=== PATIENT | female | born 1935 | race Caucasian/White ===

== ENCOUNTER 2018-07-24 01:10 | Inpatient (IN) ==
[2018-07-24] MEDS ORDERED: MIDAZOLAM HCL 1 MG/ML 2ML VIAL ONE (01:14)
[2018-07-24] MEDS ORDERED: MIDAZOLAM HCL 5 MG/ML 1 ML VIAL IV STA (01:35)
[2018-07-24 02:01] LABS: Basophils # (auto) 0.01 K/uL (0-0.2); Basophils % (auto) 0.1 %; Eosinophils # (auto) 0.01 K/uL (0-0.5); Eosinophils % (auto) 0.1 %; Hemoglobin 12.7 g/dL (12.0-16.0); Immature Granulocytes # (auto) 0.03 K/uL (0.00-0.02); Immature Granulocytes % (auto) 0.2 %; Lymphocytes # (auto) 1.21 K/uL (1.2-3.4); Mean Corpuscular Hgb Conc 32.6 g/dL (32-36); Mean Corpuscular Volume 93.3 fL (80-100); Mean Platelet Volume 10.1 fL (7.4-10.4); Monocytes # (auto) 0.66 K/uL (0.11-0.59); Monocytes % (auto) 5.5 %; Neutrophils # (auto) 10.18 K/uL (1.4-6.5); Neutrophils % (auto) 84.1 %; Platelet Count 186 K/uL (130-400); RDW Coefficient of Variation 14.4 % (11.5-14.5); RDW Standard Deviation 49.1 fL (36.4-46.3); Red Blood Count 4.18 M/uL (4.2-5.4)
[2018-07-24 02:09] LABS: Albumin Level 3.7 gm/dl (3.4-5.0); BUN Creatinine Ratio 15.2 (10-20); Calcium 8.8 mg/dl (8.5-10.1); Creatinine Clr Calc Pharmacy 28.5 ml/min; Est GFR (African American) 31.1; Est GFR (Non-African American) 26.8; Potassium 4.2 mmol/L (3.5-5.1)
[2018-07-24 02:18] LABS: INR 1.4 (0.9-1.1); Partial Thromboplastin Ratio 1.2; Partial Thromboplastin Time 31.3 Seconds (21.0-31.0)
[2018-07-24] MEDS ORDERED: SODIUM CHLORIDE 0.9% 1000ML 500 ML IV ONE (02:20)
[2018-07-24 02:31] LABS: Albumin Globulin Ratio 0.9 (0.9-2); Bilirubin,Total 0.7 mg/dl (0.2-1); Globulin 4.3 gm/dl (2.5-4.0); Troponin I 0.088 ng/ml (0-0.045)
[2018-07-24] MEDS ORDERED: AMIODARONE / D5W 360 MG/200 ML BAG IV SCH ×2 (04:01)
[2018-07-24] MEDS ORDERED: AMIODARONE / D5W 150 MG/100 ML BAG IV STA (04:01)
[2018-07-24] MEDS ORDERED: AMIODARONE IV BOLUS / DRIP IV STA (04:01)
[2018-07-24] MEDS ORDERED: SODIUM CHLORIDE 0.9% 1000ML 1,000 ML IV SCH (04:01)
--- NOTE | 2018-07-24 04:32 | History & Physical Report ---
Addendum entered and electronically signed by Abiel Fontenot MD 07/24/18 04:38 : Addendum (Blank) Addendum July 24, 2018 To clarify, patient was noted to be in afib via EMS. She was in V tach in the ED, thus cardioverted. She is presently in NSR with some occasional PVCs and bigeminy post-cardioversion. JDH, PGY2 Original Note: Date of Service July 24, 2018 Assessment & Plan (1) Ventricular tachycardia: 82-year-old female was admitted on 24 July 2018 for V. tach, NSTEMI, and rectal bleeding. Ventricular tachycardia and NSTEMI: Per ED reports, patient was additionally in A. fib with RVR, rate 160. Some transient hypotension so received IVF in route. She was given Versed and cardioverted. Admit K 4.2. Initial TnI 0.088. BNP 3840. pCXR notable for cardiomegaly and pulmonary vascular congestion (official read pending). - Will start on amiodarone. - Admit to ICU for cardiac monitoring. - Consulted wire tinner and editor newspaper. Rectal bleeding: Patient is s/p colonoscopy 1:45 on afternoon of for rectal bleeding and hemorrhoids via Dr. Neumann. 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 Pathology sent. Was recommended to be off of Coumadin for 1 week. - We will place inpatient GI consult as well, particularly for anticoagulation recommendations. Elevated creatinine: Admit Cr 1.74. BUN 26. See recent renal ultrasound report. Per son, patient recently had her home Lasix dose increased. Some current elevation likely due to n.p.o. from colonoscopy. Ongoing medical history: - A. fib: At home is on metoprolol and warfarin. --- Holding Coumadin following above colonoscopy. - Hypertension: At home is on metoprolol, lisinopril, and lasix. --- Will hold Lisinopril and Lasix given elevated Cr. May still need diuresis given extremity edema. - Hyperlipidemia: At home is on simvastatin. --- Held acutely due to interaction with amiodarone. May need statin dose adjustment. - Depression: At home is on buspirone, lorazepam, and fluoxetine. Continue here. - Diabetes type 2: At home is on insulin. Will order glycemic consult. - Hypothyroidism: At home is on levothyroxine. Continue here. - Insomnia: At home is on trazodone and melatonin. --- Held both since going to ICU. - GERD: At home is on Prilosec and Tums. Continue here. 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 - Bilateral lower extremity edema: Unclear at this time if patient has CHF. Code status: Full code. Diet: Regular diet starting the morning DVT prophy: SCD�s. Holding medication anticoagulation status post colonoscopy as above. PT/OT: Ordered. By report, walks with a cane at home. Disbo: Critically ill. Admit to ICU. (2) Non-ST elevation [place] (NSTEMI): (3) Rectal bleeding: (4) Elevated serum creatinine: (5) Atrial fibrillation: (6) Hypertension: (7) Hyperlipidemia: (8) Depression: (9) Diabetes: (10) Hypothyroidism: (11) Insomnia: (12) GERD (gastroesophageal reflux disease): (13) CVA (cerebral vascular accident): (14) Bilateral lower extremity edema: History of Present Illness Primary Care Provider: Delon Carrillo 82-year-old female was brought in via EMS for concerns for an arrhythmia. Of note, at the time of this H&P the patient was status post cardioversion and still remains somewhat sedated. The following is based on the medical record and the patient's son at bedside. Patient underwent colonoscopy yesterday () around 1:45 PM for evaluation for rectal bleeding. She went home and later that evening said she was not feeling well to include nausea, vomiting, respiratory difficulty. EMS noted patient was in A. fib with RVR with some hypotension to SBP 90�s. On arrival patient went into V. tach. She was cardioverted by the emergency department. On bedside discussion with the patient's son, patient was quite lucid earlier in the evening to include arguing against going to the hospital initially. She is not complaining of chest symptoms prior to her more acute onset of symptoms as above. - As some background, patient underwent a recent renal ultrasound for further evaluation of reported mild elevation in her creatinine. Her son says that she recently had been increased from Lasix 3 times a week up to daily by her primary care provider. - Patient has a history of bilateral lower extremity edema. It is unclear if she has a history of CHF. She follows with Dr. Cherry of cardiology as an outpatient. 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 Per son, she has some movement of her arm but has no dexterity and she can walk with a cane. - Patient has a known history of A. fib and normally is on metoprolol and warfarin. However, she has been off warfarin for the past 3 days in preparation for colonoscopy. Past medical history includes stroke, A. fib, hypertension, hyperlipidemia, depression, type 2 diabetes, hypothyroidism, GERD, bilateral lower extremity edema. Past surgical history includes heart valve replacement in 1998, cataracts, upper teeth extraction. Social history includes non-smoker, does not drink alcohol, and lives at home with 24-hour care. Allergies Allergy/AdvReac Type Severity Reaction Status Date / Time No Known Allergies Allergy Unknown Verified 07/24/18 01:43 Home Medications Home Medications Medication Instructions Recorded Confirmed Type Bifidobacterium infantis [Align] 1 cap PO QPM 06/26/18 07/24/18 History acetaminophen [Acetaminophen Extra 1,000 mg PO HS 06/26/18 07/24/18 History Strength] buspirone 2.5 mg PO BID 06/26/18 07/24/18 History calcium carbonate [Tums] 300 mg PO HS 06/26/18 07/24/18 History cholecalciferol (vitamin D3) 2,000 unit PO QAM 06/26/18 07/24/18 History [Vitamin D3] coenzyme Q10 [CoQ-10] 100 mg PO QPM 06/26/18 07/24/18 History docusate sodium 100 mg PO QAM 06/26/18 07/24/18 History ferrous sulfate, dried [Slow 160 mg PO QAM 06/26/18 07/24/18 History Release Iron] fluoxetine 40 mg PO QAM 06/26/18 07/24/18 History furosemide [Lasix] 20 mg PO QAM 06/26/18 07/24/18 History insulin glargine [Lantus Solostar 50 unit SUBCUT QPM 06/26/18 07/24/18 History U-100 Insulin] insulin lispro [Humalog KwikPen 1 dose SUBCUT QPM 06/26/18 07/24/18 History Insulin] levothyroxine 25 mcg PO QPM 06/26/18 07/24/18 History lisinopril 20 mg PO QPM 06/26/18 07/24/18 History loratadine 10 mg PO HS 06/26/18 07/24/18 History lorazepam 0.5 mg PO HS 06/26/18 07/24/18 History melatonin 5 mg PO HS 06/26/18 07/24/18 History metoprolol succinate 25 mg PO QAM 06/26/18 07/24/18 History omeprazole magnesium [Prilosec OTC] 20 mg PO QAM 06/26/18 07/24/18 History simvastatin 40 mg PO PM 06/26/18 07/24/18 History trazodone 25 mg PO HS 06/26/18 07/24/18 History turmeric 1 cap PO QPM 06/26/18 07/24/18 History warfarin 2.5 mg PO 4XWK 06/26/18 07/24/18 History warfarin 5 mg PO 3XWK 06/26/18 07/24/18 History Past Med/Surg History Social History Current Living Situation: Other Current Living Situation Comment: Pt lives alone with 24 hr caregivers Other Information That Helps Us Care for You: No Feels Safe at Home: Yes Safety Concerns: Feels Safe At This Time Smoking Status: Never smoker Do You Dip or Chew Tobacco: No Hx Alcohol Use: No Hx Substance Use: No Beliefs That Will Affect Care: None Communication Ability: Effective Review of Systems Unable to obtain review of systems due to patient's postprocedural sedation. Physical Exam 2 Vital Signs (Past 24 Hours): Last Vital Signs Temp 36.5 C 07/24/18 01:10 Pulse 68 07/24/18 04:11 Resp 21 07/24/18 02:00 BP 129/85 07/24/18 04:11 Pulse Ox 96 07/24/18 04:11 Physical Exam: GENERAL: Patient is presently resting comfortably. She does briefly open her eyes on palpation of her abdomen but then quickly goes back to sleep. HENT: Normocephalic, atraumatic. EYES: Normal conjunctiva. Sclera non-icteric. NECK: Inspection normal. CARDIAC: +S1S2 RRR, no murmurs. RESPIRATORY: Clear to auscultation. No wheezes or rales. Normal respiratory effort. GI: +BS, soft, non-distended. No guarding. EXTREMITIES: 2-3+ bilateral leg edema distally. NEURO: Unable to acutely assess. See HPI. Lines: PIV. Results & Data Laboratory Results 07/24/18 07/24/18 07/24/18 Range/Units 01:20 01:20 01:20 WBC 12.10 H (4.8-10.8) K/uL RBC 4.18 L (4.2-5.4) M/uL Hgb 12.7 (12.0-16.0) g/dL Hct 39.0 (37-47) % MCV 93.3 (80-100) fL MCH 30.4 (25-34) pg MCHC 32.6 (32-36) g/dL RDW Std Deviation 49.1 H (36.4-46.3) fL RDW Coeff of Venita 14.4 (11.5-14.5) % Plt Count 186 (130-400) K/uL MPV 10.1 (7.4-10.4) fL Immature Gran % (Auto) 0.2 % Neut % (Auto) 84.1 % Lymph % (Auto) 10.0 % [place] % (Auto) 5.5 % Eos % (Auto) 0.1 % Baso % (Auto) 0.1 % Immature Gran # (Auto) 0.03 H (0.00-0.02) K/uL Neut # (Auto) 10.18 H (1.4-6.5) K/uL Lymph # (Auto) 1.21 (1.2-3.4) K/uL [place] # (Auto) 0.66 H (0.11-0.59) K/uL Eos # (Auto) 0.01 (0-0.5) K/uL Baso # (Auto) 0.01 (0-0.2) K/uL PT 14.0 H (9.0-12.0) Seconds INR 1.4 H (0.9-1.1) APTT 31.3 H (21.0-31.0) Seconds PTT Ratio 1.2 Sodium 137 (136-145) mmol/L Potassium 4.2 (3.5-5.1) mmol/L Chloride 105 (98-107) mmol/L Carbon Dioxide 24 (21-32) mmol/L Anion Gap 8.0 (3-11) BUN 26 H (7-18) mg/dl Creatinine 1.74 H (0.6-1.2) mg/dl Est Cr Clr Drug Dosing 28.5 ml/min Est GFR ( Amer) 31.1 Est GFR (Non-Af Amer) 26.8 BUN/Creatinine Ratio 15.2 (10-20) Glucose 289 H (70-99) mg/dl Calcium 8.8 (8.5-10.1) mg/dl Total Bilirubin 0.7 (0.2-1) mg/dl AST 33 (15-37) U/L ALT 32 (12-78) U/L Alkaline Phosphatase 81 (45-117) U/L Troponin I 0.088 H* (0-0.045) ng/ml NT-Pro-B Natriuret Pep 3840 H (0-1800) pg/ml Total Protein 8.0 (6.4-8.2) gm/dl Albumin 3.7 (3.4-5.0) gm/dl Globulin 4.3 H (2.5-4.0) gm/dl Albumin/Globulin Ratio 0.9 (0.9-2) Code Status & VTE Plan Code Status Full code VTE Prophylaxis Plan VTE Prophylaxis will be ordered: Yes Supervising Physician Co-Signing Physician Notes Attending addendum: I have physically seen this patient, have supervised the medical residents activities, and agree with the H&P unless as otherwise noted. Assessment and Plan: Ventricular tachycardia status post cardioversion in the ED/and STEMI-- The patient will be admitted to the ICU for serial cardiac enzymes, serial EKG' s, cardiac rhythm monitoring and a 2-D echocardiogram with Dopplers. We will start amiodarone drip per protocol post cardioversion. Optimize electrolytes. Hold warfarin post colonoscopy due to risk of bleeding. Continue metoprolol. Hold lisinopril and furosemide due to acute kidney injury. Follow serial laboratories. Consult wire tinner Dr. Hernandez. Consult cardiology Dr. Cherry/Salvatore/Silvia. Remainder of orders and notations as noted.
[2018-07-24] MEDS ORDERED: ICU PROTOCOL FOR HYPERGLYCEMIA PRN (05:07)
[2018-07-24] MEDS ORDERED: GLUCOSE 10 TABS/TUBE PO PRN (05:31)
[2018-07-24] MEDS ORDERED: DEXTROSE 50% 50 ML SYRINGE IV PRN (05:31)
[2018-07-24] MEDS ORDERED: GLUCOSE 40% GEL 15 GM TUBE PO PRN (05:31)
[2018-07-24] MEDS ORDERED: GLUCAGON FOR INJ 1 MG VIAL SQ PRN (05:31)
[2018-07-24] MEDS ORDERED: CARBOHYDRATES FOR HYPOGLYCEMIA PO PRN (05:31)
[2018-07-24] MEDS ORDERED: ACETAMINOPHEN 500 MG TAB ONE (06:18)
[2018-07-24] MEDS: ACETAMINOPHEN 500 MG TAB PO SCH ×2 (06:18→21:19)
[2018-07-24] MEDS ORDERED: PHARMACY GLYCEMIC MGMT CONSULT PRN (06:25)
--- NOTE | 2018-07-24 06:26 | Emergency Department Note ---
Entered by Philippe Jarrell acting as a scribe for Tiffany Alvarez DO History of Present Illness General Chief complaint: Cardiac Assessment Source: patient and EMS History of Present Illness Onset (ago): day(s) 1 Location: chest Pain Consistency: + other (an episode) Quality: + other (irregular heart rhythm) Associated symptoms: + other (Positive for nausea, vomiting, and SOB. Negative for CP.) The patient is an 82 year old female who presents to the emergency room with complaints of an episode of an irregular heart beat occurring today. Per EMS, the patient had a colonoscopy done today at 1300. He states that the patient was not feeling well after that at dinner. He notes that EMS was called for nausea but he reports that the patient felt better after vomiting once. He reports that the patient had normal vitals and refused transport to the ED at that time. He states that EMS was called back tonight because the patient was having respiratory difficulty, nausea, and vomited once again tonight. He notes that the patient was found to be in afib with RVR and had a heart rate of 160 when EMS arrived again tonight. He reports that the patient had one episode where her blood pressure dropped to the 90s. He states that the patient�s next blood pressure was normal. He notes that the patient received a fluid bolus en route to the ED. The patient denies any CP and current SOB. She reports that she stopped her Coumadin three days ago in preparation for her colonoscopy. She states that she does not have a previous history of bundle branch blocks, but she notes that she has a history of Afib, diabetes, and a previous stroke. She reports that she has not needed to be cardioverted before. She states that her son gave her metroprolol around 2200. She notes that she last ate at 1600. Home Medications Home Medications Medication Instructions Recorded Confirmed Type Bifidobacterium infantis [Align] 1 cap PO QPM 06/26/18 07/24/18 History acetaminophen [Acetaminophen Extra 1,000 mg PO HS 06/26/18 07/24/18 History Strength] buspirone 2.5 mg PO BID 06/26/18 07/24/18 History calcium carbonate [Tums] 300 mg PO HS 06/26/18 07/24/18 History cholecalciferol (vitamin D3) 2,000 unit PO QAM 06/26/18 07/24/18 History [Vitamin D3] coenzyme Q10 [CoQ-10] 100 mg PO QPM 06/26/18 07/24/18 History docusate sodium 100 mg PO QAM 06/26/18 07/24/18 History ferrous sulfate, dried [Slow 160 mg PO QAM 06/26/18 07/24/18 History Release Iron] fluoxetine 40 mg PO QAM 06/26/18 07/24/18 History furosemide [Lasix] 20 mg PO QAM 06/26/18 07/24/18 History insulin glargine [Lantus Solostar 50 unit SUBCUT QPM 06/26/18 07/24/18 History U-100 Insulin] insulin lispro [Humalog KwikPen 1 dose SUBCUT QPM 06/26/18 07/24/18 History Insulin] levothyroxine 25 mcg PO QPM 06/26/18 07/24/18 History lisinopril 20 mg PO QPM 06/26/18 07/24/18 History loratadine 10 mg PO HS 06/26/18 07/24/18 History lorazepam 0.5 mg PO HS 06/26/18 07/24/18 History melatonin 5 mg PO HS 06/26/18 07/24/18 History metoprolol succinate 25 mg PO QAM 06/26/18 07/24/18 History omeprazole magnesium [Prilosec OTC] 20 mg PO QAM 06/26/18 07/24/18 History simvastatin 40 mg PO PM 06/26/18 07/24/18 History trazodone 25 mg PO HS 06/26/18 07/24/18 History turmeric 1 cap PO QPM 06/26/18 07/24/18 History warfarin 2.5 mg PO 4XWK 06/26/18 07/24/18 History warfarin 5 mg PO 3XWK 06/26/18 07/24/18 History Allergies Allergy/AdvReac Type Severity Reaction Status Date / Time No Known Allergies Allergy Unknown Verified 07/24/18 01:43 Past Med/Surg History Social History Current Living Situation: Other Current Living Situation Comment: Pt lives alone with 24 hr caregivers Other Information That Helps Us Care for You: No Feels Safe at Home: Yes Safety Concerns: Feels Safe At This Time Smoking Status: Never smoker Do You Dip or Chew Tobacco: No Hx Alcohol Use: No Hx Substance Use: No Beliefs That Will Affect Care: None Communication Ability: Effective Pipe Straightener Required: Yes Review of Systems See HPI for pertinent positives & negatives. and A total of 10 systems reviewed and were otherwise negative Physical Exam Vital Signs Vital Signs - 24 hr 07/24/18 01:10 07/24/18 01:15 07/24/18 01:20 Temperature 36.5 C Temperature Source Oral Sepsis Recent Fever Within 48 Hours No Sepsis New/Unexplained Change in Mental Status No Sepsis Action Taken by Nursing No Action Required Pulse Rate 174 H 168 H 165 H Pulse Rate [Apical] Respiratory Rate 24 Respiratory Effort / Characteristics Non-Labored Spontaneous Respiratory Depth Normal Respiratory Pattern Blood Pressure 107/78 Blood Pressure [Left Arm] Blood Pressure [Right Arm] Blood Pressure Mean 87 Blood Pressure Mean [Left Arm] Blood Pressure Mean [Right Arm] Blood Pressure Position [Right Arm] Pulse Oximetry 96 97 94 Oxygen Delivery Method Room Air Nasal Cannula Nasal Cannula Oxygen Flow Rate 4 07/24/18 01:21 07/24/18 01:25 07/24/18 01:41 Temperature Temperature Source Sepsis Recent Fever Within 48 Hours Sepsis New/Unexplained Change in Mental Status Sepsis Action Taken by Nursing Pulse Rate 167 H 72 66 Pulse Rate [Apical] Respiratory Rate Respiratory Effort / Characteristics Respiratory Depth Respiratory Pattern Blood Pressure 100/76 121/71 111/86 Blood Pressure [Left Arm] Blood Pressure [Right Arm] Blood Pressure Mean 84 87 94 Blood Pressure Mean [Left Arm] Blood Pressure Mean [Right Arm] Blood Pressure Position [Right Arm] Pulse Oximetry 95 96 100 Oxygen Delivery Method Nasal Cannula Nasal Cannula Nasal Cannula Oxygen Flow Rate 07/24/18 02:00 07/24/18 02:11 07/24/18 02:21 Temperature Temperature Source Sepsis Recent Fever Within 48 Hours Sepsis New/Unexplained Change in Mental Status Sepsis Action Taken by Nursing Pulse Rate 69 63 Pulse Rate [Apical] 72 Respiratory Rate 21 Respiratory Effort / Characteristics Non-Labored Spontaneous Respiratory Depth Normal Respiratory Pattern Blood Pressure 97/50 L 98/54 L Blood Pressure [Left Arm] 107/60 Blood Pressure [Right Arm] Blood Pressure Mean 65 68 Blood Pressure Mean [Left Arm] 75 Blood Pressure Mean [Right Arm] Blood Pressure Position [Right Arm] Pulse Oximetry 98 98 98 Oxygen Delivery Method Nasal Cannula Nasal Cannula Nasal Cannula Oxygen Flow Rate 4 07/24/18 02:30 07/24/18 02:31 07/24/18 02:40 Temperature Temperature Source Sepsis Recent Fever Within 48 Hours Sepsis New/Unexplained Change in Mental Status Sepsis Action Taken by Nursing Pulse Rate 72 65 63 Pulse Rate [Apical] Respiratory Rate Respiratory Effort / Characteristics Respiratory Depth Respiratory Pattern Blood Pressure 100/55 L 100/55 L 99/54 L Blood Pressure [Left Arm] Blood Pressure [Right Arm] Blood Pressure Mean 70 70 69 Blood Pressure Mean [Left Arm] Blood Pressure Mean [Right Arm] Blood Pressure Position [Right Arm] Pulse Oximetry 98 98 97 Oxygen Delivery Method Nasal Cannula Nasal Cannula Oxygen Flow Rate 07/24/18 02:51 07/24/18 03:01 07/24/18 03:12 Temperature Temperature Source Sepsis Recent Fever Within 48 Hours Sepsis New/Unexplained Change in Mental Status Sepsis Action Taken by Nursing Pulse Rate 63 64 64 Pulse Rate [Apical] Respiratory Rate Respiratory Effort / Characteristics Respiratory Depth Respiratory Pattern Blood Pressure 99/62 L 129/77 129/86 Blood Pressure [Left Arm] Blood Pressure [Right Arm] Blood Pressure Mean 74 94 100 Blood Pressure Mean [Left Arm] Blood Pressure Mean [Right Arm] Blood Pressure Position [Right Arm] Pulse Oximetry 97 96 99 Oxygen Delivery Method Nasal Cannula Nasal Cannula Oxygen Flow Rate 07/24/18 03:22 07/24/18 03:31 07/24/18 03:41 Temperature Temperature Source Sepsis Recent Fever Within 48 Hours Sepsis New/Unexplained Change in Mental Status Sepsis Action Taken by Nursing Pulse Rate 63 66 66 Pulse Rate [Apical] Respiratory Rate Respiratory Effort / Characteristics Respiratory Depth Respiratory Pattern Blood Pressure 119/77 119/75 121/74 Blood Pressure [Left Arm] Blood Pressure [Right Arm] Blood Pressure Mean 91 89 89 Blood Pressure Mean [Left Arm] Blood Pressure Mean [Right Arm] Blood Pressure Position [Right Arm] Pulse Oximetry 97 98 97 Oxygen Delivery Method Oxygen Flow Rate 07/24/18 03:51 07/24/18 04:02 07/24/18 04:09 Temperature Temperature Source Sepsis Recent Fever Within 48 Hours Sepsis New/Unexplained Change in Mental Status Sepsis Action Taken by Nursing Pulse Rate 61 66 68 Pulse Rate [Apical] Respiratory Rate Respiratory Effort / Characteristics Respiratory Depth Respiratory Pattern Blood Pressure 119/71 136/69 131/85 Blood Pressure [Left Arm] Blood Pressure [Right Arm] Blood Pressure Mean 87 91 100 Blood Pressure Mean [Left Arm] Blood Pressure Mean [Right Arm] Blood Pressure Position [Right Arm] Pulse Oximetry 97 98 97 Oxygen Delivery Method Oxygen Flow Rate 07/24/18 04:11 07/24/18 05:00 Temperature 36.3 C L Temperature Source Oral Sepsis Recent Fever Within 48 Hours Sepsis New/Unexplained Change in Mental Status Sepsis Action Taken by Nursing Pulse Rate 68 59 L Pulse Rate [Apical] 62 Respiratory Rate 20 Respiratory Effort / Characteristics Non-Labored Respiratory Depth Normal Respiratory Pattern Regular Blood Pressure 129/85 Blood Pressure [Left Arm] Blood Pressure [Right Arm] 133/77 Blood Pressure Mean 99 Blood Pressure Mean [Left Arm] Blood Pressure Mean [Right Arm] 95 Blood Pressure Position [Right Arm] Lying Pulse Oximetry 96 96 Oxygen Delivery Method Nasal Cannula Oxygen Flow Rate 4 HEENT: Head - normocephalic and atraumatic Pupils are equal, round, and reactive to light. Extraocular eye muscles are intact, and sclera are anicteric. Nose - moist nasal mucosa without discharge. Mouth - moist buccal mucosa. Oropharynx is nonerythematous and there is no tonsillar exudate or edema noted. Neck: Supple; no JVD, nuchal rigidity, cervical lymphadenopathy. Heart: Regular rhythm and tachycardic. There is a normal S1 and S2 with no murmurs, clicks, or gallops appreciated. Lungs: Clear to auscultation bilaterally with no wheezes or rhonchi. Minimal rales at both bases bilaterally. Abdomen: Soft, completely nontender, nondistended, with good bowel sounds. There are no palpable pulsatile masses or hepatosplenomegaly. There is no guarding, rigidity, or rebound noted. Extremities: No evidence of cyanosis and clubbing. There are easily palpable peripheral pulses. Trace pedal edema. Skin: warm and dry with good turgor and no rashes. Pale. Course 0111: The patient was evaluated in room A1. A complete history and physical examination were performed. Nursing notes and previous electronic medical records were reviewed. A second IV lock was established and labs were drawn as above. A 12-lead EKG was obtained. The patient was connected to the code cart monitor. 0114: Versed 2mg IV 0123: The patient had synchronized cardioversion at 100 J. This returned her rhythm to a controlled rate in the 60s. A chest x-ray was obtained as described above. A repeat twelve-lead EKG was obtained. 0152: I reevaluated and updated the patient. She feels much better. Her heart rate is 64. 0220: Nss 1000ml 500 mls @ 999 mls/hr IV 0221: I rechecked the patient. She is asleep and her vitals are stable. 0247: I spoke to the resident electronic data interchange specialist for Dr. Ross - Dr. Fontenot. 0251: I reevaluated and updated the patient. 0300: Upon reevaluation, the patient is stable. I discussed the results and treatment plan with the patient. She verbalizes understanding and agreement. I discussed the patient's case with Dr. Ross - ZACK Vora. The patient will be evaluated for further management and care. 0347: The patient is being taken to the ICU. Consultations Consultation #1: I reviewed the patient's case with Dr. Garrido - ZACK Vora. He will evaluate the patient for further management. Time: 03:00 Administered Medications Amiodarone HCl/Dextrose (Nexterone / D5w) 360 mg in 200 mls @ 33.333 mls/hr IV .Q6H OSWALD Stop: 07/24/18 10:00 Last Admin: 07/24/18 04:28 Dose: 1 mg/min, 33.3 mls/hr Sodium Chloride (Nss 1000ml) 1,000 mls @ 75 mls/hr IV .[id number] OSWALD Stop: 08/23/18 04:00 Last Admin: 07/24/18 04:14 Dose: 75 mls/hr Discontinued Medications Sodium Chloride (Nss 1000ml) 500 mls @ 999 mls/hr IV .Q31M ONE Stop: 07/24/18 02:50 Last Infusion: 07/24/18 02:00 Dose: 0 mls/hr Admin: 07/24/18 01:20 Dose: 999 mls/hr Amiodarone HCl/Dextrose (Nexterone / D5w) 150 mg in 100 mls @ 600 mls/hr IV ONE STA Stop: 07/24/18 04:10 Last Admin: 07/24/18 04:06 Dose: 600 mls/hr Midazolam HCl (Versed) Confirm Administered Dose 2 mg .ROUTE .STK-MED ONE Stop: 07/24/18 01:15 Last Admin: 07/24/18 01:25 Dose: 2 mg Midazolam HCl (Versed) 2 mg IV NOW STA Stop: 07/24/18 01:36 Last Admin: 07/24/18 01:51 Dose: Not Given Medical Decision Making Differential Diagnosis The patient is an 82 year old female who presents to the emergency room with complaints of an episode of an irregular heart beat occurring today. Differential diagnoses include: electrolyte abnormalities, dehydration, cardiac dysrhythmia, STEMI, and medication side effects. Medical Records Attestation: I reviewed the patient's medical records. Home Medications Current Medication List: was personally reviewed by me Laboratory Data Attestation: I reviewed the patient's lab results. Result diagrams: 07/24/18 01:20 07/24/18 01:20 Lab Results 07/24/18 07/24/18 07/24/18 Range/Units 01:20 01:20 01:20 WBC 12.10 H (4.8-10.8) K/uL RBC 4.18 L (4.2-5.4) M/uL Hgb 12.7 (12.0-16.0) g/dL Hct 39.0 (37-47) % MCV 93.3 (80-100) fL MCH 30.4 (25-34) pg MCHC 32.6 (32-36) g/dL RDW Std Deviation 49.1 H (36.4-46.3) fL RDW Coeff of Venita 14.4 (11.5-14.5) % Plt Count 186 (130-400) K/uL MPV 10.1 (7.4-10.4) fL Immature Gran % (Auto) 0.2 % Neut % (Auto) 84.1 % Lymph % (Auto) 10.0 % [place] % (Auto) 5.5 % Eos % (Auto) 0.1 % Baso % (Auto) 0.1 % Immature Gran # (Auto) 0.03 H (0.00-0.02) K/uL Neut # (Auto) 10.18 H (1.4-6.5) K/uL Lymph # (Auto) 1.21 (1.2-3.4) K/uL [place] # (Auto) 0.66 H (0.11-0.59) K/uL Eos # (Auto) 0.01 (0-0.5) K/uL Baso # (Auto) 0.01 (0-0.2) K/uL PT 14.0 H (9.0-12.0) Seconds INR 1.4 H (0.9-1.1) APTT 31.3 H (21.0-31.0) Seconds PTT Ratio 1.2 Sodium 137 (136-145) mmol/L Potassium 4.2 (3.5-5.1) mmol/L Chloride 105 (98-107) mmol/L Carbon Dioxide 24 (21-32) mmol/L Anion Gap 8.0 (3-11) BUN 26 H (7-18) mg/dl Creatinine 1.74 H (0.6-1.2) mg/dl Est Cr Clr Drug Dosing 28.5 ml/min Est GFR ( Amer) 31.1 Est GFR (Non-Af Amer) 26.8 BUN/Creatinine Ratio 15.2 (10-20) Glucose 289 H (70-99) mg/dl POC Glucose (70-99) Calcium 8.8 (8.5-10.1) mg/dl Total Bilirubin 0.7 (0.2-1) mg/dl AST 33 (15-37) U/L ALT 32 (12-78) U/L Alkaline Phosphatase 81 (45-117) U/L Troponin I 0.088 H* (0-0.045) ng/ml NT-Pro-B Natriuret Pep 3840 H (0-1800) pg/ml Total Protein 8.0 (6.4-8.2) gm/dl Albumin 3.7 (3.4-5.0) gm/dl Globulin 4.3 H (2.5-4.0) gm/dl Albumin/Globulin Ratio 0.9 (0.9-2) 07/24/18 Range/Units 06:08 WBC (4.8-10.8) K/uL RBC (4.2-5.4) M/uL Hgb (12.0-16.0) g/dL Hct (37-47) % MCV (80-100) fL MCH (25-34) pg MCHC (32-36) g/dL RDW Std Deviation (36.4-46.3) fL RDW Coeff of Venita (11.5-14.5) % Plt Count (130-400) K/uL MPV (7.4-10.4) fL Immature Gran % (Auto) % Neut % (Auto) % Lymph % (Auto) % [place] % (Auto) % Eos % (Auto) % Baso % (Auto) % Immature Gran # (Auto) (0.00-0.02) K/uL Neut # (Auto) (1.4-6.5) K/uL Lymph # (Auto) (1.2-3.4) K/uL [place] # (Auto) (0.11-0.59) K/uL Eos # (Auto) (0-0.5) K/uL Baso # (Auto) (0-0.2) K/uL PT (9.0-12.0) Seconds INR (0.9-1.1) APTT (21.0-31.0) Seconds PTT Ratio Sodium (136-145) mmol/L Potassium (3.5-5.1) mmol/L Chloride (98-107) mmol/L Carbon Dioxide (21-32) mmol/L Anion Gap (3-11) BUN (7-18) mg/dl Creatinine (0.6-1.2) mg/dl Est Cr Clr Drug Dosing ml/min Est GFR ( Amer) Est GFR (Non-Af Amer) BUN/Creatinine Ratio (10-20) Glucose (70-99) mg/dl POC Glucose 276 H (70-99) Calcium (8.5-10.1) mg/dl Total Bilirubin (0.2-1) mg/dl AST (15-37) U/L ALT (12-78) U/L Alkaline Phosphatase (45-117) U/L Troponin I (0-0.045) ng/ml NT-Pro-B Natriuret Pep (0-1800) pg/ml Total Protein (6.4-8.2) gm/dl Albumin (3.4-5.0) gm/dl Globulin (2.5-4.0) gm/dl Albumin/Globulin Ratio (0.9-2) Imaging Data Attestation: I personally reviewed and interpreted this imaging study as follows : My Impression: CHEST X-RAY: Massive cardiomegaly. Mild-moderate pulmonary vascular congestion. Sternotomy wires in place. ECG Data Attestation: I personally reviewed and interpreted this ECG as follows: Indication: nausea Rate (beats per minute): 175 Rhythm: other (Wide complex tachycardia.) Additional Comments: Concerning for V tach, concerning for ischemia. Repeat EKG after cardioversion: Afib, 72, ST segment depression in lead 1 and AVL. Blood Pressure Blood Pressure Findings: Normal blood pressure Blood Pressure Disposition: did not require urgent referral MDM Narrative The patient is an 82 year old female who presents to the emergency room with complaints of an episode of an irregular heart beat occurring today. The patient has a history of A. fib. She underwent colonoscopy today. EMS was initially called because the patient had a syncopal event with complete resolution of her symptoms. She declined transport at that time. They were called back to the home for increasing shortness of breath. EMS obtained an EKG which showed a wide-complex tachycardia and the patient had borderline hypotension. Upon arrival here in the emergency department, the patient's systolic blood pressure was 100. Her heart rate was between 150-170. Twelve- lead EKG showed a wide complex tachycardia which was concerning for ventricular tachycardia. The patient has no previous history of a left bundle branch block. Synchronized cardioversion was performed after the patient was sedated with 2 mg of IV Versed. This slowed her rate down to the 60s and she had a stable blood pressure. The patient remained hemodynamically stable while here in the emergency department. She was treated with IV normal saline solution. The patient had no further episodes of ventricular tachycardia after the initial cardioversion. She did have an elevated troponin consistent with an NSTEMI. I discussed the case with the [facility] Hospitalist and they will evaluate for further management. Impression & Plan Ventricular tachycardia, Non-ST elevation [place] (NSTEMI), Hyperglycemia Critical Care Time I have personally spent greater than 60 minutes of critical care time in the direct management of this patient. This includes bedside care, interpretation of diagnostic studies, and testing, discussion with consultants, patient, and family members, and other required patient management activities. This 60 minutes is in excess of all separately billable procedures. Critical Care Time: Yes Total Critical Care Time: 60 Discharge Plan Visit Data *Final* Discharge Date/Time: 07/24/18 04:29 Chief Complaint: Cardiac Assessment ED Provider: Tiffany Alvarez Discharge Problem: Ventricular tachycardia, Non-ST elevation NH (NSTEMI), Hyperglycemia Patient Disposition: Admitted As Inpatient Discharge Instructions Interventions: ED Discharge Assessment Last Done: 07/24/18 04:29 The scribe's documentation has been prepared under my direction and personally reviewed by me in its entirety. I confirm that the note above accurately reflects all work, treatment, procedures, and medical decision making performed by me.
--- NOTE | 2018-07-24 07:22 | XRay Report ---
XR chest 1V portable HISTORY: Dyspnea COMPARISON: Chest 05/21/2018. FINDINGS: No pneumothorax. The heart remains enlarged. There are post anatomy changes. Perihilar inte rstitial and vascular thickening is again noted. This is consistent with mild pulmonary edema. There may be trace bilateral pleural effusions. IMPRESSION: No change in the cardiomegaly and mild interstitial pulmonary edema. Electronically signed by: Romaine Tripathi M.D. 07/24/2018 7:20 AM
[2018-07-24] MEDS ORDERED: INSULIN ASPART 100 UNITS/ML 3 ML PEN SC SCH ×2 (07:30→13:00)
[2018-07-24] MEDS: FERROUS SULFATE 325 MG TAB PO SCH (08:06)
[2018-07-24] MEDS: FLUOXETINE HCL 20 MG CAP PO SCH (08:06)
[2018-07-24] MEDS: METOPROLOL SUCC 25MG EXT REL TAB PO SCH (08:06)
[2018-07-24] MEDS: CHOLECALCIFEROL 1,000 UNITS TAB PO SCH (08:06)
[2018-07-24] MEDS: PANTOprazole 40 MG TAB PO SCH (08:06)
[2018-07-24] MEDS: DOCUSATE SODIUM 100 MG CAP PO SCH (08:06)
[2018-07-24] MEDS ORDERED: PROCHLORPERAZINE 5 MG in SYRINGE 4 ML IV PRN (09:04)
[2018-07-24] MEDS ORDERED: INSULIN GLARGINE SOLOSTAR 100 UNITS/ML 3 ML PEN SC ONE ×2 (09:15→21:00)
[2018-07-24] MEDS: AMIODARONE / D5W 360 MG/200 ML BAG IV SCH ×2 (10:00→22:46)
[2018-07-24] MEDS ORDERED: NovoLIN-R BOLUS FROM BAG IV STA (10:34)
[2018-07-24] MEDS ORDERED: INSULIN REGULAR 250 UNITS in SODIUM CHLORIDE 0.9% 247.5 ML IV SCH (10:35)
--- NOTE | 2018-07-24 10:45 | Cardiology Consultation ---
Date of Consultation July 24, 2018 Assessment & Plan (1) Wide-complex tachycardia: Mrs. Grider is an 82 year old female with a history of Valvular Heart Disease s/p MV Repair 1998, Moderate , Severe TR, Cardiomyopathy (LVEF 45% in 2010), Severe Biatrial Enlargement, Permanent Atrial Fibrillation, Type 2 DM , Hypertension, Dyslipidemia, and Large Left MCA Territory Infarct 2007 who underwent a Colonoscopy yesterday. She felt poorly afterwards -- she developed recurrent nausea, vomiting, and respiratory distress. She was in a fast, irregular rhythm with HR's into the 160's. Patient's son then witnessed her "throw herself backwards and going stiff" and thought she was having a seizure. Patient in A-Fib with RVR during transport and shortly after arrival developed a wide complex tachycardia consistent with V-tach requiring synchronized cardioversion and initiation of Amiodarone loading. -- Echocardiogram is pending. -- Continue loading Amiodarone IV. -- Continue Toprol XL 25 mg daily. -- Check serum Mg level. Serum K+ level is within normal limits. -- Consider EP Consultation if no identifiable cause for this (such as electrolyte disturbance). -- Elevated Troponin is likely secondary to electrical cardioversion vs myocardial O2 supply demand mismatch related to tachycardia. Present on Admission?: No (2) Valvular heart disease: Patient is s/p Mitral Valve Repair in 1998, with residual Moderate and Severe TR. -- Echocardiogram is pending to re-evaluate valvular disease, LVH, diastolic function, and LV systolic function. -- Monitor daily I&O's. Present on Admission?: Yes (3) Cardiomyopathy: Echo to re-evaluate LV systolic function -- if LVEF is 35% or less -- would qualify for an AICD. Resume Lisinopril 20 mg daily when renal function allows. Present on Admission?: Yes (4) Permanent atrial fibrillation: Continue "Rate Control / Anticoagulation" strategy. -- Continue Toprol XL 25 mg daily. -- Continue Amiodarone which will also help control rate. -- Resume Warfarin 5 mg every Monday, Monday, and Monday & 2.5 mg all other days -- when appropriate. -- In the meantime her INR is subtherapeutic at 1.4. -- Start Heparin 5000 units subcutaneously q 8 hours for anticoagulation. Present on Admission?: Yes Supervising Physician Co-Signing Physician Notes Guanakito Alvarez MD History of Present Illness Reason for Consultation: -- WIDE COMPLEX TACHYCARDIA. Requesting Physician: Dashawn Ellis DO Attending Physician: Guanakito Alvarez MD History of Present Illness Mrs. Grider is an 82 year old female with a history of Valvular Heart Disease s/ p MV Repair 1998, Moderate , Severe TR, Cardiomyopathy (LVEF 45% in 2010), Severe Biatrial Enlargement, Permanent Atrial Fibrillation, Type 2 DM , Hypertension, Dyslipidemia, and Large Left MCA [place] Infarct 2007 who underwent a Colonoscopy yesterday. Following her colonoscopy she has intermittent nausea and just didn't feel well. She vomited once and felt better for a brief time. Thereafter she had recurrent nausea, vomiting, and respiratory distress. She was in a fast, irregular rhythm with HR's into the 160's. Patient's son then witnessed her "throw herself backwards and going stiff" and thought she was having a seizure. EMS was summoned and patient transported to [facility] ER. She was noted to be in rapid A-Fib. Shortly after arrival patient went into a wide complex tachycardia consistent with Ventricular Tachycardia. Patient underwent synchronized cardioversion back to A-Fib, and was given a bolus of IV Amiodarone followed by an Amiodarone drip. She remains in A-Fib with a controlled ventricular response rate. She is completely asymptomatic currently. Patient denies any chest pain or discomfort at any time since her symptoms started. She denies any SOB, WESLEY, orthopnea, or pnd. She dnies any nausea or diaphoresis currently. Allergies Allergy/AdvReac Type Severity Reaction Status Date / Time No Known Allergies Allergy Unknown Verified 07/24/18 01:43 Home Medications Home Medications Medication Instructions Recorded Confirmed Type Bifidobacterium infantis [Align] 1 cap PO QPM 06/26/18 07/24/18 History acetaminophen [Acetaminophen Extra 1,000 mg PO HS 06/26/18 07/24/18 History Strength] buspirone 2.5 mg PO BID 06/26/18 07/24/18 History calcium carbonate [Tums] 300 mg PO HS 06/26/18 07/24/18 History cholecalciferol (vitamin D3) 2,000 unit PO QAM 06/26/18 07/24/18 History [Vitamin D3] coenzyme Q10 [CoQ-10] 100 mg PO QPM 06/26/18 07/24/18 History docusate sodium 100 mg PO QAM 06/26/18 07/24/18 History ferrous sulfate, dried [Slow 160 mg PO QAM 06/26/18 07/24/18 History Release Iron] fluoxetine 40 mg PO QAM 06/26/18 07/24/18 History furosemide [Lasix] 20 mg PO QAM 06/26/18 07/24/18 History insulin glargine [Lantus Solostar 50 unit SUBCUT QPM 06/26/18 07/24/18 History U-100 Insulin] insulin lispro [Humalog KwikPen 1 dose SUBCUT QPM 06/26/18 07/24/18 History Insulin] levothyroxine 25 mcg PO QPM 06/26/18 07/24/18 History lisinopril 20 mg PO QPM 06/26/18 07/24/18 History loratadine 10 mg PO HS 06/26/18 07/24/18 History lorazepam 0.5 mg PO HS 06/26/18 07/24/18 History melatonin 5 mg PO HS 06/26/18 07/24/18 History metoprolol succinate 25 mg PO QAM 06/26/18 07/24/18 History omeprazole magnesium [Prilosec OTC] 20 mg PO QAM 06/26/18 07/24/18 History simvastatin 40 mg PO PM 06/26/18 07/24/18 History trazodone 25 mg PO HS 06/26/18 07/24/18 History turmeric 1 cap PO QPM 06/26/18 07/24/18 History warfarin 2.5 mg PO 4XWK 06/26/18 07/24/18 History warfarin 5 mg PO 3XWK 06/26/18 07/24/18 History Patient History Social History Current Living Situation: Other Current Living Situation Comment: Pt lives alone with 24 hr caregivers Other Information That Helps Us Care for You: No Feels Safe at Home: Yes Safety Concerns: Feels Safe At This Time Smoking Status: Never smoker Do You Dip or Chew Tobacco: No Hx Alcohol Use: No Hx Substance Use: No Beliefs That Will Affect Care: None Communication Ability: Effective Reel Hooker Required: Yes Physical Exam 2 Vital Signs (Past 24 Hours): Last Vital Signs Temp 36.3 C L 07/24/18 05:00 Pulse 66 07/24/18 06:05 Resp 24 07/24/18 06:05 BP 139/85 07/24/18 06:05 Pulse Ox 91 07/24/18 06:05 Physical Exam: General: Patient in no acute distress. HEENT: Head is atraumatic, normocephalic. EOMs intact. Sclerae anicteric. Facies symmetric. No perioral cyanosis. Neck: No JVD. Carotid upstrokes +2 bilaterally without bruits. JVP is not elevated. Chest and Lungs: Clear to auscultation throughout all lung warner, no wheezes, rales, or rhonchi. CVS: S1 and S2 are irregularly irregular with an apical rate of 65 bpm, and a grade 2/6 basal systolic murmur and a grade 2 to 3/6 apical systolic murmur. No obvious diastolic murmurs or rubs. PMI is nondisplaced. No lifts, heaves, or thrills. No abdominal aortic or renal bruits. Abdominal Exam: Bowel sounds present. No masses, organomegaly, or tenderness. Extremities: No clubbing or cyanosis. Trace ankle edema bilaterally. Intact posterior tibial and radial pulses bilaterally. Neurologic Exam: Patient is awake, alert, and oriented. Pleasant and cooperative. Answers questions appropriately. Speech is clear. Normal movement in all 4 extremities. Gait pattern was not assessed. ECHOCARDIOGRAM: Pending. Telemetry Monitoring: -- Last episodes of wide complex tachycardia occurred around 0120 this am. -- Currently A-Fib with controlled ventricular response rate. Results & Data Laboratory Results Laboratory Results - last 24 hr 07/24/18 07/24/18 07/24/18 01:20 01:20 01:20 WBC 12.10 H RBC 4.18 L Hgb 12.7 Hct 39.0 MCV 93.3 MCH 30.4 MCHC 32.6 RDW Std Deviation 49.1 H RDW Coeff of Venita 14.4 Plt Count 186 MPV 10.1 Immature Gran % (Auto) 0.2 Neut % (Auto) 84.1 Lymph % (Auto) 10.0 [place] % (Auto) 5.5 Eos % (Auto) 0.1 Baso % (Auto) 0.1 Immature Gran # (Auto) 0.03 H Neut # (Auto) 10.18 H Lymph # (Auto) 1.21 [place] # (Auto) 0.66 H Eos # (Auto) 0.01 Baso # (Auto) 0.01 PT 14.0 H INR 1.4 H APTT 31.3 H PTT Ratio 1.2 Sodium 137 Potassium 4.2 Chloride 105 Carbon Dioxide 24 Anion Gap 8.0 BUN 26 H Creatinine 1.74 H Est Cr Clr Drug Dosing 28.5 Est GFR ( Amer) 31.1 Est GFR (Non-Af Amer) 26.8 BUN/Creatinine Ratio 15.2 Glucose 289 H POC Glucose Calcium 8.8 Total Bilirubin 0.7 AST 33 ALT 32 Alkaline Phosphatase 81 Troponin I 0.088 H* NT-Pro-B Natriuret Pep 3840 H Total Protein 8.0 Albumin 3.7 Globulin 4.3 H Albumin/Globulin Ratio 0.9 Nasal Screen MRSA (PCR) 07/24/18 07/24/18 04:45 06:08 WBC RBC Hgb Hct MCV MCH MCHC RDW Std Deviation RDW Coeff of Venita Plt Count MPV Immature Gran % (Auto) Neut % (Auto) Lymph % (Auto) [place] % (Auto) Eos % (Auto) Baso % (Auto) Immature Gran # (Auto) Neut # (Auto) Lymph # (Auto) [place] # (Auto) Eos # (Auto) Baso # (Auto) PT INR APTT PTT Ratio Sodium Potassium Chloride Carbon Dioxide Anion Gap BUN Creatinine Est Cr Clr Drug Dosing Est GFR ( Amer) Est GFR (Non-Af Amer) BUN/Creatinine Ratio Glucose POC Glucose 276 H Calcium Total Bilirubin AST ALT Alkaline Phosphatase Troponin I NT-Pro-B Natriuret Pep Total Protein Albumin Globulin Albumin/Globulin Ratio Nasal Screen MRSA (PCR) Negative Medications Administered Active Medications Generic Name Dose Route Start Last Admin Trade Name Freq PRN Reason Stop Dose Admin Acetaminophen 1,000 mg 07/24/18 21:00 07/24/18 06:18 Tylenol PO 08/23/18 20:59 500 mg HS OSWALD Administration Buspirone HCl 2.5 mg 07/24/18 09:00 07/24/18 08:06 Buspar PO 08/23/18 08:59 2.5 mg BID OSWALD Administration Calcium Carbonate 500 mg 07/24/18 21:00 Tums PO 08/23/18 20:59 HS OSWALD Dextrose 25 - 50 ml 07/24/18 05:31 Dextrose 50% IV 08/23/18 05:30 UD PRN Hypoglycemia Protocol Protocol Docusate Sodium 100 mg 07/24/18 09:00 07/24/18 08:06 Colace PO 08/23/18 08:59 100 mg QAM OSWALD Administration Ferrous Sulfate 325 mg 07/24/18 09:00 07/24/18 08:06 Feosol PO 08/23/18 08:59 325 mg QAM OSWALD Administration Fluoxetine HCl 40 mg 07/24/18 09:00 07/24/18 08:06 Prozac PO 08/23/18 08:59 40 mg QAM OSWALD Administration Glucagon 1 mg 07/24/18 05:31 Glucagen SQ 08/23/18 05:30 UD PRN Hypoglycemia Protocol Protocol Glucose 15 - 30 gm 07/24/18 05:31 Glucose 40% PO 08/23/18 05:30 UD PRN Hypoglycemia Protocol Protocol Glucose 4 - 8 tabs 07/24/18 05:31 Dex4 Glucose PO 08/23/18 05:30 UD PRN Hypoglycemia Protocol Protocol Sodium Chloride 1,000 mls @ 75 mls/hr 07/24/18 04:01 07/24/18 04:14 Nss 1000ml IV 08/23/18 04:00 75 mls/hr .[id number] OSWALD Administration Amiodarone HCl/Dextrose 360 mg in 200 mls @ 16.667 mls/hr 07/24/18 10:00 03/04 10:00 Nexterone / D5w IV 08/23/18 09:59 0.5 mg/min .Q12H OSWALD 16.7 mls/hr Administration 0.5 MG/MIN Prochlorperazine 5 mg/ Syringe 5 mls @ 5 mls/min 07/24/18 09:04 07/24/18 09: 57 IV 08/23/18 09:03 5 mls/min Q4H PRN Administration Nausea And Vomiting Insulin Human Regular 250 250 mls @ 0 mls/hr 07/24/18 09:15 units/ Sodium Chloride IV 08/23/18 09:14 .Q0M OSWALD Protocol Titrate Insulin Aspart 0 units 07/24/18 13:00 Novolog Flexpen SC 08/23/18 12:59 PCHS OSWALD Lactobacillus Acidophilus 1 tab 07/24/18 21:00 Floranex PO 08/23/18 20:59 QPM OSWALD Levothyroxine Sodium 25 mcg 07/24/18 21:00 Synthroid PO 08/23/18 20:59 QPM OSWALD Loratadine 10 mg 07/24/18 21:00 Claritin PO 08/23/18 20:59 HS OSWALD Lorazepam 0.5 mg 07/24/18 21:00 Ativan PO 08/23/18 20:59 HS OSWALD Metoprolol Succinate 25 mg 07/24/18 09:00 07/24/18 08:06 Toprol Xl PO 08/23/18 08:59 25 mg QAM OSWALD Administration Miscellaneous 15 - 30 gm 07/24/18 05:31 Carbohydrates For Hypoglycemia PO 08/23/18 05:30 UD PRN Hypoglycemia Treatment Miscellaneous 1 ea 07/24/18 09:15 Insulin Protocol Severe Stress N/A 07/24/18 11:01 Q15M OSWALD Miscellaneous Information 1 ea 07/24/18 06:25 Consult Glycemic Management Pharmacy N/A 08/23/18 06:24 DAILY PRN Consult Pantoprazole Sodium 40 mg 07/24/18 09:00 07/24/18 08:06 Protonix PO 08/23/18 08:59 40 mg QAM OSWALD Administration Vitamin D 2,000 units 07/24/18 09:00 07/24/18 08:06 Vitamin D3 PO 08/23/18 08:59 2,000 units QAM OSWALD Administration
[2018-07-24] MEDS ORDERED: LORazepam 0.5 MG TAB ONE (11:26)
[2018-07-24] MEDS: LORazepam 0.5 MG TAB PO SCH ×2 (11:27→21:19)
[2018-07-24] MEDS: INSULIN ASPART 100 UNITS/ML 3 ML PEN SC SCH ×3 (11:28→21:20)
[2018-07-24] MEDS: SEVERE STRESS LEVEL SCH ×2 (11:35→11:41)
[2018-07-24] MEDS ORDERED: SODIUM CHLORIDE 0.65% NA SOLN 45 ML (OCEAN) PRN (11:46)
[2018-07-24 13:43] LABS: Hematocrit (blood only) 38.7 % (37-47); Hemoglobin 12.3 g/dL (12.0-16.0); Mean Corpuscular Hgb Conc 31.8 g/dL (32-36); Mean Corpuscular Volume 92.4 fL (80-100); Mean Platelet Volume 10.4 fL (7.4-10.4); Platelet Count 174 K/uL (130-400); RDW Coefficient of Variation 14.6 % (11.5-14.5); RDW Standard Deviation 49.1 fL (36.4-46.3); Red Blood Count 4.19 M/uL (4.2-5.4); White Blood Count 7.42 K/uL (4.8-10.8)
[2018-07-24 14:00] LABS: BUN Creatinine Ratio 16.8 (10-20); Calcium 8.8 mg/dl (8.5-10.1); Creatinine Clr Calc Pharmacy 28.2 ml/min; Est GFR (African American) 31.3
[2018-07-24] MEDS ORDERED: LORazepam 0.5 MG/1 ML VIAL IV ONE (14:30)
[2018-07-24] MEDS ORDERED: FUROSEMIDE 40 MG in SYRINGE 0 ML IV ONE (15:00)
--- NOTE | 2018-07-24 15:11 | Pharmacy Report ---
Glycemic Control Consultation - Date of Service July 24, 2018 - Scope Scope: Glycemic Pharmacist consulted by Dr Fontenot on 07/24/18 for glycemic control and to write orders per [facility] inpatient glycemic control protocol - Objective Weight: 85.5 kg Accuchecks BSG (last 24hrs): 07/24/18 07/24/18 07/24/18 01:20 06:08 10:12 Glucose 289 H POC Glucose 276 H 248 H 07/24/18 13:31 Glucose 160 H POC Glucose Laboratory Data (last 24hrs): 07/24/18 07/24/18 01:20 13:31 Potassium 4.2 4.0 Carbon Dioxide 24 25 Anion Gap 8.0 6.0 Creatinine 1.74 H 1.73 H Est Cr Clr Drug Dosing 28.5 28.2 - Recent Pertinent Medications Outpatient Anti-diabetic Regimen: * Lantus 50 units SC qPM * Humalog qPM * A1c = on order for 07/25/18 The patient is currently receiving: * Correctional Insulin: Novolog Correction per scale ACHS Goal Range: Low 140 mg/dL - High 180 mg/dL Correction Factor: 25 mg/dL/unit * Prandial insulin: Per carb ratio of 1 unit per 9 grams CHO consumed Risk Factors for Insulin Resistance: * Diet: T2DM - Assessment & Plan Assessment & Plan: ASSESSMENT: * 82 yo F with T2DM admitted with Afib/VTach and rectal bleeding s/p colonoscopy yesterday * Patient is not sure if she received her Lantus dose of 50 units yesterday evening. AM fasting BSG 276 mg/dL * I am hesitant to be aggressive with making-up Lantus dose as patient may have received Lantus last night and her trend in BSG's here is not yet clear * Will therefore give a smaller Lantus dose now and track trend in BSG while on insulin drip Afternoon update * Spoke with RN - noted poor po intake. Also noted BSG now 109 mg/dL and insulin drip calculator noting to hold drip. OK'd temporarily holding drip x1 hour and rechecking BSG PLAN FOR INPATIENT GLYCEMIC CONTROL: * Starting IV insulin infusion per severe stress protocol * Goal Range 140 - 180 mg/dl * In the critical care setting, continuous IV insulin infusion has been shown to be the best method for achieving glycemic targets. * Basal insulin * Lantus 20 units SQ x1 administered this AM * Bolus insulin * Nutritional / Prandial insulin per carb ratio based on insulin drip calculator * Please note that the plan above was derived based on current level of insulin resistance and hospital stress. These recommendations are appropriate for inpatient admission only. Plan of care upon discharge will need to be reassessed to avoid potential outpatient hypo/hyperglycemia. Thank you.
--- NOTE | 2018-07-24 17:47 | Critical Care Consultation ---
Date of Consultation July 24, 2018 Assessment & Plan (1) Permanent atrial fibrillation: Impression: 1. Wide-complex tachycardia requiring cardioversion. 2. Congestive heart failure with systolic ejection fraction of 25%. 3. Severe aortic stenosis and moderate mitral stenosis according to the report from the echocardiogram. 4. Chronic kidney disease. 5. Non-ST elevation [place], likely demand. 6. Junctional rhythm on the monitor. 7. Diabetes type 2. 8. History of CVA. Plan: 1. Continue with amiodarone. 2. I would anticipate the patient will require AICD placement. Decision to be made by cardiology. 3. Appreciate cardiology input. 4. Symptomatic relief with Compazine. 5. GI DVT prophylaxis. 6. Glucose control. 7. Recent GI bleeding secondary to rectal mass and hemorrhoids, biopsies pending, off anti-correlation. 8. History of A. fib, rate controlled. Currently in junctional rhythm. 9. The patient started on oral intake, if tolerated. 10. Case discussed with the staff on rounds and details. 11. Appreciate all involved in the care of this patient. 12. Discussed with the son at the bedside in details, all his questions been answered. CCM time was 45 minutes. History of Present Illness Reason for Consultation: V. tach requiring cardioversion. Requesting Physician: Dr. Ellis. Attending Physician: Dashawn Ellis, DO History of Present Illness Dear Dr. Ellis: Thank you for the kind referral Mrs. Grider to critical care service. This is 82 -year-old female with history of congestive heart failure, mitral valve repair over 20 years ago, history of recent GI bleed turned out to be related to rectal bleeding, evaluated recently in our institution, the patient was discharged from the hospital and returned after she has been feeling weak and has been having nausea. No chest pain was reported. The patient was stopped taking the Coumadin due to recent biopsy of rectal mass. The patient on arrival to the ED was found to be in wide-complex tachycardia requiring cardioversion, the patient after cardioversion converted to a normal sinus rhythm, and started on amiodarone. She was admitted to the hospital in the ICU for further management. In the ICU, she appears overall weak, denies any chest pain, no shortness of breath, nauseous mainly, no increased swelling in her lower extremities, denies any abdominal pain, no change in bowel movements or urine habits, she still have hematochezia. Denies any dizziness or loss of consciousness. No syncope, no rash, and no similar event in the past. Her workup revealed on echocardiogram that the patient EF is 25%, her aortic valve severely stenosed, and she has also mitral valve stenosis. Family history does not contribute to her current illness, she is non-smoker lifetime, her son was at the bedside and he is a caregiver. Surgical history is previous history of open heart surgery and repair of the mitral valve. Allergies Allergy/AdvReac Type Severity Reaction Status Date / Time No Known Allergies Allergy Unknown Verified 07/24/18 01:43 Home Medications Home Medications Medication Instructions Recorded Confirmed Type Bifidobacterium infantis [Align] 1 cap PO QPM 06/26/18 07/24/18 History acetaminophen [Acetaminophen Extra 1,000 mg PO HS 06/26/18 07/24/18 History Strength] buspirone 2.5 mg PO BID 06/26/18 07/24/18 History calcium carbonate [Tums] 300 mg PO HS 06/26/18 07/24/18 History cholecalciferol (vitamin D3) 2,000 unit PO QAM 06/26/18 07/24/18 History [Vitamin D3] coenzyme Q10 [CoQ-10] 100 mg PO QPM 06/26/18 07/24/18 History docusate sodium 100 mg PO QAM 06/26/18 07/24/18 History ferrous sulfate, dried [Slow 160 mg PO QAM 06/26/18 07/24/18 History Release Iron] fluoxetine 40 mg PO QAM 06/26/18 07/24/18 History furosemide [Lasix] 20 mg PO QAM 06/26/18 07/24/18 History insulin glargine [Lantus Solostar 50 unit SUBCUT QPM 06/26/18 07/24/18 History U-100 Insulin] insulin lispro [Humalog KwikPen 1 dose SUBCUT QPM 06/26/18 07/24/18 History Insulin] levothyroxine 25 mcg PO QPM 06/26/18 07/24/18 History lisinopril 20 mg PO QPM 06/26/18 07/24/18 History loratadine 10 mg PO HS 06/26/18 07/24/18 History lorazepam 0.5 mg PO HS 06/26/18 07/24/18 History melatonin 5 mg PO HS 06/26/18 07/24/18 History metoprolol succinate 25 mg PO QAM 06/26/18 07/24/18 History omeprazole magnesium [Prilosec OTC] 20 mg PO QAM 06/26/18 07/24/18 History simvastatin 40 mg PO PM 06/26/18 07/24/18 History trazodone 25 mg PO HS 06/26/18 07/24/18 History turmeric 1 cap PO QPM 06/26/18 07/24/18 History warfarin 2.5 mg PO 4XWK 06/26/18 07/24/18 History warfarin 5 mg PO 3XWK 06/26/18 07/24/18 History Patient History Social History Current Living Situation: Other Current Living Situation Comment: Pt lives alone with 24 hr caregivers Other Information That Helps Us Care for You: No Feels Safe at Home: Yes Safety Concerns: Feels Safe At This Time Smoking Status: Never smoker Do You Dip or Chew Tobacco: No Hx Alcohol Use: No Hx Substance Use: No Beliefs That Will Affect Care: None Communication Ability: Effective Review of Systems Review of system was mentioned above, other systems including 10 systems has been reviewed and are within normal limits. Physical Exam 2 Vital Signs (Past 24 Hours): Last Vital Signs Temp 36.7 C 07/24/18 12:00 Pulse 57 L 07/24/18 16:00 Resp 21 07/24/18 16:00 BP 104/61 07/24/18 16:00 Pulse Ox 91 07/24/18 16:00 Physical Exam: Vital signs are stable, S1-S2 regular rate and rhythm, heart rate is 55, blood pressure 113/50, map of 71, no JVP, bilateral crackles mainly at the bases, S1-S2 regular rate and rhythm, she is not in A. fib to my exam, abdomen is benign, edema. Neurologically she is intact. Results & Data Laboratory Results Her labs were reviewed also personally. And her CBC are acceptable, BUN and creatinine 29 and 1.7, troponin is positive but that was after cardioversion. Diagnostic Findings EKG showed a junctional rhythm, chest x-ray showed mild pulmonary vascular congestion, cardiomegaly. Previous sternotomy.
[2018-07-24] MEDS ORDERED: NON-FORMULARY MEDICATION (Coenzyme Q10 [Coq-10] 100 MG) PO SCH (21:00)
[2018-07-24] MEDS ORDERED: TURMERIC PO SCH (21:00)
[2018-07-24] MEDS: LORATADINE 10 MG TAB PO SCH (21:18)
[2018-07-24] MEDS: LACTOBACILLUS ACIDOPHILUS (FLORANEX) TAB PO SCH (21:18)
[2018-07-24] MEDS: LEVOTHYROXINE SODIUM 25 MCG TABLET PO SCH (21:19)
[2018-07-24] MEDS: CALCIUM CARBONATE 500 MG CHEWABLE TAB PO SCH (21:19)
[2018-07-24] MEDS ORDERED: LACTATED RINGER'S 1,000 ML IV SCH (21:30)
--- NOTE | 2018-07-24 21:45 | Consultation Report ---
DATE OF CONSULTATION: 07/24/2018 REASON FOR EVALUATION: Rectal bleeding from a colon tumor and question about Coumadin initiation. HISTORY OF PRESENT ILLNESS: The patient is an 82-year-old who I had seen yesterday for a colonoscopy to evaluate rectal bleeding. The patient underwent the colonoscopy yesterday afternoon and was found to have 2 small polyps at the hepatic flexure, but at 30 cm had a 4-5 cm fungating mass consistent with a probable colon cancer. This was biopsied multiple times and the patient was discharged to follow up with colorectal surgeon. The patient had been on Coumadin prior to the colonoscopy for chronic atrial fibrillation. This was held for 3 days prior to the procedure and the instructions at discharge were for her to hold the Coumadin for a week for reinitiating it pending the biopsies as it is likely that she would need surgery for the colon tumor that was partially obstructing. Last evening, the patient developed shortness of breath and weakness and field marketing director were summoned. She was found to be in rapid AFib and eventually was brought to the hospital where she went into V-tach and had to be cardioverted. She did suffer a non-ST elevation [place] in the meantime and is being considered for pacer defibrillator. The question is what to do about her Coumadin. PAST MEDICAL HISTORY: Remarkable for AFib, managed with metoprolol and Coumadin. She has hypertension, depression, type 2 diabetes, hypothyroidism, esophageal reflux. 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 Has hyperlipidemia. MEDICATIONS: Per list. ALLERGIES: None. SOCIAL HISTORY: The patient lives alone, but has constant caregivers. Former smoker. No alcohol use. REVIEW OF SYSTEMS: Not obtainable currently as the patient has been sedated with Ativan. PHYSICAL EXAMINATION: GENERAL: The patient is sleeping comfortably. VITAL SIGNS: Blood pressure is 129/85, pulse 68 and irregularly irregular, temperature is 36.5, room air saturation is 96%. NEUROLOGIC: Left side is weak. ABDOMEN: Soft and nontender. IMPRESSION AND PLAN: The patient has a large colon tumor at 30 cm consistent with a colon primary tumor. Pathology is pending and should be available tomorrow. I had her hold Coumadin for a week following the biopsies of the tumor, but if hub cutter apprentice feels that it is important for her to go back on a blood thinner prior to that time, it would certainly be a higher priority than preventing rectal bleeding from the biopsies that were performed yesterday. I will follow the patient from a distance unless further GI input is needed.
[2018-07-25] MEDS: INSULIN ASPART 100 UNITS/ML 3 ML PEN SC SCH ×6 (00:43→20:56)
[2018-07-25 05:07] LABS: Hematocrit (blood only) 35.6 % (37-47); Hemoglobin 11.5 g/dL (12.0-16.0); Mean Corpuscular Hgb Conc 32.3 g/dL (32-36); Mean Corpuscular Volume 92.5 fL (80-100); Mean Platelet Volume 10.2 fL (7.4-10.4); Platelet Count 152 K/uL (130-400); RDW Coefficient of Variation 14.6 % (11.5-14.5); RDW Standard Deviation 49.1 fL (36.4-46.3); Red Blood Count 3.85 M/uL (4.2-5.4); White Blood Count 4.83 K/uL (4.8-10.8)
[2018-07-25 05:43] LABS: BUN Creatinine Ratio 15.9 (10-20); Calcium 8.4 mg/dl (8.5-10.1); Est GFR (African American) 31.1; Est GFR (Non-African American) 26.8; Potassium 3.4 mmol/L (3.5-5.1)
[2018-07-25] MEDS ORDERED: CEFAZOLIN 1000MG 1,000 MG/7.5 ML SYR IV SCH (06:00)
[2018-07-25 06:01] LABS: Estimated Average Glucose 174 mg/dl
[2018-07-25] MEDS: METOPROLOL SUCC 25MG EXT REL TAB PO SCH (07:16)
[2018-07-25] MEDS: FERROUS SULFATE 325 MG TAB PO SCH (07:16)
[2018-07-25] MEDS: DOCUSATE SODIUM 100 MG CAP PO SCH (07:16)
[2018-07-25] MEDS: CHOLECALCIFEROL 1,000 UNITS TAB PO SCH (07:17)
[2018-07-25] MEDS: FLUOXETINE HCL 20 MG CAP PO SCH (07:55)
[2018-07-25] MEDS: PANTOprazole 40 MG TAB PO SCH (07:55)
[2018-07-25] MEDS ORDERED: INSULIN GLARGINE SOLOSTAR 100 UNITS/ML 3 ML PEN SC ONE ×2 (09:00→21:00)
[2018-07-25] MEDS ORDERED: LIDOCAINE HCL 1% 20 ML VIAL ONE ×2 (09:19→09:23)
[2018-07-25] MEDS ORDERED: fentaNYL citrate 100 MCG/2 ML VIAL ONE (09:19)
[2018-07-25] MEDS ORDERED: BACITRACIN INJ 50,000 UNIT VIAL ONE (09:19)
[2018-07-25] MEDS ORDERED: MIDAZOLAM HCL 5 MG/ML 1 ML VIAL ONE (09:19)
[2018-07-25] MEDS ORDERED: BACITRACIN OINT 0.9 GM PKT ONE (09:19)
--- NOTE | 2018-07-25 09:21 | Pre Anesthesia Assessment ---
Date of Service July 25, 2018 Pre Sedation Assessment Vital Signs Temp Pulse Resp BP Pulse Ox 07/25/18 07:00 60 19 102/52 L 95 07/25/18 06:00 59 L 18 122/58 L 95 07/25/18 05:00 60 29 H 129/63 95 07/25/18 04:00 36.6 C 61 24 103/69 94 07/25/18 03:00 54 L 25 H 108/56 L 94 07/25/18 02:30 54 L 25 H 93/47 L 94 07/25/18 02:29 51 L 26 H 94/39 L 94 07/25/18 02:00 47 L 7 L 81/41 L 95 07/25/18 01:00 36.8 C 54 L 18 101/46 L 95 07/25/18 00:00 56 L 18 119/55 L 96 07/24/18 23:05 50 L 19 96/53 L 94 07/24/18 23:00 48 L 17 77/35 L 94 07/24/18 22:38 56 L 19 104/54 L 93 07/24/18 22:07 49 L 7 L 89/44 L 94 07/24/18 22:00 55 L 18 83/40 L 96 07/24/18 21:01 58 L 16 134/68 97 07/24/18 21:00 56 L 9 L 98 07/24/18 20:00 36.7 C 56 L 24 138/73 97 07/24/18 19:01 56 L 12 145/70 H 97 07/24/18 19:00 56 L 27 H 96 07/24/18 18:00 54 L 19 100/51 L 96 07/24/18 16:00 57 L 21 104/61 91 07/24/18 15:00 60 21 154/99 H 96 07/24/18 14:01 58 L 22 149/87 H 96 07/24/18 14:00 60 22 93 07/24/18 13:49 62 16 156/75 H 90 07/24/18 13:02 59 L 16 94 07/24/18 13:01 61 16 142/81 H 97 07/24/18 12:00 36.7 C 58 L 17 155/81 H 94 07/24/18 11:00 56 L 13 142/78 H 96 07/24/18 10:36 57 L 14 133/80 96 07/24/18 10:01 56 L 14 120/69 92 07/24/18 10:00 58 L 14 95 07/24/18 09:30 59 L 23 141/67 H 93 Cardiovascular + murmur Additional Comments: irregular rate Respiratory normal respiratory effort, lungs clear to auscultation Pre-Sedation Airway Assessment Smoking Status: Never smoker Hx Sleep Apnea: No Hx Difficult Intubation: No Short, Thick Neck: No Thyromental Distance: > or= 3.5 Finger Breadths Mallampati Class: III ASA III NPO Status Date of Last Intake of Fluids: 07/24/18 Date of Last Intake of Solid Food: 07/24/18 Procedure Planning Contraindications for Sedation: none Current Medications Reviewed: Yes Notes The planned sedation has been discussed with the patient. Informed Consent was obtained. I have identified the patient, determined the appropriateness of sedation and have assessed the patient immediately prior to the procedure. All medicine(s) and interventions are by my order.
[2018-07-25] MEDS ORDERED: CEFAZOLIN 250 MG/ML 1 GM VIAL ONE (09:25)
--- NOTE | 2018-07-25 09:26 | Cardiology Consultation ---
Date of Consultation July 25, 2018 Assessment & Plan (1) Wide-complex tachycardia: She presented with sustained rapid ventricular tachycardia requiring cardioversion. This is likely due to her cardiomyopathy. She requires ICD implantation despite her comorbidities. I discussed the indications, procedure, risks and alternatives of the procedure with her and her son and daughter who are present at bedside. She understands and agrees to proceed, she agreed however her son signed consent. I also did reviewed sedation with her during the risk and they all understand and she agrees, her son signed that consent as well. 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 She has had moderate aortic stenosis in the past. Should be acceptable risk for the procedure today valve surgery at this time. (3) Cardiomyopathy: She has a cardiomyopathy which is probably multifactorial. She has a history of left ventricular dysfunction although it is more severe now, it may be related in part to her aortic stenosis. In the range where we should consider ICD implantation for primary prevention, however in this case she needs it for secondary prevention. (4) Permanent atrial fibrillation: She is in permanent atrial fibrillation, the rate is well controlled. She was on warfarin, her warfarin has been on hold and her INR normalized. She will need long-term anticoagulation postoperatively. History of Present Illness Requesting Physician: Gerson Hector Attending Physician: Dashawn Ellis DO History of Present Illness This is a very pleasant 82-year-old woman who has a history of mitral valve repair in 1998, continued at least moderate aortic stenosis, moderate left ventricular dysfunction in the past and permanent atrial fibrillation. She had an episode of near syncope with witnesses thinking she might be having a seizure , she was coming into the hospital and she developed a wide-complex tachycardia shortly after arrival in the emergency room. She required cardioversion was loaded with amiodarone. Allergies Allergy/AdvReac Type Severity Reaction Status Date / Time No Known Allergies Allergy Unknown Verified 07/24/18 01:43 Home Medications Home Medications Medication Instructions Recorded Confirmed Type Bifidobacterium infantis [Align] 1 cap PO QPM 06/26/18 07/24/18 History acetaminophen [Acetaminophen Extra 1,000 mg PO HS 06/26/18 07/24/18 History Strength] buspirone 2.5 mg PO BID 06/26/18 07/24/18 History calcium carbonate [Tums] 300 mg PO HS 06/26/18 07/24/18 History cholecalciferol (vitamin D3) 2,000 unit PO QAM 06/26/18 07/24/18 History [Vitamin D3] coenzyme Q10 [CoQ-10] 100 mg PO QPM 06/26/18 07/24/18 History docusate sodium 100 mg PO QAM 06/26/18 07/24/18 History ferrous sulfate, dried [Slow 160 mg PO QAM 06/26/18 07/24/18 History Release Iron] fluoxetine 40 mg PO QAM 06/26/18 07/24/18 History furosemide [Lasix] 20 mg PO QAM 06/26/18 07/24/18 History insulin glargine [Lantus Solostar 50 unit SUBCUT QPM 06/26/18 07/24/18 History U-100 Insulin] insulin lispro [Humalog KwikPen 1 dose SUBCUT QPM 06/26/18 07/24/18 History Insulin] levothyroxine 25 mcg PO QPM 06/26/18 07/24/18 History loratadine 10 mg PO HS 06/26/18 07/24/18 History lorazepam 0.5 mg PO HS 06/26/18 07/24/18 History melatonin 5 mg PO HS 06/26/18 07/24/18 History omeprazole magnesium [Prilosec OTC] 20 mg PO QAM 06/26/18 07/24/18 History simvastatin 40 mg PO PM 06/26/18 07/24/18 History trazodone 25 mg PO HS 06/26/18 07/24/18 History turmeric 1 cap PO QPM 06/26/18 07/24/18 History warfarin 2.5 mg PO 4XWK 06/26/18 07/24/18 History warfarin 5 mg PO 3XWK 06/26/18 07/24/18 History lisinopril [Zestril] 10 mg PO QAM 30 Days #30 tab 07/29/18 Rx metoprolol succinate 50 mg PO QAM 30 Days #30 tab 07/29/18 Rx Patient History Medical History Encounter for pre-operative examination Atrial fibrillation Bleeding hemorrhoids Depression Diabetes mellitus, type 2 Edema of left lower extremity GERD (gastroesophageal reflux disease) Hyperlipidemia Hypertension Hypothyroidism On anticoagulant therapy on warfarin 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 Stroke massive 05/2008--partial paralysis left side Surgical History History of bilateral cataract extraction History of heart valve replacement 1998 @ [facility] in [place] History of tooth extraction all upper teeth Family History Son Family history of reaction to anesthesia nausea Daughter Family history of diabetes mellitus Social History Current Living Situation: Other Current Living Situation Comment: Pt lives alone with 24 hr caregivers Other Information That Helps Us Care for You: No Feels Safe at Home: Yes Safety Concerns: Feels Safe At This Time Smoking Status: Never smoker Do You Dip or Chew Tobacco: No Hx Alcohol Use: No Hx Substance Use: No Beliefs That Will Affect Care: None Preferred Language: Khmer Review of Systems Negative for lightheadedness, dizziness, palpitations, notable for presyncope or brief syncope as described. No exertional symptoms, no dyspnea on exertion or exertional chest pain. No orthopnea or PND or peripheral edema. No GI complaints, no bleeding. No neurologic complaints such as TIA or stroke symptoms. Other systems negative. Physical Exam 2 Vital Signs (Past 24 Hours): Last Vital Signs Temp 36.6 C 07/25/18 04:00 Pulse 60 07/25/18 07:00 Resp 19 07/25/18 07:00 BP 102/52 L 07/25/18 07:00 Pulse Ox 95 07/25/18 07:00 Physical Exam: Constitutional: Alert, cooperative and in no distress. HEENT: Unremarkable Neck: No jugular venous distention, carotid pulses are irregular but otherwise normal and equal bilaterally without bruits. Pulmonary: Clear to auscultation bilaterally. Cardiac: Irregular rhythm with a grade 2/6 crescendo decrescendo murmur at the base, no gallop or rub. Abdomen: Soft, nontender with normal bowel sounds. Extremities: No edema. Distal pulses intact. Neurologic: No focal findings. Gait is steady. Skin: No rash, ecchymoses or petechiae. Results & Data Diagnostic Findings On electrocardiography she has a wide complex tachycardia consistent with ventricular tachycardia. The heart rate is about 170 bpm. An echocardiogram done July 24, 2018 shows moderate to severe left ventricular dysfunction with ejection fraction 25-30%. She has moderate left ventricular hypertrophy. She has severe left atrial dilatation and she has probably severe aortic stenosis and moderate mitral regurgitation.
--- NOTE | 2018-07-25 09:38 | Hospitalist Progress Note ---
Date of Service July 25, 2018 Assessment & Plan (1) Ventricular tachycardia: 82-year-old female was admitted on 24 July 2018 for V. tach, NSTEMI, and rectal bleeding. cardioverted in the field, no further episodes of V tach long history of atrial fibrillation discussed with Dr. Chase this morning, he recommend pacer/ICD today, patient agrees will go to OR later this morning continue Amiodarone (2) Non-ST elevation [place] (NSTEMI): troponin 0.3 most recently, no chest pain, no ST changes likely from tachycardia and V tach and cardioverstion no invasive work up planned at this time (3) Rectal bleeding: no active bleeding GI okay with anticoagulation for the time being bleeding related to recent biopsy of a colon mass found at 30cm (4) Elevated serum creatinine: Cr remains elevated at 1.7, this would be considered BRAXTON continue to follow, making adequate urine, K stable gave Lasix yesterday, 40mg IV, no need for Lasix today repeat BMP tomorrow (5) Atrial fibrillation: chronic issue, can resume anticoagulation per GI can resume after ICD placement today was on Coumadin prior to admission, 5mg 3x week and 2.5mg 4x week (6) Hypertension: metoprolol, lisinopril, and lasix. --- Will hold Lisinopril and Lasix given BRAXTON, use Lasix as needed, no need today (7) Hyperlipidemia: hold statin for now (8) Depression: At home is on buspirone, lorazepam, and fluoxetine. Continue here. (9) Diabetes: At home is on insulin. Will order glycemic consult. (10) Hypothyroidism: (11) Insomnia: - Insomnia: At home is on trazodone and melatonin. (12) GERD (gastroesophageal reflux disease): PPI (13) CVA (cerebral vascular accident): 2007, no focal deficits (14) Bilateral lower extremity edema: due to chronic heart failure, diastolic Lasix given on 07/24 Subjective patient feeling better this morning, breathing a lot better after lasix yesterday slept well all night she and family discussed plans for ICD with Dr. Chase this morning, she signed consent discussed with Dr. Chase this morning, appreciate his recommendations reviewed labs, Cr still higher than normal at 1.7 but stable made a lot of urine with Lasix 40mg IV x 1 yesterday K is 3.4 Review of Systems All systems reviewed & are unremarkable except as noted in HPI & below Constitutional: + fatigue and + weakness Respiratory: no cough, no dyspnea and no dyspnea on exertion Cardiovascular: no chest pain and no palpitations Physical Exam 2 Vital Signs (Past 24 Hours): Last Vital Signs Temp 36.6 C 07/25/18 04:00 Pulse 60 07/25/18 07:00 Resp 19 07/25/18 07:00 BP 102/52 L 07/25/18 07:00 Pulse Ox 95 07/25/18 07:00 Constitutional: WD/WN, vitals as above Eyes: PERRL, conjunctivae normal, anicteric sclerae Neck: trachea midline, no thyromegaly Respiratory: normal respiratory effort, lungs clear to auscultation Cardiovascular: Rate/Rhythm: regular rhythm; + abnormal rate (irregular irregular) Heart Sounds: no murmur Vessels: normal peripheral pulses; no JVD Extremities: + edema (1+ pitting bilaterally) Gastrointestinal (Abdomen): normal bowel sounds, soft, nontender, no hepatosplenomegaly Musculoskeletal: no cyanosis or clubbing, extremities motor strength 5/5 Skin: no rashes, warm and dry Neurologic: patellar DTR's 2+ bilat, sensation intact and PERRL, EOMI, accommodation nl, no face palsy, no dysarthria Psychiatric: A+Ox3, euthymic affect Lymphatic: no cervical or axillary lymphadenopathy Results & Data Laboratory Results Laboratory Results - last 24 hr 07/24/18 07/24/18 07/24/18 09:59 10:12 11:21 WBC RBC Hgb Hct MCV MCH MCHC RDW Std Deviation RDW Coeff of Venita Plt Count MPV Sodium Potassium Chloride Carbon Dioxide Anion Gap BUN Creatinine Est Cr Clr Drug Dosing Est GFR ( Amer) Est GFR (Non-Af Amer) BUN/Creatinine Ratio Glucose POC Glucose 248 H 218 H Estimat Average Glucose Hemoglobin A1c Calcium Magnesium 2.0 Troponin I 07/24/18 07/24/18 07/24/18 12:35 13:28 13:31 WBC 7.42 RBC 4.19 L Hgb 12.3 Hct 38.7 MCV 92.4 MCH 29.4 MCHC 31.8 L RDW Std Deviation 49.1 H RDW Coeff of Venita 14.6 H Plt Count 174 MPV 10.4 Sodium Potassium Chloride Carbon Dioxide Anion Gap BUN Creatinine Est Cr Clr Drug Dosing Est GFR ( Amer) Est GFR (Non-Af Amer) BUN/Creatinine Ratio Glucose POC Glucose 177 H 150 H Estimat Average Glucose Hemoglobin A1c Calcium Magnesium Troponin I 07/24/18 07/24/18 07/24/18 13:31 14:35 16:35 WBC RBC Hgb Hct MCV MCH MCHC RDW Std Deviation RDW Coeff of Venita Plt Count MPV Sodium 138 Potassium 4.0 Chloride 107 Carbon Dioxide 25 Anion Gap 6.0 BUN 29 H Creatinine 1.73 H Est Cr Clr Drug Dosing 28.2 Est GFR ( Amer) 31.3 Est GFR (Non-Af Amer) 27.0 BUN/Creatinine Ratio 16.8 Glucose 160 H POC Glucose 109 H 103 H Estimat Average Glucose Hemoglobin A1c Calcium 8.8 Magnesium Troponin I 07/24/18 07/24/18 07/25/18 17:16 20:46 00:05 WBC RBC Hgb Hct MCV MCH MCHC RDW Std Deviation RDW Coeff of Venita Plt Count MPV Sodium Potassium Chloride Carbon Dioxide Anion Gap BUN Creatinine Est Cr Clr Drug Dosing Est GFR ( Amer) Est GFR (Non-Af Amer) BUN/Creatinine Ratio Glucose POC Glucose 98 87 Estimat Average Glucose Hemoglobin A1c Calcium Magnesium Troponin I 0.303 H* 07/25/18 07/25/18 07/25/18 04:07 04:55 04:55 WBC 4.83 RBC 3.85 L Hgb 11.5 L Hct 35.6 L MCV 92.5 MCH 29.9 MCHC 32.3 RDW Std Deviation 49.1 H RDW Coeff of Venita 14.6 H Plt Count 152 MPV 10.2 Sodium Potassium Chloride Carbon Dioxide Anion Gap BUN Creatinine Est Cr Clr Drug Dosing Est GFR ( Amer) Est GFR (Non-Af Amer) BUN/Creatinine Ratio Glucose POC Glucose 94 Estimat Average Glucose 174 Hemoglobin A1c 7.7 H Calcium Magnesium Troponin I 07/25/18 04:55 WBC RBC Hgb Hct MCV MCH MCHC RDW Std Deviation RDW Coeff of Venita Plt Count MPV Sodium 139 Potassium 3.4 L Chloride 106 Carbon Dioxide 28 Anion Gap 5.0 BUN 28 H Creatinine 1.74 H Est Cr Clr Drug Dosing 28.0 Est GFR ( Amer) 31.1 Est GFR (Non-Af Amer) 26.8 BUN/Creatinine Ratio 15.9 Glucose 117 H POC Glucose Estimat Average Glucose Hemoglobin A1c Calcium 8.4 L Magnesium Troponin I Medications Administered Current Inpatient Medications Acetaminophen (Tylenol) 1,000 mg PO [facility] Stop: 08/23/18 20:59 Last Admin: 07/24/18 21:19 Dose: 1,000 mg Buspirone HCl (Buspar) 2.5 mg PO BID [facility] Stop: 08/23/18 08:59 Last Admin: 07/25/18 07:55 Dose: 2.5 mg Calcium Carbonate (Tums) 500 mg PO [facility] Stop: 08/23/18 20:59 Last Admin: 07/24/18 21:19 Dose: 500 mg Dextrose (Dextrose 50%) 25 - 50 ml IV UD PRN; Protocol PRN Reason: Hypoglycemia Protocol Stop: 08/23/18 05:30 Docusate Sodium (Colace) 100 mg PO [facility] Stop: 08/23/18 08:59 Last Admin: 07/25/18 07:16 Dose: Not Given Ferrous Sulfate (Feosol) 325 mg PO [facility] Stop: 08/23/18 08:59 Last Admin: 07/25/18 07:16 Dose: Not Given Fluoxetine HCl (Prozac) 40 mg PO [facility] Stop: 08/23/18 08:59 Last Admin: 07/25/18 07:55 Dose: 40 mg Glucagon (Glucagen) 1 mg SQ UD PRN; Protocol PRN Reason: Hypoglycemia Protocol Stop: 08/23/18 05:30 Glucose (Glucose 40%) 15 - 30 gm PO UD PRN; Protocol PRN Reason: Hypoglycemia Protocol Stop: 08/23/18 05:30 Glucose (Dex4 Glucose) 4 - 8 tabs PO UD PRN; Protocol PRN Reason: Hypoglycemia Protocol Stop: 08/23/18 05:30 Amiodarone HCl/Dextrose (Nexterone / D5w) 360 mg in 200 mls @ 16.667 mls/hr IV .Q12H [facility] Stop: 08/23/18 09:59 Last Admin: 07/24/18 22:46 Dose: 0.5 mg/min, 16.7 mls/hr Prochlorperazine 5 mg/ Syringe 5 mls @ 5 mls/min IV Q4H PRN PRN Reason: Nausea And Vomiting Stop: 08/23/18 09:03 Last Admin: 07/24/18 09:57 Dose: 5 mls/min Cefazolin Sodium (Ancef 1000mg) 1,000 mg in 7.5 mls @ 2.5 mls/min IV PREOP [facility] ; Protocol Stop: 07/26/18 05:59 Lactated Ringer's (Lr) 1,000 mls @ 15 mls/hr IV .Q24H [facility] Stop: 07/27/18 16:09 Last Admin: 07/24/18 23:40 Dose: 15 mls/hr Insulin Aspart (Novolog Flexpen) 0 units SC ACHS [facility]; Protocol Stop: 08/23/18 20:59 Last Admin: 07/25/18 07:16 Dose: Not Given Lactobacillus Acidophilus (Floranex) 1 tab PO QPM [facility] Stop: 08/23/18 20:59 Last Admin: 07/24/18 21:18 Dose: 1 tab Levothyroxine Sodium (Synthroid) 25 mcg PO QPM [facility] Stop: 08/23/18 20:59 Last Admin: 07/24/18 21:19 Dose: 25 mcg Loratadine (Claritin) 10 mg PO HS [facility] Stop: 08/23/18 20:59 Last Admin: 07/24/18 21:18 Dose: 10 mg Lorazepam (Ativan) 0.5 mg PO HS [facility] Stop: 08/23/18 20:59 Last Admin: 07/24/18 21:19 Dose: 0.5 mg Metoprolol Succinate (Toprol Xl) 25 mg PO [facility] Stop: 08/23/18 08:59 Last Admin: 07/25/18 07:16 Dose: Not Given Miscellaneous (Carbohydrates For Hypoglycemia) 15 - 30 gm PO UD PRN PRN Reason: Hypoglycemia Treatment Stop: 08/23/18 05:30 Miscellaneous Information (Consult Glycemic Management Pharmacy) 1 ea N/A DAILY PRN PRN Reason: Consult Stop: 08/23/18 06:24 Pantoprazole Sodium (Protonix) 40 mg PO QAM [facility] Stop: 08/23/18 08:59 Last Admin: 07/25/18 07:55 Dose: 40 mg Sodium Chloride (Churchill Nasal) 2 sprays NA Q8 PRN; Protocol PRN Reason: Congestion Stop: 08/23/18 11:45 Vitamin D (Vitamin [facility]3) [facility] Stop: 08/23/18 08:59 Last Admin: 07/25/18 07:17 Dose: Not Given
[2018-07-25] MEDS ORDERED: ACETAMINOPHEN 325 MG TAB PO PRN (10:38)
[2018-07-25] MEDS ORDERED: KETOROLAC TROMETHAMINE 10 MG TABLET PO PRN (10:38)
--- NOTE | 2018-07-25 10:38 | Operative Report ---
Post Operative Report Pre & Post Diagnosis Operation Date: 07/25/18 10:00 Preop diagnosis: Sustained ventricular tachycardia, cardiomyopathy Postop diagnosis: Same Procedure Operation Date: 07/25/18 10:00 Actual Procedures p ICD Insertion Single or Dual - Luis Enrique Chase MD Surgeon Luis Enrique Chase MD Regional Hr Manager None Estimated Blood Loss 40 Findings Consistent with Post-Op Diagnosis Good lead positions, good measurements. Elevated right-sided pressures were present Specimens None. Complications none Disposition Accompanied Patient To Recovery: No Disposition: PCU Description of Procedure After obtaining informed consent for the procedure, the patient was brought to the laboratory and prepped and draped in the standard sterile manner. The left prepectoral region was anesthetized with 1% lidocaine local anesthetic and left axillary venipuncture was performed by percutaneous technique and a guidewire placed through the left subclavian vein into the superior vena cava. The area was further infiltrated with 1% lidocaine local anesthetic and a 7 cm incision was made parallel to the left clavicle and 2 cm below it and carried down to the anterior pectoralis fascia. An ICD pocket was formed by blunt dissection anterior to the pectoralis fascia and a bacitracin-soaked sponge (50,000 units in 50 cc normal saline solution) was placed in the pocket. A 10.5 Egyptian Med[employer]onic lead introducer was placed over the guidewire into the left subclavian vein, the dilator and guidewire were removed and a bipolar dual coil active fixation steroid tipped ventricular ICD lead was advanced through the introducer into the superior vena cava. A guidewire was placed through the introducer and the introducer was stripped from the lead and guidewire. Using a curved stylette the ventricular lead was advanced through the right ventricular outflow tract into the pulmonary artery and then using a straight stylette was positioned in the right ventricular apex. The screw was extended fixing the lead in position. Pacing and sensing thresholds were evaluated in bipolar configuration and are recorded on the implant data sheet. Once the lead was in position it was attached to the anterior pectoralis fascia using 2 sutures of 2-0 silk around the lead collar. The bacitracin-soaked sponge was removed from the pocket, hemostasis was obtained, the ICD was attached to the lead and placed in the pocket with the lead coiled beneath it. Due to elevated venous pressures a pursestring suture of 3-0 Vicryl was placed around the venous insertion site within the pocket. The incision was closed with a running double subcutaneous closure of 3-0 Vicryl absorbable suture, followed by running subcuticular skin closure of 4-0 Vicryl absorbable suture. Bacitracin ointment was placed on the incision and a pressure dressing applied. I attest to the content of the Intraoperative Record and any orders documented therein. Any exceptions are noted below.
[2018-07-25] MEDS: AMIODARONE / D5W 360 MG/200 ML BAG IV SCH (10:45)
--- NOTE | 2018-07-25 12:14 | Pharmacy Report ---
PHA: Glycemic Control AP - Date of Service July 25, 2018 - Assessment & Plan Outpatient Anti-diabetic Regimen: * Lantus 50 units SC qPM * Humalog qPM * A1c = on order for 07/25/18 The patient is currently receiving: * Basal insulin * Lantus 20 units SQ x1 administered 1/8 AM * Note: unknown if patient received home dose of 50 units on 1/7 PM prior to arrival * Correctional Insulin: Novolog Correction per scale ACHS Goal Range: Low 120 mg/dL - High 160 mg/dL Correction Factor: 35 mg/dL/unit * Prandial insulin: Per carb ratio of 1 unit per 12 grams CHO consumed Risk Factors for Insulin Resistance: * Diet: NPO for procedure today - Assessment & Plan Assessment & Plan: ASSESSMENT: * 82 yo F with T2DM admitted with Afib/VTach and rectal bleeding s/p colonoscopy the day prior to arrival * Patient is not sure if she received her Lantus dose of 50 units SC the evening prior to arrival. * Patient with significantly poor po intake yesterday, including but not limited to total refusal of dinner. NPO today for AICD placement. * Insulin drip was held yesterday, Novolog initiated. * BSG's have ranged 87-103 mg/dL since drip stopped * No Novolog has been required/administered, * No additional Lantus since 20 units yesterday AM * AM fasting BSG today 94 mg/dL * Patient was almost entirely NPO yesterday therefore her Lantus dose may not require significant adjustment. However, since AM fasting BSG was on the low side and patient is scheduled for surgery today, will reduce further. Will then provide additional Lantus tonight if BSG >140 mg/dL * Lantus home dose of 50 units SC qPM - suspect that this covers a large portion of the patient's prandial needs as outpatient which would explain why her Lantus requirement as an inpatient thus far has been significantly lower ( especially with noted poor po intake) PLAN FOR INPATIENT GLYCEMIC CONTROL: Basal insulin * Lantus SQ x1 this AM based on BSG * 10 units for BSG less than 110 mg/dL * 15 units for BSG 110 mg/dL or greater * Lantus SC x1 this PM based on BSG * 0 units for BSG less than 140 mg/dL * 10 units for BSG 140 mg/dL or greater Bolus Insulin * Novolog per scale ACHS with one overnight check * Goal Range: Low 120 mg/dL - High 160 mg/dL * Correction Factor: 35 mg/dL/unit * Carb ratio: 12 g CHO/unit Pharmacy will continue to monitor patient daily and write orders per [facility] inpatient glycemic control protocol. Thanks. * Please note that the plan above was derived based on current level of insulin resistance and hospital stress. These recommendations are appropriate for inpatient admission only. Plan of care upon discharge will need to be reassessed to avoid potential outpatient hypo/hyperglycemia.
--- NOTE | 2018-07-25 13:58 | Post Anesthesia Assessment ---
Date of Service July 25, 2018 Post Sedation Assessment Vital Signs Temp Pulse Pulse Resp BP Pulse Ox 07/25/18 12:24 70 07/25/18 12:15 69 28 H 109/59 L 96 07/25/18 12:00 70 21 99/91 L 96 07/25/18 11:47 71 20 117/97 93 07/25/18 11:15 70 18 89/51 L 96 07/25/18 11:00 70 15 112/68 94 07/25/18 10:52 70 17 88 L 07/25/18 10:51 36.4 C L 70 14 107/58 L 92 07/25/18 10:49 72 21 07/25/18 09:00 60 19 119/59 L 96 07/25/18 08:01 36.8 C 61 22 132/60 95 07/25/18 07:00 60 19 102/52 L 95 07/25/18 06:00 59 L 18 122/58 L 95 07/25/18 05:00 60 29 H 129/63 95 07/25/18 04:00 36.6 C 61 24 103/69 94 07/25/18 03:00 54 L 25 H 108/56 L 94 07/25/18 02:30 54 L 25 H 93/47 L 94 07/25/18 02:29 51 L 26 H 94/39 L 94 07/25/18 02:00 47 L 7 L 81/41 L 95 07/25/18 01:00 36.8 C 54 L 18 101/46 L 95 07/25/18 00:00 56 L 18 119/55 L 96 07/24/18 23:05 50 L 19 96/53 L 94 07/24/18 23:00 48 L 17 77/35 L 94 07/24/18 22:38 56 L 19 104/54 L 93 07/24/18 22:07 49 L 7 L 89/44 L 94 07/24/18 22:00 55 L 18 83/40 L 96 07/24/18 21:01 58 L 16 134/68 97 07/24/18 21:00 56 L 9 L 98 07/24/18 20:00 36.7 C 56 L 24 138/73 97 07/24/18 19:01 56 L 12 145/70 H 97 07/24/18 19:00 56 L 27 H 96 07/24/18 18:00 54 L 19 100/51 L 96 07/24/18 16:00 57 L 21 104/61 91 07/24/18 15:00 60 21 154/99 H 96 07/24/18 14:01 58 L 22 149/87 H 96 07/24/18 14:00 60 22 93 Recovery Score Activity: Moves 4 extremities Consciousness: Fully Awake Discharge Sedation Level of Care: Fast Track Phase II Post Sedation Plan On clinical assessment, the patient appears to have tolerated the sedation without complications. Patient is recovering as anticipated. Patient will continue to be monitored by nursing and may be discharged when sedation discharge criteria are met per below protocol. Upon Completions of procedure and additional 15 minutes continue every 5 minute vital signs and the P.A.R. score; then discharge to a Phase I or Fast Track to Phase II per the following guidelines: * Discharge Patient to appropriate Phase II area if PAR is 8 or greater or return to pre- procedure baseline. The post - procedure orders will be as directed. * If PAR score is less than 8 or not return to pre-procedure baseline then patient will follow Phase I monitoring till PAR is reached for Phase II. The Phase I may be done in procedure room or may call to secure a Phase I area. * �If naloxone or flumazenil are used for reversal, hold in Phase I for continued monitoring from when last reversal dose was given for a minimum of 60 minutes or longer pending the nurse and/or physician discretion of patient condition before discharge to Phase II.� Please call the Sedation Physician to re-evaluate and complete post-note for discharge to Phase II area. Do NOT discharge from procedure sedation or Phase 1 until post- sedation evaluation note is complete by procedure /sedation MD Sedation Discharge Instructions to be given to the patient at discharge to home.
[2018-07-25] MEDS ORDERED: WARFARIN SOD 5 MG TAB PO ONE (16:00)
--- NOTE | 2018-07-25 16:34 | Progress Note ---
DATE: 07/25/2018 Patient is awake and has a new pacer defibrillator in the left anterior chest. Patient has a bandage over it now, and it is not really very tender. She has had no further rectal bleeding. I did discuss with the patient and her family, they were present in the room, that her colon biopsies returned today, positive for moderately differentiated adenocarcinoma. She will be getting an appointment with Dr. Kelsey in our [facility], who will be evaluating her for colorectal surgery at [place]. In the meantime, I plan on getting a CEA level in the hospital, and she will probably require either a PET scan or a CT scan prior to considering a surgical procedure. I would leave that up to Dr. Kelsey.
[2018-07-25] MEDS: LORATADINE 10 MG TAB PO SCH (20:48)
[2018-07-25] MEDS: CALCIUM CARBONATE 500 MG CHEWABLE TAB PO SCH (20:48)
[2018-07-25] MEDS: LACTOBACILLUS ACIDOPHILUS (FLORANEX) TAB PO SCH (20:48)
[2018-07-25] MEDS: ACETAMINOPHEN 500 MG TAB PO SCH (20:48)
[2018-07-25] MEDS: LORazepam 0.5 MG TAB PO SCH (20:48)
[2018-07-25] MEDS: LEVOTHYROXINE SODIUM 25 MCG TABLET PO SCH (20:48)
--- NOTE | 2018-07-25 20:50 | Critical Care Progress Note ---
Date of Service July 25, 2018 Assessment & Plan (1) Permanent atrial fibrillation: Impression: 1. Wide-complex tachycardia requiring cardioversion. 2. Congestive heart failure with systolic ejection fraction of 25%. 3. Severe aortic stenosis and moderate mitral stenosis according to the report from the echocardiogram. 4. Chronic kidney disease. 5. Non-ST elevation OR, likely demand. 6. Junctional rhythm on the monitor. 7. Diabetes type 2. 8. History of CVA. Plan: 1. Defibrillator/pacemaker was placed, appreciate cardiology input. 2. Continue current treatment. 3. Tolerating oral intake. 4. No recurrence of nausea. 5. Remains on DVT and GI prophylaxis. 6. Glucose control. 7. Follow the results of the biopsy from colonoscopy. 8. Disposition plan to telemetry floor, appreciate the acceptance of this case on telemetry. 9. Discussed with the staff on rounds and details. 10. Discussed with the family in details. CCM time was 45 minutes. Subjective The patient is feeling much better after she had the pacemaker placement, she had a defibrillator/ pacemaker. Her appetite has improved. Family were at the bedside and noted that she was eating properly. Denies any nausea or vomiting, no pain, no discomfort, no change in bowel movements or urine habits. Physical Exam 2 Vital Signs (Past 24 Hours): Last Vital Signs Temp 36.8 C 07/25/18 19:03 Pulse 70 07/25/18 19:03 Resp 18 07/25/18 19:03 BP 148/76 H 07/25/18 19:03 Pulse Ox 92 07/25/18 19:03 Physical Exam: Vital signs are stable, currently she is totally paced at 70 bpm, blood pressure and heart rate, are acceptable. O2 saturation is 95% on 1 L nasal cannula. S1-S2 regular rate and rhythm, lungs are clear, abdomen is benign, trace edema in the periphery, weakness in the left upper extremity due to previous CVA. Results & Data Laboratory Results Labs were reviewed personally. Diagnostic Findings No new imaging.
[2018-07-26] MEDS ORDERED: INSULIN ASPART 100 UNITS/ML 3 ML PEN SC ONE (02:00)
--- NOTE | 2018-07-26 06:51 | XRay Report ---
XR chest 2V routine HISTORY: 82 years-old Female EXACT TIME ORDERED Evaluate for pneumothorax and l status post placemen t of a left subclavian pacer/AICD COMPARISON: Chest radiograph 07/24/2017 TECHNIQUE: AP and lateral views of the chest FINDINGS: Moderate to extensive cardiomegaly. Calcification the thoracic aortic arch. Prior median sternotomy. Pulmonary vascular congestion with interstitial coarsening. Bilateral pleural effusions. Status post placement of a single lead left subclavian pacer/AICD with lead overlying the expected location of th e right ventricle. No postprocedural pneumothorax identified. Degenerative changes of the shoulders a nd spine. IMPRESSION: 1. Status post placement of a single lead left subclavian pacer/AICD. No postprocedural pneumothorax. 2. Cardiomegaly with mild pulmonary edema. 3. Small bilateral pleural effusions. The above report was generated using voice recognition software. It may contain grammatical, syntax o r spelling errors. Electronically signed by: Abiel Storm M.D. 07/26/2018 6:50 AM
[2018-07-26 08:08] LABS: INR 1.3 (0.9-1.1); Prothrombin Time 13.2 Seconds (9.0-12.0)
[2018-07-26] MEDS: INSULIN ASPART 100 UNITS/ML 3 ML PEN SC SCH ×5 (08:22→20:55)
[2018-07-26] MEDS: FERROUS SULFATE 325 MG TAB PO SCH (08:30)
[2018-07-26] MEDS: CHOLECALCIFEROL 1,000 UNITS TAB PO SCH (08:30)
[2018-07-26] MEDS: DOCUSATE SODIUM 100 MG CAP PO SCH (08:30)
[2018-07-26] MEDS: METOPROLOL SUCC 25MG EXT REL TAB PO SCH (08:31)
[2018-07-26] MEDS: FLUOXETINE HCL 20 MG CAP PO SCH (08:55)
[2018-07-26] MEDS: PANTOprazole 40 MG TAB PO SCH (08:55)
--- NOTE | 2018-07-26 09:37 | Cardiology Progress Note ---
Date of Service July 26, 2018 Assessment & Plan (1) Wide-complex tachycardia: She presented with sustained rapid ventricular tachycardia requiring cardioversion. This is likely due to her cardiomyopathy. She now has an ICD in place and should be protected. I would leave her off of antiarrhythmic therapy until we see how much of this she has in the future. 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 She has had moderate aortic stenosis in the past. (3) Cardiomyopathy: She has a cardiomyopathy which is probably multifactorial. She has a history of left ventricular dysfunction although it is more severe now, it may be related in part to her aortic stenosis. We will need to adjust her medications for control of her cardiomyopathy. (4) Permanent atrial fibrillation: She is in permanent atrial fibrillation, the rate is well controlled. She was on warfarin, her warfarin had been on hold and her INR normalized. She will need long-term anticoagulation postoperatively. I did give her 5 mg yesterday, I will leave ongoing Coumadin management up to the primary service. (5) ICD (implantable cardioverter-defibrillator) in place: She is doing well post ICD implantation, the site looks good, the device is working well and her x-ray looks good. From my standpoint she could go home today, I did start anticoagulation yesterday and that can be continued. If desired heparin could be initiated today. I am going to arrange a follow-up visit for wound check on Monday. We will be decreasing her pacing rate today ( from 70-60 bpm). I will put her wound care instructions and her follow-up visit in her discharge paperwork. Subjective She is feeling relatively well today, she apparently did not sleep much throughout the night for reasons that are not clear. She did have a little bit of incisional discomfort but that has improved this morning. No chest discomfort. Physical Exam 2 Vital Signs (Past 24 Hours): Last Vital Signs Temp 36.2 C L 07/26/18 07:30 Pulse 77 07/26/18 07:30 Resp 16 07/26/18 07:30 BP 169/66 H 07/26/18 07:30 Pulse Ox 91 07/26/18 07:30 Physical Exam: Her left-sided ICD site is clean and dry, no swelling or ecchymosis. Dressing changed. Results & Data Diagnostic Findings ECG postop: Ventricular pacing with occasional supraventricular conduction. Appropriate pacemaker function. Chest x-ray: Good lead position, no pneumothorax ICD evaluation: Excellent pacing and sensing characteristics. Telemetry: Atrial fibrillation, predominantly ventricular pacing since device implantation
--- NOTE | 2018-07-26 11:26 | Hospitalist Progress Note ---
Date of Service July 26, 2018 Assessment & Plan (1) Ventricular tachycardia: 82-year-old female was admitted on 24 July 2018 for V. tach, NSTEMI, and rectal bleeding. cardioverted in the field, no further episodes of V tach long history of atrial fibrillation ICD/pacer implanted on 07/25/18 follow up on Sunday 07/[address] Chase no Amiodarone, Dr. Chase wants to see if she actually has the arrhythmia (2) Non-ST elevation [place] (NSTEMI): troponin 0.3 most recently, no chest pain, no ST changes likely from tachycardia and V tach and cardioverstion no invasive work up planned at this time patient continues to be chest pain free (3) Colon adenocarcinoma: recent diagnosis, had colonoscopy on 07/23 plan to follow up with colorectal surgeon, Dr. Kelsey in office will decide on CT, PET scan at that time (4) Rectal bleeding: no active bleeding GI okay with anticoagulation for the time being, Coumadin resumed bleeding related to recent biopsy of a colon mass found at 30cm (5) Elevated serum creatinine: Cr remains elevated at 1.7, this would be considered BRAXTON continue to follow, making adequate urine, K stable gave Lasix on 07/24/18, 40mg IV, responded well BMP pending today, will follow up results per patient's son, she has been following with Dr. Sims outpatient, just had renal US (6) Atrial fibrillation: chronic issue, can resume anticoagulation per GI rates controlled, now has pacer in case she would have bradycardia was on Coumadin prior to admission, 5mg 3x week and 2.5mg 4x week (7) Hypertension: metoprolol, lisinopril, and lasix. --- Will hold Lisinopril and Lasix given BRAXTON (8) Hyperlipidemia: hold statin for now (9) Depression: At home is on buspirone, lorazepam, and fluoxetine. Continue here. (10) Diabetes: At home is on insulin. Will order glycemic consult. (11) Hypothyroidism: (12) Insomnia: - Insomnia: At home is on trazodone and melatonin. (13) GERD (gastroesophageal reflux disease): PPI (14) CVA (cerebral vascular accident): 2007, no focal deficits (15) Bilateral lower extremity edema: due to chronic heart failure, diastolic Lasix given on 07/24, legs no longer edematous Plan: order PT/OT today, likely for d/c to home tomorrow with cardiology and colorectal surgery follow up Subjective patient feeling well, tolerated ICD yesterday well, minimal pain at insertion site eating okay, moved her bowels yesterday no dyspnea since getting Lasix two days ago, sleeping well feels weak, she agrees with PT/OT discussed with son at the bedside, plan for d/c tomorrow if strong enough appreciate Dr. Chase's recommendations, hold on antiarrhythmics, follow up in clinic on Monday for pacer check appreciate note from Dr. Neumann, pathology shows adenocarcinoma, will follow up with Dr. Kelsey in clinic Review of Systems All systems reviewed & are unremarkable except as noted in HPI & below Constitutional: + fatigue and + weakness; no fever, no chills and no sweats Respiratory: no cough, no dyspnea and no dyspnea on exertion Cardiovascular: no chest pain, no dyspnea, no dyspnea on exertion and no palpitations Physical Exam 2 Vital Signs (Past 24 Hours): Last Vital Signs Temp 36.2 C L 07/26/18 07:30 Pulse 74 07/26/18 09:00 Resp 16 07/26/18 07:30 BP 169/66 H 07/26/18 07:30 Pulse Ox 91 07/26/18 07:30 Constitutional: WD/WN, vitals as above Eyes: PERRL, conjunctivae normal, anicteric sclerae Neck: trachea midline, no thyromegaly Respiratory: normal respiratory effort, lungs clear to auscultation Cardiovascular: Rate/Rhythm: regular rhythm; + abnormal rate (irregular irregular) Heart Sounds: no murmur Vessels: normal peripheral pulses; no JVD Extremities: normal capillary refill; no edema Chest (Breasts): Chest: + pacemaker (incision clean and dry, minimal pain and erythema) Gastrointestinal (Abdomen): normal bowel sounds, soft, nontender, no hepatosplenomegaly Musculoskeletal: no cyanosis or clubbing, extremities motor strength 5/5 Skin: no rashes, warm and dry Neurologic: patellar DTR's 2+ bilat, sensation intact and PERRL, EOMI, accommodation nl, no face palsy, no dysarthria Psychiatric: A+Ox3, euthymic affect Lymphatic: no cervical or axillary lymphadenopathy Results & Data Laboratory Results Laboratory Results - last 24 hr 07/25/18 07/25/18 07/25/18 16:15 16:29 20:17 PT INR POC Glucose 156 H 154 H Carcinoembryonic Ag 3.3 H 07/26/18 07/26/18 07/26/18 02:04 07:22 07:23 PT 13.2 H INR 1.3 H POC Glucose 97 84 Carcinoembryonic Ag Medications Administered Current Inpatient Medications Acetaminophen (Tylenol) 1,000 mg PO [facility] Stop: 08/23/18 20:59 Last Admin: 07/25/18 20:48 Dose: 1,000 mg Acetaminophen (Tylenol) 650 mg PO Q4H PRN PRN Reason: Mild pain (rating 1,2,3) Stop: 08/24/18 10:37 Buspirone HCl (Buspar) 2.5 mg PO BID [facility] Stop: 08/23/18 08:59 Last Admin: 07/26/18 08:30 Dose: 2.5 mg Calcium Carbonate (Tums) 500 mg PO [facility] Stop: 08/23/18 20:59 Last Admin: 07/25/18 20:48 Dose: 500 mg Dextrose (Dextrose 50%) 25 - 50 ml IV UD PRN; Protocol PRN Reason: Hypoglycemia Protocol Stop: 08/23/18 05:30 Docusate Sodium (Colace) 100 mg PO [facility] Stop: 08/23/18 08:59 Last Admin: 07/26/18 08:30 Dose: 100 mg Ferrous Sulfate (Feosol) 325 mg PO [facility] Stop: 08/23/18 08:59 Last Admin: 07/26/18 08:30 Dose: 325 mg Fluoxetine HCl (Prozac) [facility] Stop: 08/23/18 08:59 Last Admin: 07/26/18 08:55 Dose: 40 mg Glucagon (Glucagen) 1 mg SQ UD PRN; Protocol PRN Reason: Hypoglycemia Protocol Stop: 08/23/18 05:30 Glucose (Glucose 40%) 15 - 30 gm PO UD PRN; Protocol PRN Reason: Hypoglycemia Protocol Stop: 08/23/18 05:30 Glucose (Dex4 Glucose) 4 - 8 tabs PO UD PRN; Protocol PRN Reason: Hypoglycemia Protocol Stop: 08/23/18 05:30 Prochlorperazine 5 mg/ Syringe 5 mls @ 5 mls/min IV Q4H PRN PRN Reason: Nausea And Vomiting Stop: 08/23/18 09:03 Last Admin: 07/24/18 09:57 Dose: 5 mls/min Lactated Ringer's (Lr) 1,000 mls @ 15 mls/hr IV .Q24H [facility] Last Infusion: 07/25/18 18:57 Dose: Infused Insulin Aspart (Novolog Flexpen) 0 units SC [facility]; Protocol Stop: 08/23/18 20:59 Last Admin: 07/26/18 08:29 Dose: Not Given Ketorolac Tromethamine (Toradol) 10 mg PO Q6H PRN PRN Reason: Pain (rating 4,5,6,7,8,9,10) Stop: 07/30/18 10:37 Lactobacillus Acidophilus (Floranex) 1 tab PO QPM [facility] Stop: 08/23/18 20:59 Last Admin: 07/25/18 20:48 Dose: 1 tab Levothyroxine Sodium (Synthroid) 25 mcg PO QPM [facility] Stop: 08/23/18 20:59 Last Admin: 07/25/18 20:48 Dose: 25 mcg Loratadine (Claritin) 10 mg PO [facility] Stop: 08/23/18 20:59 Last Admin: 07/25/18 20:48 Dose: 10 mg Lorazepam (Ativan) 0.5 mg PO [facility] Stop: 08/23/18 20:59 Last Admin: 07/25/18 20:48 Dose: 0.5 mg Metoprolol Succinate (Toprol Xl) 25 mg PO [facility] Stop: 08/23/18 08:59 Last Admin: 07/26/18 08:31 Dose: 25 mg Miscellaneous (Carbohydrates For Hypoglycemia) 15 - 30 gm PO UD PRN PRN Reason: Hypoglycemia Treatment Stop: 08/23/18 05:30 Miscellaneous Information (Consult Glycemic Management Pharmacy) 1 ea N/A DAILY PRN PRN Reason: Consult Stop: 08/23/18 06:24 Pantoprazole Sodium (Protonix) 40 [facility] Stop: 08/23/18 08:59 Last Admin: 07/26/18 08:55 Dose: 40 mg Sodium Chloride ([place] Nasal) 2 sprays NA Q8 PRN; Protocol PRN Reason: Congestion Stop: 08/23/18 11:45 Vitamin D (Vitamin D3) 2,000 units PO [facility] Stop: 08/23/18 08:59 Last Admin: 07/26/18 08:30 Dose: 2,000 units Warfarin Sodium (Coumadin) 5 mg PO DAILY@1600 [facility] Stop: 08/25/18 15:59
[2018-07-26 11:29] LABS: BUN Creatinine Ratio 15.9 (10-20); Calcium 8.5 mg/dl (8.5-10.1); Creatinine Clr Calc Pharmacy 29.7 ml/min; Est GFR (African American) 33.4; Est GFR (Non-African American) 28.8; Potassium 3.6 mmol/L (3.5-5.1)
--- NOTE | 2018-07-26 11:43 | Pharmacy Report ---
Pharmacy Glycemic Short Note 2 - Date of Service July 26, 2018 - Glycemic Short BSG Results (Last 24 hours): 07/25/18 07/25/18 07/26/18 16:15 20:17 02:04 Glucose POC Glucose 156 H 154 H 97 07/26/18 07/26/18 07/26/18 07:22 07:23 10:59 Glucose 78 POC Glucose 84 157 H OUTPATIENT ANTIDIABETIC REGIMEN: * Lantus 50 units SQ HS * Humalog SQ HS ASSESSMENT: * 82 yo F with T2DM admitted with Afib/VTach and rectal bleeding s/p colonoscopy the day prior to arrival, s/p AICD placement yesterday * Patient with significantly poor po intake * Patient's blood sugars at goal with 20 units of Lantus only yesterday, will continue 10 units BID for BSG > 100mg/dl * Lantus home dose of 50 units SC qPM - suspect that this covers a large portion of the patient's prandial needs as outpatient which would explain why her Lantus requirement as an inpatient thus far has been significantly lower ( especially with noted poor po intake) PLAN FOR INPATIENT GLYCEMIC CONTROL: * Basal insulin * Lantus 10 units SQ BID - 0 units for BSG < 100mg/dl * Bolus insulin * NovoLog per scale ACHS or Q6hrs while NPO * Goal Range: Low 120 mg/dL - High 160 mg/dL - higher goal range for patient' s age and co-morbidities. * Correction Factor: 35 mg/dL/unit * Nutritional / Prandial insulin per carb ratio of 1 unit per 12 grams CHO consumed PLAN FOR DISCHARGE: * Resume home regimen, as long as patient is not experiencing hypoglycemia at home, A1c 7.7% acceptable for patient's age and comorbidities.
[2018-07-26] MEDS ORDERED: INSULIN GLARGINE SOLOSTAR 100 UNITS/ML 3 ML PEN SC SCH (12:00)
[2018-07-26] MEDS: INSULIN GLARGINE SOLOSTAR 100 UNITS/ML 3 ML PEN SC SCH (16:41)
[2018-07-26] MEDS: WARFARIN SOD 5 MG TAB PO SCH (16:42)
[2018-07-26] MEDS: LORATADINE 10 MG TAB PO SCH (20:58)
[2018-07-26] MEDS: LACTOBACILLUS ACIDOPHILUS (FLORANEX) TAB PO SCH (20:59)
[2018-07-26] MEDS: CALCIUM CARBONATE 500 MG CHEWABLE TAB PO SCH (20:59)
[2018-07-26] MEDS: LORazepam 0.5 MG TAB PO SCH (21:04)
[2018-07-26] MEDS: ACETAMINOPHEN 500 MG TAB PO SCH (21:35)
[2018-07-26] MEDS: LEVOTHYROXINE SODIUM 25 MCG TABLET PO SCH (21:35)
[2018-07-27 08:07] LABS: INR 1.4 (0.9-1.1); Prothrombin Time 13.5 Seconds (9.0-12.0)
[2018-07-27] MEDS: FERROUS SULFATE 325 MG TAB PO SCH (08:16)
[2018-07-27] MEDS: CHOLECALCIFEROL 1,000 UNITS TAB PO SCH (08:16)
[2018-07-27] MEDS: METOPROLOL SUCC 25MG EXT REL TAB PO SCH (08:16)
[2018-07-27] MEDS: FLUOXETINE HCL 20 MG CAP PO SCH (08:16)
[2018-07-27] MEDS: PANTOprazole 40 MG TAB PO SCH (08:16)
[2018-07-27] MEDS: DOCUSATE SODIUM 100 MG CAP PO SCH (08:17)
[2018-07-27] MEDS: INSULIN ASPART 100 UNITS/ML 3 ML PEN SC SCH ×4 (08:18→21:04)
[2018-07-27] MEDS ORDERED: ONDANSETRON INJ 2 MG/ML 2 ML VIAL IV PRN (09:54)
[2018-07-27] MEDS ORDERED: TRAZODONE HCL 50 MG TAB PO ONE (09:56)
[2018-07-27] MEDS ORDERED: METOPROLOL SUCC 25MG EXT REL TAB PO STA (09:58)
--- NOTE | 2018-07-27 09:59 | Cardiology Progress Note ---
Date of Service July 27, 2018 Assessment & Plan (1) Wide-complex tachycardia: She presented with sustained rapid ventricular tachycardia requiring cardioversion. This is likely due to her cardiomyopathy. She now has an ICD in place and should be protected, however her episode of ventricular tachycardia this morning appears to be below the rate cutoff of the device. I am going to have her device interrogated and reprogrammed to make sure that is the case. The fact that it terminated with a single PVC suggests that it may be very amenable to antitachycardia pacing, assuming that was not a timing coincidence. I would leave her off of antiarrhythmic therapy until we see how much of this she has in the future and whether antitachycardia pacing is effective in terminating it. She should be on a higher dose of beta blockade both for her hypertension and her cardiomyopathy and that may help with her ventricular tachycardia as well. I am going to increase her metoprolol succinate today. 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 She has had moderate aortic stenosis in the past. (3) Cardiomyopathy: She has a cardiomyopathy which is probably multifactorial. She has a history of left ventricular dysfunction although it is more severe now, it may be related in part to her aortic stenosis. We will need to adjust her medications for control of her cardiomyopathy. With her recurrent ventricular tachycardia I would like to go up on her beta-blockade, her blood pressure is elevated which is another reason to increase it. The only downside to increasing her beta-blockade is that she may pace more frequently, that is potentially detrimental but I would increase it anyhow. I will increase her to metoprolol succinate 50 mg daily starting today. (4) Permanent atrial fibrillation: She is in permanent atrial fibrillation, the rate is well controlled on minimal rate control medications. She was on warfarin, her warfarin had been on hold and her INR normalized. She will need long-term anticoagulation postoperatively. I will leave ongoing Coumadin management up to the primary service. (5) ICD (implantable cardioverter-defibrillator) in place: She is doing well post ICD implantation, the site looks good, the device is working well other than possible programming issues which will be addressed today and her postop x-ray looks good. I did arrange a follow-up visit for wound check on Monday, however since she will probably be staying for at least a day or 2 that visit may not be necessary and I will adjust if needed over the weekend. We will be adjusting her pacing rate today (to 60 bpm). Subjective She feels well today, she has no significant incisional discomfort. She has no chest discomfort, she has had no lightheadedness or palpitations. She did have VT this morning and when questioned about it she was unaware that she had it even though it lasted almost 2 minutes. Physical Exam 2 Vital Signs (Past 24 Hours): Last Vital Signs Temp 36.7 C 07/27/18 06:59 Pulse 78 07/27/18 06:59 Resp 18 07/27/18 06:59 BP 162/84 H 07/27/18 06:59 Pulse Ox 93 07/27/18 06:59 Physical Exam: Constitutional: Alert, cooperative and in no distress. Pulmonary: Clear to auscultation bilaterally. Cardiac: Irregular rhythm with no murmur, gallop or rub. Abdomen: Soft, nontender with normal bowel sounds. Extremities: No edema. Skin: No rash, ecchymoses or petechiae. Her pacemaker incision remains bandaged , no evidence of bleeding. Results & Data Diagnostic Findings Telemetry: Atrial fibrillation with a well-controlled heart rate. One episode of sustained ventricular tachycardia lasting almost 2 minutes, it was not detected by the device (the ventricular rate was around 155-160 bpm) therefore not treated. It terminated with a single PVC.
[2018-07-27] MEDS: LISINOPRIL 10 MG TAB PO SCH (11:09)
[2018-07-27] MEDS: FUROSEMIDE 20 MG TAB PO SCH (11:09)
--- NOTE | 2018-07-27 12:09 | Pharmacy Report ---
Pharmacy Glycemic Short Note 2 - Date of Service July 27, 2018 - Glycemic Short BSG Results (Last 24 hours): 07/26/18 07/26/18 07/27/18 16:20 20:07 07:22 POC Glucose 148 H 171 H 98 07/27/18 11:23 POC Glucose 152 H OUTPATIENT ANTIDIABETIC REGIMEN: * Lantus 50 units SQ HS * Humalog SQ HS ASSESSMENT: * 82 yo F with T2DM admitted with Afib/VTach and rectal bleeding s/p colonoscopy the day prior to arrival, POD2 AICD placement * Patient with significantly poor po intake * Patient's blood sugars at goal - per family request - giving total daily dose at 1600. * Lantus home dose of 50 units SC qPM - suspect that this covers a large portion of the patient's prandial needs as outpatient which would explain why her Lantus requirement as an inpatient thus far has been significantly lower ( especially with noted poor po intake) PLAN FOR INPATIENT GLYCEMIC CONTROL: * Basal insulin * Lantus 20 units SQ daily at 1600 - dosed daily at this time per family request * Bolus insulin * NovoLog per scale ACHS or Q6hrs while NPO * Goal Range: Low 120 mg/dL - High 160 mg/dL - higher goal range for patient' s age and co-morbidities. * Correction Factor: 35 mg/dL/unit * Nutritional / Prandial insulin per carb ratio of 1 unit per 12 grams CHO consumed PLAN FOR DISCHARGE: * Resume home regimen, as long as patient is not experiencing hypoglycemia at home, A1c 7.7% acceptable for patient's age and comorbidities.
--- NOTE | 2018-07-27 14:41 | Hospitalist Progress Note ---
Date of Service July 27, 2018 Assessment & Plan (1) Ventricular tachycardia: 82-year-old female was admitted on 24 July 2018 for V. tach, NSTEMI, and rectal bleeding. cardioverted in the field long history of atrial fibrillation ICD/pacer implanted on 07/25/18 follow up on Sunday 07/[address] Chase no Amiodarone, Dr. Chase wants to see if she actually has the arrhythmia patient had a brief run of V tach overnight will interrogate pacer tomorrow (2) Non-ST elevation TN (NSTEMI): troponin 0.3 most recently, no chest pain, no ST changes likely from tachycardia and V tach and cardioverstion no invasive work up planned at this time patient continues to be chest pain free (3) Colon adenocarcinoma: recent diagnosis, had colonoscopy on 07/23 plan to follow up with colorectal surgeon, Dr. Kelsey in office will decide on CT, PET scan at that time (4) Rectal bleeding: no active bleeding GI okay with anticoagulation for the time being, Coumadin resumed bleeding related to recent biopsy of a colon mass found at 30cm (5) Elevated serum creatinine: Cr remains elevated at 1.6 reviewed outpatient records, this is her baseline Cr, so this is NOT acute kidney injury continue to follow, making adequate urine, K stable gave Lasix on 07/24/18, 40mg IV, responded well resume Lisinopril and Lasix PO today repeat BMP in the AM (6) Atrial fibrillation: chronic issue, can resume anticoagulation per GI rates controlled, now has pacer in case she would have bradycardia was on Coumadin prior to admission, 5mg 3x week and 2.5mg 4x week (7) Hypertension: metoprolol, lisinopril, and lasix. --- Will hold Lisinopril and Lasix given BRAXTON (8) Hyperlipidemia: hold statin for now (9) Depression: At home is on buspirone, lorazepam, and fluoxetine. Continue here. (10) Diabetes: At home is on insulin. Will order glycemic consult. (11) Hypothyroidism: (12) Insomnia: - Insomnia: At home is on trazodone and melatonin. will give her Trazodone and Ativan this evening has not slept in two days (13) GERD (gastroesophageal reflux disease): PPI (14) CVA (cerebral vascular accident): 2008, no focal deficits (15) Bilateral lower extremity edema: due to chronic heart failure, diastolic Lasix given on 07/24, legs no longer edematous Plan: order PT/OT today, likely for d/c to home tomorrow with cardiology and colorectal surgery follow up Subjective patient with some confusion this morning says she has not slept in two nights, son at the bedside and he confirms this overnight she had a venticular tachycardia that terminated with a PVC Dr. Chase reviewed, going to interrogate pacer/ICD to see if the threshold needs to be lowered to break Vtach labs reviewed, Cr is 1.6 reviewed outpatient records, patient with baseline Cr of 1.6-1.7 she has been following with Dr. Sims as outpatient will resume her Lisinoril and Lasix since her Cr at baseline reviewed PT/OT, she can go home since she has 06/02 caregivers Review of Systems All systems reviewed & are unremarkable except as noted in HPI & below Constitutional: + insomnia Gastrointestinal: + nausea; no constipation and no diarrhea/loose stools Physical Exam 2 Vital Signs (Past 24 Hours): Last Vital Signs Temp 37.8 C H 07/27/18 11:00 Pulse 96 H 07/27/18 11:00 Resp 20 07/27/18 11:00 BP 176/77 H 07/27/18 11:00 Pulse Ox 96 07/27/18 11:00 Constitutional: WD/WN, vitals as above Eyes: PERRL, conjunctivae normal, anicteric sclerae Neck: trachea midline, no thyromegaly Respiratory: normal respiratory effort, lungs clear to auscultation Cardiovascular: Rate/Rhythm: regular rhythm; + abnormal rate (irregular irregular) Heart Sounds: no murmur Vessels: normal peripheral pulses; no JVD Extremities: normal capillary refill; no edema Chest (Breasts): Chest: + pacemaker (incision clean and dry, minimal pain and erythema) Gastrointestinal (Abdomen): normal bowel sounds, soft, nontender, no hepatosplenomegaly Musculoskeletal: no cyanosis or clubbing, extremities motor strength 5/5 Skin: no rashes, warm and dry Neurologic: patellar DTR's 2+ bilat, sensation intact and PERRL, EOMI, accommodation nl, no face palsy, no dysarthria Psychiatric: A+Ox3, euthymic affect Lymphatic: no cervical or axillary lymphadenopathy Results & Data Laboratory Results Laboratory Results - last 24 hr 07/26/18 07/26/18 07/27/18 16:20 20:07 07:22 PT INR POC Glucose 148 H 171 H 98 07/27/18 07/27/18 07:31 11:23 PT 13.5 H INR 1.4 H POC Glucose 152 H Medications Administered Current Inpatient Medications Acetaminophen (Tylenol) 1,000 mg PO HS [facility] Stop: 08/23/18 20:59 Last Admin: 07/26/18 21:35 Dose: 1,000 mg Acetaminophen (Tylenol) 650 mg PO Q4H PRN PRN Reason: Mild pain (rating 1,2,3) Stop: 08/24/18 10:37 Last Admin: 07/27/18 11:10 Dose: 650 mg Buspirone HCl (Buspar) 2.5 mg PO BID [facility] Stop: 08/23/18 08:59 Last Admin: 07/27/18 08:15 Dose: 2.5 mg Calcium Carbonate (Tums) 500 mg PO [facility] Stop: 08/23/18 20:59 Last Admin: 07/26/18 20:59 Dose: 500 mg Dextrose (Dextrose 50%) 25 - 50 ml IV UD PRN; Protocol PRN Reason: Hypoglycemia Protocol Stop: 08/23/18 05:30 Docusate Sodium (Colace) 100 mg PO [facility] Stop: 08/23/18 08:59 Last Admin: 07/27/18 08:17 Dose: 100 mg Ferrous Sulfate (Feosol) [facility] Stop: 08/23/18 08:59 Last Admin: 07/27/18 08:16 Dose: 325 mg Fluoxetine HCl (Prozac) 40 mg PO [facility] Stop: 08/23/18 08:59 Last Admin: 07/27/18 08:16 Dose: 40 mg [facility]urosemide (Lasix) [facility] Stop: 08/26/18 08:59 Last Admin: 07/27/18 11:09 Dose: 20 mg Glucagon (Glucagen) 1 mg SQ UD PRN; Protocol PRN Reason: Hypoglycemia Protocol Stop: 08/23/18 05:30 Glucose (Glucose 40%) 15 - 30 gm PO UD PRN; Protocol PRN Reason: Hypoglycemia Protocol Stop: 08/23/18 05:30 Glucose (Dex4 Glucose) 4 - 8 tabs PO UD PRN; Protocol PRN Reason: Hypoglycemia Protocol Stop: 08/23/18 05:30 Prochlorperazine 5 mg/ Syringe 5 mls @ 5 mls/min IV Q4H PRN PRN Reason: Nausea And Vomiting Stop: 08/23/18 09:03 Last Admin: 07/24/18 09:57 Dose: 5 mls/min Lactated Ringer's (Lr) 1,000 mls @ 15 mls/hr IV .Q24H [facility] Last Infusion: 07/25/18 18:57 Dose: Infused Insulin Aspart (Novolog Flexpen) 0 units SC ACHS [facility]; Protocol Stop: 08/23/18 20:59 Last Admin: 07/27/18 12:37 Dose: Not Given Insulin Glargine (Lantus Solostar Pen) 20 units SC DAILY@1600 [facility]; Protocol Stop: 08/25/18 15:59 Last Admin: 07/26/18 16:41 Dose: 20 units Ketorolac Tromethamine (Toradol) 10 mg PO Q6H PRN PRN Reason: Pain (rating 4,5,6,7,8,9,10) Stop: 07/30/18 10:37 Lactobacillus Acidophilus (Floranex) 1 tab PO QPM [facility] Stop: 08/23/18 20:59 Last Admin: 07/26/18 20:59 Dose: 1 tab Levothyroxine Sodium (Synthroid) 25 mcg PO QPM [facility] Stop: 08/23/18 20:59 Last Admin: 07/26/18 21:35 Dose: 25 mcg Lisinopril (Zestril) 10 mg PO QAM [facility] Stop: 08/26/18 08:59 Last Admin: 07/27/18 11:09 Dose: 10 mg Loratadine (Claritin) 10 mg PO HS [facility] Stop: 08/23/18 20:59 Last Admin: 07/26/18 20:58 Dose: 10 mg Lorazepam (Ativan) 1 mg PO HS [facility] Stop: 08/26/18 20:59 Metoprolol Succinate (Toprol Xl) 50 mg PO QAM [facility] Stop: 08/27/18 08:59 Miscellaneous (Carbohydrates For Hypoglycemia) 15 - 30 gm PO UD PRN PRN Reason: Hypoglycemia Treatment Stop: 08/23/18 05:30 Miscellaneous Information (Consult Glycemic Management Pharmacy) 1 ea N/A DAILY PRN PRN Reason: Consult Stop: 08/23/18 06:24 Ondansetron HCl (Zofran) 4 mg IV Q4H PRN PRN Reason: Nausea Stop: 08/26/18 09:53 Last Admin: 07/27/18 10:05 Dose: 4 mg Pantoprazole Sodium (Protonix) [facility] Stop: 08/23/18 08:59 Last Admin: 07/27/18 08:16 Dose: 40 mg Sodium Chloride ([place] Nasal) 2 sprays NA Q8 PRN; Protocol PRN Reason: Congestion Stop: 08/23/18 11:45 Trazodone HCl (Desyrel) 50 mg PO [facility] Stop: 08/26/18 20:59 Vitamin D (Vitamin D3) 2,000 [facility] Stop: 08/23/18 08:59 Last Admin: 07/27/18 08:16 Dose: 2,000 units Warfarin Sodium (Coumadin) 5 mg PO DAILY@1600 [facility] Stop: 08/25/18 15:59 Last Admin: 07/26/18 16:42 Dose: 5 mg
[2018-07-27] MEDS: WARFARIN SOD 5 MG TAB PO SCH (17:26)
[2018-07-27] MEDS: INSULIN GLARGINE SOLOSTAR 100 UNITS/ML 3 ML PEN SC SCH (17:26)
[2018-07-27] MEDS: LORATADINE 10 MG TAB PO SCH (20:58)
[2018-07-27] MEDS: LORazepam 1 MG TAB PO SCH (20:58)
[2018-07-27] MEDS: TRAZODONE HCL 50 MG TAB PO SCH (21:00)
[2018-07-27] MEDS: ACETAMINOPHEN 500 MG TAB PO SCH (21:00)
[2018-07-27] MEDS: LACTOBACILLUS ACIDOPHILUS (FLORANEX) TAB PO SCH (21:01)
[2018-07-27] MEDS: CALCIUM CARBONATE 500 MG CHEWABLE TAB PO SCH (21:01)
[2018-07-27] MEDS: LEVOTHYROXINE SODIUM 25 MCG TABLET PO SCH (21:03)
[2018-07-28 07:25] LABS: Hematocrit (blood only) 32.3 % (37-47); Hemoglobin 10.3 g/dL (12.0-16.0); Mean Corpuscular Hgb Conc 31.9 g/dL (32-36); Mean Corpuscular Volume 93.1 fL (80-100); Mean Platelet Volume 9.6 fL (7.4-10.4); Platelet Count 131 K/uL (130-400); RDW Coefficient of Variation 14.4 % (11.5-14.5); Red Blood Count 3.47 M/uL (4.2-5.4); White Blood Count 5.46 K/uL (4.8-10.8)
[2018-07-28 07:33] LABS: INR 1.7 (0.9-1.1); Prothrombin Time 16.3 Seconds (9.0-12.0)
[2018-07-28 07:54] LABS: BUN Creatinine Ratio 14.6 (10-20); Calcium 8.5 mg/dl (8.5-10.1); Creatinine Clr Calc Pharmacy 30.2 ml/min; Est GFR (African American) 34.4; Est GFR (Non-African American) 29.7; Potassium 3.7 mmol/L (3.5-5.1)
[2018-07-28] MEDS: FERROUS SULFATE 325 MG TAB PO SCH (08:56)
[2018-07-28] MEDS: CHOLECALCIFEROL 1,000 UNITS TAB PO SCH (08:57)
[2018-07-28] MEDS: PANTOprazole 40 MG TAB PO SCH (08:57)
[2018-07-28] MEDS: LISINOPRIL 10 MG TAB PO SCH (08:57)
[2018-07-28] MEDS: FLUOXETINE HCL 20 MG CAP PO SCH (08:57)
[2018-07-28] MEDS: FUROSEMIDE 20 MG TAB PO SCH (08:58)
[2018-07-28] MEDS: METOPROLOL SUCC 50MG EXT REL TAB PO SCH (08:59)
[2018-07-28] MEDS: DOCUSATE SODIUM 100 MG CAP PO SCH (08:59)
[2018-07-28] MEDS: INSULIN ASPART 100 UNITS/ML 3 ML PEN SC SCH ×4 (08:59→21:01)
--- NOTE | 2018-07-28 10:48 | XRay Report ---
XR chest 2V routine CLINICAL HISTORY: hypoxia COMPARISON STUDY: 07/26/2018 FINDINGS: The heart remains enlarged. There is radiographic evidence of mild congestive failure/fluid overload. There are postsurgical changes of a midline sternotomy. There is a left subclavian/defibri llator present. There are bilateral pleural effusions with associated by basilar opacities, likely at electatic[ IMPRESSION: Moderate to marked cardiomegaly, radiographic evidence of mild congestive failure/fluid o verload. Bilateral pleural effusions. Electronically signed by: Yasmani Goldstein M.D. 07/28/2018 10:47 AM
--- NOTE | 2018-07-28 12:00 | Cardiology Progress Note ---
Date of Service July 28, 2018 Assessment & Plan (1) Wide-complex tachycardia: * She presented with sustained rapid ventricular tachycardia requiring cardioversion. This is likely due to her cardiomyopathy. She now has an ICD in place and should be protected, however her episode of ventricular tachycardia yesterday morning was below the rate cutoff of the device. I did reprogram her ICD to treat this arrhythmia with antitachycardia pacing. The fact that her VT terminated with a single PVC suggests that it may be very amenable to antitachycardia pacing, assuming that was not a timing coincidence. I would leave her off of antiarrhythmic therapy until we see how much of this she has in the future and whether antitachycardia pacing is effective in terminating it. She should be on a higher dose of beta blockade both for her hypertension and her cardiomyopathy and that may help with her ventricular tachycardia as well. She is still not on a high dose but I do not want to go up too quickly, we can do that as an outpatient and the device will monitor her for recurrent arrhythmias. 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 She has had moderate aortic stenosis in the past. (3) Cardiomyopathy: She has a cardiomyopathy which is probably multifactorial. She has a history of left ventricular dysfunction although it is more severe now, it may be related in part to her aortic stenosis. We will need to adjust her medications for control of her cardiomyopathy. With her recurrent ventricular tachycardia I would like to go up on her beta-blockade, her blood pressure is elevated which is another reason to increase it. The only downside to increasing her beta-blockade is that she may pace more frequently, that is potentially detrimental but I would increase it anyhow. I will maintain her at her current dose for now.. (4) Permanent atrial fibrillation: She is in permanent atrial fibrillation, the rate is well controlled on minimal rate control medications. She was on warfarin, her warfarin had been on hold and her INR normalized. She will need long-term anticoagulation postoperatively. I will leave ongoing Coumadin management up to the primary service. (5) ICD (implantable cardioverter-defibrillator) in place: She is doing well post ICD implantation, the site looks good, the device is working well and her postop x-ray looks good. I did arrange a follow-up visit for wound check on Monday, however since she will probably be staying for at least a day or 2 that visit will not be necessary and I will adjust as needed over the weekend. Subjective She is doing well today. We did reprogram her ICD yesterday, both the pacing and the arrhythmia termination algorithms. She has not had VT since yesterday on increased metoprolol now. Physical Exam 2 Vital Signs (Past 24 Hours): Last Vital Signs Temp 37.3 C 07/28/18 11:11 Pulse 64 07/28/18 11:11 Resp 18 07/28/18 11:11 BP 130/80 07/28/18 11:11 Pulse Ox 94 07/28/18 11:11 Physical Exam: Constitutional: Alert, cooperative and in no distress. Pulmonary: Clear to auscultation bilaterally. Cardiac: Irregular rhythm with no murmur, gallop or rub. Abdomen: Soft, nontender with normal bowel sounds. Extremities: No edema. Skin: No rash, minor incisional ecchymoses, no petechiae. Her pacemaker incision looks good, no evidence of active bleeding. Results & Data Diagnostic Findings Telemetry: Atrial fibrillation with a controlled heart rate, frequent pacing at a rate of 60 bpm. No ventricular tachycardia since yesterday.
--- NOTE | 2018-07-28 12:45 | Hospitalist Progress Note ---
Date of Service July 28, 2018 Assessment & Plan (1) Ventricular tachycardia: 82-year-old female was admitted on 24 July 2018 for V. tach, NSTEMI, and rectal bleeding. cardioverted in the field ICD/pacer implanted on 07/25/18 follow up on Sunday 07/[address] Chase no Amiodarone, Dr. Chase wants to see if she actually has the arrhythmia patient had a brief run of V tach over night on 07/27 toprol increased to 50mg from 25mg pacer/ICD threshold lowered, no V tach in past 36 hours on the monitor (2) Hypoxia: likely a combination of some mild pulmonary congestion and pleural effusions has some compressive atelectasis in the bases encourage to be OOB, will give an additional dose of Lasix today, 20mg IV encourage use of incentive spirometer try to wean off oxygen by tomorrow (3) Non-ST elevation [place] (NSTEMI): troponin peaked at 0.3 no chest pain, no ST changes likely from tachycardia and V tach and cardioverstion no invasive work up planned at this time patient continues to be chest pain free (4) Colon adenocarcinoma: recent diagnosis, had colonoscopy on 07/23 plan to follow up with colorectal surgeon, Dr. Kelsey in office will decide on CT, PET scan at that time (5) Rectal bleeding: no active bleeding GI okay with anticoagulation for the time being, Coumadin resumed bleeding related to recent biopsy of a colon mass found at 30cm (6) Elevated serum creatinine: Cr remains stable at 1.6 today reviewed outpatient records, this is her baseline Cr, so this is NOT acute kidney injury continue to follow, making adequate urine, K stable gave Lasix on 07/24/18, 40mg IV, responded well continue Lisinopril and Lasix PO daily repeat BMP in the AM (7) Atrial fibrillation: chronic issue, can resume anticoagulation per GI rates controlled, now has pacer in case she would have bradycardia was on Coumadin prior to admission, 5mg 3x week and 2.5mg 4x week (8) Hypertension: metoprolol, lisinopril, and lasix. --- Will hold Lisinopril and Lasix given BRAXTON (9) Hyperlipidemia: hold statin for now (10) Depression: At home is on buspirone, lorazepam, and fluoxetine. Continue here. (11) Diabetes: At home is on insulin. Will order glycemic consult. (12) Hypothyroidism: (13) Insomnia: some response to Trazodone and Ativan try again tonight (14) GERD (gastroesophageal reflux disease): PPI (15) CVA (cerebral vascular accident): 2008, no focal deficits (16) Bilateral lower extremity edema: due to chronic heart failure, diastolic Lasix given on 07/24, legs no longer edematous Plan: order PT/OT today, likely for d/c to home tomorrow with cardiology and colorectal surgery follow up Subjective patient slept a little better last night, woke up at midnight for vitals slept again from 3am to 7am some confusion this morning but improving reviewed labs, CBC stable, Cr stable at 1.6 only issue is hypoxia, patient denies feeling short of breath, no cough CXR today with pleural effusion, small, bilaterally encouraged to be OOB in chair, ambulate, use incentive spirometer updated son at the bedside reviewed tele, no V tach overnight try to get home tomorrow Review of Systems All systems reviewed & are unremarkable except as noted in HPI & below Constitutional: + fatigue, + weakness and + insomnia Respiratory: + dyspnea on exertion; no cough, no dyspnea, no pain on inspiration and no wheezing Physical Exam 2 Vital Signs (Past 24 Hours): Last Vital Signs Temp 37.3 C 07/28/18 11:11 Pulse 64 07/28/18 11:11 Resp 18 07/28/18 11:11 BP 130/80 07/28/18 11:11 Pulse Ox 94 07/28/18 11:11 Constitutional: WD/WN, vitals as above Eyes: PERRL, conjunctivae normal, anicteric sclerae Neck: trachea midline, no thyromegaly Respiratory: normal respiratory effort, lungs clear to auscultation (good air flow in bases, no rales) Cardiovascular: Rate/Rhythm: regular rhythm; + abnormal rate (irregular irregular) Heart Sounds: no murmur Vessels: normal peripheral pulses; no JVD Extremities: normal capillary refill; no edema Chest (Breasts): Chest: + pacemaker (incision clean and dry, minimal pain and erythema) Gastrointestinal (Abdomen): normal bowel sounds, soft, nontender, no hepatosplenomegaly Musculoskeletal: no cyanosis or clubbing, extremities motor strength 5/5 Skin: no rashes, warm and dry Neurologic: patellar DTR's 2+ bilat, sensation intact and PERRL, EOMI, accommodation nl, no face palsy, no dysarthria Psychiatric: A+Ox3, euthymic affect Lymphatic: no cervical or axillary lymphadenopathy Results & Data Laboratory Results Laboratory Results - last 24 hr 07/27/18 07/27/18 07/28/18 16:23 20:09 07:10 WBC RBC Hgb Hct MCV MCH MCHC RDW Std Deviation RDW Coeff of Venita Plt Count MPV PT 16.3 H INR 1.7 H Sodium Potassium Chloride Carbon Dioxide Anion Gap BUN Creatinine Est Cr Clr Drug Dosing Est GFR ( Amer) Est GFR (Non-Af Amer) BUN/Creatinine Ratio Glucose POC Glucose 155 H 237 H Calcium 07/28/18 07/28/18 07/28/18 07:10 07:10 07:29 WBC 5.46 RBC 3.47 L Hgb 10.3 L Hct 32.3 L MCV 93.1 MCH 29.7 MCHC 31.9 L RDW Std Deviation 49.0 H RDW Coeff of Venita 14.4 Plt Count 131 MPV 9.6 PT INR Sodium 137 Potassium 3.7 Chloride 106 Carbon Dioxide 28 Anion Gap 3.0 BUN 23 H Creatinine 1.60 H Est Cr Clr Drug Dosing 30.2 Est GFR ( Amer) 34.4 Est GFR (Non-Af Amer) 29.7 BUN/Creatinine Ratio 14.6 Glucose 118 H POC Glucose 127 H Calcium 8.5 07/28/18 11:18 WBC RBC Hgb Hct MCV MCH MCHC RDW Std Deviation RDW Coeff of Venita Plt Count MPV PT INR Sodium Potassium Chloride Carbon Dioxide Anion Gap BUN Creatinine Est Cr Clr Drug Dosing Est GFR ( Amer) Est GFR (Non-Af Amer) BUN/Creatinine Ratio Glucose POC Glucose 180 H Calcium Diagnostic Findings XR chest 2V routine CLINICAL HISTORY: hypoxia COMPARISON STUDY: 07/26/2018 FINDINGS: The heart remains enlarged. There is radiographic evidence of mild congestive failure/fluid overload. There are postsurgical changes of a midline sternotomy. There is a left subclavian/defibrillator present. There are bilateral pleural effusions with associated by basilar opacities, likely atelectatic[ IMPRESSION: Moderate to marked cardiomegaly, radiographic evidence of mild congestive failure/fluid overload. Bilateral pleural effusions. Medications Administered Current Inpatient Medications Acetaminophen (Tylenol) 1,[address] [facility] Stop: 08/23/18 20:59 Last Admin: 07/27/18 21:00 Dose: 1,000 mg Acetaminophen (Tylenol) 650 mg PO Q4H PRN PRN Reason: Mild pain (rating 1,2,3) Stop: 08/24/18 10:37 Last Admin: 07/27/18 11:10 Dose: 650 mg Buspirone HCl (Buspar) 2.5 mg PO BID [facility] Stop: 08/23/18 08:59 Last Admin: 07/28/18 08:58 Dose: 2.5 mg Calcium Carbonate (Tums) [address] [facility] Stop: 08/23/18 20:59 Last Admin: 07/27/18 21:01 Dose: 500 mg Dextrose (Dextrose 50%) 25 - 50 ml IV UD PRN; Protocol PRN Reason: Hypoglycemia Protocol Stop: 08/23/18 05:30 Docusate Sodium (Colace) 100 mg PO [facility] Stop: 08/23/18 08:59 Last Admin: 07/28/18 08:59 Dose: 100 mg Ferrous Sulfate (Feosol) 325 mg PO [facility] Stop: 08/23/18 08:59 Last Admin: 07/28/18 08:56 Dose: 325 mg Fluoxetine HCl (Prozac) 40 mg PO [facility] Stop: 08/23/18 08:59 Last Admin: 07/28/18 08:57 Dose: 40 mg Furosemide (Lasix) 20 mg PO [facility] Stop: 08/26/18 08:59 Last Admin: 07/28/18 08:58 Dose: 20 mg Glucagon (Glucagen) 1 mg SQ UD PRN; Protocol PRN Reason: Hypoglycemia Protocol Stop: 08/23/18 05:30 Glucose (Glucose 40%) 15 - 30 gm PO UD PRN; Protocol PRN Reason: Hypoglycemia Protocol Stop: 08/23/18 05:30 Glucose (Dex4 Glucose) 4 - 8 tabs PO UD PRN; Protocol PRN Reason: Hypoglycemia Protocol Stop: 08/23/18 05:30 Prochlorperazine 5 mg/ Syringe 5 mls @ 5 mls/min IV Q4H PRN PRN Reason: Nausea And Vomiting Stop: 08/23/18 09:03 Last Admin: 07/24/18 09:57 Dose: 5 mls/min Lactated Ringer's (Lr) 1,000 mls @ 15 mls/hr IV .Q24H [facility] Last Infusion: 07/25/18 18:57 Dose: Infused Insulin Aspart (Novolog Flexpen) 0 units SC ACHS [facility]; Protocol Stop: 08/23/18 20:59 Last Admin: 07/28/18 08:59 Dose: 5 units Insulin Glargine (Lantus Solostar Pen) 20 units SC DAILY@1600 [facility]; Protocol Stop: 08/25/18 15:59 Last Admin: 07/27/18 17:26 Dose: 20 units Ketorolac Tromethamine (Toradol) 10 mg PO Q6H PRN PRN Reason: Pain (rating 4,5,6,7,8,9,10) Stop: 07/30/18 10:37 Lactobacillus Acidophilus (Floranex) 1 tab PO QPM [facility] Stop: 08/23/18 20:59 Last Admin: 07/27/18 21:01 Dose: 1 tab Levothyroxine Sodium (Synthroid) 25 mcg PO QPM [facility] Stop: 08/23/18 20:59 Last Admin: 07/27/18 21:03 Dose: 25 mcg Lisinopril (Zestril) 10 mg PO QAM [facility] Stop: 08/26/18 08:59 Last Admin: 07/28/18 08:57 Dose: 10 mg Loratadine (Claritin) [address] [facility] Stop: 08/23/18 20:59 Last Admin: 07/27/18 20:58 Dose: 10 mg Lorazepam (Ativan) 1 mg PO HS [facility] Stop: 08/26/18 20:59 Last Admin: 07/27/18 20:58 Dose: 1 mg Metoprolol Succinate (Toprol Xl) 50 mg PO QAM [facility] Stop: 08/27/18 08:59 Last Admin: 07/28/18 08:59 Dose: 50 mg Miscellaneous (Carbohydrates For Hypoglycemia) 15 - 30 gm PO UD PRN PRN Reason: Hypoglycemia Treatment Stop: 08/23/18 05:30 Miscellaneous Information (Consult Glycemic Management Pharmacy) 1 ea N/A DAILY PRN PRN Reason: Consult Stop: 08/23/18 06:24 Ondansetron HCl (Zofran) 4 mg IV Q4H PRN PRN Reason: Nausea Stop: 08/26/18 09:53 Last Admin: 07/27/18 10:05 Dose: 4 mg Pantoprazole [facility]) [facility] Stop: 08/23/18 08:59 Last Admin: 07/28/18 08:57 Dose: 40 mg Sodium Chloride ([place] Nasal) 2 sprays NA Q8 PRN; Protocol PRN Reason: Congestion Stop: 08/23/18 11:45 Trazodone HCl (Desyrel) [address] [facility] Stop: 08/26/18 20:59 Last Admin: 07/27/18 21:00 Dose: 50 mg Vitamin D (Vitamin D3) 2,000 units PO [facility] Stop: 08/23/18 08:59 Last Admin: 07/28/18 08:57 Dose: 2,000 units Warfarin Sodium (Coumadin) 5 mg PO DAILY@1600 [facility] Stop: 08/25/18 15:59 Last Admin: 07/27/18 17:26 Dose: 5 mg
[2018-07-28] MEDS ORDERED: FUROSEMIDE 20 MG in SYRINGE 0 ML IV ONE (13:00)
[2018-07-28] MEDS: WARFARIN SOD 5 MG TAB PO SCH (17:24)
[2018-07-28] MEDS: INSULIN GLARGINE SOLOSTAR 100 UNITS/ML 3 ML PEN SC SCH (17:26)
[2018-07-28] MEDS: LACTOBACILLUS ACIDOPHILUS (FLORANEX) TAB PO SCH (20:40)
[2018-07-28] MEDS: LEVOTHYROXINE SODIUM 25 MCG TABLET PO SCH (20:41)
[2018-07-28] MEDS: TRAZODONE HCL 50 MG TAB PO SCH (20:42)
[2018-07-28] MEDS: ACETAMINOPHEN 500 MG TAB PO SCH (20:43)
[2018-07-28] MEDS: LORATADINE 10 MG TAB PO SCH (20:44)
[2018-07-28] MEDS: CALCIUM CARBONATE 500 MG CHEWABLE TAB PO SCH (20:44)
[2018-07-28] MEDS: LORazepam 1 MG TAB PO SCH (21:01)
[2018-07-29 08:18] LABS: Eosinophils # (auto) 0.09 K/uL (0-0.5); Hematocrit (blood only) 35.9 % (37-47); Hemoglobin 11.5 g/dL (12.0-16.0); Immature Granulocytes # (auto) 0.01 K/uL (0.00-0.02); Immature Granulocytes % (auto) 0.2 %; Lymphocytes # (auto) 1.26 K/uL (1.2-3.4); Lymphocytes % (auto) 28.3 %; Monocytes # (auto) 0.65 K/uL (0.11-0.59); Monocytes % (auto) 14.6 %; Neutrophils # (auto) 2.45 K/uL (1.4-6.5); Neutrophils % (auto) 54.9 %; Platelet Count 151 K/uL (130-400); RDW Coefficient of Variation 14.6 % (11.5-14.5); RDW Standard Deviation 49.7 fL (36.4-46.3); Red Blood Count 3.86 M/uL (4.2-5.4); White Blood Count 4.46 K/uL (4.8-10.8)
[2018-07-29 08:54] LABS: BUN Creatinine Ratio 14.8 (10-20); Calcium 8.9 mg/dl (8.5-10.1); Creatinine Clr Calc Pharmacy 28.4 ml/min; Est GFR (African American) 31.1; Est GFR (Non-African American) 26.8; Potassium 3.5 mmol/L (3.5-5.1)
[2018-07-29] MEDS: LISINOPRIL 10 MG TAB PO SCH (08:57)
[2018-07-29] MEDS: FLUOXETINE HCL 20 MG CAP PO SCH (08:57)
[2018-07-29] MEDS: FERROUS SULFATE 325 MG TAB PO SCH (08:57)
[2018-07-29] MEDS: PANTOprazole 40 MG TAB PO SCH (08:57)
[2018-07-29] MEDS: METOPROLOL SUCC 50MG EXT REL TAB PO SCH (08:57)
[2018-07-29] MEDS: FUROSEMIDE 20 MG TAB PO SCH (08:57)
[2018-07-29] MEDS: INSULIN ASPART 100 UNITS/ML 3 ML PEN SC SCH (08:58)
[2018-07-29] MEDS: CHOLECALCIFEROL 1,000 UNITS TAB PO SCH (08:58)
[2018-07-29] MEDS: DOCUSATE SODIUM 100 MG CAP PO SCH (08:59)
--- NOTE | 2018-07-29 21:00 | Discharge Summary ---
Date of Service July 29, 2018 Admission HPI Per Admitting Provider 82-year-old female was brought in via EMS for concerns for an arrhythmia. Of note, at the time of this H&P the patient was status post cardioversion and still remains somewhat sedated. The following is based on the medical record and the patient's son at bedside. Patient underwent colonoscopy yesterday () around 1:45 PM for evaluation for rectal bleeding. She went home and later that evening said she was not feeling well to include nausea, vomiting, respiratory difficulty. EMS noted patient was in A. fib with RVR with some hypotension to SBP 90�s. On arrival patient went into V. tach. She was cardioverted by the emergency department. On bedside discussion with the patient's son, patient was quite lucid earlier in the evening to include arguing against going to the hospital initially. She is not complaining of chest symptoms prior to her more acute onset of symptoms as above. - As some background, patient underwent a recent renal ultrasound for further evaluation of reported mild elevation in her creatinine. Her son says that she recently had been increased from Lasix 3 times a week up to daily by her primary care provider. - Patient has a history of bilateral lower extremity edema. It is unclear if she has a history of CHF. She follows with Dr. Cherry of cardiology as an outpatient. 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 Per son, she has some movement of her arm but has no dexterity and she can walk with a cane. - Patient has a known history of A. fib and normally is on metoprolol and warfarin. However, she has been off warfarin for the past 3 days in preparation for colonoscopy. Past medical history includes stroke, A. fib, hypertension, hyperlipidemia, depression, type 2 diabetes, hypothyroidism, GERD, bilateral lower extremity edema. Past surgical history includes heart valve replacement in 1998, cataracts, upper teeth extraction. Social history includes non-smoker, does not drink alcohol, and lives at home with 24-hour care. Admission Exam Per Admitting Provider GENERAL: Patient is presently resting comfortably. She does briefly open her eyes on palpation of her abdomen but then quickly goes back to sleep. HENT: Normocephalic, atraumatic. EYES: Normal conjunctiva. Sclera non-icteric. NECK: Inspection normal. CARDIAC: +S1S2 RRR, no murmurs. RESPIRATORY: Clear to auscultation. No wheezes or rales. Normal respiratory effort. GI: +BS, soft, non-distended. No guarding. EXTREMITIES: 2-3+ bilateral leg edema distally. NEURO: Unable to acutely assess. See HPI. Lines: PIV. Principal Diagnosis Ventricular tachycardia Discharge Exam Constitutional WD/WN, vitals as above Eyes PERRL, conjunctivae normal, anicteric sclerae Neck trachea midline, no thyromegaly Respiratory normal respiratory effort, lungs clear to auscultation (good air flow in bases, no rales) Cardiovascular Rate/Rhythm: regular rhythm; + abnormal rate (irregular irregular) Heart Sounds: no murmur Vessels: normal peripheral pulses; no JVD Extremities: normal capillary refill; no edema Chest (Breasts) Chest: + pacemaker (incision clean and dry, minimal pain and erythema) Gastrointestinal (Abdomen) normal bowel sounds, soft, nontender, no hepatosplenomegaly Musculoskeletal no cyanosis or clubbing, extremities motor strength 5/5 Skin no rashes, warm and dry Neurologic patellar DTR's 2+ bilat, sensation intact and PERRL, EOMI, accommodation nl, no face palsy, no dysarthria Psychiatric A+Ox3, euthymic affect Lymphatic no cervical or axillary lymphadenopathy Discharge Data Allergies Allergy/AdvReac Type Severity Reaction Status Date / Time No Known Allergies Allergy Unknown Verified 07/24/18 01:43 Consultations 07/24/18 02:49 ED Decision to Admit Stat 07/24/18 05:07 Consult Cardiology Stat Consult Case Management - Discharge Planning Routine Consult Gastroenterology Stat Consult Hogshead Dumper Routine Procedures Performed Operation Date: 07/25/18 10:00 Actual Procedures p ICD Insertion Single or Dual - Luis Enrique Chase MD Ordered Studies 07/25/18 08:45 EP Lab Images for PACS ONCE Hospital Course (1) Ventricular tachycardia: 82-year-old female was admitted on 24 July 2018 for V. tach, NSTEMI, and rectal bleeding. cardioverted in the field ICD/pacer implanted on 07/25/18 given restrictions for left arm movement no Amiodarone, Dr. Chase wants to see if she actually has the arrhythmia patient had a brief run of V tach over night on 07/27 toprol increased to 50mg from 25mg pacer/ICD threshold lowered, no V tach in past 60 hours on the monitor (2) Hypoxia: likely a combination of some mild pulmonary congestion and pleural effusions has some compressive atelectasis in the bases encourage to be OOB, gave an additional dose of Lasix today, 20mg IV on 07/28 encourage use of incentive spirometer weaned off of oxygen today, 94% on room air (3) Non-ST elevation [place] (NSTEMI): troponin peaked at 0.3 no chest pain, no ST changes likely from tachycardia and V tach and cardioverstion no invasive work up planned at this time patient continues to be chest pain free (4) CKD stage 3 due to type 2 diabetes mellitus: Cr remains stable at 1.7 today reviewed outpatient records, this is her baseline Cr, so this is NOT acute kidney injury continue to follow, making adequate urine, K stable gave Lasix on 07/24/18, 40mg IV, responded well continue Lisinopril and Lasix PO daily follow up with Dr. Sims as previous scheduled (5) Colon adenocarcinoma: recent diagnosis, had colonoscopy on 07/23 plan to follow up with colorectal surgeon, Dr. Kelsey in office on 08/[address], PET scan at that time (6) Rectal bleeding: no active bleeding GI okay with anticoagulation for the time being, Coumadin resumed bleeding related to recent biopsy of a colon mass found at 30cm (7) Atrial fibrillation: chronic issue, can resume anticoagulation per GI rates controlled, now has pacer in case she would have bradycardia was on Coumadin prior to admission, 5mg 3x week and 2.5mg 4x week continue Toprol at 50mg daily (8) Hypertension: metoprolol, lisinopril, and lasix. BP stable please note that Lisinopril decreased to 10mg from 20mg due to increasing Toprol to 50mg (9) Hyperlipidemia: hold statin for now (10) Depression: At home is on buspirone, lorazepam, and fluoxetine. Continue here. (11) Diabetes: continue home insulin regimen (12) Hypothyroidism: (13) Insomnia: Trazodone and Ativan (14) GERD (gastroesophageal reflux disease): PPI (15) CVA (cerebral vascular accident): 2007, no focal deficits (16) Bilateral lower extremity edema: due to chronic heart failure, diastolic Lasix given on 07/24, legs no longer edematous Total Time Total Time Spent Total Time Spent (In Minutes): 45 minutes Total Time Includes: Examination of the Patient, Discharge Planning, Medication Reconciliation, Communication With Other Providers (Dr. Chase) and Other ( discussion with patient's son) Discharge Plan Discharge Items Patient Disposition: Home - Self-Care Reason For Visit: V TACH, RECTAL BLEEDING Discharge Diagnosis: Ventricular tachycardia Colon adenocarcinoma with some bleeding Atrial fibrillation, CKD stage III, hypoxia Condition: Good Discharge Goals: Improve function, Increase independence, Improve nutritional status and Specific goals Specific Goals: follow up with Dr. Mathur with [facility] colorectal Activity: Resume your previous activity Lifting: None Bathing Comment: may shower, do not soak in tub Exercise/Sports: Gradually increase as tolerated Non-emergency contact: Primary Care Provider, Sur[facility] and [employer] Call non-emergency contact if: you have any medication questions, your symptoms worsen, your pain is not controlled and you have a fever Follow-up/Referrals: Luis Enrique Chase MD [Physician] - 07/30/18 10:00 am (Please, follow up at [facility] Cardiology Office on MondayJuly 30 at 10:00 am. *This office is located in [address] of [facility] next to this [facility]. If you need to change this appointment, call the office at [phone].) Delon Carrillo [Primary Care Provider] - 08/02/18 9:30 am (Please, follow up at Dr. Carrillo's office with her associate, Dr. Porter, on August 02 at 9:30 am. *If you need to change this appointment, call their office at [phone].) Twin Kelsey MD [Outside Practitioners] - 08/17/18 12:45 pm (Please, follow up at [facility] Office with Dr. Twin Kelsey on MondayAugust 17 at 12:45 pm. *This office is located at [address] [place] [address] - next to [facility]. If you need to change this appointment, call the office at [phone].) Diet: Carb Consistent or DM2 and Heart Healthy Addtl Provider Instructions: Medications: - TOPROL: dose increased to 50mg every morning by Dr. Chase, continue on discharge can double up on 25mg tablets until they run out - LISINOPRIL: dose decreased to 10mg daily since the Toprol was increased and they both work on blood pressure - COUMADIN: resume your prior regimen, Coumadin was already restarted in the hospital Ventricular tachycardia, atrial fibrillation ICD/pacer placed by Dr. Chase no runs of V tach since night follow up closely with Dr. Chase tomorrow, 07/30 see below for restriction with left arm Colon cancer: as discussed, pathology came back as adenocarcinoma the next step is follow up with Dr. Kelsey on 08/17 at that time he will decide on PET/CT scan and will give recommendations ie surgery Acute hypoxia: due to some small pleural effusions, atelectasis and pulmonary edema resolved with activity and extra dose of Lasix continue to stay upright as much as possible during the day continue to use incentive spirometer to encourage deep breathing Chronic kidney disease stage III Cr has been stable at 1.6-1.7 the entire hospitalization FOLLOW UP - Dr. Haider on 07/30 - Dr. Carrillo on 07/23 - Dr. Kelsey on 08/17 keep any previously scheduled appointments with Dr. Sims as well ACTIVITY RECOMMENDATIONS: * Do not raise affected arm over head for 2 weeks. SPECIAL CARE INSTRUCTIONS: * If bleeding occurs, apply direct pressure to area for 5 minutes. * Call your doctor if you have severe pain, fever, drainage or bleeding at site. * Keep any scheduled doctor's appointment. * Implant Card - hand held device with website information given. SKIN IRRITATION: * You may experience some redness and/or swelling in the area where radiation was administered. If any skin irritation occurs, please contact your family physician. FOLLOW UP VISIT: Keep any scheduled doctor appointments. Prescriptions: New metoprolol succinate 50 mg Tablet Extended Release 24 Hr 50 mg PO QAM 30 Days Qty: 30 RF: 3 lisinopril [Zestril] 10 mg Tablet 10 mg PO QAM 30 Days Qty: 30 RF: 3 Continue turmeric 400 mg Capsule 1 cap PO QPM RF: 0 acetaminophen [Acetaminophen Extra Strength] 500 mg Tablet 1,000 mg PO HS RF: 0 calcium carbonate [Tums] 300 mg (750 mg) Tablet,Chewable 300 mg PO HS RF: 0 fluoxetine 40 mg Capsule 40 mg PO QAM RF: 0 buspirone 5 mg Tablet 2.5 mg PO BID RF: 0 trazodone 50 mg Tablet 25 mg PO HS RF: 0 warfarin 2.5 mg Tablet 2.5 mg PO 4XWK RF: 0 simvastatin 40 mg Tablet 40 mg PO PM RF: 0 levothyroxine 25 mcg Tablet 25 mcg PO QPM RF: 0 lorazepam 0.5 mg Tablet 0.5 mg PO HS RF: 0 warfarin 5 mg Tablet 5 mg PO 3XWK RF: 0 furosemide [Lasix] 20 mg Tablet 20 mg PO QAM RF: 0 docusate sodium 100 mg Tablet 100 mg PO QAM RF: 0 loratadine 10 mg Tablet 10 mg PO HS RF: 0 insulin lispro [Humalog KwikPen Insulin] 100 unit/mL Insulin Pen 1 dose SUBCUT QPM RF: 0 coenzyme Q10 [CoQ-10] 100 mg Capsule 100 mg PO QPM RF: 0 omeprazole magnesium [Prilosec OTC] 20 mg Tablet,Delayed Release (Dr/Ec) 20 mg PO QAM RF: 0 ferrous sulfate, dried [Slow Release Iron] 160 mg (50 mg iron) Tablet Extended Release 160 mg PO QAM RF: 0 insulin glargine [Lantus Solostar U-100 Insulin] 100 unit/mL (3 mL) Insulin Pen 50 unit SUBCUT QPM RF: 0 Bifidobacterium infantis [Align] 4 mg Capsule 1 cap PO QPM RF: 0 melatonin 5 mg Tablet 5 mg PO HS RF: 0 cholecalciferol (vitamin D3) [Vitamin D3] 2,000 unit Capsule 2,000 unit PO QAM RF: 0 Discontinued lisinopril 20 mg Tablet 20 mg PO QPM RF: 0 metoprolol succinate 25 mg Tablet Extended Release 24 Hr 25 mg PO QAM RF: 0 Visit Report Forms: [facility] Portal Stand-Alone Forms: [facility] Discharge Orders: Discharge Order (Routine); Ordered 07/29/18 Ordered By: Dashawn Ellis Admission Data Admit Date/Time: 07/24/18 04:01 Attending Provider: Dashawn Ellis Admit Provider: Abiel Fontenot Primary Care Provider: Delon Carrillo Other Providers: Darrell Ross,Luis Enrique C. ; Cristiano Neumann ; Norma Hernandez Service: Telemetry Other Interventions: Discharge Summary Assessment (RN) Last Done: 07/29/18 11:08 Pending Studies at Discharge: No DC Date/Time DO NOT enter until pt leaves facility: 07/29/18 12:55
== END 2018-07-29 12:55 | disposition home or self-care (01) | DRG 226 ==
LOC: ED 01:10 → 1E 04:01 → SUATTDRO 04:01 → 1E 04:29 → 2S 07-25 13:58
PROC: EPB.ICD (2018-07-25 10:00)
DX: R09.02 Hypoxemia; Z60.2 Problems related to living alone; Z79.01 Long term (current) use of anticoagulants; C18.9 Malignant neoplasm of colon, unspecified; E03.9 Hypothyroidism, unspecified; I69.364 Other paralytic syndrome following cerebral infarction affecting left non-dominant side; N18.3 Chronic kidney disease, stage 3 (moderate); I21.4 Non-ST elevation (NSTEMI) myocardial infarction; I50.32 Chronic diastolic (congestive) heart failure; E78.5 Hyperlipidemia, unspecified; E11.65 Type 2 diabetes mellitus with hyperglycemia; I34.0 Nonrheumatic mitral (valve) insufficiency; Z79.899 Other long term (current) drug therapy; F32.9 Major depressive disorder, single episode, unspecified; I13.0 Hypertensive heart and chronic kidney disease with heart failure and stage 1 through stage 4 chronic kidney disease, or unspecified chronic kidney disease; K21.9 Gastro-esophageal reflux disease without esophagitis; K62.5 Hemorrhage of anus and rectum; G47.00 Insomnia, unspecified; I47.2 Ventricular tachycardia; I42.9 Cardiomyopathy, unspecified; E11.22 Type 2 diabetes mellitus with diabetic chronic kidney disease; I48.2 Chronic atrial fibrillation; Z95.2 Presence of prosthetic heart valve; Z79.4 Long term (current) use of insulin; Z83.3 Family history of diabetes mellitus

== ENCOUNTER 2018-09-29 20:19 | Inpatient (IN) ==
[2018-09-29] MEDS ORDERED: PHYTONADIONE 10 MG in SODIUM CHLORIDE 0.9% 50 ML IV ONE (21:23)
[2018-09-29] MEDS ORDERED: PROTHROMBIN COMP KCENTRA IV STA (21:37)
[2018-09-29] MEDS ORDERED: ONDANSETRON INJ 2 MG/ML 2 ML VIAL IV STA (21:47)
[2018-09-29 21:55] LABS: Eosinophils # (auto) 0.04 K/uL (0-0.5); Eosinophils % (auto) 0.6 %; Hematocrit (blood only) 27.8 % (37-47); Hemoglobin 9.1 g/dL (12.0-16.0); Immature Granulocytes # (auto) 0.03 K/uL (0.00-0.02); Immature Granulocytes % (auto) 0.4 %; Mean Corpuscular Hgb Conc 32.7 g/dL (32-36); Mean Corpuscular Volume 91.4 fL (80-100); Mean Platelet Volume 9.9 fL (7.4-10.4); Monocytes # (auto) 0.74 K/uL (0.11-0.59); Monocytes % (auto) 10.9 %; Neutrophils # (auto) 4.28 K/uL (1.4-6.5); Neutrophils % (auto) 63.1 %; Platelet Count 210 K/uL (130-400); RDW Coefficient of Variation 14.9 % (11.5-14.5); RDW Standard Deviation 48.6 fL (36.4-46.3); Red Blood Count 3.04 M/uL (4.2-5.4); White Blood Count 6.79 K/uL (4.8-10.8)
[2018-09-29 22:11] LABS: Albumin Level 2.7 gm/dl (3.4-5.0); BUN Creatinine Ratio 18.4 (10-20); Calcium 8.3 mg/dl (8.5-10.1); Creatinine Clr Calc Pharmacy 26.1 ml/min; Est GFR (Non-African American) 27.6
[2018-09-29 22:14] LABS: Albumin Globulin Ratio 0.7 (0.9-2); Bilirubin,Total 0.3 mg/dl (0.2-1); Globulin 3.8 gm/dl (2.5-4.0); Total Protein 6.5 gm/dl (6.4-8.2)
[2018-09-29 22:17] LABS: Partial Thromboplastin Ratio 1.8
[2018-09-29] MEDS ORDERED: PROTHROMBIN COMP CONC- KCENTRA 3,500 UNITS in SYRINGE 0 ML IV ONE (22:20)
[2018-09-29 22:22] LABS: INR 7.6 (0.9-1.1)
[2018-09-30] MEDS ORDERED: SODIUM CHLORIDE 0.9% 250 ML IV PRN ×4 (00:03→14:14)
--- NOTE | 2018-09-30 00:08 | Emergency Department Note ---
Entered by Randolph Mclean acting as a scribe for Gagandeep Terrell DO History of Present Illness General Chief complaint: Rectal Bleed Stated complaint: RECTAL BLEEDING Time Seen by Provider: 09/29/18 21:14 Source: family (daughter) History of Present Illness Onset (ago): day(s) 1 Location: genitals (rectal bleeding) Pain Consistency: + constant Maximum Pain Intensity: 4 Relieved By: + none Associated symptoms: + denies other symptoms (light-headedness); no chest pain and no headaches The patient is a 82 year old F who presents to the Emergency Room with complaints of constant rectal bleeding that started 1 day ago. The majority of the HPI was provided by the patients daughter. She states that the patient had a colonoscopy two weeks ago, performed by Dr. Neumann, to remove a large polyp. She notes that last night, the patients pajamas and bed were covered with blood. She states that the patient has a history of A fib and takes Coumadin. She adds that the patients recent INR was 3.1. The patient denies currently experiencing light-headedness, chest pain, and headaches. Home Medications Home Medications Medication Instructions Recorded Confirmed Type Align 1 cap PO QPM 06/26/18 09/29/18 History Humalog KwikPen Insulin 1 dose SUBCUT QPM 06/26/18 09/29/18 History Lantus Solostar U-100 Insulin 50 unit SUBCUT QPM 06/26/18 09/29/18 History Prilosec OTC 20 mg PO QAM 06/26/18 09/29/18 History Slow Release Iron 45 mg PO BID 06/26/18 09/29/18 History acetaminophen [Acetaminophen Extra 1,000 mg PO HS 06/26/18 09/29/18 History Strength] buspirone 2.5 mg PO BID 06/26/18 09/29/18 History calcium carbonate [Tums] 300 mg PO HS 06/26/18 09/29/18 History cholecalciferol (vitamin D3) 2,000 unit PO QAM 06/26/18 09/29/18 History [Vitamin D3] coenzyme Q10 [CoQ-10] 100 mg PO QPM 06/26/18 09/29/18 History docusate sodium 200 mg PO QAM PRN 06/26/18 09/29/18 History fluoxetine 40 mg PO QAM 06/26/18 09/29/18 History furosemide [Lasix] 20 mg PO QAM 06/26/18 09/29/18 History levothyroxine 25 mcg PO QPM 06/26/18 09/29/18 History loratadine 10 mg PO HS PRN 06/26/18 09/29/18 History lorazepam 0.5 mg PO HS 06/26/18 09/29/18 History melatonin 5 mg PO HS 06/26/18 09/29/18 History simvastatin 40 mg PO PM 06/26/18 09/29/18 History trazodone 25 mg PO HS 06/26/18 09/29/18 History turmeric 1 cap PO BID 06/26/18 09/29/18 History warfarin 2.5 mg PO 4XWK 06/26/18 09/29/18 History warfarin 5 mg PO 3XWK 06/26/18 09/29/18 History lisinopril [Zestril] 10 mg PO QAM 30 Days #30 tab 07/29/18 09/29/18 Rx metoprolol succinate 50 mg PO QAM 30 Days #30 tab 07/29/18 09/29/18 Rx amiodarone 200 mg PO BID 09/29/18 09/29/18 History Allergies Allergy/AdvReac Type Severity Reaction Status Date / Time amoxicillin AdvReac Diarrhea Unverified 09/29/18 21:56 metformin AdvReac Diarrhea Unverified 09/29/18 21:56 HAY Allergy Unknown Uncoded 09/29/18 21:56 Past Med/Surg History Medical History Atrial fibrillation (Chronic) Hyperlipidemia (Chronic) Hypertension (Chronic) Stroke (Chronic) 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/2008--partial paralysis left side Bleeding hemorrhoids Depression Diabetes mellitus, type 2 Edema of left lower extremity GERD (gastroesophageal reflux disease) Hypothyroidism On anticoagulant therapy on warfarin 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 and A total of 10 systems reviewed and were otherwise negative Physical Exam Vital Signs Vital Signs - 24 hr 09/29/18 20:30 09/29/18 21:58 09/29/18 22:01 Temperature 36.8 C Temperature Source Oral Sepsis Recent Fever Within 48 Hours No Sepsis New/Unexplained Change in Mental Status No Sepsis Action Taken by Nursing No Action Required Pulse Rate 67 50 L 50 L Pulse Rate [Right Finger] Pulse Rate from SpO2 Sensor 50 L Pulse Rhythm Regular Pulse Strength Normal Respiratory Rate 18 15 19 Respiratory Effort / Characteristics Non-Labored Respiratory Depth Normal Respiratory Pattern Regular Blood Pressure 115/63 68/41 L 65/39 L Blood Pressure [Right Arm] Blood Pressure Mean 80 50 47 Blood Pressure Mean [Right Arm] Blood Pressure Position Lying Pulse Oximetry 95 95 Oxygen Delivery Method Room Air 09/29/18 22:10 09/29/18 22:30 09/29/18 22:45 Temperature Temperature Source Sepsis Recent Fever Within 48 Hours Sepsis New/Unexplained Change in Mental Status Sepsis Action Taken by Nursing Pulse Rate 50 L 50 L Pulse Rate [Right Finger] 50 L Pulse Rate from SpO2 Sensor 50 L Pulse Rhythm Pulse Strength Respiratory Rate 15 17 18 Respiratory Effort / Characteristics Respiratory Depth Respiratory Pattern Blood Pressure 72/41 L 88/49 L Blood Pressure [Right Arm] 98/48 L Blood Pressure Mean 51 62 Blood Pressure Mean [Right Arm] 64 Blood Pressure Position Pulse Oximetry 92 95 Oxygen Delivery Method CONSTITUTIONAL/VITAL SIGNS: Reviewed / noted above. GENERAL: Non-toxic in appearance. INTEGUMENTARY: Warm, dry, and [place]. HEAD: Normocephalic. EYES: without scleral icterus or trauma. ENT/OROPHARYNX: clear and moist. LYMPHADENOPATHY/NECK: Is supple without lymphadenopathy or meningismus. RESPIRATORY: Lungs clear and equal. CARDIOVASCULAR: Regular rate and rhythm. GI/ABDOMEN: Soft and nontender. No organomegaly or pulsatile mass. No rebound or guarding. Normal bowel sounds. Moderate amount of dark blood with clots in the adult diaper. EXTREMITIES: Warm and well perfused. BACK: No CVA tenderness. NEUROLOGICAL: Intact without focal deficits. PSYCHIATRIC: normal affect. MUSCULOSKELETAL: Normally developed with good muscle tone. Course 2115: Past medical records reviewed. The patient was evaluated in room A12, and a complete history and physical examination were performed. 2208: I reviewed the patient's case with Dr. Melodie Steward. 2234: I reviewed the patient's case with Dr. Elise Burgess, [facility] Hospitalist. She will evaluate the patient for further management. Consultations Consultation #1: 2208: I reviewed the patient's case with Dr. Melodie Steward. Time: 22:09 Consultation #2: I reviewed the patient's case with Dr. Elise Burgess, [facility] H ospitalist. She will evaluate the patient for further management. Time: 22:35 Administered Medications Discontinued Medications Phytonadione 10 mg/ Sodium (Chloride) 51 mls @ 102 mls/hr IV ONE ONE Stop: 09/29/18 21:52 Last Infusion: 09/29/18 22:50 Dose: 0 mls/hr Documented by: [id number] Admin: 09/29/18 21:50 Dose: 102 mls/hr Documented by: [id number] Prothrombin Complex Concent ( (Human) 3,500 units/ Syringe) 140 mls @ 10 mls/min IV NOW ONE; Protocol Stop: 09/29/18 22:33 Last Admin: 09/29/18 22:17 Dose: 10 mls/min Documented by: [id number] Ondansetron HCl (Zofran) 4 mg IV NOW STA Stop: 09/29/18 21:48 Last Admin: 09/29/18 21:55 Dose: 4 mg Documented by: [id number] Medical Decision Making Differential Diagnosis Differential Diagnosis includes: Etiologies such as diverticulosis, AVM, coagulopathy, colitis, inflammatory bowel disease, malignancy, Karen-Nelson tear, esophagitis, peptic ulcer disease, variceal bleed, gastritis, epistaxis, fissure, hemorrhoids, aswell as others were entertained. Medical Records Attestation: I reviewed the patient's medical records. Home Medications Current Medication List: was personally reviewed by me Laboratory Data Attestation: I reviewed the patient's lab results. Result diagrams: 09/29/18 21:45 09/29/18 21:45 Lab Results 09/29/18 09/29/18 09/29/18 Range/Units 21:45 21:45 21:45 WBC 6.79 (4.8-10.8) K/uL RBC 3.04 L (4.2-5.4) M/uL Hgb 9.1 L (12.0-16.0) g/dL Hct 27.8 L (37-47) % MCV 91.4 (80-100) fL MCH 29.9 (25-34) pg MCHC 32.7 (32-36) g/dL RDW Std Deviation 48.6 H (36.4-46.3) fL RDW Coeff of Venita 14.9 H (11.5-14.5) % Plt Count 210 (130-400) K/uL MPV 9.9 (7.4-10.4) fL Immature Gran % (Auto) 0.4 % Neut % (Auto) 63.1 % Lymph % (Auto) 25.0 % [place] % (Auto) 10.9 % Eos % (Auto) 0.6 % Baso % (Auto) 0.0 % Immature Gran # (Auto) 0.03 H (0.00-0.02) K/uL Neut # (Auto) 4.28 (1.4-6.5) K/uL Lymph # (Auto) 1.70 (1.2-3.4) K/uL [place] # (Auto) 0.74 H (0.11-0.59) K/uL Eos # (Auto) 0.04 (0-0.5) K/uL Baso # (Auto) 0.00 (0-0.2) K/uL PT 67.0 H (9.0-12.0) Seconds INR 7.6 H* (0.9-1.1) APTT 50.0 H* (21.0-31.0) Seconds PTT Ratio 1.8 Sodium 140 (136-145) mmol/L Potassium 4.0 (3.5-5.1) mmol/L Chloride 107 (98-107) mmol/L Carbon Dioxide 27 (21-32) mmol/L Anion Gap 6.0 (3-11) BUN 31 H (7-18) mg/dl Creatinine 1.70 H (0.6-1.2) mg/dl Est Cr Clr Drug Dosing 26.1 ml/min Est GFR ( Amer) 32.0 Est GFR (Non-Af Amer) 27.6 BUN/Creatinine Ratio 18.4 (10-20) Glucose 268 H (70-99) mg/dl Calcium 8.3 L (8.5-10.1) mg/dl Total Bilirubin 0.3 (0.2-1) mg/dl AST 30 (15-37) U/L ALT 27 (12-78) U/L Alkaline Phosphatase 57 (45-117) U/L Total Protein 6.5 (6.4-8.2) gm/dl Albumin 2.7 L (3.4-5.0) gm/dl Globulin 3.8 (2.5-4.0) gm/dl Albumin/Globulin Ratio 0.7 L (0.9-2) Blood Type Antibody Screen 09/29/18 Range/Units 21:50 WBC (4.8-10.8) K/uL RBC (4.2-5.4) M/uL Hgb (12.0-16.0) g/dL Hct (37-47) % MCV (80-100) fL MCH (25-34) pg MCHC (32-36) g/dL RDW Std Deviation (36.4-46.3) fL RDW Coeff of Venita (11.5-14.5) % Plt Count (130-400) K/uL MPV (7.4-10.4) fL Immature Gran % (Auto) % Neut % (Auto) % Lymph % (Auto) % [place] % (Auto) % Eos % (Auto) % Baso % (Auto) % Immature Gran # (Auto) (0.00-0.02) K/uL Neut # (Auto) (1.4-6.5) K/uL Lymph # (Auto) (1.2-3.4) K/uL [place] # (Auto) (0.11-0.59) K/uL Eos # (Auto) (0-0.5) K/uL Baso # (Auto) (0-0.2) K/uL PT (9.0-12.0) Seconds INR (0.9-1.1) APTT (21.0-31.0) Seconds PTT Ratio Sodium (136-145) mmol/L Potassium (3.5-5.1) mmol/L Chloride (98-107) mmol/L Carbon Dioxide (21-32) mmol/L Anion Gap (3-11) BUN (7-18) mg/dl Creatinine (0.6-1.2) mg/dl Est Cr Clr Drug Dosing ml/min Est GFR ( Amer) Est GFR (Non-Af Amer) BUN/Creatinine Ratio (10-20) Glucose (70-99) mg/dl Calcium (8.5-10.1) mg/dl Total Bilirubin (0.2-1) mg/dl AST (15-37) U/L ALT (12-78) U/L Alkaline Phosphatase (45-117) U/L Total Protein (6.4-8.2) gm/dl Albumin (3.4-5.0) gm/dl Globulin (2.5-4.0) gm/dl Albumin/Globulin Ratio (0.9-2) Blood Type A Positive Antibody Screen NEGATIVE Blood Pressure Blood Pressure Findings: Low blood pressure Blood Pressure Disposition: further management by hospitalist RIZWAN Newby This is an 82-year-old female who presents to the ED with a chief complaint of rectal bleeding. The patient had a large polyp removed at [facility] on the . She is on Coumadin for A. fib. The patient started having some rectal bleeding yesterday morning. The family reports that her last INR on Monday was 3.1. The patient denies any other symptoms such as lightheadedness, chest pains or shortness of breath. Her physical exam was unremarkable with exception of a moderate amount of dark blood with clots on evaluation of the rectal area. The patient has a hemoglobin of 9.1. Her INR is 7.6. BUN and creatinine are 31 and 1.7 respectively. The patient was treated with IV vitamin K. She was given IV Kcentra 3500 units. The patient did have a hypotensive episode during her ED stay where her blood pressure was in the 60 systolic range. She was treated with a liter of normal saline IV for this. Her blood pressure did improve with this. The patient states that she overall felt better. The patient will be seen by the hospitalist for further inpatient evaluation and care. Blood transfusion might be necessary if she has any additional hypotensive episodes. Impression & Plan GI bleed, Elevated INR, Anemia, Hypovolemic shock Critical Care Time I have personally spent 35 minutes of critical care time in the direct management of this patient. This includes bedside care, interpretation of diagnostic studies, and testing, discussion with consultants, patient, and family members, and other required patient management activities. This 35 minutes is in excess of all separately billable procedures. Critical Care Time: Yes Discharge Plan Visit Data Chief Complaint: Rectal Bleed Stated Complaint: RECTAL BLEEDING ED Provider: Gagandeep Terrell Discharge Problem: GI bleed, Elevated INR, Anemia, Hypovolemic shock Forms Stand Alone Forms: My [facility] Prescriptions Prescriptions: No Action turmeric 400 mg Capsule 1 cap PO BID RF: 0 acetaminophen [Acetaminophen Extra Strength] 500 mg Tablet 1,000 mg PO HS RF: 0 calcium carbonate [Tums] 300 mg (750 mg) Tablet,Chewable 300 mg PO HS RF: 0 fluoxetine 40 mg Capsule 40 mg PO QAM RF: 0 buspirone 5 mg Tablet 2.5 mg PO BID RF: 0 trazodone 50 mg Tablet 25 mg PO HS RF: 0 warfarin 2.5 mg Tablet 2.5 mg PO 4XWK RF: 0 simvastatin 40 mg Tablet 40 mg PO PM RF: 0 levothyroxine 25 mcg Tablet 25 mcg PO QPM RF: 0 lorazepam 0.5 mg Tablet 0.5 mg PO HS RF: 0 warfarin 5 mg Tablet 5 mg PO 3XWK RF: 0 furosemide [Lasix] 20 mg Tablet 20 mg PO QAM RF: 0 docusate sodium 100 mg Tablet 200 mg PO QAM PRN (Reason: Constipation) RF: 0 loratadine 10 mg Tablet 10 mg PO HS PRN (Reason: Allergy Symptoms) RF: 0 Humalog KwikPen Insulin 100 unit/mL Insulin Pen 1 dose SUBCUT QPM RF: 0 coenzyme Q10 [CoQ-10] 100 mg Capsule 100 mg PO QPM RF: 0 Prilosec OTC 20 mg Tablet,Delayed Release (Dr/Ec) 20 mg PO QAM RF: 0 Slow Release Iron 160 mg (50 mg iron) Tablet Extended Release 45 mg PO BID RF: 0 Lantus Solostar U-100 Insulin 100 unit/mL (3 mL) Insulin Pen 50 unit SUBCUT QPM RF: 0 Align 4 mg Capsule 1 cap PO QPM RF: 0 melatonin 5 mg Tablet 5 mg PO HS RF: 0 cholecalciferol (vitamin D3) [Vitamin D3] 2,000 unit Capsule 2,000 unit PO QAM RF: 0 metoprolol succinate 50 mg Tablet Extended Release 24 Hr 50 mg PO QAM 30 Days Qty: 30 RF: 3 lisinopril [Zestril] 10 mg Tablet 10 mg PO QAM 30 Days Qty: 30 RF: 3 amiodarone 200 mg tablet 200 mg PO BID RF: 0 Discharge Problem: GI bleed Qualifiers: GI bleed type/associated pathology: unspecified gastrointestinal hemorrhage type Qualified Code(s): K92.2 - Gastrointestinal hemorrhage, unspecified Anemia Qualifiers: Anemia type: iron deficiency Iron deficiency anemia type: unspecified iron deficiency Qualified Code(s): D50.9 - Iron deficiency anemia, unspecified The scribe's documentation has been prepared under my direction and personally reviewed by me in its entirety. I confirm that the note above accurately reflects all work, treatment, procedures, and medical decision making performed by me.
[2018-09-30] MEDS ORDERED: GLUCAGON FOR INJ 1 MG VIAL SQ PRN (01:04)
[2018-09-30] MEDS ORDERED: GLUCOSE 40% GEL 15 GM TUBE PO PRN (01:04)
[2018-09-30] MEDS ORDERED: CARBOHYDRATES FOR HYPOGLYCEMIA PO PRN (01:04)
[2018-09-30] MEDS ORDERED: LORATADINE 10 MG TAB PO PRN (01:04)
[2018-09-30] MEDS ORDERED: GLUCOSE 10 TABS/TUBE PO PRN (01:04)
[2018-09-30] MEDS ORDERED: DEXTROSE 50% 50 ML SYRINGE IV PRN (01:04)
[2018-09-30] MEDS ORDERED: ONDANSETRON INJ 2 MG/ML 2 ML VIAL IV PRN (01:04)
[2018-09-30 01:16] LABS: Magnesium 1.9 mg/dl (1.8-2.4); Phosphorus 3.3 mg/dl (2.5-4.9)
[2018-09-30] MEDS ORDERED: SODIUM CHLORIDE 0.9% 500 ML IV SCH (01:30)
[2018-09-30 01:40] LABS: Hematocrit (blood only) 25.1 % (37-47); Immature Granulocytes # (auto) 0.02 K/uL (0.00-0.02); Immature Granulocytes % (auto) 0.3 %; Lymphocytes # (auto) 1.15 K/uL (1.2-3.4); Lymphocytes % (auto) 15.2 %; Mean Corpuscular Hgb Conc 31.9 g/dL (32-36); Mean Corpuscular Volume 92.6 fL (80-100); Mean Platelet Volume 9.9 fL (7.4-10.4); Monocytes % (auto) 6.6 %; Neutrophils # (auto) 5.89 K/uL (1.4-6.5); Neutrophils % (auto) 77.9 %; Platelet Count 186 K/uL (130-400); RDW Coefficient of Variation 14.9 % (11.5-14.5); Red Blood Count 2.71 M/uL (4.2-5.4); White Blood Count 7.56 K/uL (4.8-10.8)
[2018-09-30] MEDS ORDERED: INSULIN GLARGINE SOLOSTAR 100 UNITS/ML 3 ML PEN SC SCH ×2 (02:00→09:00)
[2018-09-30] MEDS ORDERED: INSULIN ASPART 100 UNITS/ML 3 ML PEN SC SCH (02:00)
[2018-09-30 02:05] LABS: INR 1.3 (0.9-1.1)
[2018-09-30 02:16] LABS: Giant Platelets 1+; Ovalocytes 1+
[2018-09-30] MEDS: INSULIN ASPART 100 UNITS/ML 3 ML PEN SC SCH ×2 (05:44→12:06)
--- NOTE | 2018-09-30 06:31 | History & Physical Report ---
Date of Service September 30, 2018 Assessment & Plan (1) GI bleed: 82yo female with AF on coumadin, supratherapeutic INR of 7.6, recent colonoscopy two weeks ago with polyp removal presenting with LGIB, hypotension and anemia 1. Neuro: patient with history of CVA with resultant left sided deficit. History of depression. Presently AA&O x 4, no new deficits -Continue Buspirone -Continue Fluoxetine 2. CV - patient with hypotension in setting of acute LGIB. BP improved with transfusion of PRBCs. History of AF, HTN, HLP, cardiomyopathy, VT s/p cardioversion and placement of AICD. Patient denies CP/SOB or palpitations. No AICD discharges. Hypotension - in setting of acute blood loss. BP improved with transfusion of PRBCs -Continue to monitor AF -Hold Coumadin. Patient administered 10mg Vitamin K and KCentra in setting of acute life-threatening bleed and INR of 7.6 -Continue Amiodarone -Hold Metoprolol HTN -Hypotensive in setting of acute bleed -Hold Metoprolol, Lisinopril, Lasix HLP -Continue Simvastatin 40mg po daily Cardiomyopathy - patient with no evidence of volume overload -Hold Metoprolol, Lisinopril and Lasix in setting of acute bleed VT s/p AICD -Optimize medically, maintain electroltyes 3. Pulm - patient with adequate oxygenation and ventilation on room air. No pulmonary disease -Supplemental O2 as needed to maintain sats > 94% 4. GI - Patient with newly diagnosed colon cancer, s/p polypectomy 2 weeks ago at [facility] with acute LGIB. H/H = 9.1/27.8. Patient hypotensive in ER with continued bleeding -Admit to MICU -Two PIVs in place - 20g -Coumadin reversed with PCC and Vitamin K -PRBCs administered with improvement in hemodynamics -Continue to monitor CBC q 6 hours, transfuse for acute bleed, symptomatic anemia or Hg < 8 -GI consultation - appreciate assistance with this case. Discussion of possible transfer to [facility] if patient continued to bleed. She has markedly improved with PRBCs and reversal of Coumadin. Will discuss with GI if transfer is still warranted vs colo here -Continue Fe supplement 5. - CKD stage II. BUN and Cr are near baseline. -Thompson placed for I/O monitoring -Monitor BUN, Cr, electroltyes and UOP 6. Heme - acute blood loss anemia, Hg of 9.1 from 11.5 in July. Transfuse 2u PRBCs. Continue to monitor. Continue iron 7. ID - afebrile. No evidence of infection 8. Endo - hypothyroidism. DM Hypothyroid -Continue Synthroid DM -Hold oral agents. -Lantus 25u qHS while NPO - patient normally takes 50u -ISS, goal <180 F/E/N - transfusion of 2u PRBCs, monitor electrolytes and replete as needed, NPO Ppx - SCDs Code - Full per discussion with patient Dispo - MICU (2) Hypovolemic shock: (3) Anemia: (4) Elevated INR: (5) CKD stage 3 due to type 2 diabetes mellitus: (6) Permanent atrial fibrillation: (7) Diabetes: (8) Depression: (9) Hyperlipidemia: (10) Hypertension: (11) Hypothyroidism: (12) Cardiomyopathy: History of Present Illness Chief Complaint: LGIB Primary Care Provider: Delon Carrillo Patient is an 82yo female with multiple medical comorbidities to include Atrial Fibrillation on Coumadin anticoagulation, HTN, HLP, DM, CKD III, VT s/p cardioversion with placement of AICD. Patient was seen in the ER in July 2018 with rectal bleeding. She had a colonoscopy on which revealed two 5-6 mm polyps at the hepatic flexure as well as non-bleeding hemorrhoids, diverticulosis. Biopsis were obtained which revealed a well differentiated adenocarcinoma. She had a colonoscopy performed at [facility] two weeks ago with resection of a large partially obstructing polyp (will request records). Patient with minimal post-procedure bleeding. She followed up with GI yesterday. Last evening she passed a large amount of blood with clots. Single episode, not associated with pain. Patient felt well all during the day. Ate well, no complaints. Around 18:30 she began to pass large amounts of blood from her rectum. Son reports that she had multiple episodes of bleeding lasting approximately 60 minutes which prompted them to come to the ER. On arrival she was found to be afebrile, HR of 50, BP of 68/41, RR 15 with 95% sat on room air. Her INR was elevated at 7.6. Hg of 9.1 and hct of 27.8 which is down from 11.5 and 35.9 from July. She was administered a liter of NSS as well as 10mg of IV Vitamin K and PCC 3500 units. Patient had several bloody bowel movements while in the ER. Became hypotensive again prior to transfer to the MICU with BP of 71/41. She was given 500mL bolus and transferred to ICU. Patient had some abdominal pain and nausea earlier in the week but presently denies pain. Denies nausea/vomiting. No constipation or straining. No CP/palpitations/SOB/cough or wheeze. She is experiencing some dizziness otherwise no complaints. Allergies Allergy/AdvReac Type Severity Reaction Status Date / Time amoxicillin AdvReac Diarrhea Unverified 09/29/18 21:56 metformin AdvReac Diarrhea Unverified 09/29/18 21:56 Home Medications Home Medications Medication Instructions Recorded Confirmed Type Align 1 cap PO QPM 06/26/18 09/29/18 History Humalog KwikPen Insulin 1 dose SUBCUT QPM 06/26/18 09/29/18 History Lantus Solostar U-100 Insulin 50 unit SUBCUT QPM 06/26/18 09/29/18 History Prilosec OTC 20 mg PO QAM 06/26/18 09/29/18 History Slow Release Iron 45 mg PO BID 06/26/18 09/29/18 History acetaminophen [Acetaminophen Extra 1,000 mg PO HS 06/26/18 09/29/18 History Strength] buspirone 2.5 mg PO BID 06/26/18 09/29/18 History calcium carbonate [Tums] 300 mg PO HS 06/26/18 09/29/18 History cholecalciferol (vitamin D3) 2,000 unit PO QAM 06/26/18 09/29/18 History [Vitamin D3] coenzyme Q10 [CoQ-10] 100 mg PO QPM 06/26/18 09/29/18 History docusate sodium 200 mg PO QAM PRN 06/26/18 09/29/18 History fluoxetine 40 mg PO QAM 06/26/18 09/29/18 History furosemide [Lasix] 20 mg PO QAM 06/26/18 09/29/18 History levothyroxine 25 mcg PO QPM 06/26/18 09/29/18 History loratadine 10 mg PO HS PRN 06/26/18 09/29/18 History lorazepam 0.5 mg PO HS 06/26/18 09/29/18 History melatonin 5 mg PO HS 06/26/18 09/29/18 History simvastatin 40 mg PO PM 06/26/18 09/29/18 History trazodone 25 mg PO HS 06/26/18 09/29/18 History turmeric 1 cap PO BID 06/26/18 09/29/18 History warfarin 2.5 mg PO 4XWK 06/26/18 09/29/18 History warfarin 5 mg PO 3XWK 06/26/18 09/29/18 History lisinopril [Zestril] 10 mg PO QAM 30 Days #30 tab 07/29/18 09/29/18 Rx metoprolol succinate 50 mg PO QAM 30 Days #30 tab 07/29/18 09/29/18 Rx amiodarone 200 mg PO BID 09/29/18 09/29/18 History Past Med/Surg History Medical History Colon cancer Atrial fibrillation (Chronic) Hyperlipidemia (Chronic) Hypertension (Chronic) Stroke (Chronic) massive 05/2008--partial paralysis left side Bleeding hemorrhoids Depression Diabetes mellitus, type 2 Edema of left lower extremity GERD (gastroesophageal reflux disease) Hypothyroidism On anticoagulant therapy on warfarin 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 Surgical History History of mitral valve repair S/P implantation of automatic cardioverter/defibrillator (AICD) History of bilateral cataract extraction (Chronic) History of tooth extraction (Resolved) all upper teeth Social History Preferred Language: Kosovan Communication Ability: Effective Manager Risk Required: No Beliefs That Will Affect Care: None Current Living Situation: Alone Current Living Situation Comment: With caregivers Other Information That Helps Us Care for You: No Feels Safe at Home: Yes Safety Concerns: Feels Safe At This Time Smoking Status: Never smoker Hx Alcohol Use: No Hx Substance Use: No Review of Systems All systems reviewed & are unremarkable except as noted in HPI & below Physical Exam Vital Signs (Past 24 Hours): Last Vital Signs Temp 36.4 C L 09/30/18 04:00 Pulse 56 L 09/30/18 06:00 Resp 14 09/30/18 06:00 BP 147/64 H 09/30/18 06:00 Pulse Ox 93 09/30/18 06:00 Physical Exam: General: patient resting comfortably, NAD, AA&O x 4 Skin: warm, dry, intact, no rashes or lesions, +pallor HEENT: NC/AT, PERRL, EOMI, anicteric sclera, conjunctiva without injection, external ear normal to inspection and nontender, nares patent, moist mucus membranes, dentition intact, no oropharyngeal lesions, neck supple, trachea midline, no LAD, no thyromegaly, no JVD Heart: +S1/S2, regular, bradycardic, no m/r/g Lungs: equal air entry bilaterally, no rales/rhonchi/wheezes Abd: +BS, soft, NT/ND, no masses/organomegaly/ascites, patient sitting in large amount of clotted blood, has soaked through diaper and onto gown Ext: warm, 2+ pulses in UE/LE bilaterally, no clubbing/cyanosis or edema Neuro: nonfocal, patient AA&O x 4, speech intact, no facial droop, left sided hemiplegia Results & Data Laboratory Results Lab Results 09/29/18 09/29/18 09/29/18 Range/Units 21:45 21:45 21:45 WBC 6.79 (4.8-10.8) K/uL RBC 3.04 L (4.2-5.4) M/uL Hgb 9.1 L (12.0-16.0) g/dL Hct 27.8 L (37-47) % MCV 91.4 (80-100) fL MCH 29.9 (25-34) pg MCHC 32.7 (32-36) g/dL RDW Std Deviation 48.6 H (36.4-46.3) fL RDW Coeff of Venita 14.9 H (11.5-14.5) % Plt Count 210 (130-400) K/uL MPV 9.9 (7.4-10.4) fL Immature Gran % (Auto) 0.4 % Neut % (Auto) 63.1 % Lymph % (Auto) 25.0 % [place] % (Auto) 10.9 % Eos % (Auto) 0.6 % Baso % (Auto) 0.0 % Immature Gran # (Auto) 0.03 H (0.00-0.02) K/uL Neut # (Auto) 4.28 (1.4-6.5) K/uL Lymph # (Auto) 1.70 (1.2-3.4) K/uL [place] # (Auto) 0.74 H (0.11-0.59) K/uL Eos # (Auto) 0.04 (0-0.5) K/uL Baso # (Auto) 0.00 (0-0.2) K/uL Giant Platelets Ovalocytes PT 67.0 H (9.0-12.0) Seconds INR 7.6 H* (0.9-1.1) APTT 50.0 H* (21.0-31.0) Seconds PTT Ratio 1.8 Sodium 140 (136-145) mmol/L Potassium 4.0 (3.5-5.1) mmol/L Chloride 107 (98-107) mmol/L Carbon Dioxide 27 (21-32) mmol/L Anion Gap 6.0 (3-11) BUN 31 H (7-18) mg/dl Creatinine 1.70 H (0.6-1.2) mg/dl Est Cr Clr Drug Dosing 26.1 ml/min Est GFR ( Amer) 32.0 Est GFR (Non-Af Amer) 27.6 BUN/Creatinine Ratio 18.4 (10-20) Glucose 268 H (70-99) mg/dl POC Glucose (70-99) Calcium 8.3 L (8.5-10.1) mg/dl Phosphorus 3.3 (2.5-4.9) mg/dl Magnesium 1.9 (1.8-2.4) mg/dl Total Bilirubin 0.3 (0.2-1) mg/dl AST 30 (15-37) U/L ALT 27 (12-78) U/L Alkaline Phosphatase 57 (45-117) U/L Total Protein 6.5 (6.4-8.2) gm/dl Albumin 2.7 L (3.4-5.0) gm/dl Globulin 3.8 (2.5-4.0) gm/dl Albumin/Globulin Ratio 0.7 L (0.9-2) Nasal Screen MRSA (PCR) (Negative) Blood Type Blood Type Recheck Antibody Screen Crossmatch 09/29/18 09/30/18 09/30/18 Range/Units 21:50 00:50 01:32 WBC (4.8-10.8) K/uL RBC (4.2-5.4) M/uL Hgb (12.0-16.0) g/dL Hct (37-47) % MCV (80-100) fL MCH (25-34) pg MCHC (32-36) g/dL RDW Std Deviation (36.4-46.3) fL RDW Coeff of Venita (11.5-14.5) % Plt Count (130-400) K/uL MPV (7.4-10.4) fL Immature Gran % (Auto) % Neut % (Auto) % Lymph % (Auto) % [place] % (Auto) % Eos % (Auto) % Baso % (Auto) % Immature Gran # (Auto) (0.00-0.02) K/uL Neut # (Auto) (1.4-6.5) K/uL Lymph # (Auto) (1.2-3.4) K/uL [place] # (Auto) (0.11-0.59) K/uL Eos # (Auto) (0-0.5) K/uL Baso # (Auto) (0-0.2) K/uL Giant Platelets Ovalocytes PT (9.0-12.0) Seconds INR (0.9-1.1) APTT (21.0-31.0) Seconds PTT Ratio Sodium (136-145) mmol/L Potassium (3.5-5.1) mmol/L Chloride (98-107) mmol/L Carbon Dioxide (21-32) mmol/L Anion Gap (3-11) BUN (7-18) mg/dl Creatinine (0.6-1.2) mg/dl Est Cr Clr Drug Dosing ml/min Est GFR ( Amer) Est GFR (Non-Af Amer) BUN/Creatinine Ratio (10-20) Glucose (70-99) mg/dl POC Glucose (70-99) Calcium (8.5-10.1) mg/dl Phosphorus (2.5-4.9) mg/dl Magnesium (1.8-2.4) mg/dl Total Bilirubin (0.2-1) mg/dl AST (15-37) U/L ALT (12-78) U/L Alkaline Phosphatase (45-117) U/L Total Protein (6.4-8.2) gm/dl Albumin (3.4-5.0) gm/dl Globulin (2.5-4.0) gm/dl Albumin/Globulin Ratio (0.9-2) Nasal Screen MRSA (PCR) Negative (Negative) Blood Type A Positive Blood Type Recheck A Positive Antibody Screen NEGATIVE Crossmatch See Detail 09/30/18 09/30/18 09/30/18 Range/Units 01:32 01:32 01:49 WBC 7.56 (4.8-10.8) K/uL RBC 2.71 L (4.2-5.4) M/uL Hgb 8.0 L (12.0-16.0) g/dL Hct 25.1 L (37-47) % MCV 92.6 (80-100) fL MCH 29.5 (25-34) pg MCHC 31.9 L (32-36) g/dL RDW Std Deviation 50.0 H (36.4-46.3) fL RDW Coeff of Venita 14.9 H (11.5-14.5) % Plt Count 186 (130-400) K/uL MPV 9.9 (7.4-10.4) fL Immature Gran % (Auto) 0.3 % Neut % (Auto) 77.9 % Lymph % (Auto) 15.2 % [place] % (Auto) 6.6 % Eos % (Auto) 0.0 % Baso % (Auto) 0.0 % Immature Gran # (Auto) 0.02 (0.00-0.02) K/uL Neut # (Auto) 5.89 (1.4-6.5) K/uL Lymph # (Auto) 1.15 L (1.2-3.4) K/uL [place] # (Auto) 0.50 (0.11-0.59) K/uL Eos # (Auto) 0.00 (0-0.5) K/uL Baso # (Auto) 0.00 (0-0.2) K/uL Giant Platelets 1+ Ovalocytes 1+ PT 13.0 H (9.0-12.0) Seconds INR 1.3 H (0.9-1.1) APTT (21.0-31.0) Seconds PTT Ratio Sodium (136-145) mmol/L Potassium (3.5-5.1) mmol/L Chloride (98-107) mmol/L Carbon Dioxide (21-32) mmol/L Anion Gap (3-11) BUN (7-18) mg/dl Creatinine (0.6-1.2) mg/dl Est Cr Clr Drug Dosing ml/min Est GFR ( Amer) Est GFR (Non-Af Amer) BUN/Creatinine Ratio (10-20) Glucose (70-99) mg/dl POC Glucose 305 H (70-99) Calcium (8.5-10.1) mg/dl Phosphorus (2.5-4.9) mg/dl Magnesium (1.8-2.4) mg/dl Total Bilirubin (0.2-1) mg/dl AST (15-37) U/L ALT (12-78) U/L Alkaline Phosphatase (45-117) U/L Total Protein (6.4-8.2) gm/dl Albumin (3.4-5.0) gm/dl Globulin (2.5-4.0) gm/dl Albumin/Globulin Ratio (0.9-2) Nasal Screen MRSA (PCR) (Negative) Blood Type Blood Type Recheck Antibody Screen Crossmatch 09/30/18 Range/Units 05:43 WBC (4.8-10.8) K/uL RBC (4.2-5.4) M/uL Hgb (12.0-16.0) g/dL Hct (37-47) % MCV (80-100) fL MCH (25-34) pg MCHC (32-36) g/dL RDW Std Deviation (36.4-46.3) fL RDW Coeff of Venita (11.5-14.5) % Plt Count (130-400) K/uL MPV (7.4-10.4) fL Immature Gran % (Auto) % Neut % (Auto) % Lymph % (Auto) % [place] % (Auto) % Eos % (Auto) % Baso % (Auto) % Immature Gran # (Auto) (0.00-0.02) K/uL Neut # (Auto) (1.4-6.5) K/uL Lymph # (Auto) (1.2-3.4) K/uL [place] # (Auto) (0.11-0.59) K/uL Eos # (Auto) (0-0.5) K/uL Baso # (Auto) (0-0.2) K/uL Giant Platelets Ovalocytes PT (9.0-12.0) Seconds INR (0.9-1.1) APTT (21.0-31.0) Seconds PTT Ratio Sodium (136-145) mmol/L Potassium (3.5-5.1) mmol/L Chloride (98-107) mmol/L Carbon Dioxide (21-32) mmol/L Anion Gap (3-11) BUN (7-18) mg/dl Creatinine (0.6-1.2) mg/dl Est Cr Clr Drug Dosing ml/min Est GFR ( Amer) Est GFR (Non-Af Amer) BUN/Creatinine Ratio (10-20) Glucose (70-99) mg/dl POC Glucose 247 H (70-99) Calcium (8.5-10.1) mg/dl Phosphorus (2.5-4.9) mg/dl Magnesium (1.8-2.4) mg/dl Total Bilirubin (0.2-1) mg/dl AST (15-37) U/L ALT (12-78) U/L Alkaline Phosphatase (45-117) U/L Total Protein (6.4-8.2) gm/dl Albumin (3.4-5.0) gm/dl Globulin (2.5-4.0) gm/dl Albumin/Globulin Ratio (0.9-2) Nasal Screen MRSA (PCR) (Negative) Blood Type Blood Type Recheck Antibody Screen Crossmatch ECG Additional Comments: V paced at 50bpm Code Status & VTE Plan Code Status FULL VTE Prophylaxis Plan VTE Prophylaxis will be ordered: Yes Critical Care Time 60 Critical Care Time: Yes (1) GI bleed GI bleed type/associated pathology: unspecified gastrointestinal hemorrhage type Qualified Code(s): K92.2 - Gastrointestinal hemorrhage, unspecified (2) Anemia Anemia type: iron deficiency Iron deficiency anemia type: unspecified iron deficiency Qualified Code(s): D50.9 - Iron deficiency anemia, unspecified
[2018-09-30 07:13] LABS: Basophils # (auto) 0.01 K/uL (0-0.2); Basophils % (auto) 0.1 %; Hematocrit (blood only) 30.5 % (37-47); Hemoglobin 10.1 g/dL (12.0-16.0); Immature Granulocytes # (auto) 0.01 K/uL (0.00-0.02); Immature Granulocytes % (auto) 0.1 %; Lymphocytes % (auto) 22.7 %; Mean Corpuscular Hgb Conc 33.1 g/dL (32-36); Mean Corpuscular Volume 90.5 fL (80-100); Mean Platelet Volume 9.8 fL (7.4-10.4); Monocytes # (auto) 0.83 K/uL (0.11-0.59); Monocytes % (auto) 10.5 %; Neutrophils # (auto) 5.28 K/uL (1.4-6.5); Neutrophils % (auto) 66.6 %; Platelet Count 161 K/uL (130-400); RDW Coefficient of Variation 15.2 % (11.5-14.5); RDW Standard Deviation 50.2 fL (36.4-46.3); Red Blood Count 3.37 M/uL (4.2-5.4); White Blood Count 7.93 K/uL (4.8-10.8)
[2018-09-30 07:43] LABS: BUN Creatinine Ratio 18.9 (10-20); Calcium 7.9 mg/dl (8.5-10.1); Creatinine Clr Calc Pharmacy 26.6 ml/min; Est GFR (African American) 32.2; Est GFR (Non-African American) 27.8; Potassium 4.7 mmol/L (3.5-5.1)
[2018-09-30] MEDS ORDERED: AMIODARONE 200 MG TAB PO SCH (09:00)
[2018-09-30] MEDS ORDERED: PANTOprazole 40 MG TAB PO SCH (09:00)
[2018-09-30] MEDS ORDERED: FLUOXETINE HCL 20 MG CAP PO SCH (09:00)
--- NOTE | 2018-09-30 09:03 | Critical Care Consultation ---
Date of Consultation September 30, 2018 Assessment & Plan (1) Admitted to intensive care unit: Reason Critically Ill: 82-year-old female with history of atrial fibrillation with a supratherapeutic INR for permanent atrial fibrillation with lower gastrointestinal bleeding and hemorrhagic shock. PLAN: Neuro: History of CVA with left-sided deficit History of depression -Continue buspirone -Continue fluoxetine Resp: Adequate oxygen saturation on room air CV: Atrial fibrillation On long-term anticoagulation -Continue amiodarone Hypertension -Holding antihypertensive medications Cardiomyopathy History of wide-complex tachycardia -History AICD placement Hemorrhagic shock: Resolved Fluids/Renal: Chronic kidney disease stage II -At baseline ID: Monitor fever curve GI/Nutrition: Gastrointestinal hemorrhage: Resolved History tubulovillous adenoma -Recent colonoscopy with intramucosal adenocarcinoma concern for deeper extension of colon cancer N.p.o. until seen by gastroenterology Heme: Acute blood loss anemia -Trend H&H x2 DVT prophylaxis: SCDs, chemical prophylaxis contraindicated Supratherapeutic INR -Patient denies recent antibiotic use however she does admit to poor oral intake recently Endocrine: ICU hyperglycemia protocol Hyperglycemia -Lantus ordered Vascular access: Peripheral IVs Code Status: Full code If the patient's H&H remained stable she would be stable for downgrade out of the ICU later today. 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 She presented to [facility] emergency department and was found to have an elevated INR. Her INR was emergently reversed with 10 mg of IV vitamin K and she was given an emergent blood transfusion. The patient was hypotensive initially and her hemodynamics have stabilized. During my evaluation today she denies chest pain shortness of breath. Her bloody bowel movements have resolved. Allergies Allergy/AdvReac Type Severity Reaction Status Date / Time amoxicillin AdvReac Diarrhea Unverified 09/29/18 21:56 metformin AdvReac Diarrhea Unverified 09/29/18 21:56 Home Medications Home Medications Medication Instructions Recorded Confirmed Type Align 1 cap PO QPM 06/26/18 09/29/18 History Humalog KwikPen Insulin 1 dose SUBCUT QPM 06/26/18 09/29/18 History Lantus Solostar U-100 Insulin 50 unit SUBCUT QPM 06/26/18 09/29/18 History Prilosec OTC 20 mg PO QAM 06/26/18 09/29/18 History Slow Release Iron 45 mg PO BID 06/26/18 09/29/18 History acetaminophen [Acetaminophen Extra 1,000 mg PO HS 06/26/18 09/29/18 History Strength] buspirone 2.5 mg PO BID 06/26/18 09/29/18 History calcium carbonate [Tums] 300 mg PO HS 06/26/18 09/29/18 History cholecalciferol (vitamin D3) 2,000 unit PO QAM 06/26/18 09/29/18 History [Vitamin D3] coenzyme Q10 [CoQ-10] 100 mg PO QPM 06/26/18 09/29/18 History docusate sodium 200 mg PO QAM PRN 06/26/18 09/29/18 History fluoxetine 40 mg PO QAM 06/26/18 09/29/18 History furosemide [Lasix] 20 mg PO QAM 06/26/18 09/29/18 History levothyroxine 25 mcg PO QPM 06/26/18 09/29/18 History loratadine 10 mg PO HS PRN 06/26/18 09/29/18 History lorazepam 0.5 mg PO HS 06/26/18 09/29/18 History melatonin 5 mg PO HS 06/26/18 09/29/18 History simvastatin 40 mg PO PM 06/26/18 09/29/18 History trazodone 25 mg PO HS 06/26/18 09/29/18 History turmeric 1 cap PO BID 06/26/18 09/29/18 History warfarin 2.5 mg PO 4XWK 06/26/18 09/29/18 History warfarin 5 mg PO 3XWK 06/26/18 09/29/18 History lisinopril [Zestril] 10 mg PO QAM 30 Days #30 tab 07/29/18 09/29/18 Rx metoprolol succinate 50 mg PO QAM 30 Days #30 tab 07/29/18 09/29/18 Rx amiodarone 200 mg PO BID 09/29/18 09/29/18 History Patient History Medical History Colon cancer Atrial fibrillation (Chronic) Hyperlipidemia (Chronic) Hypertension (Chronic) Stroke (Chronic) massive 05/2008--partial paralysis left side Bleeding hemorrhoids Depression Diabetes mellitus, type 2 Edema of left lower extremity GERD (gastroesophageal reflux disease) Hypothyroidism On anticoagulant therapy on warfarin 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 Surgical History History of mitral valve repair S/P implantation of automatic cardioverter/defibrillator (AICD) History of bilateral cataract extraction (Chronic) History of tooth extraction (Resolved) all upper teeth Family History Son Family history of reaction to anesthesia nausea Daughter Family history of diabetes mellitus Social History Preferred Language: Swazi Communication Ability: Effective Mental Health Program Manager Required: No Beliefs That Will Affect Care: None Current Living Situation: Alone Current Living Situation Comment: With caregivers Other Information That Helps Us Care for You: No Feels Safe at Home: Yes Safety Concerns: Feels Safe At This Time Smoking Status: Never smoker Hx Alcohol Use: No Hx Substance Use: No Review of Systems Denies chest pain, shortness of breath, dizziness, additional review of systems per the HPI A 10 point review of systems has been obtained and is otherwise negative. Physical Exam Vital Signs (Past 24 Hours): Last Vital Signs Temp 36.4 C L 09/30/18 04:00 Pulse 56 L 09/30/18 06:30 Resp 29 H 09/30/18 07:00 BP 155/62 H 09/30/18 07:01 Pulse Ox 97 09/30/18 07:01 General: A well-nourished elderly female who appears her stated age, she was sleeping in the room but easily arousable. I have reviewed the recorded vital signs Neurological: RASS score: 0, Moves all 4 extremities, Psychological: GCS 15 following complex commands Eyes: Pupils are equal, round and reactive to light, anicteric sclera. Symmetrical lids. HENT: Oropharynx is clear, mucous membranes are moist. Neck: Supple. Symmetric. trachea midline. No thyromegaly. [CVL] Cardiovascular: Normal peripheral perfusion. Distal pulses and capillary refill intact. No JVD. Respiratory: Respirations are non-labored, no accessory muscle use. Breath sounds are equal. Gastrointestinal: Soft. Non-distended. Lymphatic: No cervical lymphadenopathy. Musculoskeletal: No deformity. No clubbing nor cyanosis. Results & Data Laboratory Results 09/30/18 09/30/18 09/30/18 Range/Units 07:00 07:00 05:43 WBC 7.93 (4.8-10.8) K/uL RBC 3.37 L (4.2-5.4) M/uL Hgb 10.1 L (12.0-16.0) g/dL Hct 30.5 L (37-47) % MCV 90.5 (80-100) fL MCH 30.0 (25-34) pg MCHC 33.1 (32-36) g/dL RDW Std Deviation 50.2 H (36.4-46.3) fL RDW Coeff of Venita 15.2 H (11.5-14.5) % Plt Count 161 (130-400) K/uL MPV 9.8 (7.4-10.4) fL Immature Gran % (Auto) 0.1 % Neut % (Auto) 66.6 % Lymph % (Auto) 22.7 % [place] % (Auto) 10.5 % Eos % (Auto) 0.0 % Baso % (Auto) 0.1 % Immature Gran # (Auto) 0.01 (0.00-0.02) K/uL Neut # (Auto) 5.28 (1.4-6.5) K/uL Lymph # (Auto) 1.80 (1.2-3.4) K/uL [place] # (Auto) 0.83 H (0.11-0.59) K/uL Eos # (Auto) 0.00 (0-0.5) K/uL Baso # (Auto) 0.01 (0-0.2) K/uL Giant Platelets Ovalocytes PT (9.0-12.0) Seconds INR (0.9-1.1) APTT (21.0-31.0) Seconds PTT Ratio Sodium 139 (136-145) mmol/L Potassium 4.7 D (3.5-5.1) mmol/L Chloride 109 H (98-107) mmol/L Carbon Dioxide 26 (21-32) mmol/L Anion Gap 4.0 (3-11) BUN 32 H (7-18) mg/dl Creatinine 1.69 H (0.6-1.2) mg/dl Est Cr Clr Drug Dosing 26.6 ml/min Est GFR ( Amer) 32.2 Est GFR (Non-Af Amer) 27.8 BUN/Creatinine Ratio 18.9 (10-20) Glucose 220 H (70-99) mg/dl POC Glucose 247 H (70-99) Calcium 7.9 L (8.5-10.1) mg/dl Phosphorus (2.5-4.9) mg/dl Magnesium (1.8-2.4) mg/dl Total Bilirubin (0.2-1) mg/dl AST (15-37) U/L ALT (12-78) U/L Alkaline Phosphatase (45-117) U/L Total Protein (6.4-8.2) gm/dl Albumin (3.4-5.0) gm/dl Globulin (2.5-4.0) gm/dl Albumin/Globulin Ratio (0.9-2) Nasal Screen MRSA (PCR) (Negative) Blood Type Blood Type Recheck Antibody Screen Crossmatch 09/30/18 09/30/18 09/30/18 Range/Units 01:49 01:32 01:32 WBC 7.56 (4.8-10.8) K/uL RBC 2.71 L (4.2-5.4) M/uL Hgb 8.0 L (12.0-16.0) g/dL Hct 25.1 L (37-47) % MCV 92.6 (80-100) fL MCH 29.5 (25-34) pg MCHC 31.9 L (32-36) g/dL RDW Std Deviation 50.0 H (36.4-46.3) fL RDW Coeff of Venita 14.9 H (11.5-14.5) % Plt Count 186 (130-400) K/uL MPV 9.9 (7.4-10.4) fL Immature Gran % (Auto) 0.3 % Neut % (Auto) 77.9 % Lymph % (Auto) 15.2 % [place] % (Auto) 6.6 % Eos % (Auto) 0.0 % Baso % (Auto) 0.0 % Immature Gran # (Auto) 0.02 (0.00-0.02) K/uL Neut # (Auto) 5.89 (1.4-6.5) K/uL Lymph # (Auto) 1.15 L (1.2-3.4) K/uL [place] # (Auto) 0.50 (0.11-0.59) K/uL Eos # (Auto) 0.00 (0-0.5) K/uL Baso # (Auto) 0.00 (0-0.2) K/uL Giant Platelets 1+ Ovalocytes 1+ PT 13.0 H (9.0-12.0) Seconds INR 1.3 H (0.9-1.1) APTT (21.0-31.0) Seconds PTT Ratio Sodium (136-145) mmol/L Potassium (3.5-5.1) mmol/L Chloride (98-107) mmol/L Carbon Dioxide (21-32) mmol/L Anion Gap (3-11) BUN (7-18) mg/dl Creatinine (0.6-1.2) mg/dl Est Cr Clr Drug Dosing ml/min Est GFR ( Amer) Est GFR (Non-Af Amer) BUN/Creatinine Ratio (10-20) Glucose (70-99) mg/dl POC Glucose 305 H (70-99) Calcium (8.5-10.1) mg/dl Phosphorus (2.5-4.9) mg/dl Magnesium (1.8-2.4) mg/dl Total Bilirubin (0.2-1) mg/dl AST (15-37) U/L ALT (12-78) U/L Alkaline Phosphatase (45-117) U/L Total Protein (6.4-8.2) gm/dl Albumin (3.4-5.0) gm/dl Globulin (2.5-4.0) gm/dl Albumin/Globulin Ratio (0.9-2) Nasal Screen MRSA (PCR) (Negative) Blood Type Blood Type Recheck Antibody Screen Crossmatch 09/30/18 09/30/18 09/29/18 Range/Units 01:32 00:50 21:50 WBC (4.8-10.8) K/uL RBC (4.2-5.4) M/uL Hgb (12.0-16.0) g/dL Hct (37-47) % MCV (80-100) fL MCH (25-34) pg MCHC (32-36) g/dL RDW Std Deviation (36.4-46.3) fL RDW Coeff of Venita (11.5-14.5) % Plt Count (130-400) K/uL MPV (7.4-10.4) fL Immature Gran % (Auto) % Neut % (Auto) % Lymph % (Auto) % [place] % (Auto) % Eos % (Auto) % Baso % (Auto) % Immature Gran # (Auto) (0.00-0.02) K/uL Neut # (Auto) (1.4-6.5) K/uL Lymph # (Auto) (1.2-3.4) K/uL [place] # (Auto) (0.11-0.59) K/uL Eos # (Auto) (0-0.5) K/uL Baso # (Auto) (0-0.2) K/uL Giant Platelets Ovalocytes PT (9.0-12.0) Seconds INR (0.9-1.1) APTT (21.0-31.0) Seconds PTT Ratio Sodium (136-145) mmol/L Potassium (3.5-5.1) mmol/L Chloride (98-107) mmol/L Carbon Dioxide (21-32) mmol/L Anion Gap (3-11) BUN (7-18) mg/dl Creatinine (0.6-1.2) mg/dl Est Cr Clr Drug Dosing ml/min Est GFR ( Amer) Est GFR (Non-Af Amer) BUN/Creatinine Ratio (10-20) Glucose (70-99) mg/dl POC Glucose (70-99) Calcium (8.5-10.1) mg/dl Phosphorus (2.5-4.9) mg/dl Magnesium (1.8-2.4) mg/dl Total Bilirubin (0.2-1) mg/dl AST (15-37) U/L ALT (12-78) U/L Alkaline Phosphatase (45-117) U/L Total Protein (6.4-8.2) gm/dl Albumin (3.4-5.0) gm/dl Globulin (2.5-4.0) gm/dl Albumin/Globulin Ratio (0.9-2) Nasal Screen MRSA (PCR) Negative (Negative) Blood Type A Positive Blood Type Recheck A Positive Antibody Screen NEGATIVE Crossmatch See Detail 09/29/18 09/29/18 09/29/18 Range/Units 21:45 21:45 21:45 WBC 6.79 (4.8-10.8) K/uL RBC 3.04 L (4.2-5.4) M/uL Hgb 9.1 L (12.0-16.0) g/dL Hct 27.8 L (37-47) % MCV 91.4 (80-100) fL MCH 29.9 (25-34) pg MCHC 32.7 (32-36) g/dL RDW Std Deviation 48.6 H (36.4-46.3) fL RDW Coeff of Venita 14.9 H (11.5-14.5) % Plt Count 210 (130-400) K/uL MPV 9.9 (7.4-10.4) fL Immature Gran % (Auto) 0.4 % Neut % (Auto) 63.1 % Lymph % (Auto) 25.0 % [place] % (Auto) 10.9 % Eos % (Auto) 0.6 % Baso % (Auto) 0.0 % Immature Gran # (Auto) 0.03 H (0.00-0.02) K/uL Neut # (Auto) 4.28 (1.4-6.5) K/uL Lymph # (Auto) 1.70 (1.2-3.4) K/uL [place] # (Auto) 0.74 H (0.11-0.59) K/uL Eos # (Auto) 0.04 (0-0.5) K/uL Baso # (Auto) 0.00 (0-0.2) K/uL Giant Platelets Ovalocytes PT 67.0 H (9.0-12.0) Seconds INR 7.6 H* (0.9-1.1) APTT 50.0 H* (21.0-31.0) Seconds PTT Ratio 1.8 Sodium 140 (136-145) mmol/L Potassium 4.0 (3.5-5.1) mmol/L Chloride 107 (98-107) mmol/L Carbon Dioxide 27 (21-32) mmol/L Anion Gap 6.0 (3-11) BUN 31 H (7-18) mg/dl Creatinine 1.70 H (0.6-1.2) mg/dl Est Cr Clr Drug Dosing 26.1 ml/min Est GFR ( Amer) 32.0 Est GFR (Non-Af Amer) 27.6 BUN/Creatinine Ratio 18.4 (10-20) Glucose 268 H (70-99) mg/dl POC Glucose (70-99) Calcium 8.3 L (8.5-10.1) mg/dl Phosphorus 3.3 (2.5-4.9) mg/dl Magnesium 1.9 (1.8-2.4) mg/dl Total Bilirubin 0.3 (0.2-1) mg/dl AST 30 (15-37) U/L ALT 27 (12-78) U/L Alkaline Phosphatase 57 (45-117) U/L Total Protein 6.5 (6.4-8.2) gm/dl Albumin 2.7 L (3.4-5.0) gm/dl Globulin 3.8 (2.5-4.0) gm/dl Albumin/Globulin Ratio 0.7 L (0.9-2) Nasal Screen MRSA (PCR) (Negative) Blood Type Blood Type Recheck Antibody Screen Crossmatch Diagnostic Findings I reviewed [facility] outside records which revealed a intramucosal adenocarcinoma in the background of tubulovillous adenoma with multiple foci of high-grade dysplasia deeper invasion cannot be excluded ECG Additional Comments: Paced rhythm ventricular rate 50 abnormal EKG no comparison prior Reviewed the echo report from July 24, 2018: EF 25-30% PFO not assessed, severe aortic stenosis
[2018-09-30] MEDS: FERROUS SULFATE 325 MG TAB PO SCH ×2 (09:35→12:07)
[2018-09-30] MEDS ORDERED: INSULIN GLARGINE SOLOSTAR 100 UNITS/ML 3 ML PEN SC ONE (09:45)
[2018-09-30 09:54] LABS: Hematocrit (blood only) 29.6 % (37-47); Hemoglobin 9.7 g/dL (12.0-16.0)
[2018-09-30 13:40] LABS: Basophils # (auto) 0.02 K/uL (0-0.2); Basophils % (auto) 0.2 %; Eosinophils # (auto) 0.02 K/uL (0-0.5); Eosinophils % (auto) 0.2 %; Hematocrit (blood only) 27.8 % (37-47); Hemoglobin 9.1 g/dL (12.0-16.0); Immature Granulocytes # (auto) 0.02 K/uL (0.00-0.02); Immature Granulocytes % (auto) 0.2 %; Lymphocytes # (auto) 2.18 K/uL (1.2-3.4); Lymphocytes % (auto) 26.8 %; Mean Corpuscular Hgb Conc 32.7 g/dL (32-36); Mean Corpuscular Volume 89.1 fL (80-100); Mean Platelet Volume 9.8 fL (7.4-10.4); Monocytes # (auto) 1.11 K/uL (0.11-0.59); Monocytes % (auto) 13.7 %; Neutrophils # (auto) 4.77 K/uL (1.4-6.5); Neutrophils % (auto) 58.9 %; Platelet Count 156 K/uL (130-400); RDW Coefficient of Variation 15.6 % (11.5-14.5); RDW Standard Deviation 50.3 fL (36.4-46.3); Red Blood Count 3.12 M/uL (4.2-5.4); White Blood Count 8.12 K/uL (4.8-10.8)
--- NOTE | 2018-09-30 14:18 | Consultation Report ---
DATE OF CONSULTATION: 09/30/2018 GI CONSULT NOTE REASON FOR EVALUATION: Lower GI bleeding. HISTORY OF PRESENT ILLNESS: The patient is an 82-year-old female who I had seen previously for a colonoscopy and found a large polyp in the sigmoid. She was referred to [place] for an attempted endoscopic mucosal resection. This was done on September [address] Charles Varela in a 3-hour procedure. The final pathology did indicate that there was adenocarcinoma within the tubulovillous adenoma. She was seen by Dr. Kelsey, colorectal surgeon last [place] in [place] and at that time she was having a minimal amount of bleeding. There was a discussion about whether to proceed with a sigmoid resection, but given her significant cardiac history, there was some debate as to whether this was the proper course to take. While at [place] during her polypectomy operation, she had a V-tach and was hospitalized for 9 days. She was placed on amiodarone in addition to her defibrillator. She was also on Coumadin. When she presented to the hospital here last night with torrential rectal bleeding and hypotension, her INR was noted to be supratherapeutic at 7.6. This was subsequently corrected and she was given IV fluids and 2 units of red cells and she is currently cardiovascularly stable with normal blood pressure, normal pulse, but in AFib. She reports no abdominal pain, no bleeding currently. PAST MEDICAL HISTORY: Remarkable for history of a CVA with left-sided deficit. She has hypertension, hyperlipidemia. She has had V-tach and has a defibrillator and is on amiodarone. She is on Coumadin for AFib. She has chronic kidney disease stage II and hypothyroidism. She is also diabetic. MEDICATIONS: Per list. ALLERGIES: AMOXICILLIN AND METFORMIN. SOCIAL HISTORY: The patient lives alone. Her son lives nearby. She does not smoke, does not use alcohol. REVIEW OF SYSTEMS: Remarkable for left-sided weakness. PHYSICAL EXAMINATION: GENERAL: The patient appears in no acute distress. VITAL SIGNS: Blood pressure is 104/76, pulse 61 and irregular, room air saturations 97%. NEUROLOGIC: Remarkable for left-sided weakness. LUNGS: Clear. ABDOMEN: Soft. There are no masses or organomegaly. There is no tenderness. LABORATORY: Shows hemoglobin of 9.1. INR was 7.6 on arrival, it is currently 1.3. IMPRESSION: The patient has bleeding from a large polypectomy site that contained cancer. Her supratherapeutic INR has been corrected to normal. We discussed the risks and benefits of needing anticoagulation for her AFib and previous history of stroke and history of V-tach versus recurrent bleeding and hypotension. She is not sure whether she wants to proceed with definitive surgery for sigmoid resection at this point, but she will probably need to go back on blood thinners at some point, I think it would be important for her sigmoid site to be reevaluated, particularly by Dr. Varela if possible, she is the one who did the original procedure and knows exactly what transpired and what may be best in her best interest as far as treatment endoscopically versus surgically, and for this, I would recommend a transfer to [facility].
[2018-09-30 14:55] VITALS: TEMP 97.9
--- NOTE | 2018-09-30 15:02 | Discharge Summary ---
Date of Service September 30, 2018 Admission HPI Per Admitting Provider Patient is an 82yo female with multiple medical comorbidities to include Atrial Fibrillation on Coumadin anticoagulation, HTN, HLP, DM, CKD III, VT s/p cardioversion with placement of AICD. Patient was seen in the ER in July 2018 with rectal bleeding. She had a colonoscopy on which revealed two 5-6 mm polyps at the hepatic flexure as well as non-bleeding hemorrhoids, diverticulosis. Biopsis were obtained which revealed a well differentiated adenocarcinoma. She had a colonoscopy performed [place] [facility] [place] ago with resection of a large partially obstructing polyp (will request records). Patient with minimal post-procedure bleeding. She followed up with GI yesterday. Last evening she passed a large amount of blood with clots. Single episode, not associated with pain. Patient felt well all during the day. Ate well, no complaints. Around 18:30 she began to pass large amounts of blood from her rectum. Son reports that she had multiple episodes of bleeding lasting approximately 60 minutes which prompted them to come to the ER. On arrival she was found to be afebrile, HR of 50, BP of 68/41, RR 15 with 95% sat on room air. Her INR was elevated at 7.6. Hg of 9.1 and hct of 27.8 which is down from 11.5 and 35.9 from July. She was administered a liter of NSS as well as 10mg of IV Vitamin K and PCC 3500 units. Patient had several bloody bowel movements while in the ER. Became hypotensive again prior to transfer to the MICU with BP of 71/41. She was given 500mL bolus and transferred to ICU. Patient had some abdominal pain and nausea earlier in the week but presently denies pain. Denies nausea/vomiting. No constipation or straining. No CP/palpitations/SOB/cough or wheeze. She is experiencing some dizziness otherwise no complaints. Principal Diagnosis GI Bleed, Hemorrhagic Shock, Acute blood loss anemia Discharge Exam Constitutional + ill appearing and average body habitus; no acute distress Eyes PERRL, conjunctivae normal, anicteric sclerae ENMT external ear and nose normal, oropharynx normal Neck trachea midline, no thyromegaly Respiratory normal respiratory effort, lungs clear to auscultation Cardiovascular Rate/Rhythm: regular rate; + abnormal rhythm Heart Sounds: + murmur Extremities: no edema Gastrointestinal (Abdomen) normal bowel sounds, soft, nontender, no hepatosplenomegaly Musculoskeletal Extremities: extremities normal to inspection; no cyanosis and no clubbing Skin no rashes, warm and dry Neurologic + focal motor deficit (left hemiparesis) Psychiatric Orientation: alert, oriented x 3 and cooperative Discharge Data Allergies Allergy/AdvReac Type Severity Reaction Status Date / Time amoxicillin AdvReac Diarrhea Unverified 09/29/18 21:56 metformin AdvReac Diarrhea Unverified 09/29/18 21:56 Consultations 09/29/18 22:35 ED Decision to Admit Stat 09/30/18 00:25 Consult [employer] Routine 09/30/18 01:04 Consult Gastroenterology Routine Procedures Performed None Hospital Course (1) GI bleed: This patient is an 82yo female with AF on coumadin, Pacer/AICD for VT arrest, supratherapeutic INR of 7.6, severe , DMII, HTN,h/o CVA,CKD stage III, HL, chronic systolic CHF, and hypothyroidism, with recent colonoscopy two weeks ago with polyp removal. She presented with massive LGIB, hypotension from hemorrhagic shock, and acute blood loss anemia She was transfused a total of 3 units of PRBCs after admission. SHe had 2 more darker bloody BMs after admission and her hgb trended back downward again after an initial drop of 3-4 grams despite transfusion. She was managed here in the ICU but did not require vasopressors. BP stabilized/improved with transfusional support alone. Seen by GI here who recommended transfer to [facility] where her colorectal surgeon and GI specialist were given her complex history of cardiac issues and known large colon mass as likely source of bleeding. Discussed case with her Surgeon, Dr. Kelsey, at [facility], as well as the [employer] correctional officer chief who accepted her into their care. She is stable at this time for transfer via ground ACLS. 1. Neuro: patient with history of CVA with resultant left sided deficit. History of depression. Presently AA&O x 4, no new deficits -Continue Buspirone -Continue Fluoxetine 2. CV - patient with hypotension in setting of acute LGIB. BP improved with transfusion of PRBCs. History of AF, HTN, HLP, cardiomyopathy, VT s/p cardioversion and placement of AICD. Patient denies CP/SOB or palpitations. No AICD discharges. Hypotension - in setting of acute blood loss. BP improved with transfusion of PRBCs -Continue to monitor AF -Hold Coumadin. Patient administered 10mg Vitamin K and KCentra in setting of acute life-threatening bleed and INR of 7.6. INR the next AM was down to 1.3 and should continue to be trended -Continue Amiodarone -Holding Metoprolol for bradycardia and hypotension HTN -Hypotensive in setting of acute bleed -Holding Metoprolol, Lisinopril, Lasix HLP -Continue Simvastatin 40mg po daily Cardiomyopathy/Chronic systolic CHF with last known LVEF 35% - patient with no evidence of volume overload -Hold Metoprolol, Lisinopril and Lasix in setting of acute bleed VT s/p AICD -Optimize medically, maintain electrolytes 3. Pulm - patient with adequate oxygenation and ventilation on room air. No pulmonary disease -Supplemental O2 as needed to maintain sats > 94% 4. GI - Patient with newly diagnosed colon cancer, s/p polypectomy 2 weeks ago at [facility] with acute LGIB. H/H = 9.1/27.8. Patient hypotensive in ER with continued bleeding transfused as above -Two PIVs in place - 20g -Coumadin reversed with PCC and Vitamin K -PRBCs administered with improvement in hemodynamics -Continue to monitor CBC q 6 hours, transfuse for acute bleed, symptomatic anemia or Hg < 8 Transfer to [facility] as above 5. - CKD stage II. BUN and Cr are near baseline. -Thompson placed for I/O monitoring -Monitor BUN, Cr, electroltyes and UOP 6. Heme - acute blood loss anemia, Hg of 9.1 from 11.5 in July. Transfuse 2u PRBCs. Continue to monitor. Continue iron 7. ID - afebrile. No evidence of infection 8. Endo - hypothyroidism. DM Hypothyroid -Continue Synthroid DM -Hold oral agents. -Lantus 25u qHS while NPO - patient normally takes 50u -ISS, goal <180 Ppx - SCDs Code - Full per discussion with patient Dispo - transfer to SICU in [facility] now urgently (2) Hypovolemic shock: (3) Anemia: (4) Elevated INR: (5) CKD stage 3 due to type 2 diabetes mellitus: (6) Permanent atrial fibrillation: (7) Diabetes: (8) Depression: (9) Hyperlipidemia: (10) Hypertension: (11) Hypothyroidism: (12) Cardiomyopathy: Total Time Total Time Spent Total Time Spent (In Minutes): >30 min Total Time Includes: Examination of the Patient, Discharge Planning, Medication Reconciliation and Communication With Other Providers (Dr. Neumann of GI; Dr. Kelsey of COlorectal Surgery, Dr. Vela [facility] [employer] at [facility]) Discharge Plan Discharge Items Patient Disposition: Transfer Acute Care Hospital Reason For Visit: GIB Discharge Diagnosis: GI Bleed, acute blood loss anemia, hemorrhagic shock Condition: Critical Discharge Goals: Diagnostic testing, Improve disease control and Therapeutic intervention Activity: As commented below Lifting: None Exercise/Sports: Rest today Non-emergency contact: Primary Care Provider and Surgeon Call non-emergency contact if: you have any medication questions and your symptoms worsen Follow-up/Referrals: Delon Carrillo [Primary Care Provider] - Diet: Nothing by mouth Addtl Provider Instructions: Transferred urgently to [facility] Prescriptions: Continued turmeric 400 mg Capsule 1 cap PO BID RF: 0 fluoxetine 40 mg Capsule 40 mg PO QAM RF: 0 buspirone 5 mg Tablet 2.5 mg PO BID RF: 0 trazodone 50 mg Tablet 25 mg PO HS RF: 0 simvastatin 40 mg Tablet 40 mg PO PM RF: 0 levothyroxine 25 mcg Tablet 25 mcg PO QPM RF: 0 lorazepam 0.5 mg Tablet 0.5 mg PO HS RF: 0 loratadine 10 mg Tablet 10 mg PO HS PRN (Reason: Allergy Symptoms) RF: 0 Humalog KwikPen Insulin 100 unit/mL Insulin Pen 1 dose SUBCUT QPM RF: 0 coenzyme Q10 [CoQ-10] 100 mg Capsule 100 mg PO QPM RF: 0 Prilosec OTC 20 mg Tablet,Delayed Release (Dr/Ec) 20 mg PO QAM RF: 0 Slow Release Iron 160 mg (50 mg iron) Tablet Extended Release 45 mg PO BID RF: 0 Lantus Solostar U-100 Insulin 100 unit/mL (3 mL) Insulin Pen 50 unit SUBCUT QPM RF: 0 melatonin 5 mg Tablet 5 mg PO HS RF: 0 cholecalciferol (vitamin D3) [Vitamin D3] 2,000 unit Capsule 2,000 unit PO QAM RF: 0 amiodarone 200 mg tablet 200 mg PO BID RF: 0 Discontinued acetaminophen [Acetaminophen Extra Strength] 500 mg Tablet 1,000 mg PO HS RF: 0 calcium carbonate [Tums] 300 mg (750 mg) Tablet,Chewable 300 mg PO HS RF: 0 warfarin 2.5 mg Tablet 2.5 mg PO 4XWK RF: 0 warfarin 5 mg Tablet 5 mg PO 3XWK RF: 0 furosemide [Lasix] 20 mg Tablet 20 mg PO QAM RF: 0 docusate sodium 100 mg Tablet 200 mg PO QAM PRN (Reason: Constipation) RF: 0 Align 4 mg Capsule 1 cap PO QPM RF: 0 metoprolol succinate 50 mg Tablet Extended Release 24 Hr 50 mg PO QAM 30 Days Qty: 30 RF: 3 lisinopril [Zestril] 10 mg Tablet 10 mg PO QAM 30 Days Qty: 30 RF: 3 Stand-Alone Forms: [facility] Discharge Orders: Discharge Order (Routine); Ordered 09/30/18 Ordered By: Sarai Leonard Admission Data Admit Date/Time: 09/30/18 00:24 Attending Provider: Sarai Leonard Admit Provider: Tamie Burgess Primary Care Provider: Delon Carrillo Other Providers: Tamie Burgess ; Bhupinder Fraser ; Cristiano Neumann ; Home,Nursing Agency Service: Intensive Care Unit Other Interventions: Discharge Summary Assessment (RN) Last Done: 09/30/18 15:54 Pending Studies at Discharge: No DC Date/Time DO NOT enter until pt leaves facility: 09/30/18 16:40
[2018-09-30 16:07] VITALS: BP 122/61
[2018-09-30 16:28] VITALS: PULSE 75; O2SAT 94
[2018-09-30] MEDS ORDERED: CALCIUM CARBONATE 500 MG CHEWABLE TAB PO SCH (21:00)
[2018-09-30] MEDS ORDERED: SIMVASTATIN 40 MG TAB PO SCH (21:00)
[2018-09-30] MEDS ORDERED: LEVOTHYROXINE SODIUM 25 MCG TABLET PO SCH (21:00)
[2018-10-01] MEDS ORDERED: INSULIN GLARGINE SOLOSTAR 100 UNITS/ML 3 ML PEN SC ONE (09:00)
[2018-10-01 12:20] LABS: iSTAT Blood Urea Nitrogen 28 mg/dl (7-18); iSTAT Carbon Dioxide 24 mEq/l (24-31); iSTAT Creatinine 1.6 mg/dl (0.6-1.3); iSTAT Glucose 271 mg/dl (70-99); iSTAT Hematocrit 25 % (37-47); iSTAT Hemoglobin 8.5 g/dl (12.0-16.0); iSTAT Sodium 139 mEq/L (135-144)
== END 2018-09-30 16:40 | disposition short-term general hospital (02) | DRG 919 ==
LOC: ED 20:19 → 1E 09-30 00:17 → SUATTDRO 09-30 00:24

== ENCOUNTER 2018-12-29 15:22 | Inpatient (IN) ==
--- NOTE | 2018-12-29 16:36 | XRay Report ---
XR chest 1V portable CLINICAL HISTORY: 83 years-old Female presenting with Dyspnea. TECHNIQUE: Portable upright AP view of the chest was obtained. COMPARISON: 07/28/2018. FINDINGS: Left subclavian implanted cardiac defibrillator with single lead to the right ventricular apex. Media n sternotomy wires in place. Atherosclerosis of the aortic arch. Cardiac silhouette markedly enlarged . Pulmonary vascular prominence. Interval development of dense patchy opacity in the right mid to upp er lung. Additional affected areas may also be present to a lesser degree in the right lower lung and left perihilar region. No large effusion or pneumothorax. Degenerative changes of the thoracic spine . Upper abdomen normal. IMPRESSION: 1. Interval development of dense patchy infiltrates predominantly in a right perihilar distribution consistent with pneumonia. Additional patchy involvement of the right lower lung and left perihilar r egions may also be present to a significantly lesser degree. 2. Marked cardiomegaly with volume overload. Electronically signed by: Lang Gee M.D. 12/29/2018 4:35 PM
[2018-12-29 16:41] LABS: Basophils # (auto) 0.01 K/uL (0-0.2); Basophils % (auto) 0.1 %; Eosinophils # (auto) 0.02 K/uL (0-0.5); Eosinophils % (auto) 0.2 %; Hematocrit (blood only) 32.4 % (37-47); Hemoglobin 10.9 g/dL (12.0-16.0); Immature Granulocytes # (auto) 0.03 K/uL (0.00-0.02); Immature Granulocytes % (auto) 0.3 %; Lymphocytes # (auto) 1.15 K/uL (1.2-3.4); Lymphocytes % (auto) 10.4 %; Mean Corpuscular Hgb Conc 33.6 g/dL (32-36); Mean Corpuscular Volume 85.9 fL (80-100); Mean Platelet Volume 9.7 fL (7.4-10.4); Monocytes # (auto) 1.26 K/uL (0.11-0.59); Monocytes % (auto) 11.4 %; Neutrophils # (auto) 8.62 K/uL (1.4-6.5); Neutrophils % (auto) 77.6 %; Platelet Count 156 K/uL (130-400); RDW Coefficient of Variation 16.8 % (11.5-14.5); RDW Standard Deviation 53.2 fL (36.4-46.3); Red Blood Count 3.77 M/uL (4.2-5.4); White Blood Count 11.09 K/uL (4.8-10.8)
[2018-12-29] MEDS ORDERED: CEFEPIME 1,000 MG in SYRINGE 0 ML IV STA (16:58)
[2018-12-29] MEDS ORDERED: LEVOFLOXACIN/D5W 750 MG/150 ML BAG IV SCH ×2 (17:00→22:59)
[2018-12-29 17:01] LABS: Alanine Aminotransferase 129 U/L (12-78); Albumin Level 3.3 gm/dl (3.4-5.0); Aspartate Aminotransferase 134 U/L (15-37); BUN Creatinine Ratio 20.4 (10-20); Blood Urea Nitrogen 48 mg/dl (7-18); Carbon Dioxide 22 mmol/L (21-32); Chloride 105 mmol/L (98-107); Est GFR (African American) 21.6; Est GFR (Non-African American) 18.6; Glucose 207 mg/dl (70-99); Potassium 3.8 mmol/L (3.5-5.1); Sodium 136 mmol/L (136-145)
[2018-12-29 17:03] LABS: Albumin Globulin Ratio 0.7 (0.9-2); Alkaline Phosphatase 99 U/L (45-117); Bilirubin,Total 0.9 mg/dl (0.2-1); Globulin 4.6 gm/dl (2.5-4.0); INR 3.4 (0.9-1.1); Partial Thromboplastin Ratio 1.7; Prothrombin Time 32.3 Seconds (9.0-12.0); Total Protein 7.9 gm/dl (6.4-8.2)
[2018-12-29 17:04] LABS: Influenza A virus by PCR Neg for Influ A (Neg); Influenza B virus by PCR Neg for Influ B (Neg)
[2018-12-29 17:09] LABS: Partial Thromboplastin Time 45.1 Seconds (21.0-31.0)
[2018-12-29 17:17] LABS: NT Pro B Type Natriuretic Pept 13410 pg/ml (0-1800); Troponin I 0.028 ng/ml (0-0.045)
--- NOTE | 2018-12-29 17:36 | Emergency Department Note ---
Entered by Melissa Gleason acting as a scribe for Beka Beckham DO History of Present Illness General Chief complaint: Shortness of Breath/Dyspnea Stated complaint: SHORTNESS OF BREATH Source: patient and family (son ) History of Present Illness Provider complaint: shortness of breath Onset (ago): day(s) 5 Location: chest Radiation: non-radiation Pain Consistency: + other (worsening) Maximum Pain Intensity: 0 Associated symptoms: + cough and + other (+runny nose) The patient is a 83 year old female who presents to the Emergency Room with complaints of worsening shortness of breath. The patient states that she has had shortness of breath, dry cough, and runny nose that started on Monday. She reports that she was having dry heaves and nausea yesterday that has stopped today. She reports that she does not usually wear oxygen. The patients son states that she has had a history of heart issues and she was off of her Lasix medication for 9 days and started up again today. He notes that the patient has a pacer and a murmur and history of CHF, hypertension, and tachycardia. He denies that the patient has asthma, COPD, and is smoker. Home Medications Home Medications Medication Instructions Recorded Confirmed Type Humalog KwikPen Insulin 1 dose SUBCUT QPM 06/26/18 12/21/18 History Lantus Solostar U-100 Insulin 50 unit SUBCUT QPM 06/26/18 12/21/18 History Prilosec OTC 20 mg PO QAM 06/26/18 12/21/18 History Slow Release Iron 45 mg PO BID 06/26/18 12/21/18 History cholecalciferol (vitamin D3) 2,000 unit PO QAM 06/26/18 12/21/18 History [Vitamin D3] coenzyme Q10 [CoQ-10] 100 mg PO QPM 06/26/18 12/21/18 History fluoxetine 40 mg PO QAM 06/26/18 12/21/18 History levothyroxine 25 mcg PO QPM 06/26/18 12/21/18 History loratadine 10 mg PO HS PRN 06/26/18 12/21/18 History lorazepam 0.5 mg PO HS 06/26/18 12/21/18 History simvastatin 40 mg PO PM 06/26/18 12/21/18 History trazodone 25 mg PO HS 06/26/18 12/21/18 History towhujgx-ayj-beftt acid 0.4 1 tab PO DAILY 10/15/18 12/21/18 History mg-lycopene 300 mcg-lutein 250 mcg tablet buspirone 5 mg tablet 5 mg PO TID tab 10/23/18 12/21/18 History melatonin 5 mg capsule mg PO .qhs PRN cap 10/23/18 12/21/18 History acetaminophen 500 mg tablet 1,000 mg PO HS PRN tab 11/14/18 12/21/18 History amiodarone 200 mg tablet 200 mg PO Q24H tab 12/21/18 12/21/18 History furosemide 40 mg tablet 40 mg PO DAILY tab 12/21/18 12/21/18 History warfarin 2.5 mg PO DAILY 12/21/18 12/21/18 History warfarin 2.5 mg tablet 2.5 mg PO DAILY #90 tab 12/24/18 12/24/18 Rx metoprolol succinate 50 mg PO DAILY 12/29/18 12/29/18 History Allergies Allergy/AdvReac Type Severity Reaction Status Date / Time amoxicillin AdvReac Diarrhea Unverified 09/29/18 21:56 metformin AdvReac Diarrhea Unverified 09/29/18 21:56 Past Med/Surg History Medical History Atrial fibrillation (Chronic) Hyperlipidemia (Chronic) Hypertension (Chronic) Stroke (Chronic) massive 05/2008--partial paralysis left side Bleeding hemorrhoids Colon cancer Depression Diabetes mellitus, type 2 Edema of left lower extremity GERD (gastroesophageal reflux disease) Hypothyroidism On anticoagulant therapy on warfarin 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 Surgical History History of bilateral cataract extraction (Chronic) History of tooth extraction (Resolved) all upper teeth History of mitral valve repair S/P implantation of automatic cardioverter/defibrillator (AICD) Family History Son Family history of reaction to anesthesia nausea Daughter Family history of diabetes mellitus Social History Preferred Language: [place] Communication Ability: Effective Beliefs That Will Affect Care: None Current Living Situation: Alone Current Living Situation Comment: With caregivers Feels Safe at Home: Yes Smoking Status: Never smoker Second Hand Exposure: No Hx Alcohol Use: No Hx Substance Use: No Review of Systems See HPI for pertinent positives & negatives. and A total of 10 systems reviewed and were otherwise negative Physical Exam Vital Signs Vital Signs - 24 hr 12/29/18 15:31 12/29/18 15:51 12/29/18 16:10 Temperature 36.8 C Temperature Source Oral Sepsis Recent Fever Within 48 Hours No Sepsis New/Unexplained Change in Mental Status No Sepsis Action Taken by Nursing No Action Required Pulse Rate 63 63 Pulse Rate from SpO2 Sensor Pulse Rhythm Regular Respiratory Rate 17 17 Respiratory Effort / Characteristics Non-Labored Non-Labored Respiratory Depth Normal Normal Blood Pressure 136/79 Blood Pressure Mean 98 Blood Pressure Position Sitting Pulse Oximetry 93 93 92 Oxygen Delivery Method Nasal Cannula Nasal Cannula Oxygen Flow Rate 2 5 12/29/18 16:19 12/29/18 16:23 12/29/18 16:30 Temperature Temperature Source Sepsis Recent Fever Within 48 Hours Sepsis New/Unexplained Change in Mental Status Sepsis Action Taken by Nursing Pulse Rate 62 61 Pulse Rate from SpO2 Sensor 60 60 Pulse Rhythm Respiratory Rate 25 H 14 Respiratory Effort / Characteristics Respiratory Depth Blood Pressure 137/70 128/57 L Blood Pressure Mean 92 80 Blood Pressure Position Pulse Oximetry 82 L 93 92 Oxygen Delivery Method Room Air Nasal Cannula Nasal Cannula Oxygen Flow Rate 5 5 GENERAL: laying in bed, chronically-ill EYE EXAM: normal conjunctiva OROPHARYNX: no exudate, no erythema, lips, buccal mucosa, and tongue normal and mucous membranes are moist NECK: supple, no nuchal rigidity, no adenopathy, non-tender LUNGS: Clear to auscultation. Normal chest wall mechanics HEART: post systolic projective murmurs, diminished bilateral bases, S1 normal and S2 normal ABDOMEN: abdomen soft, non-tender, normo-active bowel sounds, no masses, no rebound or guarding. BACK: Back is symmetrical on inspection and there is no deformity, no midline tenderness, no CVA tenderness. SKIN: no rashes and no bruising UPPER EXTREMITIES: upper extremities are grossly normal. LOWER EXTREMITIES: left calf is larger than right which is old NEURO EXAM: left sided deficit, normal speech, normal sensorium, cranial nerves II-XII grossly intact, normal speech, no gross weakness of arms, no gross weakness of legs. No drift. Finger to nose intact. Gross sensation intact. Course 1605: The patient was evaluated in room B10, and a complete history and physical examination were performed. 1710: I reviewed the patient's case with Dr. Valdez [facility] Hospitalist. She will evaluate the patient for further management. Consultations Consultation #1: Dr. Pleitez- [facility] Hospitalist Time: 17:10 Medical Decision Making Differential Diagnosis Differential diagnosis: Etiologies such as infections, reactive airway disease, pneumonia, pneumothorax, COPD, CHF, cardiac ischemia, pulmonary embolism, musculoskeletal, gastrointestinal, as well as others were entertained. Medical Records Attestation: I reviewed the patient's medical records. Home Medications Current Medication List: was personally reviewed by me Laboratory Data Attestation: I reviewed the patient's lab results. Result diagrams: 12/29/18 16:10 12/29/18 16:10 Lab Results 12/29/18 12/29/18 12/29/18 Range/Units 16:10 16:10 16:10 WBC 11.09 H (4.8-10.8) K/uL RBC 3.77 L (4.2-5.4) M/uL Hgb 10.9 L (12.0-16.0) g/dL Hct 32.4 L (37-47) % MCV 85.9 (80-100) fL MCH 28.9 (25-34) pg MCHC 33.6 (32-36) g/dL RDW Std Deviation 53.2 H (36.4-46.3) fL RDW Coeff of Venita 16.8 H (11.5-14.5) % Plt Count 156 (130-400) K/uL MPV 9.7 (7.4-10.4) fL Immature Gran % (Auto) 0.3 % Neut % (Auto) 77.6 % Lymph % (Auto) 10.4 % [place] % (Auto) 11.4 % Eos % (Auto) 0.2 % Baso % (Auto) 0.1 % Immature Gran # (Auto) 0.03 H (0.00-0.02) K/uL Neut # (Auto) 8.62 H (1.4-6.5) K/uL Lymph # (Auto) 1.15 L (1.2-3.4) K/uL [place] # (Auto) 1.26 H (0.11-0.59) K/uL Eos # (Auto) 0.02 (0-0.5) K/uL Baso # (Auto) 0.01 (0-0.2) K/uL PT 32.3 H (9.0-12.0) Seconds INR 3.4 H (0.9-1.1) APTT 45.1 H* (21.0-31.0) Seconds PTT Ratio 1.7 Sodium (136-145) mmol/L Potassium (3.5-5.1) mmol/L Chloride (98-107) mmol/L Carbon Dioxide (21-32) mmol/L Anion Gap (3-11) BUN (7-18) mg/dl Creatinine (0.6-1.2) mg/dl Est Cr Clr Drug Dosing Est GFR ( Amer) Est GFR (Non-Af Amer) BUN/Creatinine Ratio (10-20) Glucose (70-99) mg/dl Calcium (8.5-10.1) mg/dl Total Bilirubin (0.2-1) mg/dl AST (15-37) U/L ALT (12-78) U/L Alkaline Phosphatase (45-117) U/L Troponin I Cancelled NT-Pro-B Natriuret Pep Cancelled Total Protein (6.4-8.2) gm/dl Albumin (3.4-5.0) gm/dl Globulin (2.5-4.0) gm/dl Albumin/Globulin Ratio (0.9-2) Influenza Type A (PCR) (Neg) Influenza Type B (PCR) (Neg) 12/29/18 12/29/18 Range/Units 16:10 16:23 WBC (4.8-10.8) K/uL RBC (4.2-5.4) M/uL Hgb (12.0-16.0) g/dL Hct (37-47) % MCV (80-100) fL MCH (25-34) pg MCHC (32-36) g/dL RDW Std Deviation (36.4-46.3) fL RDW Coeff of Venita (11.5-14.5) % Plt Count (130-400) K/uL MPV (7.4-10.4) fL Immature Gran % (Auto) % Neut % (Auto) % Lymph % (Auto) % [place] % (Auto) % Eos % (Auto) % Baso % (Auto) % Immature Gran # (Auto) (0.00-0.02) K/uL Neut # (Auto) (1.4-6.5) K/uL Lymph # (Auto) (1.2-3.4) K/uL [place] # (Auto) (0.11-0.59) K/uL Eos # (Auto) (0-0.5) K/uL Baso # (Auto) (0-0.2) K/uL PT (9.0-12.0) Seconds INR (0.9-1.1) APTT (21.0-31.0) Seconds PTT Ratio Sodium 136 (136-145) mmol/L Potassium 3.8 (3.5-5.1) mmol/L Chloride 105 (98-107) mmol/L Carbon Dioxide 22 (21-32) mmol/L Anion Gap 9.0 (3-11) BUN 48 H (7-18) mg/dl Creatinine 2.34 H (0.6-1.2) mg/dl Est Cr Clr Drug Dosing Not Reportable Est GFR ( Amer) 21.6 Est GFR (Non-Af Amer) 18.6 BUN/Creatinine Ratio 20.4 H (10-20) Glucose 207 H (70-99) mg/dl Calcium 9.0 (8.5-10.1) mg/dl Total Bilirubin 0.9 (0.2-1) mg/dl AST 134 H (15-37) U/L ALT 129 H (12-78) U/L Alkaline Phosphatase 99 (45-117) U/L Troponin I 0.028 NT-Pro-B Natriuret Pep 63956 H Total Protein 7.9 (6.4-8.2) gm/dl Albumin 3.3 L (3.4-5.0) gm/dl Globulin 4.6 H (2.5-4.0) gm/dl Albumin/Globulin Ratio 0.7 L (0.9-2) Influenza Type A (PCR) Neg for Influ A (Neg) Influenza Type B (PCR) Neg for Influ B (Neg) Imaging Data Radiologist's Impression: Radiology results as stated below per my review and the radiologist's interpretation: XR chest 1V portable CLINICAL HISTORY: 83 years-old Female presenting with Dyspnea. TECHNIQUE: Portable upright AP view of the chest was obtained. COMPARISON: 07/28/2018. FINDINGS: Left subclavian implanted cardiac defibrillator with single lead to the right ventricular apex. Median sternotomy wires in place. Atherosclerosis of the aortic arch. Cardiac silhouette markedly enlarged. Pulmonary vascular prominence. Interval development of dense patchy opacity in the right mid to upper lung. Additional affected areas may also be present to a lesser degree in the right lower lung and left perihilar region. No large effusion or pneumothorax. Degenerative changes of the thoracic spine. Upper abdomen normal. IMPRESSION: 1. Interval development of dense patchy infiltrates predominantly in a right perihilar distribution consistent with pneumonia. Additional patchy involvement of the right lower lung and left perihilar regions may also be present to a significantly lesser degree. 2. Marked cardiomegaly with volume overload. Electronically signed ECG Data Attestation: I personally reviewed and interpreted this ECG as follows: Indication: SOB/dyspnea Rate (beats per minute): 63 Rhythm: other (ventricular paced) Findings: + LBBB and + left axis deviation Blood Pressure Blood Pressure Findings: Normal blood pressure MDM Narrative Patient is an 83-year-old female who presents the ER for cough, congestion and a runny nose which is been present for the past 3 days associated with shortness of breath. Upon arrival she is found to be 80% on room air. She is placed on 5 L nasal cannula. IV was established and blood work was obtained. Labs show no significant leukocytosis or anemia. PTT was elevated at 45. INR was elevated 3.4. BMP with a creatinine of 2.34 consistent with previous. LFTs with mild transaminitis. proBNP was slightly elevated as well as troponin but not detectable. Influenza was negative. Chest x-ray shows an enlarged right midlung pneumonia. Patient was given IV Levaquin and cefepime. She was updated bedside. Discussed with patient family. Discussed the hospitalist and patient will be admitted for hypoxia at 80% now on 5 L nasal cannula with IV antibiotics secondary to pneumonia. Impression & Plan PNA (pneumonia), Hypoxia The scribe's documentation has been prepared under my direction and personally reviewed by me in its entirety. I confirm that the note above accurately reflects all work, treatment, procedures, and medical decision making performed by me.
--- NOTE | 2018-12-29 19:53 | History & Physical Report ---
Date of Service December 29, 2018 Assessment & Plan (1) PNA (pneumonia): As noted on CXR Improving clinically s/p O2 and abx Levaquin started in the ED, will continue Slightly elevated in WBC, afebrile Hypoxic on RA Flu neg (2) ARF (acute renal failure): Cr on 12/27 was 2.0, son states this is baseline 2.3 on admission s/p resuming lasix Monitor (3) Abnormal EKG: Complete heart block noted Pt has an AICD in place Repeat EKG in AM If ongoing or if new sx develop, consider cardiology c/s (4) CKD stage 3 due to type 2 diabetes mellitus: Monitor cr (5) ICD (implantable cardioverter-defibrillator) in place: Vtach s/p c-scope 07/2018 Monitor (6) Permanent atrial fibrillation: continue home meds INR elevated to 3.4 Holding coumadin for now, monitor (7) GERD (gastroesophageal reflux disease): continue home meds (8) Diabetes: A1c pending Lantus as at home SSI PRN (9) Depression: continue home meds (10) Hypertension: continue home meds (11) Hyperlipidemia: continue home meds (12) Severe aortic stenosis by prior echocardiogram: continue home lasix dose LE swelling noted s/p 9 days off of lasix due to dehydration/elevated cr Monitor Always has L>R swelling s/p CVA (13) Colon adenocarcinoma: Hx of endoscopic tumor removal Was not felt able to tolerate resection No hx of chemo/radiation Is being monitored (14) DVT prophylaxis: Supratherapeutic on coumadin History of Present Illness Primary Care Provider: Delon Carrillo MD 83 y/o F c/o SOB. Pt was doing well yesterday. She had an appt with a physician in the morning and her lungs were clear at that time. Around 4p yesterday, pt was noted to be SOB and nauseated. She did not sleep well last night as she could not get comfortable. Today, her SOB was worse. Initially it had just been with ambulation, but today she was noted to be SOB at rest as well. Pt denies fever, chest pain, abd pain, v/c/d, LE pain. Pt had been working with Dr. Sims for some LE swelling. This had been much improved, however it was felt that she was a bit dehydrated from more aggressive lasix use. She has been off of lasix x9 days. This was restarted today. The current plan is for daily weights and lasix only when pt's weight is elevated or she has worsening LE swelling. She has hx of a CVA with L sided deficits and usually her L LE has more swelling than the R. Pt was given O2 and abx in the ED. She is no longer SOB at rest. She has not been OOB for further assessment. She states she feels improved. Son feels she is as well. Allergies Allergy/AdvReac Type Severity Reaction Status Date / Time amoxicillin AdvReac Diarrhea Unverified 12/29/18 17:51 metformin AdvReac Diarrhea Unverified 12/29/18 17:52 Home Medications Home Medications Medication Instructions Recorded Confirmed Type Lantus Solostar U-100 Insulin 43 unit SUBCUT QPM 06/26/18 12/29/18 History Prilosec OTC 20 mg PO QAM 06/26/18 12/29/18 History Slow Release Iron 45 mg PO DAILY 06/26/18 12/29/18 History cholecalciferol (vitamin D3) 2,000 unit PO QAM 06/26/18 12/29/18 History [Vitamin D3] coenzyme Q10 [CoQ-10] 100 mg PO QPM 06/26/18 12/29/18 History fluoxetine 40 mg PO QAM 06/26/18 12/29/18 History insulin lispro [Humalog KwikPen 0 dose SUBCUT UD PRN 06/26/18 12/29/18 History Insulin] levothyroxine 25 mcg PO QPM 06/26/18 12/29/18 History loratadine 10 mg PO HS PRN 06/26/18 12/29/18 History lorazepam 0.5 mg PO HS 06/26/18 12/29/18 History simvastatin 40 mg PO PM 06/26/18 12/29/18 History trazodone 25 mg PO HS 06/26/18 12/29/18 History tgdboikr-xiu-karrp acid 0.4 1 tab PO DAILY 10/15/18 12/29/18 History mg-lycopene 300 mcg-lutein 250 mcg tablet buspirone 5 mg tablet 5 mg PO TID tab 10/23/18 12/29/18 History melatonin 5 mg capsule 5 mg PO .qhs PRN cap 10/23/18 12/29/18 History acetaminophen 500 mg tablet 1,000 mg PO HS PRN tab 11/14/18 12/29/18 History amiodarone 200 mg tablet 200 mg PO Q24H tab 12/21/18 12/29/18 History furosemide 40 mg tablet 40 mg PO DAILY PRN tab 12/21/18 12/29/18 History warfarin 2.5 mg tablet 2.5 mg PO DAILY #90 tab 12/24/18 12/29/18 Rx lisinopril 10 mg PO DAILY 12/29/18 12/29/18 History metoprolol succinate 50 mg PO DAILY 12/29/18 12/29/18 History potassium chloride 20 meq PO DAILY PRN 12/29/18 12/29/18 History Past Med/Surg History Medical History Atrial fibrillation (Chronic) Hyperlipidemia (Chronic) Hypertension (Chronic) Stroke (Chronic) massive 05/2008--partial paralysis left side Bleeding hemorrhoids Colon cancer Depression Diabetes mellitus, type 2 Edema of left lower extremity GERD (gastroesophageal reflux disease) Hypothyroidism On anticoagulant therapy on warfarin 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 Surgical History History of bilateral cataract extraction (Chronic) History of tooth extraction (Resolved) all upper teeth History of mitral valve repair S/P implantation of automatic cardioverter/defibrillator (AICD) Family History Son Family history of reaction to anesthesia nausea Daughter Family history of diabetes mellitus Social History Preferred Language: Kinyarwanda Communication Ability: Effective Beliefs That Will Affect Care: None Current Living Situation: Alone Current Living Situation Comment: With caregivers Feels Safe at Home: Yes Smoking Status: Never smoker Second Hand Exposure: No Hx Alcohol Use: No Hx Substance Use: No Review of Systems Review of Systems: Pertinent positives and negatives reviewed in HPI--all others negative Physical Exam Constitutional: WD/WN, vitals as above Eyes: normal visual warner by confrontation and + anicteric sclerae Neck: normal visual inspection and trachea midline Respiratory: normal respiratory effort; no respiratory distress Auscultation: + crackles (R sided); no wheezes Cardiovascular: Rate/Rhythm: regular rate and regular rhythm Gastrointestinal (Abdomen): Inspection/Auscultation: abdomen not distended Percussion/Palpation: abdomen soft; abdomen nontender Musculoskeletal: Head/Neck/Chest: normocephalic and head atraumatic b/l LE L>>R pitting edema edema, 2+ in L, 1+ in R peripheral pulses intact Skin: no rashes, warm and dry Neurologic: awake; not confused Speech / Cognition: normal speech Psychiatric: A+Ox3, euthymic affect Results & Data Vital Signs (Past 12 Hours) Vital Signs Temp Pulse Resp BP Pulse Ox 12/29/18 19:03 60 37 H 132/72 93 12/29/18 18:00 60 28 H 119/60 92 12/29/18 17:30 61 30 H 110/57 L 91 12/29/18 17:00 60 31 H 118/67 92 12/29/18 16:30 61 14 128/57 L 92 12/29/18 16:23 62 25 H 137/70 93 12/29/18 16:19 82 L 12/29/18 16:10 63 17 92 12/29/18 15:51 93 12/29/18 15:31 36.8 C 63 17 136/79 93 Diagnostic Findings CXR: R sided PNA ECG Additional Comments: Ventricular paced, heart block Code Status & VTE Plan Code Status Other: Full code, although pt states no prolonged mechanical life support, feeding tubes, etc VTE Prophylaxis Plan VTE Prophylaxis will be ordered: Yes PG Care Time/CCT Total # of Minutes Spent Total Time Spent with Patient: Total time spent is greater than 50% in coordinat ion of care (as documented) at patient's floor/unit and/or counseling patient: (1) PNA (pneumonia) Laterality: right Lung location: middle lobe of lung Pneumonia type: due to unspecified organism Qualified Code(s): J18.1 - Lobar pneumonia, unspecified organism
[2018-12-29] MEDS ORDERED: ONDANSETRON INJ 2 MG/ML 2 ML VIAL ONE ×2 (20:35→21:06)
--- NOTE | 2018-12-29 21:58 | Critical Care Consultation ---
Date of Consultation December 29, 2018 Assessment & Plan (1) PNA (pneumonia): (2) CKD stage 3 due to type 2 diabetes mellitus: (3) ICD (implantable cardioverter-defibrillator) in place: (4) Valvular heart disease: (5) GERD (gastroesophageal reflux disease): (6) Diabetes: (7) Hypertension: (8) Hyperlipidemia: (9) CHF (congestive heart failure): Reason Critically Ill: 83-year-old female presents to hospital with increased shortness of breath, hypoxic respiratory failure. Neuro - [facility] ICU: Negative Prior strokechronic left hemiparesis Cardiac - CHFlast echo in July, showed severe aortic stenosis, EF 25 to 30% with left ventricular hypokinesis, moderate mitral and tricuspid regurg -On home Lasix but held past 9 days for BRAXTON, given 40 mg IV in ED, will continue spot diuresis as needed -BNP elevated to 13,000, will trend daily -Chest x-ray consistent with volume overload and cardiomegaly -EKG showed paced rhythm with prolonged QTC of 560, patient has AICD/pacer -Repeating BMP and mag -Holding lisinopril for BRAXTON, continuing MTP and simvastatin -Continuous monitor with telemetry -1L FR A. fibwe will hold home dose warfarin for now considering supratherapeutic INR -We will continue to monitor routine coags -Continue MTP and amiodarone for rate control Hypertensioncontinue MTP, holding lisinopril Respiratory - Hypoxic respiratory failure: CHF exacerbation versus pneumonia -Chest x-ray showed bilateral consolidations with pneumonia versus volume overload, likely mixed -Repeating ABG -Patient currently on HFNC, 30 L 100% -Repeat a.m. chest x-ray -Starting Atrovent and budesonide nebs -Obtaining procalcitonin -Empiric cefepime and vancomycin, levaquin switched to doxycycline considering QTC -Aggressive diuresis GI - GERDstarted on PPI Dietheart healthy, carb consistent diet Adenocarcinoma of the colon-patient was reportedly too high risk for resection, no intervention at this time RENAL/LYTES - BRAXTON on CKDcurrent creatinine 2.34, close to baseline -Patient volume overloaded, will continue to diurese -We will monitor strict I's and O's, will monitor creatinine with routine BMPs -Holding lisinopril -Avoid nephrotoxins - Thompson inserted for strict I's and O's ENDO - DMcurrently euglycemic, ICU hypoglycemic protocols, continue glargine and sliding scale -Last hemoglobin A1c 7.7 in July Hypothyroidismcontinue home dose Synthroid HEME - H&H stable, continue to monitor with routine CBCs ID - Cefepime , vancomycin, doxycycline LINES/IV ACCESS - Peripheral IVs, Thompson DVT PROPHYLAXIS - SCDs, holding anticoagulation for elevated INR CODE STATUSno compressions or shocks, okay with intubation I have personally spent 60 minutes of critical care time in the direct management of this patient. This is a life/limb threatening event. This includes time spent evaluating patient, direct bedside care, chart review, placing orders, interpretation of diagnostic studies, discussion with consultants, patient, and family members, as well as other required patient management activities. This time is exclusive of all separately billable procedures, and teaching time and separate from and in addition to any other critical care service time. Thank you for allowing us to participate in the care of this patient. Please refer to my attending physician's documentation for any further recommendations. History of Present Illness History of Present Illness Ms. Grider is a 83-year-old female with past medical history significant for A. fib, pacer/AV ICD insertion, stroke, GI bleed, left-sided paralysis, CHF with last EF 25 to 30%, aortic stenosis, MVR, adenocarcinoma with colon who presents from home to the ED with increased shortness of breath. Per son she lives at home, has 24-hour caregivers, does not usually require oxygen but presented to the ED and was found to be hypoxic. Currently requiring high flow nasal cannula. She has been off her home Lasix regimen for 9 days due to BRAXTON on CKD. She has had increased bilateral lower extremity swelling. Of note, left lower extremity is more edematous than the right at baseline secondary to left-sided paralysis from prior stroke. She reports a low-grade fever yesterday, for which she took Tylenol and it subsided. She denies productive cough or hemoptysis. She denies chest pain, syncope, palpitations, sore throat, headache, change in mental status, abdominal pain, constipation. She reports some relief of shortness of breath with oxygen supplementation and she displays mild tachypnea and work of breath with accessory muscle use. I personally discussed CODE STATUS with the son who states that he is the power of patent prosecution attorney. He states that he is open to intubation for short-term period If needed, but does not want CPR in the event that the patient becomes pulseless, considering multiple comorbidities and advanced age. Patient is to be transferred to ICU for further work-up/management and evaluation at this time. See plan below. Allergies Allergy/AdvReac Type Severity Reaction Status Date / Time amoxicillin AdvReac Diarrhea Unverified 12/29/18 17:51 metformin AdvReac Diarrhea Unverified 12/29/18 17:52 Home Medications Home Medications Medication Instructions Recorded Confirmed Type Lantus Solostar U-100 Insulin 43 unit SUBCUT QPM 06/26/18 12/29/18 History Prilosec OTC 20 mg PO QAM 06/26/18 12/29/18 History Slow Release Iron 45 mg PO DAILY 06/26/18 12/29/18 History cholecalciferol (vitamin D3) 2,000 unit PO QAM 06/26/18 12/29/18 History [Vitamin D3] coenzyme Q10 [CoQ-10] 100 mg PO QPM 06/26/18 12/29/18 History fluoxetine 40 mg PO QAM 06/26/18 12/29/18 History insulin lispro [Humalog KwikPen 0 dose SUBCUT UD PRN 06/26/18 12/29/18 History Insulin] levothyroxine 25 mcg PO QPM 06/26/18 12/29/18 History loratadine 10 mg PO HS PRN 06/26/18 12/29/18 History lorazepam 0.5 mg PO HS 06/26/18 12/29/18 History simvastatin 40 mg PO PM 06/26/18 12/29/18 History trazodone 25 mg PO HS 06/26/18 12/29/18 History rkiwjeif-adj-rknzu acid 0.4 1 tab PO DAILY 10/15/18 12/29/18 History mg-lycopene 300 mcg-lutein 250 mcg tablet buspirone 5 mg tablet 5 mg PO TID tab 10/23/18 12/29/18 History melatonin 5 mg capsule 5 mg PO .qhs PRN cap 10/23/18 12/29/18 History acetaminophen 500 mg tablet 1,000 mg PO HS PRN tab 11/14/18 12/29/18 History amiodarone 200 mg tablet 200 mg PO Q24H tab 12/21/18 12/29/18 History furosemide 40 mg tablet 40 mg PO DAILY PRN tab 12/21/18 12/29/18 History warfarin 2.5 mg tablet 2.5 mg PO DAILY #90 tab 12/24/18 12/29/18 Rx lisinopril 10 mg PO DAILY 12/29/18 12/29/18 History metoprolol succinate 50 mg PO DAILY 12/29/18 12/29/18 History potassium chloride 20 meq PO DAILY PRN 12/29/18 12/29/18 History Patient History Medical History Atrial fibrillation (Chronic) Hyperlipidemia (Chronic) Hypertension (Chronic) Stroke (Chronic) massive 05/2008--partial paralysis left side Bleeding hemorrhoids Colon cancer Depression Diabetes mellitus, type 2 Edema of left lower extremity GERD (gastroesophageal reflux disease) Hypothyroidism On anticoagulant therapy on warfarin 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 Surgical History History of bilateral cataract extraction (Chronic) History of tooth extraction (Resolved) all upper teeth History of mitral valve repair S/P implantation of automatic cardioverter/defibrillator (AICD) Family History Son Family history of reaction to anesthesia nausea Daughter Family history of diabetes mellitus Social History Preferred Language: Spanish Communication Ability: Effective Contract Coordinator Required: No Beliefs That Will Affect Care: None Current Living Situation: Alone Current Living Situation Comment: 24 hr caregivers Other Information That Helps Us Care for You: No Feels Safe at Home: Yes Safety Concerns: Feels Safe At This Time Smoking Status: Unknown if ever smoked Hx Alcohol Use: No Hx Substance Use: No Review of Systems Review of Systems: All systems reviewed & are unremarkable except as noted in HPI & below Physical Exam Eyes: PERRL, conjunctivae normal, anicteric sclerae ENMT: external ear and nose normal, oropharynx normal Neck: trachea midline, no thyromegaly Respiratory: Upper lobes coarse with auscultation bilaterally, diminished lung sounds bilaterally at bases. Symmetrical chest wall movement. No wheezes or crackles Cardiovascular: Bilateral lower extremity edema greater on left, paced rhythm on monitor, pulses +1 in upper and lower extremities bilateral Gastrointestinal (Abdomen): Abdomen round, soft, nontender. Normoactive bowel sounds in all 4 quadrants Musculoskeletal: Normal strength in right hemisphere, left upper and lower extremities gravity eliminated Neurologic: Left hemiparesis, PERRLA, alert and oriented Genitourinary: Thompson inserted Results & Data Vital Signs (Past 12 Hours) Vital Signs Temp Pulse Pulse Resp BP Pulse Ox 12/29/18 21:35 61 29 H 97 12/29/18 21:07 66 35 H 144/77 H 75 L 12/29/18 21:00 60 28 H 83 L 12/29/18 20:30 69 23 161/91 H 82 L 12/29/18 20:15 84 L 12/29/18 20:00 62 42 H 147/98 H 91 12/29/18 19:30 61 26 H 138/71 91 12/29/18 19:03 60 37 H 132/72 93 12/29/18 18:00 60 28 H 119/60 92 12/29/18 17:30 61 30 H 110/57 L 91 12/29/18 17:00 60 31 H 118/67 92 12/29/18 16:30 61 14 128/57 L 92 12/29/18 16:23 62 25 H 137/70 93 12/29/18 16:19 82 L 12/29/18 16:10 63 17 92 12/29/18 15:51 93 12/29/18 15:31 36.8 C 63 17 136/79 93 Laboratory Results Laboratory Results - last 24 hr 12/29/18 12/29/18 12/29/18 16:10 16:10 16:10 WBC 11.09 H RBC 3.77 L Hgb 10.9 L Hct 32.4 L MCV 85.9 MCH 28.9 MCHC 33.6 RDW Std Deviation 53.2 H RDW Coeff of Venita 16.8 H Plt Count 156 MPV 9.7 Immature Gran % (Auto) 0.3 Neut % (Auto) 77.6 Lymph % (Auto) 10.4 [place] % (Auto) 11.4 Eos % (Auto) 0.2 Baso % (Auto) 0.1 Immature Gran # (Auto) 0.03 H Neut # (Auto) 8.62 H Lymph # (Auto) 1.15 L [place] # (Auto) 1.26 H Eos # (Auto) 0.02 Baso # (Auto) 0.01 PT 32.3 H INR 3.4 H APTT 45.1 H* PTT Ratio 1.7 Sodium Potassium Chloride Carbon Dioxide Anion Gap BUN Creatinine Est Cr Clr Drug Dosing Est GFR ( Amer) Est GFR (Non-Af Amer) BUN/Creatinine Ratio Glucose Calcium Total Bilirubin AST ALT Alkaline Phosphatase Troponin I Cancelled NT-Pro-B Natriuret Pep Cancelled Total Protein Albumin Globulin Albumin/Globulin Ratio Urine Color Urine Appearance Urine pH Ur Specific [place] Urine Protein Urine Glucose (UA) Urine Ketones Urine Blood Urine Nitrite Urine Bilirubin Urine Urobilinogen Ur Leukocyte Esterase Urine WBC (Auto) Urine RBC (Auto) U Hyaline Cast (Auto) U Epithel Cells (Auto) Urine Bacteria (Auto) Influenza Type A (PCR) Influenza Type B (PCR) 12/29/18 12/29/18 12/29/18 16:10 16:23 22:03 WBC RBC Hgb Hct MCV MCH MCHC RDW Std Deviation RDW Coeff of Venita Plt Count MPV Immature Gran % (Auto) Neut % (Auto) Lymph % (Auto) [place] % (Auto) Eos % (Auto) Baso % (Auto) Immature Gran # (Auto) Neut # (Auto) Lymph # (Auto) [place] # (Auto) Eos # (Auto) Baso # (Auto) PT INR APTT PTT Ratio Sodium 136 Potassium 3.8 Chloride 105 Carbon Dioxide 22 Anion Gap 9.0 BUN 48 H Creatinine 2.34 H Est Cr Clr Drug Dosing Not Reportable Est GFR ( Amer) 21.6 Est GFR (Non-Af Amer) 18.6 BUN/Creatinine Ratio 20.4 H Glucose 207 H Calcium 9.0 Total Bilirubin 0.9 AST 134 H ALT 129 H Alkaline Phosphatase 99 Troponin I 0.028 NT-Pro-B Natriuret Pep 97304 H Total Protein 7.9 Albumin 3.3 L Globulin 4.6 H Albumin/Globulin Ratio 0.7 L Urine Color Yellow Urine Appearance Clear Urine pH 5.0 Ur Specific [place] 1.019 Urine Protein Trace H Urine Glucose (UA) Negative Urine Ketones Negative Urine Blood Negative Urine Nitrite Negative Urine Bilirubin Negative Urine Urobilinogen Negative Ur Leukocyte Esterase Negative Urine WBC (Auto) 0 Urine RBC (Auto) 0-4 U Hyaline Cast (Auto) 5-10 H U Epithel Cells (Auto) 10-20 H Urine Bacteria (Auto) Negative Influenza Type A (PCR) Neg for Influ A Influenza Type B (PCR) Neg for Influ B Medications Administered Home Medications Lantus Solostar U-100 Insulin 43 unit SUBCUT QPM 06/26/18 [History Confirmed 12/29/18] Prilosec OTC 20 mg PO QAM 06/26/18 [History Confirmed 12/29/18] Slow Release Iron 45 mg PO DAILY 06/26/18 [History Confirmed 12/29/18] cholecalciferol (vitamin D3) [Vitamin D3] 2,000 unit PO QAM 06/26/18 [History Confirmed 12/29/18] coenzyme Q10 [CoQ-10] 100 mg PO QPM 06/26/18 [History Confirmed 12/29/18] fluoxetine 40 mg PO QAM 06/26/18 [History Confirmed 12/29/18] insulin lispro [Humalog KwikPen Insulin] 0 dose SUBCUT UD PRN 06/26/18 [History Confirmed 12/29/18] levothyroxine 25 mcg PO QPM 06/26/18 [History Confirmed 12/29/18] loratadine 10 mg PO HS PRN 06/26/18 [History Confirmed 12/29/18] lorazepam 0.5 mg PO HS 06/26/18 [History Confirmed 12/29/18] simvastatin 40 mg PO PM 06/26/18 [History Confirmed 12/29/18] trazodone 25 mg PO HS 06/26/18 [History Confirmed 12/29/18] uvcrgzhu-bib-yyubg acid 0.4 mg-lycopene 300 mcg-lutein 250 mcg tablet 1 tab PO DAILY 10/15/18 [History Confirmed 12/29/18] buspirone 5 mg tablet 5 mg PO TID tab 10/23/18 [History Confirmed 12/29/18] melatonin 5 mg capsule 5 mg PO .qhs PRN cap 10/23/18 [History Confirmed 0 12/29/18] acetaminophen 500 mg tablet 1,000 mg PO HS PRN tab 11/14/18 [History Confirmed 12/29/18] amiodarone 200 mg tablet 200 mg PO Q24H tab 12/21/18 [History Confirmed 12/29/18] furosemide 40 mg tablet 40 mg PO DAILY PRN tab 12/21/18 [History Confirmed 12/29/18] warfarin 2.5 mg tablet 2.5 mg PO DAILY #90 tab 12/24/18 [Rx Confirmed 12/29/18] lisinopril 10 mg PO DAILY 12/29/18 [History Confirmed 12/29/18] metoprolol succinate 50 mg PO DAILY 12/29/18 [History Confirmed 12/29/18] potassium chloride 20 meq PO DAILY PRN 12/29/18 [History Confirmed 12/29/18] Active Medications Levofloxacin/Dextrose (Levaquin/D5w) 750 mg in 150 mls @ 100 mls/hr IV Q24H [id number] Stop: 12/31/18 16:59 Last Infusion: 12/29/18 19:04 Dose: Infused Documented by: PG Care Time/CCT Total Critical Care Time: 60 (1) PNA (pneumonia) Laterality: right Lung location: middle lobe of lung Pneumonia type: due to unspecified organism Qualified Code(s): J18.1 - Lobar pneumonia, unspecified organism
[2018-12-29] MEDS ORDERED: FUROSEMIDE 40 MG/4 ML VIAL IV STA ×2 (22:05→23:23)
[2018-12-29] MEDS ORDERED: FUROSEMIDE 40 MG/4 ML VIAL IV ONE (22:06)
[2018-12-29 22:12] LABS: Appearance Urine Clear (Clear); Bacteria Urine Automated Negative (Negative); Bilirubin Urine Negative (Negative); Blood Urine Negative (Negative); Color Urine Yellow; Glucose Urine UA Negative (Negative); Ketones Urine Negative (Negative); Leukocyte Esterase Urine Negative (Negative); Nitrite Urine Negative (Negative); Protein Urine Trace (Negative); RBC Urine Automated 0-4 /hpf (0-4); Specific Gravity Urine 1.019 (1.000-1.030); Urobilinogen Urine Negative (Negative); WBC Urine Automated 0 /hpf (0-5)
[2018-12-29] MEDS ORDERED: NON-FORMULARY MEDICATION (Melatonin 5 MG) PO PRN (22:59)
[2018-12-29] MEDS ORDERED: NON-FORMULARY MEDICATION (Coenzyme Q10 [Coq-10] 100 MG) PO SCH (22:59)
[2018-12-29] MEDS ORDERED: GLUCOSE 10 TABS/TUBE PO PRN (22:59)
[2018-12-29] MEDS ORDERED: ACETAMINOPHEN 325 MG TAB PO PRN (22:59)
[2018-12-29] MEDS ORDERED: GLUCAGON FOR INJ 1 MG VIAL SQ PRN (22:59)
[2018-12-29] MEDS ORDERED: CEFEPIME 1,000 MG in SYRINGE 0 ML IV SCH (22:59)
[2018-12-29] MEDS ORDERED: FUROSEMIDE 40 MG TAB PO PRN (22:59)
[2018-12-29] MEDS ORDERED: LEVOFLOXACIN/D5W 500 MG/100 ML BAG IV SCH (22:59)
[2018-12-29] MEDS ORDERED: ICU PROTOCOL FOR HYPERGLYCEMIA PRN ×2 (22:59→23:41)
[2018-12-29] MEDS ORDERED: ONDANSETRON INJ 2 MG/ML 2 ML VIAL IV PRN (22:59)
[2018-12-29] MEDS ORDERED: CARBOHYDRATES FOR HYPOGLYCEMIA PO PRN (22:59)
[2018-12-29] MEDS ORDERED: ACETAMINOPHEN 500 MG TAB PO PRN (22:59)
[2018-12-29] MEDS ORDERED: VANCOMYCIN CONSULT ACTIVE PRN (22:59)
[2018-12-29] MEDS ORDERED: GLUCOSE 40% GEL 15 GM TUBE PO PRN (22:59)
[2018-12-29] MEDS ORDERED: POTASSIUM CHLORIDE 20 MEQ TABCR PO PRN (22:59)
[2018-12-29] MEDS ORDERED: LORATADINE 10 MG TAB PO PRN (22:59)
[2018-12-29] MEDS ORDERED: MAGNESIUM HYDROXIDE SUSP 30 ML UDC PO PRN (22:59)
[2018-12-29] MEDS ORDERED: TRAZODONE HCL 50 MG TAB PO SCH (22:59)
[2018-12-29] MEDS ORDERED: DEXTROSE 50% 50 ML SYRINGE IV PRN (22:59)
[2018-12-29] MEDS ORDERED: PATIENT'S HEIGHT AND/OR WEIGHT NEEDED SCH (23:15)
[2018-12-29] MEDS ORDERED: VANCOMYCIN HCL 2,000 MG in SODIUM CHLORIDE 0.9% 500 ML IV ONE (23:30)
--- NOTE | 2018-12-29 23:48 | Procedure Note ---
Procedure Note Date of Service December 29, 2018 Procedure: Care Home Indwelling Peripherally Inserted IV Catheter Placement Attending: Dr. De Guzman APC: Neil Paz PA-C Indication: Need for IV Access, Poor Vascular Access Anesthesia: None Verbal consent was obtained from patient prior to performing the procedure. A time-out was completed verifying correct patient, procedure, site, positioning, and implant(s) or special equipment if applicable. Utilizing bedside ultrasound, vascularity of the RIGHT upper extremity was assessed. Vessel size was noted for appropriate catheter selection and skin was marked with gentle pressure. Patients RIGHT upper extremity was prepped and draped in the usual sterile fashion utilizing chlorhexidine. Ultrasound guidance was used to aid needle placement. A 22 g Endurance Catheter was introduced into the RIGHT forearm vein under direct ultrasound guidance. Guide wire was easily deployed without resistance. Catheter was threaded over the guide wire without resistance and the entire apparatus was removed intact. Good venous blood return was noted in the catheter. The IV catheter was easily flushed with sterile saline flush. Sterile clave was attached to the end of the catheter and good blood return was again noted. Tourniquet was released. StatLock device and sterile dressing were applied. The patient tolerated the procedure well. Blood Loss: Minimal Complications: None Procedural Ultrasound Guidance: Procedure Date: 12/29/2018 Indication: Poor Vascular Access Attending: Dr. De Guzman APC: Neil Paz PA-C Artery/Veins Identified: YES Access confirmed in Vein with ultrasound: YES Complications: NONE Patient tolerated procedure: WELL Coding
[2018-12-30] MEDS: LORazepam 0.5 MG TAB PO SCH ×2 (00:08→20:40)
[2018-12-30] MEDS: SIMVASTATIN 40 MG TAB PO SCH ×2 (00:09→20:38)
[2018-12-30 00:12] LABS: BUN Creatinine Ratio 21.6 (10-20); Calcium 8.9 mg/dl (8.5-10.1); Creatinine Clr Calc Pharmacy 21.5 ml/min; Est GFR (African American) 21.7; Est GFR (Non-African American) 18.7; Magnesium 1.7 mg/dl (1.8-2.4); Potassium 3.9 mmol/L (3.5-5.1)
[2018-12-30 00:17] LABS: Phosphorus 3.7 mg/dl (2.5-4.9); Troponin I 0.024 ng/ml (0-0.045)
[2018-12-30] MEDS ORDERED: MAGNESIUM SULFATE / D5W 1 GM/100 ML BAG IV ONE (00:20)
[2018-12-30] MEDS: INSULIN ASPART 100 UNITS/ML 3 ML PEN SC SCH ×5 (00:23→20:58)
[2018-12-30] MEDS: INSULIN GLARGINE SOLOSTAR 100 UNITS/ML 3 ML PEN SQ SCH ×2 (00:24→20:37)
[2018-12-30] MEDS ORDERED: CEFEPIME CONSULT ACTIVE PRN (00:47)
[2018-12-30 04:41] LABS: Basophils # (auto) 0.01 K/uL (0-0.2); Basophils % (auto) 0.1 %; Hematocrit (blood only) 29.8 % (37-47); Immature Granulocytes # (auto) 0.02 K/uL (0.00-0.02); Immature Granulocytes % (auto) 0.2 %; Lymphocytes # (auto) 0.95 K/uL (1.2-3.4); Mean Corpuscular Hgb Conc 33.6 g/dL (32-36); Mean Corpuscular Volume 87.1 fL (80-100); Mean Platelet Volume 11.2 fL (7.4-10.4); Monocytes % (auto) 10.4 %; Neutrophils # (auto) 8.47 K/uL (1.4-6.5); Neutrophils % (auto) 80.3 %; Platelet Count 179 K/uL (130-400); RDW Coefficient of Variation 17.2 % (11.5-14.5); RDW Standard Deviation 54.7 fL (36.4-46.3); Red Blood Count 3.42 M/uL (4.2-5.4); White Blood Count 10.55 K/uL (4.8-10.8)
[2018-12-30] MEDS ORDERED: FAMOTIDINE 20 MG in SYRINGE 3 ML IV SCH (06:00)
[2018-12-30] MEDS: LEVOTHYROXINE SODIUM 25 MCG TABLET PO SCH (06:08)
[2018-12-30 06:22] LABS: Albumin Level 2.8 gm/dl (3.4-5.0); BUN Creatinine Ratio 19.4 (10-20); Calcium 8.4 mg/dl (8.5-10.1); Creatinine Clr Calc Pharmacy 20.3 ml/min; Est GFR (African American) 20.3; Est GFR (Non-African American) 17.5; Magnesium 2.1 mg/dl (1.8-2.4); Potassium 3.8 mmol/L (3.5-5.1)
[2018-12-30 06:30] LABS: INR 3.5 (0.9-1.1); Partial Thromboplastin Ratio 1.6; Partial Thromboplastin Time 44.1 Seconds (21.0-31.0); Prothrombin Time 32.9 Seconds (9.0-12.0)
[2018-12-30 06:32] LABS: Albumin Globulin Ratio 0.6 (0.9-2); Bilirubin,Total 0.8 mg/dl (0.2-1); Globulin 4.5 gm/dl (2.5-4.0); Phosphorus 4.4 mg/dl (2.5-4.9); Total Protein 7.3 gm/dl (6.4-8.2)
--- NOTE | 2018-12-30 07:08 | XRay Report ---
XR chest 1V portable CLINICAL HISTORY: pneumonia, chf COMPARISON STUDY: Chest CT November 02, 2018. Chest radiograph December 29, 2018. FINDINGS: Median sternotomy wires and a left subclavian pacer/AICD are place. Marked cardiomegaly wit h splaying of the arti is unchanged. There are small bilateral pleural effusions. No pneumothorax i s present. IMPRESSION: 1. Increase in bilateral airspace opacities, greater within the right lung. The findings could reflec t pulmonary edema or pneumonia. 2. Small bilateral pleural effusions. Electronically signed by: Ryan Jimenez M.D. 12/30/2018 7:06 AM
--- NOTE | 2018-12-30 07:44 | Hospitalist Progress Note ---
Date of Service December 30, 2018 Assessment & Plan (1) PNA (pneumonia): As suggested on x-ray may be asymmetrical heart failure patient is no clinical pulmonary symptoms. 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 s/p c-scope 07/2018 Monitor (4) CKD stage 3 due to type 2 diabetes mellitus: Monitor cr, avoid nephrotoxic meds and dose medication appropriately for Cr Cl 20 (5) GERD (gastroesophageal reflux disease): pantoprozole (6) Diabetes: A1c pending Lantus as at home SSI PRN (7) Hypertension: continue metoprolol holding lisinpril (8) Hyperlipidemia: zocor (9) CHF (congestive heart failure): acute on chronic systolic and diastolic heart failure last echo in July, showed severe aortic stenosis, EF 25 to 30% with left ventricular hypokinesis, moderate mitral and tricuspid regurg -On home Lasix but held past 9 days for BRAXTON, given 40 mg IV in ED, will continue spot diuresis as needed -Chest x-ray consistent with volume overload and cardiomegaly -EKG showed paced rhythm with prolonged QTC of 560, patient has AICD/pacer -Holding lisinopril for BRAXTON, continuing metoprolol and simvastatin permanent A. fibwe will hold home dose warfarin for now considering supratherapeutic INR -Continue metoprolol and amiodarone for rate control Hypertensioncontinue metoprolol, holding lisinopril Adenocarcinoma of the colon-patient was reportedly too high risk for resection, no intervention at this time DVT PROPHYLAXIS -SCDs, holding anticoagulation for elevated INR CODE STATUSno compressions or shocks, okay with intubation Subjective Patient is comfortable on high flow oxygen, she has had no productive coughing, she however does have significant valvular heart disease Review of Systems Review of Systems: ROS: well nourished well developed. No double vision blurry vision No problems with speech or swallowing No palpitations, chest pain or pressure Dyspnea nonproductive cough No abdominal pain nausea vomiting diarrhea changes in appetite or weight No burning urine urine frequency or changes in color No focal joint pain or muscle pain No skin rashes or oral lesions No unusual bruising or bleeding No focused back pain or numbness or loss of strength No changes in memory or confusion Physical Exam Physical Exam: The patient appeared well nourished and normally developed. Vital signs as documented. Head exam is unremarkable. normocephalic, atraumatic Neck is with jugular venous distension, trachea is midline Lungs are rales to the Cardiac exam reveals Rhythm is regular systolic ejection murmurs heard at the right upper sternal border Abdominal exam reveals normal bowel sounds, no masses, no organomegaly Extremities are mildly edematous and both pedal pulses are present Neurologic exam is A&Ox3, no focal deficits, strength is equal bilateral Psychologically seems neither anxious or depressed Skin is warm Dry without bruises or lesions Results & Data Vital Signs (Past 12 Hours) Vital Signs Temp Pulse Pulse Resp BP BP Pulse Ox 12/30/18 06:00 60 20 112/67 99 12/30/18 05:00 60 24 112/57 L 94 12/30/18 04:00 60 28 H 116/74 95 12/30/18 03:00 60 26 H 110/59 L 95 12/30/18 02:00 60 28 H 110/58 L 95 12/30/18 00:00 36.7 C 60 26 H 118/71 95 12/29/18 23:00 37.4 C 66 30 H 110/64 96 12/29/18 22:50 65 24 110/64 12/29/18 22:01 63 24 135/89 96 12/29/18 22:00 62 34 H 95 12/29/18 21:35 61 29 H 97 12/29/18 21:30 63 38 H 159/78 H 93 12/29/18 21:08 63 32 H 74 L 12/29/18 21:07 66 35 H 144/77 H 75 L 12/29/18 21:00 60 28 H 83 L 12/29/18 20:30 69 23 161/91 H 82 L 12/29/18 20:15 84 L 12/29/18 20:00 62 42 H 147/98 H 91 PG Care Time/CCT Total # of Minutes Spent Total Time Spent with Patient: Total time spent is greater than 50% in coordination of care (as documented) at patient's floor/unit and/or counseling patient: (1) PNA (pneumonia) Laterality: right Lung location: middle lobe of lung Pneumonia type: due to unspecified organism Qualified Code(s): J18.1 - Lobar pneumonia, unspecified organism
[2018-12-30] MEDS: AMIODARONE 200 MG TAB PO SCH (07:48)
[2018-12-30] MEDS: CHOLECALCIFEROL 1,000 UNITS TAB PO SCH (07:48)
[2018-12-30] MEDS: FLUOXETINE HCL 20 MG CAP PO SCH (07:49)
[2018-12-30] MEDS: PANTOprazole 40 MG TAB PO SCH (07:49)
[2018-12-30] MEDS: CEROVITE ADV FORMULA TAB PO SCH (07:49)
[2018-12-30] MEDS: METOPROLOL SUCC 50MG EXT REL TAB PO SCH (07:49)
[2018-12-30] MEDS: FERROUS SULFATE 325 MG TAB PO SCH (07:49)
[2018-12-30] MEDS: ALBUT/IPRATROP 3MG/0.5MG NEB 3 ML VIAL NEB SCH ×4 (07:49→19:48)
[2018-12-30] MEDS: BUDESONIDE 0.5 MG/2 ML VIAL (PULMICORT) NEB SCH ×2 (07:49→19:48)
[2018-12-30] MEDS: guaiFENesin 600 MG TABCR PO SCH ×2 (07:49→20:38)
[2018-12-30] MEDS ORDERED: NON-FORMULARY MEDICATION (Omeprazole Magnesium [Prilosec Otc] 20 MG) PO SCH (09:00)
[2018-12-30] MEDS ORDERED: LISINOPRIL 10 MG TAB PO SCH ×2 (09:00)
--- NOTE | 2018-12-30 13:29 | Critical Care Progress Note ---
Date of Service December 30, 2018 Assessment & Plan (1) CHF (congestive heart failure): Decompensated congestive heart failure in the setting of severe aortic stenosis. Doubt pneumonia Recommend: 1. Continue diuretics as tolerated 2. Wean oxygen as tolerated 3. Cardiology consult (2) CKD stage 3 due to type 2 diabetes mellitus: Monitor BUN and creatinine. Avoid nephrotoxins Subjective Patient is awake and alert and says her breathing is much improved from admission. Chest x-rays reviewed and suggests asymmetric pulmonary edema more than pneumonia. She has been afebrile. No significant sputum production. Denies chest pain or abdominal pain Review of Systems Review of Systems: All systems reviewed & are unremarkable except as noted in HPI & below Physical Exam Constitutional: + frail appearing Alert no distress Eyes: PERRL, conjunctivae normal, anicteric sclerae ENMT: external ear and nose normal, oropharynx normal Neck: trachea midline, no thyromegaly Supple no JVD Respiratory: Bibasilar crackles no wheezing Gastrointestinal (Abdomen): Soft nontender normoactive bowel sounds Skin: No rash petechia or purpura Results & Data Vital Signs (Past 12 Hours) Vital Signs Temp Pulse Pulse Resp BP BP Pulse Ox 12/30/18 12:01 37.1 C 60 33 H 116/56 L 92 12/30/18 11:50 61 24 96 12/30/18 11:00 60 34 H 116/56 L 95 12/30/18 10:00 60 30 H 107/56 L 96 12/30/18 09:00 60 31 H 97/53 L 93 12/30/18 08:01 37.1 C 60 29 H 109/64 94 12/30/18 07:49 63 30 H 93 12/30/18 07:00 62 24 117/63 92 12/30/18 06:00 60 20 112/67 99 12/30/18 05:00 60 24 112/57 L 94 12/30/18 04:00 60 28 H 116/74 95 12/30/18 03:00 60 26 H 110/59 L 95 12/30/18 02:00 60 28 H 110/58 L 95 Laboratory Results 12/30/18 12/30/18 12/30/18 Range/Units 11:19 05:46 05:46 WBC (4.8-10.8) K/uL RBC (4.2-5.4) M/uL Hgb (12.0-16.0) g/dL Hct (37-47) % MCV (80-100) fL MCH (25-34) pg MCHC (32-36) g/dL RDW Std Deviation (36.4-46.3) fL RDW Coeff of Venita (11.5-14.5) % Plt Count (130-400) K/uL MPV (7.4-10.4) fL Immature Gran % (Auto) % Neut % (Auto) % Lymph % (Auto) % [place] % (Auto) % Eos % (Auto) % Baso % (Auto) % Immature Gran # (Auto) (0.00-0.02) K/uL Neut # (Auto) (1.4-6.5) K/uL Lymph # (Auto) (1.2-3.4) K/uL [place] # (Auto) (0.11-0.59) K/uL Eos # (Auto) (0-0.5) K/uL Baso # (Auto) (0-0.2) K/uL PT 32.9 H (9.0-12.0) Seconds INR 3.5 H (0.9-1.1) APTT 44.1 H (21.0-31.0) Seconds PTT Ratio 1.6 Sodium 136 (136-145) mmol/L Potassium 3.8 (3.5-5.1) mmol/L Chloride 104 (98-107) mmol/L Carbon Dioxide 25 (21-32) mmol/L Anion Gap 7.0 (3-11) BUN 48 H (7-18) mg/dl Creatinine 2.46 H (0.6-1.2) mg/dl Est Cr Clr Drug Dosing 20.3 Est GFR ( Amer) 20.3 Est GFR (Non-Af Amer) 17.5 BUN/Creatinine Ratio 19.4 (10-20) Glucose 140 H (70-99) mg/dl POC Glucose 86 (70-99) Estimat Average Glucose Hemoglobin A1c Calcium 8.4 L (8.5-10.1) mg/dl Phosphorus 4.4 (2.5-4.9) mg/dl Magnesium 2.1 (1.8-2.4) mg/dl Total Bilirubin 0.8 (0.2-1) mg/dl AST 237 H (15-37) U/L ALT 186 H (12-78) U/L Alkaline Phosphatase 89 (45-117) U/L Troponin I NT-Pro-B Natriuret Pep 24890 H Total Protein 7.3 (6.4-8.2) gm/dl Albumin 2.8 L (3.4-5.0) gm/dl Globulin 4.5 H (2.5-4.0) gm/dl Albumin/Globulin Ratio 0.6 L (0.9-2) Procalcitonin (0-0.5) ng/ml Urine Color Urine Appearance (Clear) Urine pH (4.5-7.5) Ur Specific [place] (1.000-1.030) Urine Protein (Negative) Urine Glucose (UA) (Negative) Urine Ketones (Negative) Urine Blood (Negative) Urine Nitrite (Negative) Urine Bilirubin (Negative) Urine Urobilinogen (Negative) Ur Leukocyte Esterase (Negative) Urine WBC (Auto) (0-5) /hpf Urine RBC (Auto) (0-4) /hpf U Hyaline Cast (Auto) (0-5) /lpf U Epithel Cells (Auto) (0-5) /lpf Urine Bacteria (Auto) (Negative) Nasal Screen MRSA (PCR) (Negative) Influenza Type A (PCR) (Neg) Influenza Type B (PCR) (Neg) 12/30/18 12/30/18 12/30/18 Range/Units 05:04 05:04 04:19 WBC (4.8-10.8) K/uL RBC (4.2-5.4) M/uL Hgb (12.0-16.0) g/dL Hct (37-47) % MCV (80-100) fL MCH (25-34) pg MCHC (32-36) g/dL RDW Std Deviation (36.4-46.3) fL RDW Coeff of Venita (11.5-14.5) % Plt Count (130-400) K/uL MPV (7.4-10.4) fL Immature Gran % (Auto) % Neut % (Auto) % Lymph % (Auto) % [place] % (Auto) % Eos % (Auto) % Baso % (Auto) % Immature Gran # (Auto) (0.00-0.02) K/uL Neut # (Auto) (1.4-6.5) K/uL Lymph # (Auto) (1.2-3.4) K/uL [place] # (Auto) (0.11-0.59) K/uL Eos # (Auto) (0-0.5) K/uL Baso # (Auto) (0-0.2) K/uL PT Cancelled (9.0-12.0) Seconds INR Cancelled (0.9-1.1) APTT Cancelled (21.0-31.0) Seconds PTT Ratio Cancelled Sodium Cancelled (136-145) mmol/L Potassium Cancelled (3.5-5.1) mmol/L Chloride Cancelled (98-107) mmol/L Carbon Dioxide Cancelled (21-32) mmol/L Anion Gap Cancelled (3-11) BUN Cancelled (7-18) mg/dl Creatinine Cancelled (0.6-1.2) mg/dl Est Cr Clr Drug Dosing Cancelled Est GFR ( Amer) Cancelled Est GFR (Non-Af Amer) Cancelled BUN/Creatinine Ratio Cancelled (10-20) Glucose Cancelled (70-99) mg/dl POC Glucose (70-99) Estimat Average Glucose Pending Hemoglobin A1c Pending Calcium Cancelled (8.5-10.1) mg/dl Phosphorus Cancelled (2.5-4.9) mg/dl Magnesium Cancelled (1.8-2.4) mg/dl Total Bilirubin Cancelled (0.2-1) mg/dl AST Cancelled (15-37) U/L ALT Cancelled (12-78) U/L Alkaline Phosphatase Cancelled (45-117) U/L Troponin I NT-Pro-B Natriuret Pep Cancelled Total Protein Cancelled (6.4-8.2) gm/dl Albumin Cancelled (3.4-5.0) gm/dl Globulin Cancelled (2.5-4.0) gm/dl Albumin/Globulin Ratio Cancelled (0.9-2) Procalcitonin (0-0.5) ng/ml Urine Color Urine Appearance (Clear) Urine pH (4.5-7.5) Ur Specific [place] (1.000-1.030) Urine Protein (Negative) Urine Glucose (UA) (Negative) Urine Ketones (Negative) Urine Blood (Negative) Urine Nitrite (Negative) Urine Bilirubin (Negative) Urine Urobilinogen (Negative) Ur Leukocyte Esterase (Negative) Urine WBC (Auto) (0-5) /hpf Urine RBC (Auto) (0-4) /hpf U Hyaline Cast (Auto) (0-5) /lpf U Epithel Cells (Auto) (0-5) /lpf Urine Bacteria (Auto) (Negative) Nasal Screen MRSA (PCR) (Negative) Influenza Type A (PCR) (Neg) Influenza Type B (PCR) (Neg) 12/30/18 12/30/18 12/30/18 Range/Units 04:19 04:19 04:19 WBC 10.55 (4.8-10.8) K/uL RBC 3.42 L (4.2-5.4) M/uL Hgb 10.0 L (12.0-16.0) g/dL Hct 29.8 L (37-47) % MCV 87.1 (80-100) fL MCH 29.2 (25-34) pg MCHC 33.6 (32-36) g/dL RDW Std Deviation 54.7 H (36.4-46.3) fL RDW Coeff of Venita 17.2 H (11.5-14.5) % Plt Count 179 (130-400) K/uL MPV 11.2 H (7.4-10.4) fL Immature Gran % (Auto) 0.2 % Neut % (Auto) 80.3 % Lymph % (Auto) 9.0 % [place] % (Auto) 10.4 % Eos % (Auto) 0.0 % Baso % (Auto) 0.1 % Immature Gran # (Auto) 0.02 (0.00-0.02) K/uL Neut # (Auto) 8.47 H (1.4-6.5) K/uL Lymph # (Auto) 0.95 L (1.2-3.4) K/uL [place] # (Auto) 1.10 H (0.11-0.59) K/uL Eos # (Auto) 0.00 (0-0.5) K/uL Baso # (Auto) 0.01 (0-0.2) K/uL PT Cancelled (9.0-12.0) Seconds INR Cancelled (0.9-1.1) APTT Cancelled (21.0-31.0) Seconds PTT Ratio Cancelled Sodium Cancelled (136-145) mmol/L Potassium Cancelled (3.5-5.1) mmol/L Chloride Cancelled (98-107) mmol/L Carbon Dioxide Cancelled (21-32) mmol/L Anion Gap Cancelled (3-11) BUN Cancelled (7-18) mg/dl Creatinine Cancelled (0.6-1.2) mg/dl Est Cr Clr Drug Dosing Cancelled Est GFR ( Amer) Cancelled Est GFR (Non-Af Amer) Cancelled BUN/Creatinine Ratio Cancelled (10-20) Glucose Cancelled (70-99) mg/dl POC Glucose (70-99) Estimat Average Glucose Hemoglobin A1c Calcium Cancelled (8.5-10.1) mg/dl Phosphorus Cancelled (2.5-4.9) mg/dl Magnesium Cancelled (1.8-2.4) mg/dl Total Bilirubin Cancelled (0.2-1) mg/dl AST Cancelled (15-37) U/L ALT Cancelled (12-78) U/L Alkaline Phosphatase Cancelled (45-117) U/L Troponin I NT-Pro-B Natriuret Pep Cancelled Total Protein Cancelled (6.4-8.2) gm/dl Albumin Cancelled (3.4-5.0) gm/dl Globulin Cancelled (2.5-4.0) gm/dl Albumin/Globulin Ratio Cancelled (0.9-2) Procalcitonin (0-0.5) ng/ml Urine Color Urine Appearance (Clear) Urine pH (4.5-7.5) Ur Specific [place] (1.000-1.030) Urine Protein (Negative) Urine Glucose (UA) (Negative) Urine Ketones (Negative) Urine Blood (Negative) Urine Nitrite (Negative) Urine Bilirubin (Negative) Urine Urobilinogen (Negative) Ur Leukocyte Esterase (Negative) Urine WBC (Auto) (0-5) /hpf Urine RBC (Auto) (0-4) /hpf U Hyaline Cast (Auto) (0-5) /lpf U Epithel Cells (Auto) (0-5) /lpf Urine Bacteria (Auto) (Negative) Nasal Screen MRSA (PCR) (Negative) Influenza Type A (PCR) (Neg) Influenza Type B (PCR) (Neg) 12/30/18 12/29/18 12/29/18 Range/Units 00:17 23:35 23:00 WBC (4.8-10.8) K/uL RBC (4.2-5.4) M/uL Hgb (12.0-16.0) g/dL Hct (37-47) % MCV (80-100) fL MCH (25-34) pg MCHC (32-36) g/dL RDW Std Deviation (36.4-46.3) fL RDW Coeff of Venita (11.5-14.5) % Plt Count (130-400) K/uL MPV (7.4-10.4) fL Immature Gran % (Auto) % Neut % (Auto) % Lymph % (Auto) % [place] % (Auto) % Eos % (Auto) % Baso % (Auto) % Immature Gran # (Auto) (0.00-0.02) K/uL Neut # (Auto) (1.4-6.5) K/uL Lymph # (Auto) (1.2-3.4) K/uL [place] # (Auto) (0.11-0.59) K/uL Eos # (Auto) (0-0.5) K/uL Baso # (Auto) (0-0.2) K/uL PT (9.0-12.0) Seconds INR (0.9-1.1) APTT (21.0-31.0) Seconds PTT Ratio Sodium 137 (136-145) mmol/L Potassium 3.9 (3.5-5.1) mmol/L Chloride 104 (98-107) mmol/L Carbon Dioxide 24 (21-32) mmol/L Anion Gap 9.0 (3-11) BUN 50 H (7-18) mg/dl Creatinine 2.33 H (0.6-1.2) mg/dl Est Cr Clr Drug Dosing 21.5 Est GFR ( Amer) 21.7 Est GFR (Non-Af Amer) 18.7 BUN/Creatinine Ratio 21.6 H (10-20) Glucose 197 H (70-99) mg/dl POC Glucose 213 H (70-99) Estimat Average Glucose Hemoglobin A1c Calcium 8.9 (8.5-10.1) mg/dl Phosphorus 3.7 (2.5-4.9) mg/dl Magnesium 1.7 L (1.8-2.4) mg/dl Total Bilirubin (0.2-1) mg/dl AST (15-37) U/L ALT (12-78) U/L Alkaline Phosphatase (45-117) U/L Troponin I 0.024 NT-Pro-B Natriuret Pep Total Protein (6.4-8.2) gm/dl Albumin (3.4-5.0) gm/dl Globulin (2.5-4.0) gm/dl Albumin/Globulin Ratio (0.9-2) Procalcitonin (0-0.5) ng/ml Urine Color Urine Appearance (Clear) Urine pH (4.5-7.5) Ur Specific [place] (1.000-1.030) Urine Protein (Negative) Urine Glucose (UA) (Negative) Urine Ketones (Negative) Urine Blood (Negative) Urine Nitrite (Negative) Urine Bilirubin (Negative) Urine Urobilinogen (Negative) Ur Leukocyte Esterase (Negative) Urine WBC (Auto) (0-5) /hpf Urine RBC (Auto) (0-4) /hpf U Hyaline Cast (Auto) (0-5) /lpf U Epithel Cells (Auto) (0-5) /lpf Urine Bacteria (Auto) (Negative) Nasal Screen MRSA (PCR) Negative (Negative) Influenza Type A (PCR) (Neg) Influenza Type B (PCR) (Neg) 12/29/18 12/29/18 12/29/18 Range/Units 22:03 16:23 16:10 WBC (4.8-10.8) K/uL RBC (4.2-5.4) M/uL Hgb (12.0-16.0) g/dL Hct (37-47) % MCV (80-100) fL MCH (25-34) pg MCHC (32-36) g/dL RDW Std Deviation (36.4-46.3) fL RDW Coeff of Venita (11.5-14.5) % Plt Count (130-400) K/uL MPV (7.4-10.4) fL Immature Gran % (Auto) % Neut % (Auto) % Lymph % (Auto) % [place] % (Auto) % Eos % (Auto) % Baso % (Auto) % Immature Gran # (Auto) (0.00-0.02) K/uL Neut # (Auto) (1.4-6.5) K/uL Lymph # (Auto) (1.2-3.4) K/uL [place] # (Auto) (0.11-0.59) K/uL Eos # (Auto) (0-0.5) K/uL Baso # (Auto) (0-0.2) K/uL PT (9.0-12.0) Seconds INR (0.9-1.1) APTT (21.0-31.0) Seconds PTT Ratio Sodium (136-145) mmol/L Potassium (3.5-5.1) mmol/L Chloride (98-107) mmol/L Carbon Dioxide (21-32) mmol/L Anion Gap (3-11) BUN (7-18) mg/dl Creatinine (0.6-1.2) mg/dl Est Cr Clr Drug Dosing Est GFR ( Amer) Est GFR (Non-Af Amer) BUN/Creatinine Ratio (10-20) Glucose (70-99) mg/dl POC Glucose (70-99) Estimat Average Glucose Hemoglobin A1c Calcium (8.5-10.1) mg/dl Phosphorus (2.5-4.9) mg/dl Magnesium (1.8-2.4) mg/dl Total Bilirubin (0.2-1) mg/dl AST (15-37) U/L ALT (12-78) U/L Alkaline Phosphatase (45-117) U/L Troponin I NT-Pro-B Natriuret Pep Total Protein (6.4-8.2) gm/dl Albumin (3.4-5.0) gm/dl Globulin (2.5-4.0) gm/dl Albumin/Globulin Ratio (0.9-2) Procalcitonin 0.42 (0-0.5) ng/ml Urine Color Yellow Urine Appearance Clear (Clear) Urine pH 5.0 (4.5-7.5) Ur Specific [place] 1.019 (1.000-1.030) Urine Protein Trace H (Negative) Urine Glucose (UA) Negative (Negative) Urine Ketones Negative (Negative) Urine Blood Negative (Negative) Urine Nitrite Negative (Negative) Urine Bilirubin Negative (Negative) Urine Urobilinogen Negative (Negative) Ur Leukocyte Esterase Negative (Negative) Urine WBC (Auto) 0 (0-5) /hpf Urine RBC (Auto) 0-4 (0-4) /hpf U Hyaline Cast (Auto) 5-10 H (0-5) /lpf U Epithel Cells (Auto) 10-20 H (0-5) /lpf Urine Bacteria (Auto) Negative (Negative) Nasal Screen MRSA (PCR) (Negative) Influenza Type A (PCR) Neg for Influ A (Neg) Influenza Type B (PCR) Neg for Influ B (Neg) 12/29/18 12/29/18 12/29/18 Range/Units 16:10 16:10 16:10 WBC 11.09 H (4.8-10.8) K/uL RBC 3.77 L (4.2-5.4) M/uL Hgb 10.9 L (12.0-16.0) g/dL Hct 32.4 L (37-47) % MCV 85.9 (80-100) fL MCH 28.9 (25-34) pg MCHC 33.6 (32-36) g/dL RDW Std Deviation 53.2 H (36.4-46.3) fL RDW Coeff of Venita 16.8 H (11.5-14.5) % Plt Count 156 (130-400) K/uL MPV 9.7 (7.4-10.4) fL Immature Gran % (Auto) 0.3 % Neut % (Auto) 77.6 % Lymph % (Auto) 10.4 % [place] % (Auto) 11.4 % Eos % (Auto) 0.2 % Baso % (Auto) 0.1 % Immature Gran # (Auto) 0.03 H (0.00-0.02) K/uL Neut # (Auto) 8.62 H (1.4-6.5) K/uL Lymph # (Auto) 1.15 L (1.2-3.4) K/uL [place] # (Auto) 1.26 H (0.11-0.59) K/uL Eos # (Auto) 0.02 (0-0.5) K/uL Baso # (Auto) 0.01 (0-0.2) K/uL PT 32.3 H (9.0-12.0) Seconds INR 3.4 H (0.9-1.1) APTT 45.1 H* (21.0-31.0) Seconds PTT Ratio 1.7 Sodium 136 (136-145) mmol/L Potassium 3.8 (3.5-5.1) mmol/L Chloride 105 (98-107) mmol/L Carbon Dioxide 22 (21-32) mmol/L Anion Gap 9.0 (3-11) BUN 48 H (7-18) mg/dl Creatinine 2.34 H (0.6-1.2) mg/dl Est Cr Clr Drug Dosing Not Reportable Est GFR ( Amer) 21.6 Est GFR (Non-Af Amer) 18.6 BUN/Creatinine Ratio 20.4 H (10-20) Glucose 207 H (70-99) mg/dl POC Glucose (70-99) Estimat Average Glucose Hemoglobin A1c Calcium 9.0 (8.5-10.1) mg/dl Phosphorus (2.5-4.9) mg/dl Magnesium (1.8-2.4) mg/dl Total Bilirubin 0.9 (0.2-1) mg/dl AST 134 H (15-37) U/L ALT 129 H (12-78) U/L Alkaline Phosphatase 99 (45-117) U/L Troponin I 0.028 NT-Pro-B Natriuret Pep 31159 H Total Protein 7.9 (6.4-8.2) gm/dl Albumin 3.3 L (3.4-5.0) gm/dl Globulin 4.6 H (2.5-4.0) gm/dl Albumin/Globulin Ratio 0.7 L (0.9-2) Procalcitonin (0-0.5) ng/ml Urine Color Urine Appearance (Clear) Urine pH (4.5-7.5) Ur Specific [place] (1.000-1.030) Urine Protein (Negative) Urine Glucose (UA) (Negative) Urine Ketones (Negative) Urine Blood (Negative) Urine Nitrite (Negative) Urine Bilirubin (Negative) Urine Urobilinogen (Negative) Ur Leukocyte Esterase (Negative) Urine WBC (Auto) (0-5) /hpf Urine RBC (Auto) (0-4) /hpf U Hyaline Cast (Auto) (0-5) /lpf U Epithel Cells (Auto) (0-5) /lpf Urine Bacteria (Auto) (Negative) Nasal Screen MRSA (PCR) (Negative) Influenza Type A (PCR) (Neg) Influenza Type B (PCR) (Neg) 12/29/18 Range/Units 16:10 WBC (4.8-10.8) K/uL RBC (4.2-5.4) M/uL Hgb (12.0-16.0) g/dL Hct (37-47) % MCV (80-100) fL MCH (25-34) pg MCHC (32-36) g/dL RDW Std Deviation (36.4-46.3) fL RDW Coeff of Venita (11.5-14.5) % Plt Count (130-400) K/uL MPV (7.4-10.4) fL Immature Gran % (Auto) % Neut % (Auto) % Lymph % (Auto) % [place] % (Auto) % Eos % (Auto) % Baso % (Auto) % Immature Gran # (Auto) (0.00-0.02) K/uL Neut # (Auto) (1.4-6.5) K/uL Lymph # (Auto) (1.2-3.4) K/uL [place] # (Auto) (0.11-0.59) K/uL Eos # (Auto) (0-0.5) K/uL Baso # (Auto) (0-0.2) K/uL PT (9.0-12.0) Seconds INR (0.9-1.1) APTT (21.0-31.0) Seconds PTT Ratio Sodium (136-145) mmol/L Potassium (3.5-5.1) mmol/L Chloride (98-107) mmol/L Carbon Dioxide (21-32) mmol/L Anion Gap (3-11) BUN (7-18) mg/dl Creatinine (0.6-1.2) mg/dl Est Cr Clr Drug Dosing Est GFR ( Amer) Est GFR (Non-Af Amer) BUN/Creatinine Ratio (10-20) Glucose (70-99) mg/dl POC Glucose (70-99) Estimat Average Glucose Hemoglobin A1c Calcium (8.5-10.1) mg/dl Phosphorus (2.5-4.9) mg/dl Magnesium (1.8-2.4) mg/dl Total Bilirubin (0.2-1) mg/dl AST (15-37) U/L ALT (12-78) U/L Alkaline Phosphatase (45-117) U/L Troponin I Cancelled NT-Pro-B Natriuret Pep Cancelled Total Protein (6.4-8.2) gm/dl Albumin (3.4-5.0) gm/dl Globulin (2.5-4.0) gm/dl Albumin/Globulin Ratio (0.9-2) Procalcitonin (0-0.5) ng/ml Urine Color Urine Appearance (Clear) Urine pH (4.5-7.5) Ur Specific [place] (1.000-1.030) Urine Protein (Negative) Urine Glucose (UA) (Negative) Urine Ketones (Negative) Urine Blood (Negative) Urine Nitrite (Negative) Urine Bilirubin (Negative) Urine Urobilinogen (Negative) Ur Leukocyte Esterase (Negative) Urine WBC (Auto) (0-5) /hpf Urine RBC (Auto) (0-4) /hpf U Hyaline Cast (Auto) (0-5) /lpf U Epithel Cells (Auto) (0-5) /lpf Urine Bacteria (Auto) (Negative) Nasal Screen MRSA (PCR) (Negative) Influenza Type A (PCR) (Neg) Influenza Type B (PCR) (Neg) Medications Administered Home Medications Medication Instructions Recorded Confirmed Last Taken Lantus Solostar U-100 Insulin 43 unit SUBCUT QPM 06/26/18 12/29/18 07/22/18 20:00 25 Prilosec OTC 20 mg PO QAM 06/26/18 12/29/18 07/22/18 08:00 Slow Release Iron 45 mg PO DAILY 06/26/18 12/29/18 07/22/18 08:00 cholecalciferol (vitamin D3) 2,000 unit PO QAM 06/26/18 12/29/18 07/22/18 [Vitamin D3] coenzyme Q10 [CoQ-10] 100 mg PO QPM 06/26/18 12/29/18 07/22/18 16:30 fluoxetine 40 mg PO QAM 06/26/18 12/29/18 07/23/18 08:00 insulin lispro [Humalog KwikPen 0 dose SUBCUT UD PRN 06/26/18 12/29/18 07/21/18 18:00 Insulin] levothyroxine 25 mcg PO QPM 06/26/18 12/29/18 07/22/18 21:30 loratadine 10 mg PO HS PRN 06/26/18 12/29/18 07/22/18 17:30 lorazepam 0.5 mg PO HS 06/26/18 12/29/18 07/22/18 23:59 simvastatin 40 mg PO PM 06/26/18 12/29/18 07/22/18 16:30 trazodone 25 mg PO HS 06/26/18 12/29/18 07/22/18 23:59 [id number] acid 0.4 1 tab PO DAILY 10/15/18 12/29/18 Unknown mg-lycopene 300 mcg-lutein 250 mcg tablet buspirone 5 mg tablet 5 mg PO TID tab 10/23/18 12/29/18 Unknown melatonin 5 mg capsule 5 mg PO .qhs PRN cap 10/23/18 12/29/18 Unknown acetaminophen 500 mg tablet 1,000 mg PO HS PRN tab 11/14/18 12/29/18 Unknown amiodarone 200 mg tablet 200 mg PO Q24H tab 12/21/18 12/29/18 Unknown furosemide 40 mg tablet 40 mg PO DAILY PRN tab 12/21/18 12/29/18 Unknown warfarin 2.5 mg tablet 2.5 mg PO DAILY #90 tab 12/24/18 12/29/18 Unknown lisinopril 10 mg PO DAILY 12/29/18 12/29/18 Unknown metoprolol succinate 50 mg PO DAILY 12/29/18 12/29/18 Unknown potassium chloride 20 meq PO DAILY PRN 12/29/18 12/29/18 Unknown Active Medications Generic Name Dose Route Start Last Admin Trade Name Freq PRN Reason Stop Dose Admin Albuterol 3 ml 12/30/18 08:00 12/30/18 11:50 Duoneb NEB 01/29/19 07:59 3 ml QIDR OSWALD Administration Amiodarone HCl 200 mg 12/30/18 09:00 12/30/18 07:48 Cordarone PO 01/29/19 08:59 200 mg DAILY OSWALD Administration Budesonide 0.5 mg 12/30/18 08:00 12/30/18 07:49 Pulmicort Respules NEB 01/29/19 07:59 0.5 mg BIDR OSWALD Administration Buspirone HCl 5 mg 12/29/18 22:59 12/30/18 07:48 Buspar PO 01/28/19 22:58 5 mg TID OSWALD Administration Ferrous Sulfate 325 mg 12/30/18 09:00 12/30/18 07:49 Feosol PO 01/29/19 08:59 325 mg DAILY OSW[facility] Administration Fluoxetine HCl 40 mg 12/30/18 09:00 12/30/18 07:49 Prozac PO 01/29/19 08:59 40 mg QAM [facility] Administration Guaifenesin 600 mg 12/30/18 09:00 12/30/18 07:49 Mucinex PO 01/29/19 08:59 600 mg Q12H [facility] Administration Insulin Aspart 0 units 12/30/18 00:00 12/30/18 11:49 Novolog Flexpen SC 01/29/19 00:00 Not Given ACHS [facility] Insulin Glargine 43 units 12/29/18 22:59 12/30/18 00:24 Lantus Solostar Pen SQ 01/28/19 22:58 43 units QPM [facility] Administration Levothyroxine Sodium 25 mcg 12/30/18 06:30 12/30/18 06:08 Synthroid PO 01/29/19 06:29 25 mcg DAILYBB [facility] Administration Lorazepam 0.5 mg 12/29/18 22:59 12/30/18 00:08 Ativan PO 01/28/19 22:58 0.5 mg HS [facility] Administration Metoprolol Succinate 50 mg 12/30/18 09:00 12/30/18 07:49 Toprol Xl PO 01/29/19 08:59 50 mg DAILY [facility] Administration Multivitamins/Minerals 1 tab 12/30/18 09:00 12/30/18 07:49 Multivitamin W/ Minerals Tab PO 01/29/19 08:59 1 tab DAILY [facility] Administration Pantoprazole Sodium 40 mg 12/30/18 09:00 12/30/18 07:49 Protonix PO 01/29/19 08:59 40 mg QAM [facility] Administration Simvastatin 40 mg 12/29/18 22:59 12/30/18 00:09 Zocor PO 01/28/19 22:58 40 mg PM [facility] Administration Vitamin D 2,000 units 12/30/18 09:00 12/30/18 07:48 Vitamin D3 PO 01/29/19 08:59 2,000 units QAM [facility] Administration
[2018-12-30] MEDS ORDERED: FUROSEMIDE 40 MG/4 ML VIAL IV STA (14:04)
[2018-12-30] MEDS ORDERED: CEFEPIME 1,000 MG in SYRINGE 0 ML IV SCH (16:00)
[2018-12-30] MEDS: DOXYCYCLINE HYCLATE 100 MG in DEXTROSE 5% 100 ML IV SCH (18:00)
[2018-12-30 20:00] LABS: BUN Creatinine Ratio 19.2 (10-20); Calcium 8.2 mg/dl (8.5-10.1); Creatinine Clr Calc Pharmacy 16.5 ml/min; Est GFR (Non-African American) 15.5; Magnesium 1.9 mg/dl (1.8-2.4); Phosphorus 3.6 mg/dl (2.5-4.9); Potassium 3.8 mmol/L (3.5-5.1)
[2018-12-30] MEDS ORDERED: ALBUMIN 25% 50 ML with FUROSEMIDE 80 MG IV ONE (21:00)
--- NOTE | 2018-12-30 22:48 | Critical Care Progress Note ---
Date of Service December 30, 2018 Supervising Physician Co-Signing Physician Notes I have personally evaluated and examined this patient. I agree with assessment and plan of Fernando Paz PA-C. Subjective On reevaluation of the patient's labs, urine output, and generalized condition, I did feel it necessary to have further discussion regarding more aggressive measures versus establishing goals of care with the patient and her son. Patient's son had arrived in the ICU in the evening to sit with his mother. We did have an extensive conversation at bedside regarding our concerns including worsening chest x-ray this morning despite aggressive attempts at diuresis, poor urine output despite aggressive use of diuretic, and comorbidities which certainly are likely more contributory to her underlying general poor condition. The patient is noted to have severe aortic stenosis as well as prior mitral valve repair. Her previous echocardiogram had demonstrated an EF of approximately 25%. She does have a pacemaker/AICD which was placed during rece nt hospitalization. She does follow with the outpatient anticoagulation clinic as well as the CHF clinic. During her most recent visit to the CHF clinic, her Lasix was held as was lisinopril secondary to concerns for worsening renal function. Patient had presented last evening with concerns of possible pneumonia versus overt pulmonary edema. Labs and progressive pulmonary edema on daily chest x-ray are more concerning for worsening congestive failure. This information was relayed to the patient's son in great length in detail. On review of her outpatient documentation, the patient was diagnosed with adenocarcinoma of the colon which was biopsied. At that point, it was felt that the patient would be too high risk for colon resection. To this point, the patient has not had any significant detrimental effects of her chronic kidney disease. On this presentation, however, she is oliguric despite aggressive attempts at diuresis. She is requiring high flow oxygen as she had refused to wear BiPAP previously. My concern is that the patient is having progressively worsening pulmonary edema with possible underlying pneumonia which would make the patient at high risk for need for intubation with mechanical ventilatory support. Even if this were to occur, the patient is having little to no urine output which possibly lends itself to need for hemodialysis down the road. On review of her outpatient records, there is note that there had been discussion of TVAR repair, however given her comorbid conditions including recent diagnosis of colon cancer, this was felt to be less of an option. I do feel that at this point, her heart and valvular disease is likely the biggest contributing factor to her poor progression. I did have an extensive conversation with the son at bedside and he is uncertain whether they would wish to proceed with hemodialysis if it were to come to this point. In addition, he was very hesitant citing her multiple comorbidities and current poor lifestyle in regards to proceeding with intubation with mechanical ventilation. We did discuss this with the patient and to this point, we will continue with aggressive diuresis and medical management, and have further discussion regarding invasive measures with primary team's in the morning. We did offer palliative care consultation which the patient's son seemed very receptive to. He appears to be more focused on his mother's comfort at this point. After conversation, I did feel it was necessary to discuss the patient with nephrology. I spoke to her primary city weighmaster, Dr. Sims. He suggests increasing her Lasix dosing to 100 mg every 8 hours. To this point, there is no need for hemodialysis. Dr. Sims was kind enough to present to the ICU to assess the patient himself. He had an extensive conversation with the patient's son via phone regarding current management and general concerns given the patient's presentation. After the conversation, the son wishes to focus on com fort. We will continue with medical management to this point, however we will not proceed with invasive measures including mechanical ventilation, hemodialysis, or resuscitation including ACLS. At this point, the patient will be LEVEL V CODE STATUS - DNR/DNI. Consult was placed for palliative care team. Echocardiogram was ordered for morning. We will continue with aggressive attempts at diuresis and positive pressure ventilation as she did tolerate approximately 1.5 hours of BiPAP this evening. I have personally spent 60 minutes of critical care time in the direct management of this patient. This is a life/limb threatening event. This includes time spent evaluating patient, direct bedside care, chart review, placing orders, interpretation of diagnostic studies, discussion with consultants, patient, and family members, as well as other required patient management activities. This time is exclusive of all separately billable procedures, and teaching time and separate from and in addition to any other critical care service time. Results & Data Vital Signs (Past 12 Hours) Vital Signs Temp Pulse Pulse Resp BP Pulse Ox 12/30/18 22:00 60 28 H 99/67 L 90 12/30/18 21:22 61 28 H 93 12/30/18 21:00 60 28 H 119/60 93 12/30/18 20:00 36.8 C 60 25 H 120/61 85 L 12/30/18 19:55 60 20 88 L 12/30/18 19:53 60 20 88 L 12/30/18 18:00 60 36 H 101/53 L 93 12/30/18 17:00 64 24 98/47 L 91 12/30/18 16:00 61 29 H 88/52 L 93 12/30/18 15:00 36.8 C 60 33 H 110/53 L 90 12/30/18 14:51 66 22 93 12/30/18 14:01 60 27 H 89/45 L 91 12/30/18 13:00 61 29 H 118/64 93 12/30/18 12:01 37.1 C 60 33 H 116/56 L 92 12/30/18 11:50 61 24 96 12/30/18 11:00 60 34 H 116/56 L 95 PG Care Time/CCT Critical Care Time: Yes Total Critical Care Time: 60
[2018-12-30] MEDS: FUROSEMIDE 100 MG in SYRINGE 0 ML IV SCH (23:29)
[2018-12-30] MEDS ORDERED: CHLOROTHIAZIDE SODIUM 250 MG in DEXTROSE 5% 50 ML IV STA (23:44)
--- NOTE | 2018-12-31 00:04 | Nephrology Consultation ---
Date of Consultation December 30, 2018 Assessment & Plan (1) CHF (congestive heart failure): -- CXR to my review this evening is c/w CHF -- Patient is nonoliguric and I&O's have been relatively matched w/ Furosemide 40 mg IV daily -- Will provide Furosemide 100 mg IV q 8 hrs -- Give one dose Chlorothiazide 250 mg IV x 1 this evening -- Start NIPPV as per ICU team -- Consider echocardiogram and consultation w/ Cardiology in am (2) ARF (acute renal failure): -- Baseline creatinine ~ 2.0 -- BRAXTON related to poor perfusion associated w/ CHF (3) Colon adenocarcinoma: (4) S/P admission to ICU (intensive care unit): -- Ms. Grider was unable to discuss advanced directives this evening. I have spoken w/ her son Luis (POA) by telephone tonight. We discussed the indications/benefits/risks to [employer] and mechanical ventilation. He did not feel that dialysis or mechanical ventilation would be consistent with his mother's prior wishes or provide her with quality of life. He indicated that with aggressive supportive therapy she would still need cardiac valve replacement and has underlying colon cancer. His primary concern is with his mother's comfort. He has requested ongoing medical management but does not wish to escalate care to mechanical ventilation, dialysis or resuscitative efforts. This has been discussed w/ the ICU team as well. -- 90 minutes critical care time provided tonight History of Present Illness Reason for Consultation: Pulmonary edema Attending Physician: Caleb Marshall MD History of Present Illness Ms. Grider is an 83 year old white female who was seen & examined in the ICU at the request of the critical care team due to pulmonary edema. Medical records in the EMR were reviewed this evening and are summarized as follows: Ms. Grider has stage IV CKD w/ baseline creatinine 2.0. Her renal impairment is on the basis of valvular heart disease w/ poor renal perfusion. She has undergone MV repair at [facility] in [place] in 1998. Recent echocardiogram (2010) has shown severe , mod - severe MR, severe pulmonary HTN and severe TR. 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 Ms. Grider has been followed closely in the [facility] [place]. She has maintained relatively stable volume status using Furosemide 40 mg daily. Ms. Grider presented to the hospital 12/29 with c/o progressive dyspnea. BNP was markedly elevated. CHF revealed diffuse pulmonary edema. She required transfer to the ICU for noninvasive ventilation. She is nonoliguric and I&O's have been relatively matched with Furosemide 40 mg IV daily but creatinine has risen from 2.0 to 2.7. ICU team has requested assistance with diuretic dosing, consideration for [employer] and discuss plan of care/treatment options with family (Luis Grider - son, POA) Allergies Allergy/AdvReac Type Severity Reaction Status Date / Time amoxicillin AdvReac Diarrhea Unverified 12/29/18 17:51 metformin AdvReac Diarrhea Unverified 12/29/18 17:52 Home Medications Home Medications Medication Instructions Recorded Confirmed Type Lantus Solostar U-100 Insulin 43 unit SUBCUT QPM 06/26/18 12/29/18 History Prilosec OTC 20 mg PO QAM 06/26/18 12/29/18 History Slow Release Iron 45 mg PO DAILY 06/26/18 12/29/18 History cholecalciferol (vitamin D3) 2,000 unit PO QAM 06/26/18 12/29/18 History [Vitamin D3] coenzyme Q10 [CoQ-10] 100 mg PO QPM 06/26/18 12/29/18 History fluoxetine 40 mg PO QAM 06/26/18 12/29/18 History insulin lispro [Humalog KwikPen 0 dose SUBCUT UD PRN 06/26/18 12/29/18 History Insulin] levothyroxine 25 mcg PO QPM 06/26/18 12/29/18 History loratadine 10 mg PO HS PRN 06/26/18 12/29/18 History lorazepam 0.5 mg PO HS 06/26/18 12/29/18 History simvastatin 40 mg PO PM 06/26/18 12/29/18 History trazodone 25 mg PO HS 06/26/18 12/29/18 History krdcaeoe-tva-wssul acid 0.4 1 tab PO DAILY 10/15/18 12/29/18 History mg-lycopene 300 mcg-lutein 250 mcg tablet buspirone 5 mg tablet 5 mg PO TID tab 10/23/18 12/29/18 History melatonin 5 mg capsule 5 mg PO .qhs PRN cap 10/23/18 12/29/18 History acetaminophen 500 mg tablet 1,000 mg PO HS PRN tab 11/14/18 12/29/18 History amiodarone 200 mg tablet 200 mg PO Q24H tab 12/21/18 12/29/18 History furosemide 40 mg tablet 40 mg PO DAILY PRN tab 12/21/18 12/29/18 History warfarin 2.5 mg tablet 2.5 mg PO DAILY #90 tab 12/24/18 12/29/18 Rx lisinopril 10 mg PO DAILY 12/29/18 12/29/18 History metoprolol succinate 50 mg PO DAILY 12/29/18 12/29/18 History potassium chloride 20 meq PO DAILY PRN 12/29/18 12/29/18 History Patient History Medical History Atrial fibrillation (Chronic) Hyperlipidemia (Chronic) Hypertension (Chronic) Stroke (Chronic) massive 05/2008--partial paralysis left side Bleeding hemorrhoids Colon cancer Depression Diabetes mellitus, type 2 Edema of left lower extremity GERD (gastroesophageal reflux disease) Hypothyroidism On anticoagulant therapy on warfarin 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 Surgical History History of bilateral cataract extraction (Chronic) History of tooth extraction (Resolved) all upper teeth History of mitral valve repair S/P implantation of automatic cardioverter/defibrillator (AICD) Family History Son Family history of reaction to anesthesia nausea Daughter Family history of diabetes mellitus Social History Preferred Language: Lithuanian Communication Ability: Effective Special Education Teaching Assistant Required: No Beliefs That Will Affect Care: None marital status: / Current Living Situation: Alone Current Living Situation Comment: 24 hr caregivers Other Information That Helps Us Care for You: No Feels Safe at Home: Yes Safety Concerns: Feels Safe At This Time Smoking Status: Unknown if ever smoked Hx Alcohol Use: No Hx Substance Use: No Review of Systems Constitutional: no fever Respiratory: + dyspnea Cardiovascular: no chest pain Gastrointestinal: no abdominal pain Physical Exam Constitutional: + ill appearing L sided weakness due to prior CVA Eyes: PERRL, conjunctivae normal, anicteric sclerae Neck: trachea midline, no thyromegaly Respiratory: normal respiratory effort and able to speak in complete sentences Auscultation: + rales (bilaterally) Cardiovascular: Rate/Rhythm: regular rate and regular rhythm Heart Sounds: + murmur Extremities: + edema (2+ LE edema) Gastrointestinal (Abdomen): normal bowel sounds, soft, nontender, no hepatosplenomegaly Neurologic: awake; not confused Results & Data Vital Signs (Past 12 Hours) Vital Signs Temp Pulse Pulse Resp BP Pulse Ox 12/30/18 23:00 60 29 H 120/60 91 12/30/18 22:00 60 28 H 99/67 L 90 12/30/18 21:22 61 28 H 93 12/30/18 21:00 60 28 H 119/60 93 12/30/18 20:00 36.8 C 60 25 H 120/61 85 L 12/30/18 19:55 60 20 88 L 12/30/18 19:53 60 20 88 L 12/30/18 18:00 60 36 H 101/53 L 93 12/30/18 17:00 64 24 98/47 L 91 12/30/18 16:00 61 29 H 88/52 L 93 12/30/18 15:00 36.8 C 60 33 H 110/53 L 90 12/30/18 14:51 66 22 93 12/30/18 14:01 60 27 H 89/45 L 91 12/30/18 13:00 61 29 H 118/64 93 12/30/18 12:01 37.1 C 60 33 H 116/56 L 92 Laboratory Results Laboratory Tests 12/30/18 12/30/18 04:19 19:32 WBC 10.55 Hgb 10.0 L Hct 29.8 L Plt Count 179 Sodium 135 L Potassium 3.8 Chloride 100 Carbon Dioxide 22 Anion Gap 12.0 H BUN 52 H Creatinine 2.72 H Glucose 205 H Calcium 8.2 L Phosphorus 3.6 Magnesium 1.9 Diagnostic Findings CXR: Median sternotomy wires and a left subclavian pacer/AICD are place. Marked cardiomegaly with splaying of the arti is unchanged. There are small bilateral pleural effusions. No pneumothorax is present.
[2018-12-31] MEDS ORDERED: ONDANSETRON INJ 2 MG/ML 2 ML VIAL IV STA (00:55)
[2018-12-31] MEDS ORDERED: LORazepam 0.5 MG/1 ML VIAL IV STA (00:58)
[2018-12-31] MEDS ORDERED: ONDANSETRON INJ 2 MG/ML 2 ML VIAL ONE (00:58)
[2018-12-31 04:53] LABS: Basophils # (auto) 0.01 K/uL (0-0.2); Basophils % (auto) 0.1 %; Hemoglobin 10.7 g/dL (12.0-16.0); Immature Granulocytes # (auto) 0.03 K/uL (0.00-0.02); Immature Granulocytes % (auto) 0.3 %; Lymphocytes # (auto) 0.94 K/uL (1.2-3.4); Lymphocytes % (auto) 7.9 %; Mean Corpuscular Hgb Conc 33.4 g/dL (32-36); Mean Corpuscular Volume 87.9 fL (80-100); Mean Platelet Volume 9.9 fL (7.4-10.4); Monocytes # (auto) 1.16 K/uL (0.11-0.59); Monocytes % (auto) 9.7 %; Neutrophils # (auto) 9.79 K/uL (1.4-6.5); Platelet Count 148 K/uL (130-400); RDW Coefficient of Variation 16.9 % (11.5-14.5); RDW Standard Deviation 54.9 fL (36.4-46.3); Red Blood Count 3.64 M/uL (4.2-5.4); White Blood Count 11.93 K/uL (4.8-10.8)
[2018-12-31 05:10] LABS: INR 3.1 (0.9-1.1); Prothrombin Time 29.4 Seconds (9.0-12.0)
[2018-12-31 05:12] LABS: Albumin Level 2.9 gm/dl (3.4-5.0); BUN Creatinine Ratio 19.2 (10-20); Calcium 8.6 mg/dl (8.5-10.1); Creatinine Clr Calc Pharmacy 14.5 ml/min; Est GFR (African American) 15.4; Est GFR (Non-African American) 13.3; Magnesium 1.9 mg/dl (1.8-2.4); Potassium 3.6 mmol/L (3.5-5.1)
[2018-12-31 05:18] LABS: Albumin Globulin Ratio 0.6 (0.9-2); Bilirubin,Total 1.1 mg/dl (0.2-1); Globulin 4.6 gm/dl (2.5-4.0); Phosphorus 4.1 mg/dl (2.5-4.9); Total Protein 7.5 gm/dl (6.4-8.2); Troponin I 0.037 ng/ml (0-0.045)
[2018-12-31] MEDS ORDERED: POTASSIUM CHLORIDE 20 MEQ/15 ML UDC PO STA (05:41)
[2018-12-31] MEDS: DOXYCYCLINE HYCLATE 100 MG in DEXTROSE 5% 100 ML IV SCH (06:01)
[2018-12-31] MEDS: LEVOTHYROXINE SODIUM 25 MCG TABLET PO SCH (06:02)
[2018-12-31 06:19] LABS: Estimated Average Glucose 194 mg/dl; Hemoglobin A1C 8.4 % (4.5-5.6)
--- NOTE | 2018-12-31 07:31 | Critical Care Progress Note ---
Date of Service December 31, 2018 Assessment & Plan (1) S/P admission to ICU (intensive care unit): Reason Critically Ill: 83-year-old female with a past medical history of CHF, severe aortic stenosis, MVR, adenocarcinoma of colon, afib, prior stroke w/residual left sided weakness and prior GI bleed who presented to hospital with increased shortness of breath, hypoxic respiratory failure. Neuro - [facility] ICU: Negative Prior strokechronic left hemiparesis Cardiac - CHF: ECHO this AM: Left ventricular systolic function mildly reduced with EF of 45-50%. Severely dilated left and right atrium. Mod-severe , mod MR and mod- severe TR - prior to admission, patient's Lasix was held for 9 days given BRAXTON. - BNP was elevated to 13,000 on arrival, and CXR was consistent with volume overload and cardiomegaly - patient was initially treated with 40mg IV Lasix. Received 80mg Lasix with albumin on evening of 12/30, however produced minimal urine (~100mL) with this dosage - Thank you to nephrology for consult - increased Lasix to 100mg q8h. One time dose of 250mg chlorothiazide was provided on 12/30 as well - Holding lisinopril for BRAXTON A. fib - home warfarin held initially given supratherapeutic INR -INR 3.1 this AM, resume home dose of warfarin on 01/01 -continue to monitor routine coags -Thank you to cardiology for consult: d/c metoprolol succinate. ICD settings altered to attempt to maintain intrinsic AV conduction -pt has prolonged QTc of 520 -continue amiodarone to suppress arrhythmias Hypertension metoprolol d/katya, holding lisinopril Respiratory - Hypoxic respiratory failure: CHF exacerbation versus pneumonia -Chest x-ray showed bilateral consolidations with pneumonia versus volume overload -Patient currently on HFNC, 40L 100% -continue Atrovent and budesonide nebs -procalcitonin elevated at 1.73 --> likely elevated secondary to BRAXTON as opposed to bacterial infection -Low suspicion that pulmonary symptoms are related to pneumonia, however given severity of pt's condition, will continue abx for a total of 7 days. -abx regimen changed from IV cefepime and doxycycline to PO cefdinir and doxycycline, given pt did not have risk factors predisposing to pseudomonas infection, and also trying to limit IV fluid administration -aggressive diuresis as above GI - GERDcontinue with 40mg pantoprazole daily Dietheart healthy, carb consistent diet w/fluid restriction Adenocarcinoma of the colon-patient was reportedly too high risk for resection, no intervention at this time Transaminitis -LFTs rising - potentially secondary to congestion -d/c simvastatin -continue to monitor RENAL/LYTES - BRAXTON on CKDcurrent creatinine 3.1, worsening. Baseline is approx ~2 -Patient volume overloaded, continue with aggressive diuresis with Lasix 100mg q8h -Per patient's son (POA), he did not feel dialysis would be in accordance with his mother's wishes -monitor strict I's and O's, will monitor creatinine with routine BMPs -Holding lisinopril -Avoid nephrotoxins -given escalation in diuresis regimen, pt was started on 400mg Magnesium Oxide daily and given 60 mEq of potassium chloride in supplementation today - Thompson catheter in place for strict I's and O's ENDO - DMcurrently euglycemic, ICU hypoglycemic protocols, continue glargine and sliding scale (will loosen Novolog coverage given worsening renal fxn) -Last hemoglobin A1c 7.7 in July Hypothyroidismcontinue home dose Synthroid HEME - H&H stable, continue to monitor with routine CBCs ID - Transitioned from IV cefepime and doxycycline to PO cefdinir and doxycycline LINES/IV ACCESS - Peripheral IVs, Thompson DVT PROPHYLAXIS - SCDs, holding anticoagulation for elevated INR, restart coumadin tomorrow CODE STATUS: DNR/DNI (2) CHF (congestive heart failure): (3) Afib: (4) DVT prophylaxis: (5) PNA (pneumonia): (6) Hypoxia: (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 Clark was resident physician during care of patient. I separately evaluated patient for welch portions of the history and the exam. I was present during the critical portion of medical decision making, and I discussed the case with the resident. I generally agree with the findings and plan. Extensive discussion with patient and son and daughter, all in agreement that patient would not want to undergo dialysis. She has an unresectable adenocarcinoma and is not an appropriate candidate for endovascularly repaired aortic valve. She has worsening renal function and has acute hypoxic respiratory failure most likely secondary to pulmonary edema and congestive heart failure. We are attempting to maximize medical therapy with high-dose diuretics to hopefully achieve negative fluid balance. However I believe the patient is approaching an end-stage terminal condition without meaningful chance of recovery. Overall I think the patient's long-term prognosis is very poor while the acute prognosis is certainly guarded at best. I have personally spent 50 minutes of critical care time in the direct management of this patient. This is a life/limb threatening event. This includes time spent evaluating patient, direct bedside care, chart review, placing orders, interpretation of diagnostic studies, discussion with consultants, patient, and/or family members regarding treatment decisions, as well as other required patient management activities. This time is exclusive of all separately billable procedures, and teaching time and separate from and in addition to any other critical care service time. Subjective Ms. Grider reports a minor improvement in her breathing this morning. She denies chest pain, palpitations, fever, chills or abdominal pain. Overnight, she had a trial of BiPAP and tolerated this for about 45 minutes before taking it off. She was then switched back to high flow nasal cannula. The night team was concerned that her chest x-ray appeared to be worsening despite aggressive diuresis. Her urinary output was minimal - approx 100mL. She was seen by nephrology who increased her diuretic regimen, and had an extensive discussion with the family regarding management plan going forward. The family - namely her son Luis (LYRIC) - decided against dialysis or mechanical ventilation, and Ms. Grider was subsequently transitioned to DNR/DNI status. Review of Systems Constitutional: + fatigue; no fever and no chills Respiratory: + dyspnea; no wheezing Cardiovascular: + edema; no chest pain and no palpitations Gastrointestinal: no abdominal pain, no nausea and no vomiting Physical Exam Constitutional: + ill appearing and + frail appearing Respiratory: able to speak in complete sentences Auscultation: + diminished lung sounds and + crackles (bibasilar crackles); no wheezes Cardiovascular: Rate/Rhythm: regular rate and regular rhythm Heart Sounds: + murmur Extremities: + edema (2+ LE edema) Gastrointestinal (Abdomen): Inspection/Auscultation: abdomen not distended Percussion/Palpation: abdomen soft; abdomen nontender Neurologic: awake; not confused Psychiatric: A+Ox3, euthymic affect Results & Data Vital Signs (Past 12 Hours) Vital Signs Temp Pulse Pulse Resp BP Pulse Ox 12/31/18 06:00 60 32 H 117/69 86 L 12/31/18 05:00 36.7 C 60 31 H 128/71 89 L 12/31/18 04:00 60 26 H 100/51 L 91 12/31/18 03:00 60 28 H 144/76 H 87 L 12/31/18 02:00 67 35 H 110/51 L 90 12/30/18 23:31 60 33 H 94 12/30/18 23:00 60 29 H 120/60 91 12/30/18 22:00 60 28 H 99/67 L 90 12/30/18 21:22 61 28 H 93 12/30/18 21:00 60 28 H 119/60 93 12/30/18 20:00 36.8 C 60 25 H 120/61 85 L 12/30/18 19:55 60 20 88 L 12/30/18 19:53 60 20 88 L PG Care Time/CCT Critical Care Time: Yes Total Critical Care Time: 50 Resident Activity Tracking Resident Involvement: Resident Care Provided Care Provided: Adult Hospital Medicine (1) Anemia Anemia type: iron deficiency Iron deficiency anemia type: unspecified iron deficiency Qualified Code(s): D50.9 - Iron deficiency anemia, unspecified (2) PNA (pneumonia) Laterality: right Lung location: middle lobe of lung Pneumonia type: due to unspecified organism Qualified Code(s): J18.1 - Lobar pneumonia, unspecified organism
[2018-12-31] MEDS: FUROSEMIDE 100 MG in SYRINGE 0 ML IV SCH ×2 (07:42→16:30)
[2018-12-31] MEDS: CEROVITE ADV FORMULA TAB PO SCH (07:43)
[2018-12-31] MEDS: guaiFENesin 600 MG TABCR PO SCH ×2 (07:43→20:11)
[2018-12-31] MEDS: AMIODARONE 200 MG TAB PO SCH (07:43)
[2018-12-31] MEDS: FLUOXETINE HCL 20 MG CAP PO SCH (07:43)
[2018-12-31] MEDS: FERROUS SULFATE 325 MG TAB PO SCH (07:43)
[2018-12-31] MEDS: PANTOprazole 40 MG TAB PO SCH (07:43)
[2018-12-31] MEDS: METOPROLOL SUCC 50MG EXT REL TAB PO SCH (07:44)
[2018-12-31] MEDS: CHOLECALCIFEROL 1,000 UNITS TAB PO SCH (07:44)
[2018-12-31] MEDS: INSULIN ASPART 100 UNITS/ML 3 ML PEN SC SCH ×4 (07:45→20:15)
--- NOTE | 2018-12-31 08:07 | XRay Report ---
XR chest 1V portable HISTORY: 83 years-old Female pneumonia, chf acute shortness of breath COMPARISON: Chest radiograph 12/30/2018, chest CT 10/23/2018 TECHNIQUE: Portable AP view of the chest FINDINGS: Cardiac silhouette is enlarged, unchanged. Prior median sternotomy. Stable positioning of left subcla vian pacer/AICD. Small bilateral pleural effusions. No pneumothorax. Bilateral mixed interstitial and alveolar opacities are redemonstrated which appear mildly progressed within the right lower and left upper lung zones. Degenerative changes of the shoulders and spine. IMPRESSION: 1. Cardiomegaly with mildly progressed right greater than left mixed interstitial and alveolar opacit ies suggestive of pulmonary edema versus multifocal pneumonia. 2. Small bilateral pleural effusions. The above report was generated using voice recognition software. It may contain grammatical, syntax o r spelling errors. Electronically signed by: Abiel Storm M.D. 12/31/2018 8:05 AM
[2018-12-31] MEDS: BUDESONIDE 0.5 MG/2 ML VIAL (PULMICORT) NEB SCH ×2 (08:26→19:08)
[2018-12-31] MEDS: ALBUT/IPRATROP 3MG/0.5MG NEB 3 ML VIAL NEB SCH ×4 (08:26→19:08)
--- NOTE | 2018-12-31 08:43 | Cardiology Consultation ---
Date of Consultation December 31, 2018 Assessment & Plan (1) CHF (congestive heart failure): She does present in congestive heart failure, her weight is hard to interpret as at least 1 must be incorrect, the other is not much higher than prior weights. I suspect however she is in some degree of congestive heart failure and some form of fluid elimination would be beneficial. Her BNP was quite elevated. (2) Afib: She has a history of what we thought was permanent atrial fibrillation however sometime since September she appears to have converted to sinus bradycardia. In the office there was no evidence of atrial activity (including atrial fibrillation) leading us to believe that she had atrial standstill. This admission however she clearly has atrial activity, at times sinus rhythm with first-degree AV block and intact conduction. The amiodarone which is being used for ventricular tachycardia presumably because conversion of her rhythm. The rate is probably faster during the hospital due to a high catecholamine state. I agree with anticoagulation over the long run, however I do not believe she has been in atrial fibrillation for some time therefore it is not critical at this juncture. I am going to discontinue her metoprolol in hopes of allowing her heart rate to become more appropriate, perhaps with a more appropriate AV interval which may help hemodynamically. (3) ICD (implantable cardioverter-defibrillator) in place: She has a single-chamber ICD, the single-chamber was used because she appeared to be in permanent atrial fibrillation at the time. Subsequently with addition of amiodarone she is converted to sinus rhythm. The ICD is not ideal in that situation, he will pace in a VVIR mode which is currently programmed. I am going to switch back to a VVI mode of 50 to try to maintain intrinsic AV conduction. (4) Cardiomyopathy: She has a cardiomyopathy which on recent echocardiography at [facility] (September 17, 2018) was felt to be 45%. It had been much worse at other times. Although ideally we would maintain beta-blockade, under the circumstances it may be better to allow her heart rate to increase and maintain intrinsic conduction (which is somewhat narrow and will benefit her cardiomyopathy) rather than keep her on low-dose metoprolol. In the future if she begins to pace frequently we can restart beta-blockade, perhaps using a drug like carvedilol which may have less negative chronotropic effect. (5) Ventricular tachycardia: She has had ventricular tachycardia both preceding her ICD and subsequently, including a flurry of it where she received 4 ICD shocks appropriately. This was before the addition of amiodarone. I would maintain amiodarone, we could consider reducing the dose but I would maintain the current dose if possible. History of Present Illness Reason for Consultation: CHF, arrhythmia Attending Physician: John Moya History of Present Illness This is a very pleasant 83-year-old woman who had a mitral valve repair in 1998, as moderate to severe aortic stenosis as well now as well as left ventricular dysfunction. 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 She had an episode of near syncope and was brought to the hospital where she developed a wide-complex tachycardia which required cardioversion and she was loaded with amiodarone. This occurred on July 24, 2018. She therefore underwent ICD implantation on July 25, 2018. A single chamber device was used since she was felt to be in permanent atrial fibrillation. By echocardiography on July 24, 2018 her left ventricular function was severely reduced with ejection fraction of 25 to 30%. Initially she did well following her ICD implantation but was at [facility] for a colon mass and developed monomorphic VT where she had a total of 4 ICD shocks for termination of different episodes. The ICD function well, she was started on amiodarone initially IV and then orally. Her ICD was also reprogrammed, in part to reduce her pacing rate to 50 bpm. By echocardiography at [facility] on September 17, 2018 her ejection fraction was 45% with top normal left ventricular size. Review of her cardiac [facility] trends in November 2018 showed an unusual situation where she was pacing with varying frequencies but always less than 100% until around the end of September 2018. At that time very suddenly she became virtually 100% ventricular paced at 50 bpm. The device monitors for atrial fibrillation using RR intervals so that is not reliable to detect atrial fibrillation when she is ventricularly pacing. She must have either developed complete heart block or converted from atrial fibrillation to sinus bradycardia at that time. I favor the latter, possibly related to the amiodarone. I did increase her pacing rate to 60 bpm and added rate response as her difficulty with exertion may in part be due to a fixed rate of 50 bpm. When josé miguel week later she seemed to have improved exercise ability. We programmed her down to 30 bpm and did a 12 lead EKG to see if we could detect any atrial rhythm. At that time she appeared to be in atrial asystole. We can consider upgrading her device to a dual chamber unit, but since she was feeling well at that time we held off. She is now admitted with pneumonia and hypoxia. At the time of my evaluation she is feeling relatively well but she is on maximum oxygen therapy short of BiPAP or intubation. She denies palpitations or chest discomfort. She does appear to be somewhat uncomfortable however. Allergies Allergy/AdvReac Type Severity Reaction Status Date / Time amoxicillin AdvReac Diarrhea Unverified 12/29/18 17:51 metformin AdvReac Diarrhea Unverified 12/29/18 17:52 Home Medications Home Medications Medication Instructions Recorded Confirmed Type Lantus Solostar U-100 Insulin 43 unit SUBCUT QPM 06/26/18 12/29/18 History Prilosec OTC 20 mg PO QAM 06/26/18 12/29/18 History Slow Release Iron 45 mg PO DAILY 06/26/18 12/29/18 History cholecalciferol (vitamin D3) 2,000 unit PO QAM 06/26/18 12/29/18 History [Vitamin D3] coenzyme Q10 [CoQ-10] 100 mg PO QPM 06/26/18 12/29/18 History fluoxetine 40 mg PO QAM 06/26/18 12/29/18 History insulin lispro [Humalog KwikPen 0 dose SUBCUT UD PRN 06/26/18 12/29/18 History Insulin] levothyroxine 25 mcg PO QPM 06/26/18 12/29/18 History loratadine 10 mg PO HS PRN 06/26/18 12/29/18 History lorazepam 0.5 mg PO HS 06/26/18 12/29/18 History simvastatin 40 mg PO PM 06/26/18 12/29/18 History trazodone 25 mg PO HS 06/26/18 12/29/18 History tzcosyws-fhz-boatk acid 0.4 1 tab PO DAILY 10/15/18 12/29/18 History mg-lycopene 300 mcg-lutein 250 mcg tablet buspirone 5 mg tablet 5 mg PO TID tab 10/23/18 12/29/18 History melatonin 5 mg capsule 5 mg PO .qhs PRN cap 10/23/18 12/29/18 History acetaminophen 500 mg tablet 1,000 mg PO HS PRN tab 11/14/18 12/29/18 History amiodarone 200 mg tablet 200 mg PO Q24H tab 12/21/18 12/29/18 History furosemide 40 mg tablet 40 mg PO DAILY PRN tab 12/21/18 12/29/18 History warfarin 2.5 mg tablet 2.5 mg PO DAILY #90 tab 12/24/18 12/29/18 Rx lisinopril 10 mg PO DAILY 12/29/18 12/29/18 History metoprolol succinate 50 mg PO DAILY 12/29/18 12/29/18 History potassium chloride 20 meq PO DAILY PRN 12/29/18 12/29/18 History Patient History Medical History Atrial fibrillation (Chronic) Hyperlipidemia (Chronic) Hypertension (Chronic) Stroke (Chronic) massive 05/2008--partial paralysis left side Bleeding hemorrhoids Colon cancer Depression Diabetes mellitus, type 2 Edema of left lower extremity GERD (gastroesophageal reflux disease) Hypothyroidism On anticoagulant therapy on warfarin 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 Surgical History History of bilateral cataract extraction (Chronic) History of tooth extraction (Resolved) all upper teeth History of mitral valve repair S/P implantation of automatic cardioverter/defibrillator (AICD) Family History Son Family history of reaction to anesthesia nausea Daughter Family history of diabetes mellitus Social History Preferred Language: Bangladeshi Communication Ability: Effective 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 HEENT: Unremarkable Neck: No jugular venous distention, carotid pulses are normal and equal bilaterally without bruits. Pulmonary: Bilateral crackles. Cardiac: Regular rhythm with a grade 3/6 crescendo decrescendo murmur at the base, no gallop or rub. Abdomen: Soft, nontender with normal bowel sounds. Extremities: +2 bilateral pretibial edema. Neurologic: Left-sided weakness remains. Gait was not tested. Skin: No rash, ecchymoses or petechiae. Results & Data Vital Signs (Past 12 Hours) Vital Signs Temp Pulse Pulse Resp BP Pulse Ox 12/31/18 06:00 60 32 H 117/69 86 L 12/31/18 05:00 36.7 C 60 31 H 128/71 89 L 12/31/18 04:00 60 26 H 100/51 L 91 12/31/18 03:00 60 28 H 144/76 H 87 L 12/31/18 02:00 67 35 H 110/51 L 90 12/30/18 23:31 60 33 H 94 12/30/18 23:00 60 29 H 120/60 91 12/30/18 22:00 60 28 H 99/67 L 90 12/30/18 21:22 61 28 H 93 12/30/18 21:00 60 28 H 119/60 93 Diagnostic Findings Electrocardiography here: Electrocardiogram show sinus rhythm, in some cases AV dissociation with ventricular pacing and other cases ventricular pacing with long DE interval. The QT interval is somewhat prolonged. Telemetry: Intermittent sinus rhythm with first-degree AV block and ventricular pacing.
[2018-12-31] MEDS ORDERED: FUROSEMIDE 40 MG in SYRINGE 0 ML IV SCH (09:00)
[2018-12-31 09:30] LABS: iSTAT Allen Test Pass; iSTAT Arterial Blood Gas HCO3 18 meg/L (19-24); iSTAT Arterial Blood Gas pCO2 30 mmHg (35-46); iSTAT Carbon Dioxide 19 mEq/l (24-31); iSTAT FiO2 100 %; iSTAT Site R Radial
--- NOTE | 2018-12-31 10:20 | Nephrology Progress Note ---
Date of Service December 31, 2018 Assessment & Plan (1) CHF (congestive heart failure): -- Patient is nonoliguric -- Slightly increased urine output with I furosemide 100 mg IV + chlorothiazide 250 mg x 1 dose yesterday -- Will provide Furosemide 100 mg IV q 8 hrs -- I discussed the patient's status with Dr. Cherry this morning -- Consider Bumx gtt, if a negative fluid balance is not achieved this afternoon with IV furosemide (2) ARF (acute renal failure): -- Baseline creatinine ~ 2.0 -- BRAXTON related to poor perfusion associated w/ CHF -- Patient has refused dialysis (3) Colon adenocarcinoma: (4) S/P admission to ICU (intensive care unit): -- Palliative care consult pending -- Symptom burden improved -- Prognosis remains guarded Subjective Mrs. Grider is very tired this morning. Dyspnea has improved slightly. She denies fevers or chills. She denies chest pain or palpitations. I had a long conversation with the patient's family, including her son, Luis, this morning. We reviewed goals of care. Review of Systems Review of Systems: All systems reviewed & are unremarkable except as noted in HPI & below Physical Exam Constitutional: + ill appearing Eyes: PERRL, conjunctivae normal, anicteric sclerae Neck: trachea midline, no thyromegaly Respiratory: normal respiratory effort and able to speak in complete sentences Auscultation: + rales (bilaterally) Cardiovascular: Rate/Rhythm: regular rate and regular rhythm Heart Sounds: + murmur Extremities: + edema (2+ LE edema) Gastrointestinal (Abdomen): normal bowel sounds, soft, nontender, no hepatosplenomegaly Skin: no rashes Neurologic: Motor/Sensory: no tremor and no asterixis Results & Data Vital Signs (Past 12 Hours) Vital Signs Temp Pulse Resp BP Pulse Ox 12/31/18 06:00 60 32 H 117/69 86 L 12/31/18 05:00 36.7 C 60 31 H 128/71 89 L 12/31/18 04:00 60 26 H 100/51 L 91 12/31/18 03:00 60 28 H 144/76 H 87 L 12/31/18 02:00 67 35 H 110/51 L 90 12/30/18 23:31 60 33 H 94 12/30/18 23:00 60 29 H 120/60 91 Laboratory Results Laboratory Results - last 24 hr 12/29/18 12/30/18 12/30/18 23:47 04:19 11:19 WBC RBC Hgb Hct MCV MCH MCHC RDW Std Deviation RDW Coeff of Venita Plt Count MPV Immature Gran % (Auto) Neut % (Auto) Lymph % (Auto) [place] % (Auto) Eos % (Auto) Baso % (Auto) Immature Gran # (Auto) Neut # (Auto) Lymph # (Auto) [place] # (Auto) Eos # (Auto) Baso # (Auto) PT INR Sample Site R Radial POC pH 7.40 POC pCO2 30 L POC pO2 104 H POC HCO3 18 L POC Total CO2 19 L POC Base Excess -6.0 POC ABG O2 Sat 98.0 H Ellis Test Pass O2 Delivery Device [place] Can POC FiO2 100 Sodium Potassium Chloride Carbon Dioxide Anion Gap BUN Creatinine Est Cr Clr Drug Dosing Est GFR ( Amer) Est GFR (Non-Af Amer) BUN/Creatinine Ratio Glucose POC Glucose 86 Estimat Average Glucose 194 Hemoglobin A1c 8.4 H Calcium Phosphorus Magnesium Total Bilirubin AST ALT Alkaline Phosphatase Troponin I NT-Pro-B Natriuret Pep Total Protein Albumin Globulin Albumin/Globulin Ratio Procalcitonin 12/30/18 12/30/18 12/30/18 14:55 19:32 20:54 WBC RBC Hgb Hct MCV MCH MCHC RDW Std Deviation RDW Coeff of Venita Plt Count MPV Immature Gran % (Auto) Neut % (Auto) Lymph % (Auto) [place] % (Auto) Eos % (Auto) Baso % (Auto) Immature Gran # (Auto) Neut # (Auto) Lymph # (Auto) [place] # (Auto) Eos # (Auto) Baso # (Auto) PT INR Sample Site POC pH POC pCO2 POC pO2 POC HCO3 POC Total CO2 POC Base Excess POC ABG O2 Sat Ellis Test O2 Delivery Device POC FiO2 Sodium 135 L Potassium 3.8 Chloride 100 Carbon Dioxide 22 Anion Gap 12.0 H BUN 52 H Creatinine 2.72 H Est Cr Clr Drug Dosing 16.5 Est GFR ( Amer) 18.0 Est GFR (Non-Af Amer) 15.5 BUN/Creatinine Ratio 19.2 Glucose 205 H POC Glucose 78 158 H Estimat Average Glucose Hemoglobin A1c Calcium 8.2 L Phosphorus 3.6 Magnesium 1.9 Total Bilirubin AST ALT Alkaline Phosphatase Troponin I NT-Pro-B Natriuret Pep Total Protein Albumin Globulin Albumin/Globulin Ratio Procalcitonin 12/31/18 12/31/18 12/31/18 04:32 04:32 04:32 WBC 11.93 H RBC 3.64 L Hgb 10.7 L Hct 32.0 L MCV 87.9 MCH 29.4 MCHC 33.4 RDW Std Deviation 54.9 H RDW Coeff of Venita 16.9 H Plt Count 148 MPV 9.9 Immature Gran % (Auto) 0.3 Neut % (Auto) 82.0 Lymph % (Auto) 7.9 [place] % (Auto) 9.7 Eos % (Auto) 0.0 Baso % (Auto) 0.1 Immature Gran # (Auto) 0.03 H Neut # (Auto) 9.79 H Lymph # (Auto) 0.94 L [place] # (Auto) 1.16 H Eos # (Auto) 0.00 Baso # (Auto) 0.01 PT 29.4 H INR 3.1 H Sample Site POC pH POC pCO2 POC pO2 POC HCO3 POC Total CO2 POC Base Excess POC ABG O2 Sat Ellis Test O2 Delivery Device POC FiO2 Sodium 132 L Potassium 3.6 Chloride 99 Carbon Dioxide 23 Anion Gap 10.0 BUN 60 H Creatinine 3.10 H D Est Cr Clr Drug Dosing 14.5 Est GFR ( Amer) 15.4 Est GFR (Non-Af Amer) 13.3 BUN/Creatinine Ratio 19.2 Glucose 121 H POC Glucose Estimat Average Glucose Hemoglobin A1c Calcium 8.6 Phosphorus 4.1 Magnesium 1.9 Total Bilirubin 1.1 H AST 245 H ALT 209 H Alkaline Phosphatase 86 Troponin I 0.037 NT-Pro-B Natriuret Pep 61784 H Total Protein 7.5 Albumin 2.9 L Globulin 4.6 H Albumin/Globulin Ratio 0.6 L Procalcitonin 12/31/18 12/31/18 04:32 07:37 WBC RBC Hgb Hct MCV MCH MCHC RDW Std Deviation RDW Coeff of Venita Plt Count MPV Immature Gran % (Auto) Neut % (Auto) Lymph % (Auto) [place] % (Auto) Eos % (Auto) Baso % (Auto) Immature Gran # (Auto) Neut # (Auto) Lymph # (Auto) [place] # (Auto) Eos # (Auto) Baso # (Auto) PT INR Sample Site POC pH POC pCO2 POC pO2 POC HCO3 POC Total CO2 POC Base Excess POC ABG O2 Sat Ellis Test O2 Delivery Device POC FiO2 Sodium Potassium Chloride Carbon Dioxide Anion Gap BUN Creatinine Est Cr Clr Drug Dosing Est GFR ( Amer) Est GFR (Non-Af Amer) BUN/Creatinine Ratio Glucose POC Glucose 148 H Estimat Average Glucose Hemoglobin A1c Calcium Phosphorus Magnesium Total Bilirubin AST ALT Alkaline Phosphatase Troponin I NT-Pro-B Natriuret Pep Total Protein Albumin Globulin Albumin/Globulin Ratio Procalcitonin 1.73 H
[2018-12-31 11:25] LABS: iSTAT Arterial Blood Gas pCO2 29 mmHg (35-46); iSTAT Arterial Blood Gas pH 7.42 (7.35-7.45); iSTAT Hematocrit 33 % (37-47); iSTAT Hemoglobin 11.2 g/dl (12.0-16.0); iSTAT Potassium 3.9 mEq/L (3.3-5.0); iSTAT Sodium 136 mEq/L (135-144)
[2018-12-31 11:26] LABS: iSTAT Arterial Blood Gas HCO3 19 meg/L (19-24); iSTAT Carbon Dioxide 19 mEq/l (24-31)
[2018-12-31] MEDS: POTASSIUM CHLORIDE PWD 20 MEQ PACK PO ONE ×2 (12:13→14:17)
--- NOTE | 2018-12-31 13:49 | Palliative Care Consultation ---
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 Patient came from home where she has 24/7 caregivers. Apparently patient saw nephrology as outpatient and diuretic was held due to BRAXTON on CKD. On admission, BNP elevated, CXR showed pulmonary edema vs. pneumonia, creatinine 2.34 (2 at baseline) but has risen to 3.10 today. Patient was experiencing respiratory failure due to the volume overload, was admitted to ICU and trialed on Bipap but unable to tolerate. She is now on high-flow nasal cannula at 40LPM and 100% FiO2. She was seen by her grocery clerk and started on 100mg IV Lasix TID. She is nonoliguric today, but overall condition not improved. Patient has known valvular disease, echo today showed mod-sev aortic stenosis, mod-sev tricuspid regurg, severely dilated bilateral atria, EF 40-45%. THere was extensive discussion with patient, her son Luis, and Fernando Paz PA-C, last evening about goals of care. Patient was minimally able to participate given her lethargy and acute illness. Her son stated that she has been through a lot in the last 11 years and is tired. He does not want any heroics to be done, so patient was changed to DNR/DNI. Palliative care consulted to discuss goals of care. -Met with patient, her son Luis, daughter, and Dr. Fraser, in room 104. patient is awake but very lethargic. Falling asleep frequently on high-flow nasal cannula. She denies any pain or SOB. -Patient's condition discussed extensively with patient's children. Patient remains on high-flow, is diuresing but her overall condition really has not improved. CXR and creatinine are slightly worsened today from yesterday. Son and daughter verbalize understanding and state that the overarching goal is COMFORT. -IF patient's kidneys worsen, no dialysis per patient's wishes. She will remain DNR/DNI, but conitnue current medical regimen. NO ESCALATION IN CARE. If symptoms arise, they are okay with starting Roxanol as needed for pain or SOB/air hunger. They verbalize understanding and are accepting of secondary side effects of morphine. -Will start Roxanol 5mg PO/SL Q3h PRN pain or SOB. Patient and family counseled on the secondary side effects of morphine such as sedation and respiratory depression. -Depending on how patient does, may go home with hospice and 24/7 caregivers. Will need to be weaned off high-flow if tolerated. Will see how patient does in the ICU today. (2) ARF (acute renal failure): (3) CHF due to valvular disease: (4) Colon adenocarcinoma: Supervising Physician Co-Signing Physician Notes Late entry for exam and meeting with family done on 12/31/18. Chart reviewed, pt seen and examined - pt's son, daughter and son in law at bedside Collaborated with TEOFILO Andres Pt seen in the ICU on HFNC PE: awake, alert, mild increased WOB HEENT: EOMI, hearing WNL Resp: mildly labored, on HFNC, diminished BS bilaterally CV: rate controlled, + ectopy ABD: soft, NT Ext: + edema Neuro: alert Agree with above note, assessment and plan as per TEOFILO Andres - will cont to follow and assist family with medical decision making History of Present Illness Attending Physician: John Moya History of Present Illness This 83 year old female with PMH afib on warfarin, htn, HLD, valvular heart disease with CHF, 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 Patient came from [facility] where she has 24/7 caregivers. Apparently patient saw nephrology as outpatient and diuretic was held due to BRAXTON on CKD. On admission, BNP elevated, CXR showed pulmonary edema vs. pneumonia, creatinine 2.34 (2 at baseline) but has risen to 3.10 today. Patient was experiencing respiratory failure due to the volume overload, was admitted to ICU and trialed on Bipap but unable to tolerate. She is now on high-flow nasal cannula at 40LPM and 100% FiO2. She was seen by her grocery clerk and started on 100mg IV Lasix TID. She is nonoliguric today, but overall condition not improved. Patient has known valvular disease, echo today showed mod-sev aortic stenosis, mod-sev tricuspid regurg, severely dilated bilateral atria, EF 40-45%. THere was extensive discussion with patient, her son Luis, and Fernando Paz PA-C, last evening about goals of care. Patient was minimally able to participate given her lethargy and acute illness. Her son stated that she has been through a lot in the last 11 years and is tired. He does not want any heroics to be done, so patient was changed to DNR/DNI. Palliative care consulted to discuss goals of care. Thank you kindly for this consult. I will follow as needed. Allergies Allergy/AdvReac Type Severity Reaction Status Date / Time amoxicillin AdvReac Diarrhea Unverified 12/29/18 17:51 metformin AdvReac Diarrhea Unverified 12/29/18 17:52 Home Medications Home Medications Medication Instructions Recorded Confirmed Type Lantus Solostar U-100 Insulin 43 unit SUBCUT QPM 06/26/18 12/29/18 History Prilosec OTC 20 mg PO QAM 06/26/18 12/29/18 History Slow Release Iron 45 mg PO DAILY 06/26/18 12/29/18 History cholecalciferol (vitamin D3) 2,000 unit PO QAM 06/26/18 12/29/18 History [Vitamin D3] coenzyme Q10 [CoQ-10] 100 mg PO QPM 06/26/18 12/29/18 History fluoxetine 40 mg PO QAM 06/26/18 12/29/18 History insulin lispro [Humalog KwikPen 0 dose SUBCUT UD PRN 06/26/18 12/29/18 History Insulin] levothyroxine 25 mcg PO QPM 06/26/18 12/29/18 History loratadine 10 mg PO HS PRN 06/26/18 12/29/18 History lorazepam 0.5 mg PO HS 06/26/18 12/29/18 History simvastatin 40 mg PO PM 06/26/18 12/29/18 History trazodone 25 mg PO HS 06/26/18 12/29/18 History xygzyfce-dbh-ijqhn acid 0.4 1 tab PO DAILY 10/15/18 12/29/18 History mg-lycopene 300 mcg-lutein 250 mcg tablet buspirone 5 mg tablet 5 mg PO TID tab 10/23/18 12/29/18 History melatonin 5 mg capsule 5 mg PO .qhs PRN cap 10/23/18 12/29/18 History acetaminophen 500 mg tablet 1,000 mg PO HS PRN tab 11/14/18 12/29/18 History amiodarone 200 mg tablet 200 mg PO Q24H tab 12/21/18 12/29/18 History furosemide 40 mg tablet 40 mg PO DAILY PRN tab 12/21/18 12/29/18 History warfarin 2.5 mg tablet 2.5 mg PO DAILY #90 tab 12/24/18 12/29/18 Rx lisinopril 10 mg PO DAILY 12/29/18 12/29/18 History metoprolol succinate 50 mg PO DAILY 12/29/18 12/29/18 History potassium chloride 20 meq PO DAILY PRN 12/29/18 12/29/18 History Patient History Medical History Atrial fibrillation (Chronic) Hyperlipidemia (Chronic) Hypertension (Chronic) Stroke (Chronic) massive 05/2008--partial paralysis left side Bleeding hemorrhoids Colon cancer Depression Diabetes mellitus, type 2 Edema of left lower extremity GERD (gastroesophageal reflux disease) Hypothyroidism On anticoagulant therapy on warfarin 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 Surgical History History of bilateral cataract extraction (Chronic) History of tooth extraction (Resolved) all upper teeth History of mitral valve repair S/P implantation of automatic cardioverter/defibrillator (AICD) Family History Son Family history of reaction to anesthesia nausea Daughter Family history of diabetes mellitus Social History Preferred Language: [place]ican Communication Ability: Effective Manager Configuration Required: No Beliefs That Will Affect Care: None marital status: / Current Living Situation: Alone Current Living Situation Comment: 24 hr caregivers Other Information That Helps Us Care for You: No Feels Safe at Home: Yes Safety Concerns: Feels Safe At This Time Smoking Status: Unknown if ever smoked Hx Alcohol Use: No Hx Substance Use: No Review of Systems Review of Systems: Unobtainable due to cognitive status Did deny any pain or SOB. Physical Exam Constitutional: + ill appearing; no acute distress ENMT: external ear and nose normal, oropharynx normal Neck: normal visual inspection Respiratory: + labored breathing (mild); no respiratory distress Auscultation: + diminished lung sounds Cardiovascular: Rate/Rhythm: regular rate and regular rhythm (but with ectopy) Vessels: normal peripheral pulses Extremities: + edema (trace BLE) Gastrointestinal (Abdomen): Inspection/Auscultation: abdomen normal to inspection and normal bowel sounds; abdomen not distended Percussion/Palpation: abdomen soft Skin: + pallor Neurologic: awake (but very lethargic and drowsy); + does not move all extremities (left hemiparesis at baseline) Psychiatric: Orientation: oriented x 3 Insight: + poor insight Results & Data Vital Signs (Past 12 Hours) Vital Signs Temp Pulse Pulse Resp BP Pulse Ox 12/31/18 06:00 60 32 H 117/69 86 L 12/31/18 05:00 36.7 C 60 31 H 128/71 89 L 12/31/18 04:00 60 26 H 100/51 L 91 12/31/18 03:00 60 28 H 144/76 H 87 L 12/31/18 02:00 67 35 H 110/51 L 90 12/30/18 23:31 60 33 H 94 12/30/18 23:00 60 29 H 120/60 91 12/30/18 22:00 60 28 H 99/67 L 90 12/30/18 21:22 61 28 H 93 Time Spent Midlevel 70 minutes with >50% of the time spent at bedside with patient and family discussing condition and GOC.
[2018-12-31] MEDS ORDERED: Nursing to Pharmacy Communication ONE (14:16)
[2018-12-31 14:38] LABS: Appearance Urine Clear (Clear); Bacteria Urine Automated Negative (Negative); Bilirubin Urine Negative (Negative); Blood Urine Negative (Negative); Color Urine Yellow; Epithelial Cell Urine Auto >30 /lpf (0-5); Glucose Urine UA Negative (Negative); Ketones Urine Negative (Negative); Leukocyte Esterase Urine Trace (Negative); Nitrite Urine Negative (Negative); Protein Urine Negative (Negative); Specific Gravity Urine 1.016 (1.000-1.030); Urobilinogen Urine Negative (Negative)
[2018-12-31] MEDS: CEFDINIR 300 MG CAP PO SCH (15:02)
[2018-12-31 15:24] LABS: Calcium 8.2 mg/dl (8.5-10.1); Creatinine Clr Calc Pharmacy 13.8 ml/min; Est GFR (African American) 14.5; Est GFR (Non-African American) 12.5; Potassium 3.4 mmol/L (3.5-5.1)
[2018-12-31] MEDS ORDERED: POTASSIUM CHLORIDE 20 MEQ/15 ML UDC PO ONE (15:45)
[2018-12-31] MEDS: DOXYCYCLINE HYCLATE 100 MG CAP PO SCH (20:10)
[2018-12-31] MEDS: MAGNESIUM OXIDE 400 MG TAB PO SCH (20:10)
[2018-12-31] MEDS: LORazepam 0.5 MG TAB PO SCH (20:12)
[2018-12-31] MEDS: INSULIN GLARGINE SOLOSTAR 100 UNITS/ML 3 ML PEN SQ SCH (20:13)
--- NOTE | 2018-12-31 23:31 | Hospitalist Progress Note ---
Date of Service December 31, 2018 Assessment & Plan (1) Acute respiratory failure with hypoxia: On 12/31: Patient appears to not be improving. Patient obtains 40 liters/min. of oxygen. Patient appears to be in pulmonary edema from fluid overload, likely from acute renal failure. Increased lasix to 100 mg TID. Patient and family do not want escalation of care. Will maintain patient in the ICU. (2) PNA (pneumonia): As suggested on x-ray may be asymmetrical heart failure patient is no clinical pulmonary symptoms. 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 s/p c-scope 07/2018 Monitor (5) CKD stage 3 due to type 2 diabetes mellitus: Monitor cr, avoid nephrotoxic meds and dose medication appropriately for Cr Cl 20 (6) GERD (gastroesophageal reflux disease): pantoprozole (7) Diabetes: A1c 8.4 Lantus as at home SSI PRN (8) Hypertension: continue metoprolol holding lisinpril (9) Hyperlipidemia: zocor (10) CHF (congestive heart failure): acute on chronic systolic and diastolic heart failure last echo in July, showed severe aortic stenosis, EF 25 to 30% with left ventricular hypokinesis, moderate mitral and tricuspid regurg -On home Lasix but held past 9 days for BRAXTON, given 40 mg IV in ED, will continue spot diuresis as needed -Chest x-ray consistent with volume overload and cardiomegaly -EKG showed paced rhythm with prolonged QTC of 560, patient has AICD/pacer -Holding lisinopril for BRAXTON, continuing metoprolol and simvastatin permanent A. fibwe will hold home dose warfarin for now considering supratherapeutic INR -Continue metoprolol and amiodarone for rate control Hypertensioncontinue metoprolol, holding lisinopril Adenocarcinoma of the colon-patient was reportedly too high risk for resection, no intervention at this time DVT PROPHYLAXIS -SCDs, holding anticoagulation for elevated INR CODE STATUSLevel 5 Spent 35 minutes in management. Subjective 83 yo f is in the ICU. Patient reports feeling tired and run down. Patient states she just wants to rest. Review of Systems Review of Systems: ROS: well nourished well developed. No double vision blurry vision No problems with speech or swallowing No palpitations, chest pain or pressure Dyspnea nonproductive cough No abdominal pain nausea vomiting diarrhea changes in appetite or weight No burning urine urine frequency or changes in color No focal joint pain or muscle pain No skin rashes or oral lesions No unusual bruising or bleeding No focused back pain or numbness or loss of strength No changes in memory or confusion Physical Exam Physical Exam: The patient appears more lethargic today. Vital signs as documented. Head exam is unremarkable. normocephalic, atraumatic Neck is with jugular venous distension, trachea is midline Lungs are rales to the bases. Cardiac exam reveals Rhythm is regular systolic ejection murmurs heard at the right upper sternal border Abdominal exam reveals normal bowel sounds, no masses, no organomegaly Extremities are mildly edematous and both pedal pulses are present Neurologic exam is A&Ox3, no focal deficits, strength is equal bilateral Psychologically seems neither anxious or depressed Skin is warm Dry without bruises or lesions Results & Data Vital Signs (Past 12 Hours) Vital Signs Temp Pulse Pulse Resp BP Pulse Ox 12/31/18 23:17 63 26 H 90 12/31/18 22:00 62 24 116/56 L 12/31/18 21:00 63 114/52 L 97 12/31/18 19:19 63 20 93 12/31/18 19:08 63 20 93 12/31/18 15:16 61 30 H 90 12/31/18 15:00 62 31 H 113/53 L 90 12/31/18 14:30 62 30 H 111/56 L 92 12/31/18 14:01 63 31 H 99/47 L 92 12/31/18 14:00 62 30 H 92 12/31/18 13:31 64 39 H 106/48 L 90 12/31/18 13:01 67 32 H 97/62 L 92 12/31/18 12:31 36.9 C 67 30 H 127/47 L 90 12/31/18 12:21 66 24 89 L 12/31/18 12:19 66 24 89 L 12/31/18 12:00 63 36 H 121/58 L 92 12/31/18 11:32 67 28 H 86 L 12/31/18 11:31 67 33 H 121/65 85 L PG Care Time/CCT Total # of Minutes Spent Total Time Spent with Patient: Total time spent is greater than 50% in coordination of care (as documented) at patient's floor/unit and/or counseling patient: (1) PNA (pneumonia) Laterality: right Lung location: middle lobe of lung Pneumonia type: due to unspecified organism Qualified Code(s): J18.1 - Lobar pneumonia, unspecified organism
[2019-01-01] MEDS: FUROSEMIDE 100 MG in SYRINGE 0 ML IV SCH (02:12)
[2019-01-01 04:31] LABS: Eosinophils # (auto) 0.01 K/uL (0-0.5); Eosinophils % (auto) 0.1 %; Hematocrit (blood only) 29.3 % (37-47); Hemoglobin 9.7 g/dL (12.0-16.0); Immature Granulocytes # (auto) 0.03 K/uL (0.00-0.02); Immature Granulocytes % (auto) 0.3 %; Lymphocytes # (auto) 0.81 K/uL (1.2-3.4); Mean Corpuscular Hgb Conc 33.1 g/dL (32-36); Mean Corpuscular Volume 87.2 fL (80-100); Monocytes # (auto) 1.21 K/uL (0.11-0.59); Monocytes % (auto) 10.5 %; Neutrophils # (auto) 9.44 K/uL (1.4-6.5); Neutrophils % (auto) 82.1 %; Platelet Count 155 K/uL (130-400); RDW Coefficient of Variation 16.9 % (11.5-14.5); RDW Standard Deviation 54.1 fL (36.4-46.3); Red Blood Count 3.36 M/uL (4.2-5.4)
[2019-01-01 04:44] LABS: INR 3.2 (0.9-1.1); Prothrombin Time 29.8 Seconds (9.0-12.0)
[2019-01-01 04:53] LABS: Albumin Level 2.5 gm/dl (3.4-5.0); BUN Creatinine Ratio 20.8 (10-20); Calcium 8.1 mg/dl (8.5-10.1); Creatinine Clr Calc Pharmacy 12.7 ml/min; Est GFR (African American) 13.2; Est GFR (Non-African American) 11.4; Magnesium 1.8 mg/dl (1.8-2.4); Potassium 3.3 mmol/L (3.5-5.1)
[2019-01-01 05:02] LABS: Albumin Globulin Ratio 0.6 (0.9-2); Bilirubin,Total 1.1 mg/dl (0.2-1); Globulin 4.2 gm/dl (2.5-4.0); Phosphorus 4.7 mg/dl (2.5-4.9); Total Protein 6.7 gm/dl (6.4-8.2)
[2019-01-01] MEDS ORDERED: POTASSIUM CHLORIDE / WTR 10 MEQ/100 ML PLCT IV ONE (05:45)
[2019-01-01] MEDS: LEVOTHYROXINE SODIUM 25 MCG TABLET PO SCH (06:10)
[2019-01-01] MEDS: DOXYCYCLINE HYCLATE 100 MG CAP PO SCH ×2 (06:11→19:15)
--- NOTE | 2019-01-01 06:35 | Critical Care Progress Note ---
Date of Service January 01, 2019 Assessment & Plan (1) S/P admission to ICU (intensive care unit): Reason Critically Ill: 83-year-old female with a past medical history of CHF, severe aortic stenosis, MVR, adenocarcinoma of colon, afib, prior stroke w/residual left sided weakness and prior GI bleed who presented to hospital with increased shortness of breath, hypoxic respiratory failure. Neuro - [facility] ICU: Negative Prior strokechronic left hemiparesis Cardiac - CHF: ECHO on 12/31: Left ventricular systolic function mildly reduced with EF of 45-50%. Severely dilated left and right atrium. Mod-severe , mod MR and mod- severe TR - prior to admission, patient's Lasix was held for 9 days given BRAXTON. - BNP was elevated to 13,000 on arrival, and CXR was consistent with volume overload - patient was receiving 100mg of Lasix tid on 12/31 with unsatisfactory response - Thank you to nephrology for consult - transitioned from Lasix to bumex drip on AM of 01/01 - Holding lisinopril for BRAXTON - Thank you to Palliative for input -> discussion w/patient and family regarding goals of care. Pt does not want further escalation of care. A. fib - home warfarin held initially given supratherapeutic INR -INR 3.2 this AM, continue to hold home warfarin -Thank you to cardiology for consult: d/c metoprolol succinate. ICD settings altered to attempt to maintain intrinsic AV conduction -pt has prolonged QTc of 520 -continue amiodarone to suppress arrhythmias Hypertension metoprolol d/katya, holding lisinopril Respiratory - Hypoxic respiratory failure: CHF exacerbation versus pneumonia -Chest x-ray showed bilateral consolidations with pneumonia versus volume overload -Patient currently on HFNC, 40L 100% -> attempting to wean patient off of high flow -continue Atrovent and budesonide nebs -Low suspicion that pulmonary symptoms are related to pneumonia, however given severity of pt's condition, will continue abx for a total of 7 days. -continue PO cefdinir and doxycycline until 01/05 -aggressive diuresis as above GI - GERDcontinue with 40mg pantoprazole daily Dietheart healthy, carb consistent diet w/fluid restriction Adenocarcinoma of the colon-patient was reportedly too high risk for resection, no intervention at this time Transaminitis -LFTs stable - potentially secondary to congestion -continue to monitor RENAL/LYTES - BRAXTON on CKDcurrent creatinine 3.5, worsening. Baseline is approx ~2 -Patient volume overloaded, continue with aggressive diuresis as above -Per patient's son (POA), he did not feel dialysis would be in accordance with his mother's wishes -monitor strict I's and O's, fluid restriction of 1000mL -Holding lisinopril -Avoid nephrotoxins -continue 400mg Magnesium Oxide daily. Pt also given an additional 1g of magnesium sulfate IV and 50 mEQ of potassium chloride in supplementation today - Thompson catheter in place for strict I's and O's ENDO - DMcurrently euglycemic, ICU hypoglycemic protocols, continue glargine and sliding scale -Last hemoglobin A1c 7.7 in July Hypothyroidismcontinue home dose Synthroid HEME - H&H stable, continue to monitor ID - Continue PO cefdinir and doxycycline until 01/05 LINES/IV ACCESS - Peripheral IVs, Thompson DVT PROPHYLAXIS - SCDs, holding anticoagulation for elevated INR of 3.2 CODE STATUS: DNR/DNI (2) CHF (congestive heart failure): (3) Afib: (4) DVT prophylaxis: (5) PNA (pneumonia): (6) Hypoxia: (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 Clark was resident physician during care of patient. I separately evaluated patient for welch portions of the history and the exam. I was present during the critical portion of medical decision making, and I discussed the case with the resident. I generally agree with the findings and plan. Attempting to maximize diuresis, we are discontinuing the bolus Lasix and transition to Bumex drip. Initially started at half milligram per hour there was no change in urine output we have increased it to 1 mg/h essentially maximum therapy. Additional discussion with family we are starting to transition to sole comfort and while we are not escalating care we will most likely discontinue active life-prolonging efforts should we not see any very remarkable improvement in the next 24 hours. Regardless if kidney function recovers there is still underlying malignancy and severe aortic stenosis both of which are on amenable to therapeutic interventions. We attempted to wean the high flow oxygen when the patient was converted to maximum dose oxygen on facemask she precipitously dropped into the 70s became symptomatic and required placement back on high flow nasal cannula. I have personally spent 45 minutes of critical care time in the direct management of this patient. This is a life/limb threatening event. This includes time spent evaluating patient, direct bedside care, chart review, placing orders, interpretation of diagnostic studies, discussion with consultants, patient, and/or family members regarding treatment decisions, as well as other required patient management activities. This time is exclusive of all separately billable procedures, and teaching time and separate from and in addition to any other critical care service time. Subjective Ms. Grider reports her breathing is about the same this morning. She states she feels hungry and is eager to have breakfast. She voices no other complaints this morning. Her urinary output from midnight to 7AM was approx 375mL. Despite the addition of 100mg of Lasix TID, she is not yet net negative with respect to her overall fluid balance since admission, and as of this morning, is positive 32mL since admission. Review of Systems Constitutional: + fatigue; no fever and no chills Respiratory: + dyspnea; no wheezing Cardiovascular: + edema; no chest pain and no palpitations Gastrointestinal: no abdominal pain, no nausea and no vomiting Physical Exam Constitutional: + ill appearing and + frail appearing Respiratory: able to speak in complete sentences Auscultation: + diminished lung sounds and + crackles (bibasilar crackles); no wheezes Cardiovascular: Rate/Rhythm: regular rate and regular rhythm Heart Sounds: + murmur Extremities: + edema (1+ edema bilaterally, L>R) Gastrointestinal (Abdomen): Inspection/Auscultation: abdomen not distended Percussion/Palpation: abdomen soft; abdomen nontender Results & Data Vital Signs (Past 12 Hours) Vital Signs Pulse Pulse Resp BP Pulse Ox 01/01/19 06:00 62 31 H 120/57 L 01/01/19 05:53 62 24 95 01/01/19 05:00 60 30 H 118/61 92 01/01/19 04:00 67 31 H 115/51 L 01/01/19 03:00 63 31 H 121/49 L 91 01/01/19 02:00 61 34 H 137/54 L 92 01/01/19 01:51 62 28 H 92 01/01/19 01:00 62 26 H 109/48 L 01/01/19 00:00 63 105/48 L 93 12/31/18 23:17 63 26 H 90 12/31/18 23:00 65 26 H 115/46 L 12/31/18 22:00 62 24 116/56 L 12/31/18 21:00 63 114/52 L 97 12/31/18 19:19 63 20 93 12/31/18 19:08 63 20 93 Resident Activity Tracking Resident Involvement: Resident Care Provided Care Provided: Adult Hospital Medicine (1) Anemia Anemia type: iron deficiency Iron deficiency anemia type: unspecified iron deficiency Qualified Code(s): D50.9 - Iron deficiency anemia, unspecified (2) PNA (pneumonia) Laterality: right Lung location: middle lobe of lung Pneumonia type: due to unspecified organism Qualified Code(s): J18.1 - Lobar pneumonia, unspecified organism
[2019-01-01] MEDS: ALBUT/IPRATROP 3MG/0.5MG NEB 3 ML VIAL NEB SCH ×4 (06:59→19:09)
[2019-01-01] MEDS: BUDESONIDE 0.5 MG/2 ML VIAL (PULMICORT) NEB SCH ×2 (06:59→19:09)
[2019-01-01] MEDS: guaiFENesin 600 MG TABCR PO SCH ×2 (07:54→20:00)
[2019-01-01] MEDS: FERROUS SULFATE 325 MG TAB PO SCH (07:54)
[2019-01-01] MEDS: CEROVITE ADV FORMULA TAB PO SCH (07:54)
[2019-01-01] MEDS: CEFDINIR 300 MG CAP PO SCH (07:54)
[2019-01-01] MEDS: PANTOprazole 40 MG TAB PO SCH (07:54)
[2019-01-01] MEDS: AMIODARONE 200 MG TAB PO SCH (07:55)
[2019-01-01] MEDS: CHOLECALCIFEROL 1,000 UNITS TAB PO SCH (07:55)
[2019-01-01] MEDS: INSULIN ASPART 100 UNITS/ML 3 ML PEN SC SCH ×4 (07:57→20:06)
[2019-01-01] MEDS: BUMETANIDE 10 MG in DEXTROSE 5% 10 ML IV SCH ×2 (08:31→17:43)
[2019-01-01] MEDS ORDERED: MAGNESIUM SULFATE / D5W 1 GM/100 ML BAG IV ONE (09:00)
[2019-01-01] MEDS: POTASSIUM CHLORIDE 20 MEQ/15 ML UDC PO STA ×3 (09:00→13:39)
[2019-01-01] MEDS ORDERED: BUMETANIDE 10 MG in DEXTROSE 5% 10 ML IV SCH (09:00)
--- NOTE | 2019-01-01 10:35 | Nephrology Progress Note ---
Date of Service January 01, 2019 Assessment & Plan (1) CHF (congestive heart failure): -- Patient is nonoliguric -- Fluid balance even to slightly negative -- Bumex gtt started this morning, titrate as needed + combination diuretic therapy to encourage negative fluid balance -- Monitor metabolic profile q 12 hours on gtt (2) ARF (acute renal failure): -- Baseline creatinine ~ 2.0 -- BRAXTON related to poor perfusion associated w/ CHF -- Patient has refused dialysis (3) Colon adenocarcinoma: (4) S/P admission to ICU (intensive care unit): -- Palliative care consult reviewed -- No escalation of care -- Plan of care reviewed with daughter at the bedside this morning -- Prognosis remains guarded Subjective No acute events overnight. No fevers or chills. Dyspnea improved. Remains on high flow oxygen. No chest pain. Review of Systems Review of Systems: All systems reviewed & are unremarkable except as noted in HPI & below Physical Exam Constitutional: + ill appearing Eyes: PERRL, conjunctivae normal, anicteric sclerae Neck: trachea midline, no thyromegaly Respiratory: normal respiratory effort and able to speak in complete sentences Auscultation: + rales (bilaterally) Cardiovascular: Rate/Rhythm: regular rate and regular rhythm Heart Sounds: + murmur Extremities: + edema (2+ LE edema) Gastrointestinal (Abdomen): normal bowel sounds, soft, nontender, no hepatosplenomegaly Skin: no rashes Neurologic: Motor/Sensory: no tremor and no asterixis Results & Data Vital Signs (Past 12 Hours) Vital Signs Temp Pulse Pulse Resp BP Pulse Ox 01/01/19 10:00 60 22 126/64 91 01/01/19 09:00 61 34 H 116/64 91 01/01/19 08:00 36.7 C 63 36 H 139/105 H 96 01/01/19 07:00 61 27 H 123/59 L 92 01/01/19 06:59 60 30 H 92 01/01/19 06:00 62 31 H 120/57 L 01/01/19 05:53 62 24 95 01/01/19 05:00 60 30 H 118/61 92 01/01/19 04:00 67 31 H 115/51 L 01/01/19 03:00 63 31 H 121/49 L 91 01/01/19 02:00 61 34 H 137/54 L 92 06/18/19 01:51 62 28 H 92 01/01/19 01:00 62 26 H 109/48 L 01/01/19 00:00 63 105/48 L 93 12/31/18 23:17 63 26 H 90 12/31/18 23:00 65 26 H 115/46 L Laboratory Results Laboratory Results - last 24 hr 12/29/18 12/31/18 12/31/18 21:02 11:27 14:58 WBC RBC Hgb POC Hgb 11.2 L Hct POC Hct 33 L MCV MCH MCHC RDW Std Deviation RDW Coeff of Venita Plt Count MPV Immature Gran % (Auto) Neut % (Auto) Lymph % (Auto) [place] % (Auto) Eos % (Auto) Baso % (Auto) Immature Gran # (Auto) Neut # (Auto) Lymph # (Auto) [place] # (Auto) Eos # (Auto) Baso # (Auto) PT INR POC pH 7.42 POC pCO2 29 L POC pO2 42 L POC HCO3 19 POC Total CO2 19 L POC Base Excess -6.0 POC Sodium 136 Sodium 132 L POC Potassium 3.9 Potassium 3.4 L Chloride 99 Carbon Dioxide 21 Anion Gap 12.0 H BUN 65 H Creatinine 3.26 H Est Cr Clr Drug Dosing 13.8 Est GFR ( Amer) 14.5 Est GFR (Non-Af Amer) 12.5 BUN/Creatinine Ratio 20.0 Glucose 133 H POC Glucose 136 H Calcium 8.2 L Phosphorus Magnesium Total Bilirubin AST ALT Alkaline Phosphatase NT-Pro-B Natriuret Pep Total Protein Albumin Globulin Albumin/Globulin Ratio Urine Color Urine Appearance Urine pH Ur Specific [place] Urine Protein Urine Glucose (UA) Urine Ketones Urine Blood Urine Nitrite Urine Bilirubin Urine Urobilinogen Ur Leukocyte Esterase Urine WBC (Auto) Urine RBC (Auto) U Hyaline Cast (Auto) U Epithel Cells (Auto) Urine Bacteria (Auto) Urine Yeast 12/31/18 12/31/18 12/31/18 16:37 20:14 Unknown WBC RBC Hgb POC Hgb Hct POC Hct MCV MCH MCHC RDW Std Deviation RDW Coeff of Venita Plt Count MPV Immature Gran % (Auto) Neut % (Auto) Lymph % (Auto) [place] % (Auto) Eos % (Auto) Baso % (Auto) Immature Gran # (Auto) Neut # (Auto) Lymph # (Auto) [place] # (Auto) Eos # (Auto) Baso # (Auto) PT INR POC pH POC pCO2 POC pO2 POC HCO3 POC Total CO2 POC Base Excess POC Sodium Sodium POC Potassium Potassium Chloride Carbon Dioxide Anion Gap BUN Creatinine Est Cr Clr Drug Dosing Est GFR ( Amer) Est GFR (Non-Af Amer) BUN/Creatinine Ratio Glucose POC Glucose 148 H 176 H Calcium Phosphorus Magnesium Total Bilirubin AST ALT Alkaline Phosphatase NT-Pro-B Natriuret Pep Total Protein Albumin Globulin Albumin/Globulin Ratio Urine Color Yellow Urine Appearance Clear Urine pH 5.0 Ur Specific [place] 1.016 Urine Protein Negative Urine Glucose (UA) Negative Urine Ketones Negative Urine Blood Negative Urine Nitrite Negative Urine Bilirubin Negative Urine Urobilinogen Negative Ur Leukocyte Esterase Trace H Urine WBC (Auto) 5-10 H Urine RBC (Auto) 5-10 H U Hyaline Cast (Auto) Not Reportable U Epithel Cells (Auto) >30 H Urine Bacteria (Auto) Negative Urine Yeast Not Reportable 01/01/19 01/01/19 01/01/19 04:07 04:07 04:07 WBC 11.50 H RBC 3.36 L Hgb 9.7 L POC Hgb Hct 29.3 L POC Hct MCV 87.2 MCH 28.9 MCHC 33.1 RDW Std Deviation 54.1 H RDW Coeff of Venita 16.9 H Plt Count 155 MPV 10.0 Immature Gran % (Auto) 0.3 Neut % (Auto) 82.1 Lymph % (Auto) 7.0 [place] % (Auto) 10.5 Eos % (Auto) 0.1 Baso % (Auto) 0.0 Immature Gran # (Auto) 0.03 H Neut # (Auto) 9.44 H Lymph # (Auto) 0.81 L [place] # (Auto) 1.21 H Eos # (Auto) 0.01 Baso # (Auto) 0.00 PT 29.8 H INR 3.2 H POC pH POC pCO2 POC pO2 POC HCO3 POC Total CO2 POC Base Excess POC Sodium Sodium 131 L POC Potassium Potassium 3.3 L Chloride 96 L Carbon Dioxide 22 Anion Gap 13.0 H BUN 73 H Creatinine 3.52 H Est Cr Clr Drug Dosing 12.7 Est GFR ( Amer) 13.2 Est GFR (Non-Af Amer) 11.4 BUN/Creatinine Ratio 20.8 H Glucose 155 H POC Glucose Calcium 8.1 L Phosphorus 4.7 Magnesium 1.8 Total Bilirubin 1.1 H AST 200 H ALT 186 H Alkaline Phosphatase 78 NT-Pro-B Natriuret Pep 38216 H Total Protein 6.7 Albumin 2.5 L Globulin 4.2 H Albumin/Globulin Ratio 0.6 L Urine Color Urine Appearance Urine pH Ur Specific [place] Urine Protein Urine Glucose (UA) Urine Ketones Urine Blood Urine Nitrite Urine Bilirubin Urine Urobilinogen Ur Leukocyte Esterase Urine WBC (Auto) Urine RBC (Auto) U Hyaline Cast (Auto) U Epithel Cells (Auto) Urine Bacteria (Auto) Urine Yeast
[2019-01-01] MEDS ORDERED: Nursing to Pharmacy Communication ONE (12:33)
[2019-01-01] MEDS ORDERED: WARFARIN SOD 2.5 MG TAB PO SCH (16:00)
--- NOTE | 2019-01-01 16:08 | Palliative Care Progress Note ---
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 Patient came from home where she has 24/7 caregivers. Apparently patient saw nephrology as outpatient and diuretic was held due to BRAXTON on CKD. On admission, BNP elevated, CXR showed pulmonary edema vs. pneumonia, creatinine 2.34 (2 at baseline) but has risen to 3.52 today-patient being aggressively diuresed. Patient was experiencing respiratory failure due to the volume overload, was admitted to ICU and trialed on Bipap but unable to tolerate. She is now on high- flow nasal cannula at 35LPM. She was seen by her truck service technician and started on 100mg IV Lasix TID. She is nonoliguric today, but overall condition not improved. Patient has known valvular disease, echo showed mod-sev aortic stenosis, mod-sev tricuspid regurg, severely dilated bilateral atria, EF 40-45%. Discussion with patient, her son Luis, and her daughter, about goals of care. Patient was minimally able to participate given her lethargy and acute illness. Her son stated that she has been through a lot in the last 11 years and is tired. He does not want any heroics to be done -patient is a DNR/DNI -Met with patient, her son Luis, and daughter in room 104. patient is awake but falling asleep frequently on high-flow nasal cannula. Patient states her breathing seems a bit easier today compared to yesterday. -Patient's condition discussed - Patient remains on high-flow, fluid balance is minimally improved despite aggressive diuresis - creatinine are slightly worse today. Son and daughter verbalize understanding and state that the overarching goal is COMFORT. -IF patient's kidneys worsen, no dialysis per patient's wishes. She will remain DNR/DNI, but continue current medical treatment. NO ESCALATION IN CARE. If symptoms arise, they are okay with starting Roxanol as needed for pain or SOB/air hunger. They verbalize understanding and are accepting of secondary side effects of morphine. -Will start Roxanol 5mg PO/SL Q3h PRN pain or SOB. -If patient does not improve despite aggressive management-goal is comfort care (2) ARF (acute renal failure): (3) CHF due to valvular disease: (4) Colon adenocarcinoma: (2) ARF (acute renal failure): (3) CHF due to valvular disease: (4) Colon adenocarcinoma: Subjective Patient seen and examined in the ICU. Patient's son and daughter at bedside. Patient states she feels more comfortable, appears more alert-family reports patient did get some sleep last p.m. Patient continues to require high flow nasal cannula, is being aggressively diuresed with minimal response-creatinine increasing from 2.33-3.52. Patient's hemoglobin minimally decreased from 10.9-9.7, her white count remains elevated. Review of Systems Review of Systems: Unobtainable due to reduced consciousness Physical Exam Physical Exam: PE: Patient alert, dozes off quickly, appears more comfortable on exam compared to yesterday HEENT: EOMI, hearing within normal limits Respiratory: Still using accessory muscles, increased work of breathing, diminished breath sounds bilaterally CV: Regular rate, lower extremity edema improved-may be due to having legs elevated Abdomen: Soft, nontender : Poor urine output Neuro: Patient alert at times, able to communicate with family Results & Data Vital Signs (Past 12 Hours) Vital Signs Temp Pulse Pulse Resp BP Pulse Ox 01/01/19 15:28 60 30 H 93 01/01/19 15:27 60 30 H 93 01/01/19 14:00 61 22 117/60 91 01/01/19 13:00 59 L 25 H 116/61 87 L 01/01/19 12:01 59 L 32 H 132/62 88 L 01/01/19 11:05 60 28 H 91 01/01/19 11:01 62 26 H 110/55 L 91 01/01/19 10:00 60 22 126/64 91 01/01/19 09:00 61 34 H 116/64 91 01/01/19 08:00 98.1 F 63 36 H 139/105 H 96 01/01/19 07:00 61 27 H 123/59 L 92 01/01/19 06:59 60 30 H 92 01/01/19 06:00 62 31 H 120/57 L 01/01/19 05:53 62 24 95 01/01/19 05:00 60 30 H 118/61 92 Time Spent Attending Total time spent 40 minutes with greater than 50% of the time spent at bedside discussing patient's current status as well as minimal improvement despite aggressive measures
[2019-01-01 16:42] LABS: BUN Creatinine Ratio 23.4 (10-20); Calcium 8.4 mg/dl (8.5-10.1); Creatinine Clr Calc Pharmacy 12.7 ml/min; Est GFR (African American) 13.1; Est GFR (Non-African American) 11.3; Potassium 3.6 mmol/L (3.5-5.1)
--- NOTE | 2019-01-01 16:43 | Cardiology Progress Note ---
Date of Service January 01, 2019 Assessment & Plan (1) CHF (congestive heart failure): She does present in congestive heart failure, her weight is hard to interpret on admission. I suspect however she is in some degree of congestive heart failure and some form of diuresis would be beneficial. Her BNP was quite elevated. (2) Afib: She has a history of what we thought was permanent atrial fibrillation however sometime since September she appears to have converted to sinus bradycardia. In the office there was no evidence of atrial activity (including atrial fibrillation) leading us to believe that she had atrial standstill. This admission however she clearly has atrial activity, at times sinus rhythm with first-degree AV block and intact conduction. The amiodarone which is being used for ventricular tachycardia presumably because conversion of her rhythm. The rate is probably faster during the hospital due to a high catecholamine state. I agree with anticoagulation over the long run, however I do not believe she has been in atrial fibrillation for some time therefore it is not critical at this juncture. I did discontinue her metoprolol in hopes of allowing her heart rate to become more appropriate, perhaps with a more appropriate AV interval which may help hemodynamically. (3) ICD (implantable cardioverter-defibrillator) in place: She has a single-chamber ICD, the single-chamber was used because she appeared to be in permanent atrial fibrillation at the time. Subsequently with addition of amiodarone she has converted to sinus rhythm. The single chamber ICD is not ideal in that situation, she will pace in VVI mode if needed, which is currently programmed at 50 BPM. (4) Cardiomyopathy: She has a cardiomyopathy which on recent echocardiography at [facility] (September 17, 2018) was felt to be 45% and similar this admission here. It had been much worse at other times. Although ideally we would maintain beta-blockade, under the circumstances it may be better to allow her heart rate to increase and maintain intrinsic conduction (which is somewhat narrow and will benefit her cardiomyopathy) rather than keep her on low-dose metoprolol. In the future if she begins to pace frequently we can restart beta- blockade, perhaps using a drug like carvedilol which may have less negative chronotropic effect. (5) Ventricular tachycardia: She has had ventricular tachycardia both preceding her ICD and subsequently, including a flurry of it where she received 4 ICD shocks appropriately. This was before the addition of amiodarone. I would maintain amiodarone, we could consider reducing the dose but I would maintain the current dose if possible. Subjective She is very sleepy, does arouse, no specific complaints. Physical Exam Physical Exam: Constitutional: Alert, cooperative and in moderate respiratory distress. HEENT: Unremarkable Neck: No jugular venous distention, carotid pulses are normal and equal bilaterally without bruits. Pulmonary: Bilateral crackles. Cardiac: Regular rhythm with a grade 3/6 crescendo decrescendo murmur at the base, no gallop or rub. Abdomen: Soft, nontender with normal bowel sounds. Extremities: +2 bilateral pretibial edema. Neurologic: Left-sided weakness remains. Gait was not tested. Skin: No rash, ecchymoses or petechiae. Results & Data Vital Signs (Past 12 Hours) Vital Signs Temp Pulse Pulse Resp BP Pulse Ox 01/01/19 16:23 59 L 30 H 89 L 01/01/19 15:28 60 30 H 93 01/01/19 15:27 60 30 H 93 01/01/19 14:00 61 22 117/60 91 01/01/19 13:00 59 L 25 H 116/61 87 L 01/01/19 12:01 59 L 32 H 132/62 88 L 01/01/19 11:05 60 28 H 91 01/01/19 11:01 62 26 H 110/55 L 91 01/01/19 10:00 60 22 126/64 91 01/01/19 09:00 61 34 H 116/64 91 01/01/19 08:00 36.7 C 63 36 H 139/105 H 96 01/01/19 07:00 61 27 H 123/59 L 92 01/01/19 06:59 60 30 H 92 01/01/19 06:00 62 31 H 120/57 L 01/01/19 05:53 62 24 95 01/01/19 05:00 60 30 H 118/61 92 Diagnostic Findings Telemetry: V pacing frequently overnight, after reprogramming pacer mostly SR high 50s, some V pacing
[2019-01-01] MEDS: MAGNESIUM OXIDE 400 MG TAB PO SCH ×2 (19:59→20:33)
[2019-01-01] MEDS: LORazepam 0.5 MG TAB PO SCH (20:02)
[2019-01-01] MEDS: INSULIN GLARGINE SOLOSTAR 100 UNITS/ML 3 ML PEN SQ SCH (20:07)
--- NOTE | 2019-01-01 22:56 | Hospitalist Progress Note ---
Date of Service January 01, 2019 Assessment & Plan (1) Acute respiratory failure with hypoxia: On 12/31: Patient appears to not be improving. Patient obtains 40 liters/min. of oxygen. Patient appears to be in pulmonary edema from fluid overload, likely from acute renal failure. Increased lasix to 100 mg TID. Patient and family do not want escalation of care. Will maintain patient in the ICU. On 01/01: Patient continues to be doing poorly. Metals Analyst had discussion with family, possibility of moving her to for comfort care in AM. Will continue current management and have family decide in AM. (2) PNA (pneumonia): As suggested on x-ray may be asymmetrical heart failure patient is no clinical pulmonary symptoms. She was however with acute respiratory failure with hypoxia Levaquin started in the ED, will continue Slightly elevated in WBC, afebrile Flu neg Patient is covered for pneumonia but the river driver of this case may more be her acute on chronic systolic heart failure and acute on chronic diastolic heart failure from valvular heart disease Her typical manager transport is Dr Cherry, the family states she has had discussions about her aortic valve with Dr Cherry in the past As noted above, patient is not improving. 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 s/p c-scope 07/2018 Monitor (5) CKD stage 3 due to type 2 diabetes mellitus: Monitor cr, avoid nephrotoxic meds and dose medication appropriately for Cr Cl 20 (6) GERD (gastroesophageal reflux disease): pantoprozole (7) Diabetes: A1c 8.4 Lantus as at home SSI PRN (8) Hypertension: continue metoprolol holding lisinpril (9) Hyperlipidemia: zocor (10) CHF (congestive heart failure): acute on chronic systolic and diastolic heart failure last echo in July, showed severe aortic stenosis, EF 25 to 30% with left ventricular hypokinesis, moderate mitral and tricuspid regurg -On home Lasix but held past 9 days for BRAXTON, given 40 mg IV in ED, will continue spot diuresis as needed -Chest x-ray consistent with volume overload and cardiomegaly -EKG showed paced rhythm with prolonged QTC of 560, patient has AICD/pacer -Holding lisinopril for BRAXTON, continuing metoprolol and simvastatin permanent A. fibwe will hold home dose warfarin for now considering supratherapeutic INR -Continue metoprolol and amiodarone for rate control Hypertensioncontinue metoprolol, holding lisinopril Adenocarcinoma of the colon-patient was reportedly too high risk for resection, no intervention at this time DVT PROPHYLAXIS -SCDs, holding anticoagulation for elevated INR CODE STATUSLevel 5 Spent 25 minutes in management. Subjective Patient does not provide significant history. Family is at bedside. D/W predator control trapper. Family appears to be discussing transitioning her to comfort measures as she continues to require large amounts of oxygen. Review of Systems Review of Systems: Other Patient is weak and lethargic Physical Exam Physical Exam: The patient appears lethargic today. Vital signs as documented. Head exam is unremarkable. normocephalic, atraumatic Neck is with jugular venous distension, trachea is midline Lungs are rales to the bases. Cardiac exam reveals Rhythm is regular systolic ejection murmurs heard at the right upper sternal border Abdominal exam reveals normal bowel sounds, no masses, no organomegaly Extremities are mildly edematous and both pedal pulses are present Neurologic exam is A&Ox3, no focal deficits, strength is equal bilateral Psychologically seems neither anxious or depressed Skin is warm Dry without bruises or lesions Results & Data Vital Signs (Past 12 Hours) Vital Signs Temp Pulse Pulse Resp BP Pulse Ox 01/01/19 22:01 70 23 100/48 L 96 01/01/19 22:00 63 23 95 01/01/19 21:01 68 29 H 97/53 L 93 01/01/19 21:00 67 26 H 93 01/01/19 20:03 67 36 H 92 01/01/19 20:01 38.3 C H 72 38 H 118/79 92 01/01/19 20:00 68 37 H 92 01/01/19 19:31 69 42 H 117/57 L 88 L 01/01/19 19:11 69 20 91 01/01/19 19:01 67 37 H 112/64 91 01/01/19 18:31 65 35 H 125/59 L 92 01/01/19 18:01 76 33 H 103/66 77 L 01/01/19 17:31 65 37 H 103/52 L 86 L 01/01/19 17:01 65 38 H 117/65 83 L 01/01/19 17:00 65 37 H 83 L 01/01/19 16:31 61 28 H 122/58 L 90 01/01/19 16:23 59 L 30 H 89 L 01/01/19 16:01 61 33 H 123/63 87 L 01/01/19 16:00 62 34 H 01/01/19 15:31 60 29 H 116/59 L 88 L 01/01/19 15:28 60 30 H 93 01/01/19 15:27 60 30 H 93 01/01/19 15:01 59 L 21 106/55 L 92 01/01/19 15:00 36.8 C 58 L 22 92 01/01/19 14:31 59 L 31 H 117/62 90 01/01/19 14:02 58 L 22 92 01/01/19 14:00 61 22 117/60 91 01/01/19 13:00 59 L 25 H 116/61 87 L 01/01/19 12:01 59 L 32 H 132/62 88 L 01/01/19 11:05 60 28 H 91 01/01/19 11:01 62 26 H 110/55 L 91 PG Care Time/CCT Total # of Minutes Spent Total Time Spent with Patient: Total time spent is greater than 50% in coordination of care (as documented) at patient's floor/unit and/or counseling patient: (1) PNA (pneumonia) Laterality: right Lung location: middle lobe of lung Pneumonia type: due to unspecified organism Qualified Code(s): J18.1 - Lobar pneumonia, unspecified organism
[2019-01-02] MEDS: BUMETANIDE 10 MG in DEXTROSE 5% 10 ML IV SCH (03:48)
[2019-01-02 04:33] LABS: Eosinophils # (auto) 0.11 K/uL (0-0.5); Eosinophils % (auto) 1.3 %; Hematocrit (blood only) 27.8 % (37-47); Hemoglobin 9.5 g/dL (12.0-16.0); Immature Granulocytes # (auto) 0.02 K/uL (0.00-0.02); Immature Granulocytes % (auto) 0.2 %; Lymphocytes # (auto) 0.79 K/uL (1.2-3.4); Lymphocytes % (auto) 9.3 %; Mean Corpuscular Hgb Conc 34.2 g/dL (32-36); Monocytes # (auto) 0.87 K/uL (0.11-0.59); Monocytes % (auto) 10.2 %; Neutrophils # (auto) 6.71 K/uL (1.4-6.5); Platelet Count 156 K/uL (130-400); RDW Coefficient of Variation 16.8 % (11.5-14.5); RDW Standard Deviation 52.5 fL (36.4-46.3); Red Blood Count 3.27 M/uL (4.2-5.4)
[2019-01-02 04:41] LABS: INR 2.9 (0.9-1.1); Prothrombin Time 27.7 Seconds (9.0-12.0)
[2019-01-02 04:54] LABS: BUN Creatinine Ratio 26.1 (10-20); Calcium 8.2 mg/dl (8.5-10.1); Creatinine Clr Calc Pharmacy 13.4 ml/min; Est GFR (Non-African American) 12.1; Magnesium 2.2 mg/dl (1.8-2.4); Phosphorus 4.6 mg/dl (2.5-4.9)
[2019-01-02] MEDS: POTASSIUM CHLORIDE / WTR 10 MEQ/100 ML PLCT IV SCH ×2 (05:55→07:46)
[2019-01-02] MEDS: LEVOTHYROXINE SODIUM 25 MCG TABLET PO SCH (06:18)
--- NOTE | 2019-01-02 06:27 | Critical Care Progress Note ---
Date of Service January 02, 2019 Assessment & Plan (1) S/P admission to ICU (intensive care unit): Reason Critically Ill: 83-year-old female with a past medical history of CHF, severe aortic stenosis, MVR, adenocarcinoma of colon, afib, prior stroke w/residual left sided weakness and prior GI bleed who presented to hospital with increased shortness of breath, hypoxic respiratory failure. Neuro - [facility] ICU: Negative Prior strokechronic left hemiparesis Cardiac - CHF: ECHO on 12/31: Left ventricular systolic function mildly reduced with EF of 45-50%. Severely dilated left and right atrium. Mod-severe , mod MR and mod- severe TR - prior to admission, patient's Lasix was held for 9 days given BRAXTON. - BNP was elevated to 13,000 on arrival, and CXR was consistent with volume overload. - Nephrology following - placed on maximum rate of bumex drip on 01/01 - urine output has improved and patient is overall negative 1.1L since admission, however she is still unable to be weaned off of high flow oxygen - pt's respiratory status has not improved despite maximal therapy. This, in addition to the patient's severe and underlying malignancy, gives her a very poor prognosis. - Palliative consulted -> discussion w/patient and family regarding goals of care. Pt does not want further escalation of care. - Discussed with family this morning, decision was made to transition to comfort care. Patient will be transferred to the fourth floor, taken off life- sustaining medications, and started on an IV morphine drip to make her comfortable and aid with air hunger. Atropine and scopolamine also ordered to aid in comfort. A. fib - home warfarin held given supratherapeutic INR -INR 2.9 this AM -Cardiology following -pt has prolonged QTc of 520 -d/c home meds Hypertension home meds discontinued Respiratory - Hypoxic respiratory failure: CHF exacerbation versus pneumonia -Chest x-ray showed bilateral consolidations with pneumonia versus volume overload. Repeat CXR this AM unchanged from prior -Patient currently on HFNC - respiratory has been unable to wean patient off of high flow - Initially had planned to continue abx (PO cefdinir and doxycycline) for a total of 7 days - will d/c today GI - Dietheart healthy, carb consistent diet Adenocarcinoma of the colon-patient was reportedly too high risk for resection, no intervention at this time Transaminitis -LFTs stable - potentially secondary to congestion RENAL/LYTES - BRAXTON on CKDcurrent creatinine 3.3, stable. Baseline is approx ~2 -Per patient & POA - does not want dialysis -potassium repleted this AM. - Thompson catheter in place ENDO - DMcurrently euglycemic, d/c insulin -Hemoglobin A1c = 8.4% Hypothyroidism HEME - H&H has remained stable ID - d/c PO cefdinir and doxycycline Thrush -pt's examination is consistent w/oropharyngeal thrush -phenol spray q2h hours prn for pain LINES/IV ACCESS - Peripheral IVs, Thompson DVT PROPHYLAXIS - INR therapeutic at 2.9 CODE STATUS: DNR/DNI Thank you for allowing us to participate in the care of this patient. Please refer to my attending physician's documentation for any further recommendations. 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 Clark was resident physician during care of patient. I separately evaluated patient for welch portions of the history and the exam. I was present during the critical portion of medical decision making, and I discussed the case with the resident. I generally agree with the findings and plan. Patient is in end-stage terminal medical condition without meaningful chance of recovery. Discussed with patient, son, daughter and palliative care all in agreement proceed with comfort measures only. Subjective Ms. Grider reports that she has developed a sore throat, which hurts significantly when she swallows. She also notes that it has been several days since she has had a bowel movement, and that her abdomen is quite uncomfortable. She states her breathing is approximately the same. Her urinary output improved with the increase of her bumex drip, and she is now net negative 1.2L since admission. She is still, however, unable to be weaned off of the high flow oxygen, and dropped into the 70s when transitioned to a mask. Review of Systems Constitutional: + fatigue; no fever and no chills Ear, Nose, Mouth, Throat: + dry mouth, + sore throat and + pain with swallowing Respiratory: + dyspnea; no wheezing Cardiovascular: + edema; no chest pain and no palpitations Gastrointestinal: + abdominal pain and + constipation; no nausea and no vomiting Physical Exam Constitutional: + ill appearing and + frail appearing ENMT: Mouth: + tongue abnormality (white coating noted on tongue) and + dry oral mucous membranes Respiratory: able to speak in complete sentences Auscultation: + diminished lung sounds and + crackles (bibasilar crackles) Cardiovascular: Rate/Rhythm: regular rate and regular rhythm Heart Sounds: + murmur Extremities: + edema (1+ edema bilaterally, L>R) Gastrointestinal (Abdomen): Percussion/Palpation: + abdomen tender (mildly tender to palpation throughout) and abdomen soft; no guarding and abdomen not rigid Psychiatric: A+Ox3, euthymic affect Results & Data Vital Signs (Past 12 Hours) Vital Signs Temp Pulse Pulse Resp BP Pulse Ox 01/02/19 05:01 59 L 27 H 121/54 L 93 01/02/19 04:01 58 L 29 H 122/63 96 01/02/19 04:00 36.6 C 01/02/19 03:17 62 24 95 01/02/19 03:01 61 26 H 125/63 95 01/02/19 02:01 62 26 H 129/58 L 95 01/02/19 01:01 60 19 113/55 L 96 01/02/19 00:15 36.9 C 01/02/19 00:01 59 L 23 118/56 L 97 01/01/19 23:01 62 20 108/55 L 96 01/01/19 22:01 70 23 100/48 L 96 01/01/19 22:00 63 23 95 01/01/19 21:01 68 29 H 97/53 L 93 01/01/19 21:00 67 26 H 93 01/01/19 20:03 67 36 H 92 01/01/19 20:01 38.3 C H 72 38 H 118/79 92 01/01/19 20:00 68 37 H 92 01/01/19 19:31 69 42 H 117/57 L 88 L 01/01/19 19:11 69 20 91 01/01/19 19:01 67 37 H 112/64 91 01/01/19 18:31 65 35 H 125/59 L 92 PG Care Time/CCT Critical Care Time: Yes Total Critical Care Time: 35 Resident Activity Tracking Resident Involvement: Resident Care Provided Care Provided: Adult Hospital Medicine (1) Anemia Anemia type: iron deficiency Iron deficiency anemia type: unspecified iron deficiency Qualified Code(s): D50.9 - Iron deficiency anemia, unspecified (2) PNA (pneumonia) Laterality: right Lung location: middle lobe of lung Pneumonia type: due to unspecified organism Qualified Code(s): J18.1 - Lobar pneumonia, unspecified organism
--- NOTE | 2019-01-02 06:52 | XRay Report ---
XR chest 1V portable CLINICAL HISTORY: sob, assess pulm edema dyspnea COMPARISON STUDY: 12/31/2018 FINDINGS: Unchanging findings of pulmonary edema. The heart remains enlarged. Diaphragms are smooth. The costophrenic angles are in general sharp. IMPRESSION: Unchanged findings of pulmonary edema. The above report was generated using voice recognition software. It may contain grammatical, syntax or spelling errors. Electronically signed by: Sy Ha M.D. 01/02/2019 6:50 AM
[2019-01-02] MEDS ORDERED: NYSTATIN SUSP 500,000 U/5 ML UDC PO SCH (07:00)
[2019-01-02] MEDS: CEROVITE ADV FORMULA TAB PO SCH ×2 (07:48→11:26)
[2019-01-02] MEDS: PANTOprazole 40 MG TAB PO SCH ×2 (07:48→11:25)
[2019-01-02] MEDS: CHOLECALCIFEROL 1,000 UNITS TAB PO SCH ×2 (07:49→11:25)
[2019-01-02] MEDS: FERROUS SULFATE 325 MG TAB PO SCH ×2 (07:49→11:24)
[2019-01-02] MEDS: AMIODARONE 200 MG TAB PO SCH (07:49)
[2019-01-02] MEDS: CEFDINIR 300 MG CAP PO SCH ×2 (07:50→11:26)
[2019-01-02] MEDS: guaiFENesin 600 MG TABCR PO SCH (07:50)
[2019-01-02] MEDS: DOXYCYCLINE HYCLATE 100 MG CAP PO SCH (07:50)
[2019-01-02] MEDS: INSULIN ASPART 100 UNITS/ML 3 ML PEN SC SCH (07:56)
[2019-01-02] MEDS: ALBUT/IPRATROP 3MG/0.5MG NEB 3 ML VIAL NEB SCH (07:59)
[2019-01-02] MEDS: BUDESONIDE 0.5 MG/2 ML VIAL (PULMICORT) NEB SCH (07:59)
[2019-01-02] MEDS ORDERED: CHLORASEPTIC 1.4% SOLN 180 ML BTL MT PRN (08:10)
[2019-01-02] MEDS ORDERED: ONDANSETRON INJ 2 MG/ML 2 ML VIAL IV STA (09:16)
[2019-01-02] MEDS ORDERED: LORazepam 0.5 MG/1 ML VIAL IV STA (09:18)
--- NOTE | 2019-01-02 09:36 | Nephrology Progress Note ---
Date of Service January 02, 2019 Assessment & Plan (1) CHF (congestive heart failure): -- Bumex gtt to encourage net negative fluid balance -- Gtt may be increased to 2 mg/hr as needed -- Combination diuretic therapy as needed to encourage diuresis (2) ARF (acute renal failure): -- Baseline creatinine ~ 2.0 -- BRAXTON related to poor perfusion associated w/ CHF -- Patient has refused dialysis -- Goals of care transitioning to comfort (3) Colon adenocarcinoma: (4) S/P admission to ICU (intensive care unit): -- Palliative care consult reviewed -- No escalation of care -- Plan of care reviewed with son at the bedside this morning -- Prognosis remains guarded Subjective Ms. Grider was seen and evaluated with her son at the bedside this morning. The patient reports a sore throat and difficulty swallowing. She persistent dry mouth. She has the urge to move her bowels but has not been able to have a bowel movement. Oral intake is poor. Urine output improved with Bumex gtt. O2 is being weaned. Remains on high flow nasal canula. Review of Systems Review of Systems: All systems reviewed & are unremarkable except as noted in HPI & below Physical Exam Constitutional: + ill appearing Eyes: PERRL, conjunctivae normal, anicteric sclerae Neck: trachea midline, no thyromegaly Respiratory: normal respiratory effort and able to speak in complete sentences Auscultation: + rales (bilaterally) Cardiovascular: Rate/Rhythm: regular rate and regular rhythm Heart Sounds: + murmur Extremities: + edema (2+ LE edema) Gastrointestinal (Abdomen): normal bowel sounds, soft, nontender, no hepatosplenomegaly Skin: no rashes Neurologic: Motor/Sensory: no tremor and no asterixis Results & Data Vital Signs (Past 12 Hours) Vital Signs Temp Pulse Pulse Resp BP Pulse Ox 01/02/19 08:00 63 18 93 01/02/19 06:02 69 33 H 116/49 L 93 01/02/19 05:01 59 L 27 H 121/54 L 93 01/02/19 04:01 58 L 29 H 122/63 96 01/02/19 04:00 36.6 C 01/02/19 03:17 62 24 95 01/02/19 03:01 61 26 H 125/63 95 01/02/19 02:01 62 26 H 129/58 L 95 06/19/19 01:01 60 19 113/55 L 96 01/02/19 00:15 36.9 C 01/02/19 00:01 59 L 23 118/56 L 97 01/01/19 23:01 62 20 108/55 L 96 01/01/19 22:01 70 23 100/48 L 96 01/01/19 22:00 63 23 95 Laboratory Results Laboratory Results - last 24 hr 01/01/19 01/01/19 01/01/19 07:32 11:07 16:03 WBC RBC Hgb Hct MCV MCH MCHC RDW Std Deviation RDW Coeff of Venita Plt Count MPV Immature Gran % (Auto) Neut % (Auto) Lymph % (Auto) [place] % (Auto) Eos % (Auto) Baso % (Auto) Immature Gran # (Auto) Neut # (Auto) Lymph # (Auto) [place] # (Auto) Eos # (Auto) Baso # (Auto) PT INR Sodium 131 L Potassium 3.6 Chloride 96 L Carbon Dioxide 23 Anion Gap 12.0 H BUN 82 H Creatinine 3.53 H Est Cr Clr Drug Dosing 12.7 Est GFR ( Amer) 13.1 Est GFR (Non-Af Amer) 11.3 BUN/Creatinine Ratio 23.4 H Glucose 161 H POC Glucose 186 H 230 H Calcium 8.4 L Phosphorus Magnesium 01/01/19 01/01/19 01/02/19 16:07 20:04 04:03 WBC RBC Hgb Hct MCV MCH MCHC RDW Std Deviation RDW Coeff of Venita Plt Count MPV Immature Gran % (Auto) Neut % (Auto) Lymph % (Auto) [place] % (Auto) Eos % (Auto) Baso % (Auto) Immature Gran # (Auto) Neut # (Auto) Lymph # (Auto) [place] # (Auto) Eos # (Auto) Baso # (Auto) PT 27.7 H INR 2.9 H Sodium Potassium Chloride Carbon Dioxide Anion Gap BUN Creatinine Est Cr Clr Drug Dosing Est GFR ( Amer) Est GFR (Non-Af Amer) BUN/Creatinine Ratio Glucose POC Glucose 178 H 168 H Calcium Phosphorus Magnesium 01/02/19 01/02/19 01/02/19 04:03 04:03 06:52 WBC 8.50 RBC 3.27 L Hgb 9.5 L Hct 27.8 L MCV 85.0 MCH 29.1 MCHC 34.2 RDW Std Deviation 52.5 H RDW Coeff of Venita 16.8 H Plt Count 156 MPV 10.0 Immature Gran % (Auto) 0.2 Neut % (Auto) 79.0 Lymph % (Auto) 9.3 [place] % (Auto) 10.2 Eos % (Auto) 1.3 Baso % (Auto) 0.0 Immature Gran # (Auto) 0.02 Neut # (Auto) 6.71 H Lymph # (Auto) 0.79 L [place] # (Auto) 0.87 H Eos # (Auto) 0.11 Baso # (Auto) 0.00 PT INR Sodium 133 L Potassium 3.0 L D Chloride 98 Carbon Dioxide 25 Anion Gap 10.0 BUN 87 H Creatinine 3.34 H Est Cr Clr Drug Dosing 13.4 Est GFR ( Amer) 14.0 Est GFR (Non-Af Amer) 12.1 BUN/Creatinine Ratio 26.1 H Glucose 119 H POC Glucose 131 H Calcium 8.2 L Phosphorus 4.6 Magnesium 2.2
[2019-01-02] MEDS ORDERED: SCOPOLAMINE 1.5 MG TDSY TD SCH (10:00)
[2019-01-02] MEDS ORDERED: ATROPINE SULFATE 1% OP SOLN 2 ML BTL SL PRN (10:00)
[2019-01-02] MEDS: MoRPHine SULF/NSS 250 MG/250 ML BTL IV SCH (10:01)
--- NOTE | 2019-01-02 11:49 | Palliative Care Progress Note ---
Date of Service January 02, 2019 Assessment & Plan (1) Goals of care, counseling/discussion: -83 year old female with PMH afib on warfarin, htn, HLD, valvular heart disease with CHF, 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 Patient came from home where she has 24/7 caregivers. Apparently patient saw nephrology as outpatient and diuretic was held due to BRAXTON on CKD. On admission, BNP elevated, CXR showed pulmonary edema vs. pneumonia, creatinine 2.34 (2 at baseline) but has risen to 3.10 today. Patient was experiencing respiratory failure due to the volume overload, was admitted to ICU and trialed on Bipap but unable to tolerate. She is now on high-flow nasal cannula at 40LPM and 100% FiO2. She was seen by her client development director and started on 100mg IV Lasix TID. She is nonoliguric today, but overall condition not improved. Patient has known valvular disease, echo today showed mod-sev aortic stenosis, mod-sev tricuspid regurg, severely dilated bilateral atria, EF 40-45%. There was extensive discussion with patient, her son Luis, and Fernando Paz PA-C, last evening about goals of care. Patient was minimally able to participate given her lethargy and acute illness. Her son stated that she has been through a lot in the last 11 years and is tired. He does not want any heroics to be done, so patient was changed to DNR/DNI. Palliative care consulted to discuss goals of care. -Discussion held by Skiving Machine Operator and Hospitalist, patient transitioned to COMFORT MEASURES ONLY and a Morphine gtt started. Atropine gtts ordered as well. -Patient transferred to room 104. I met with patient, daughter and son at bedside. -Patient is very lethargic and has started to use accessory muscle for breathing. -Family understandably tearful. Support given. -Patient does have a defibrillator pacemaker - I called Jonathan from [employer] who was in the EP lab and he provided a magnet, which has been taped to her left anterior chest, to avoid shocking the patient at end-of-life. -Communication order placed in the computer to turn off detections/therapies for pacemaker. -Advised low threshold for increasing morphine gtt as patient had a big desaturation and was agitated when the HiFlow O2 was discontinued. -Will continue to offer support to family. Bereavement tray ordered. -Anticipate patient passing within hours to a day or two. Patient not stable for transfer out of hospital. Patients symptoms controlled. -PPS: 10% (2) ARF (acute renal failure): (3) CHF due to valvular disease: (4) Colon adenocarcinoma: Subjective Patient was transitioned to full comfort measures this morning. Now on Morphine gtt. Transferred to [facility], room 401. Patient opened eyes for me, states her throat hurts. pt daughter and son at bedside. See A/P for details Review of Systems Review of Systems: Unobtainable due to reduced consciousness Physical Exam Constitutional: + acute distress, + ill appearing and + in distress Eyes: PERRL, conjunctivae normal, anicteric sclerae ENMT: external ear and nose normal, oropharynx normal Neck: trachea midline, no thyromegaly Respiratory: Auscultation: + diminished lung sounds and + crackles (auditory) equal symmetry Cardiovascular: Rate/Rhythm: regular rate and + tachycardic Heart Sounds: normal S1, normal S2 and + murmur Gastrointestinal (Abdomen): normal bowel sounds, soft, nontender, no hepatosplenomegaly Inspection/Auscultation: + abdomen distended Skin: no rashes, warm and dry Psychiatric: Orientation: alert Results & Data Vital Signs (Past 12 Hours) Vital Signs Temp Pulse Pulse Resp BP Pulse Ox 01/02/19 10:01 59 L 21 116/69 95 01/02/19 09:01 63 33 H 125/65 94 01/02/19 08:02 62 32 H 129/65 94 01/02/19 08:00 63 18 93 01/02/19 07:01 56 L 26 H 116/73 97 01/02/19 06:02 69 33 H 116/49 L 93 01/02/19 05:01 59 L 27 H 121/54 L 93 01/02/19 04:01 58 L 29 H 122/63 96 01/02/19 04:00 36.6 C 01/02/19 03:17 62 24 95 01/02/19 03:01 61 26 H 125/63 95 01/02/19 02:01 62 26 H 129/58 L 95 01/02/19 01:01 60 19 113/55 L 96 01/02/19 00:15 36.9 C 01/02/19 00:01 59 L 23 118/56 L 97 Supervising Physician Co-Signing Physician Notes Patient seen and examined-patient's son and daughter at bedside. Patient appears comfortable, respirations less labored, patient did not respond to voice or touch on exam. PE: Appears comfortable Respirations: Using abdominal muscles, respirations unlabored CV: Bradycardia Extremities: Warm, no mottling Neuro: Unresponsive to voice or touch Agree with above note, assessment and plan as per TEOFILO Grande. Will continue comfort care-patient nearing end-of-life. Discussed end-of-life issues at length with son and daughter at bedside. Time Spent Midlevel Total time spent 35 minutes with > 50% of that time spent assessing patient, discussing goals of care with family and providing end of life support.
[2019-01-02] MEDS ORDERED: LORazepam 2 MG/4 ML VIAL ONE (12:43)
[2019-01-02] MEDS ORDERED: MoRPHine SULFATE 2 MG/ML CARP ONE (12:43)
[2019-01-02] MEDS: LORazepam 1 MG/2 ML VIAL IV PRN ×2 (12:50→20:27)
[2019-01-02] MEDS: MoRPHine SULFATE 2 MG/ML CARP IV PRN (12:50)
[2019-01-02] MEDS: CHECK SCOPOLAMINE PATCH PLACEMENT SCH (17:04)
[2019-01-02] MEDS: LORazepam 0.5 MG TAB PO SCH (21:35)
--- NOTE | 2019-01-02 22:29 | Hospitalist Progress Note ---
Date of Service January 02, 2019 Assessment & Plan (1) Acute respiratory failure with hypoxia: On 01/02 Patient transitioned to comfort care. Patient currently on scopolamine patch and morphine drip. Will continue to monitor. Anticipate patient will pass within next 24 hours. (2) PNA (pneumonia): As suggested on x-ray may be asymmetrical heart failure patient is no clinical pulmonary symptoms. She was however with acute respiratory failure with hypoxia Levaquin started in the ED, will continue Slightly elevated in WBC, afebrile Flu neg Patient is covered for pneumonia but the locomotive driver of this case may more be her acute on chronic systolic heart failure and acute on chronic diastolic heart failure from valvular heart disease Her typical wastewater operator is Dr Cherry, the family states she has had discussions about her aortic valve with Dr Cherry in the past As noted above, patient is not improving. 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 s/p c-scope 07/2018 Monitor (5) CKD stage 3 due to type 2 diabetes mellitus: Monitor cr, avoid nephrotoxic meds and dose medication appropriately for Cr Cl 20 (6) GERD (gastroesophageal reflux disease): pantoprozole (7) Diabetes: A1c 8.4 Lantus as at home SSI PRN (8) Hypertension: continue metoprolol holding lisinpril (9) Hyperlipidemia: zocor (10) CHF (congestive heart failure): acute on chronic systolic and diastolic heart failure last echo in July, showed severe aortic stenosis, EF 25 to 30% with left ventricular hypokinesis, moderate mitral and tricuspid regurg -On home Lasix but held past 9 days for BRAXTON, given 40 mg IV in ED, will continue spot diuresis as needed -Chest x-ray consistent with volume overload and cardiomegaly -EKG showed paced rhythm with prolonged QTC of 560, patient has AICD/pacer -Holding lisinopril for BRAXTON, continuing metoprolol and simvastatin permanent A. fibwe will hold home dose warfarin for now considering supratherapeutic INR -Continue metoprolol and amiodarone for rate control Hypertensioncontinue metoprolol, holding lisinopril Adenocarcinoma of the colon-patient was reportedly too high risk for resection, no intervention at this time DVT PROPHYLAXIS -SCDs, holding anticoagulation for elevated INR CODE STATUSLevel 5 Subjective Patient is transferred to [facility]. Patient is sedated on morphine. Does not provide history. Family at bedside. Review of Systems Review of Systems: Unobtainable due to reduced consciousness Physical Exam Physical Exam: Patient is resting comfortably. On IV drip. Not using accsory muscles to breath. Does not verbalize complaints. Heart: RRR Skin: extremities appears cold. PG Care Time/CCT Total # of Minutes Spent Total Time Spent with Patient: Total time spent is greater than 50% in coordination of care (as documented) at patient's floor/unit and/or counseling patient: (1) PNA (pneumonia) Laterality: right Lung location: middle lobe of lung Pneumonia type: due to unspecified organism Qualified Code(s): J18.1 - Lobar pneumonia, unspecified organism
[2019-01-03] MEDS: CHECK SCOPOLAMINE PATCH PLACEMENT SCH ×3 (00:08→15:20)
[2019-01-03] MEDS: MoRPHine SULFATE 2 MG/ML CARP IV PRN (08:04)
--- NOTE | 2019-01-03 13:04 | Palliative Care Progress Note ---
Date of Service January 03, 2019 Assessment & Plan (1) Goals of care, counseling/discussion: -Comfort measures only continues. Patient is on morphine gtt at 8mg/hr. -Patient reportedly had a difficult day yesterday as far as symptoms. She is now obtunded with a relaxed face and no s/s pain or discomfort. -Daughter is at bedside and reports that patient is quite comfortable and they are happy with the care she is receiving. -Patient is expected to in hours to possibly a day. Family aware. -Daughter does not want any changes in patients medications at this time. 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 Daughter is at bedside. Nursing and family report no new issues and patient is comfortable. Review of Systems Review of Systems: Unobtainable due to reduced consciousness Physical Exam Constitutional: no acute distress ENMT: external ear and nose normal, oropharynx normal Respiratory: normal respiratory effort, lungs clear to auscultation Auscultation: + diminished lung sounds RR 4-5 BPM Cardiovascular: Rate/Rhythm: regular rate and regular rhythm Extremities: no edema Gastrointestinal (Abdomen): Inspection/Auscultation: normal bowel sounds Percussion/Palpation: abdomen soft Skin: no rashes, warm and dry Neurologic: + obtunded Time Spent Midlevel 35 minutes with >50% of the time spent at bedside with patient and family discussing condition and GOC.
[2019-01-03] MEDS: MoRPHine SULF/NSS 250 MG/250 ML BTL IV SCH (17:16)
[2019-01-03] MEDS: LORazepam 0.5 MG TAB PO SCH (20:30)
[2019-01-03] MEDS: LORazepam 1 MG/2 ML VIAL IV PRN (21:42)
[2019-01-04] MEDS: CHECK SCOPOLAMINE PATCH PLACEMENT SCH (00:05)
--- NOTE | 2019-01-04 09:21 | Hospitalist Progress Note ---
Date of Service January 03, 2019 Assessment & Plan (1) Acute respiratory failure with hypoxia: On 01/03 Patient transitioned to comfort care on 01/02 Patient currently on scopolamine patch and morphine drip. Will continue to monitor. Anticipate patient will pass within next 12 hours. (2) PNA (pneumonia): Below in plan prior to transitioning to comfort measures. As suggested on x-ray may be asymmetrical heart failure patient is no clinical pulmonary symptoms. She was however with acute respiratory failure with hypoxia Levaquin started in the ED, will continue Slightly elevated in WBC, afebrile Flu neg Patient is covered for pneumonia but the test driver of this case may more be her acute on chronic systolic heart failure and acute on chronic diastolic heart failure from valvular heart disease Her typical radio/tv technician is Dr Cherry, the family states she has had discussions about her aortic valve with Dr Cherry in the past As noted above, patient is not improving. 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 s/p c-scope 07/2018 Monitor (5) CKD stage 3 due to type 2 diabetes mellitus: Monitor cr, avoid nephrotoxic meds and dose medication appropriately for Cr Cl 20 (6) GERD (gastroesophageal reflux disease): pantoprozole (7) Diabetes: A1c 8.4 Lantus as at home SSI PRN (8) Hypertension: continue metoprolol holding lisinpril (9) Hyperlipidemia: zocor (10) CHF (congestive heart failure): acute on chronic systolic and diastolic heart failure last echo in July, showed severe aortic stenosis, EF 25 to 30% with left ventricular hypokinesis, moderate mitral and tricuspid regurg -On home Lasix but held past 9 days for BRAXTON, given 40 mg IV in ED, will uche nue spot diuresis as needed -Chest x-ray consistent with volume overload and cardiomegaly -EKG showed paced rhythm with prolonged QTC of 560, patient has AICD/pacer -Holding lisinopril for BRAXTON, continuing metoprolol and simvastatin permanent A. fibwe will hold home dose warfarin for now considering supratherapeutic INR -Continue metoprolol and amiodarone for rate control Hypertensioncontinue metoprolol, holding lisinopril Adenocarcinoma of the colon-patient was reportedly too high risk for resection, no intervention at this time DVT PROPHYLAXIS -SCDs, holding anticoagulation for elevated INR CODE STATUSLevel 5 Subjective Patient is comfort measures only. Patient does not verbalize any complaints. Family was not at bedside when I was examining patient. Review of Systems Review of Systems: Unobtainable due to reduced consciousness Physical Exam Physical Exam: Patient is resting comfortably. On IV drip. Not using accsory muscles to breath. Does not verbalize complaints. Heart: RRR Skin: extremities appears cold PG Care Time/CCT Total # of Minutes Spent Total Time Spent with Patient: Total time spent is greater than 50% in coordination of care (as documented) at patient's floor/unit and/or counseling patient: (1) PNA (pneumonia) Laterality: right Lung location: middle lobe of lung Pneumonia type: due to unspecified organism Qualified Code(s): J18.1 - Lobar pneumonia, unspecified organism
--- NOTE | 2019-01-10 20:17 | Death Summary ---
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 Patient came from home where she has 24/7 caregivers. Apparently patient saw nephrology as outpatient and diuretic was held due to BRAXTON on CKD. On admission, BNP elevated, CXR showed pulmonary edema vs. pneumonia, creatinine 2.34 (2 at baseline) but has risen to 3.10 today. Patient was experiencing respiratory failure due to the volume overload, was admitted to ICU and trialed on Bipap but unable to tolerate. She is now on high-flow nasal cannula at 40LPM and 100% FiO2. She was seen by her commercial solar sales consultant and started on 100mg IV Lasix TID. She was nonoliguric, and condition did not improved. Patient has known valvular disease, echo showed mod-sev aortic stenosis, mod-sev tricuspid regurg, severely dilated bilateral atria, EF 40-45%. There was extensive discussion with patient, her son Luis, and Fernando Paz PA-C. Patient was minimally able to participate given her lethargy and acute illness. Her son stated that she has been through a lot in the last 11 years and is tired. He does not want any heroics to be done, so patient was changed to DNR/DNI. Shortly after, she was transitioned to comfort measures only. She on 01/04/19 Additional Data Confirmation of : no pulse, no respirations and no heart sounds Attending physician: John Moya Was code activated?: No Autopsy requested?: No customs examiner notified?: No
== END 2019-01-04 06:10 | disposition expired | DRG 291 ==
LOC: ED 15:22 → 1E 21:22 → SUATTDRO 21:22 → 1E 22:24 → 4E 01-02 11:14